=== PATIENT | female | born 1935 | race Caucasian/White ===

== ENCOUNTER 2017-11-13 12:29 | Observation (INO) | payer OTHER ==
--- NOTE | 2017-11-13 13:50 | RAD REPORT ---
EXAM DESCRIPTION: RAD - Chest Single View - 11/13/2017 1:42 pm CLINICAL HISTORY: Chest pain. COMPARISON: None. FINDINGS: Portable technique limits examination quality. The lungs are grossly clear. The heart is normal in size. No displaced fractures. IMPRESSION: No acute intrathoracic process suspected.
[2017-11-13 14:10] LABS: Absolute Lymphocytes (CBC) 2.1 K/uL (0.7-4.9); Absolute Monocytes 0.5 K/uL (0.1-1.3); Absolute Neutrophil 5.1 K/uL (1.8-8.0); Basophils % 0.4 % (0-1.3); Hematocrit 42.1 % (36.0-45.0); MCH 30.6 pg (27.0-35.0); MCV 93.5 fL (80-100); Monocytes % 6.7 % (3.3-12.3)
[2017-11-13 14:19] LABS: Protime INR 0.97
--- NOTE | 2017-11-13 14:20 | RAD REPORT ---
EXAM DESCRIPTION: CT - Head Brain Wo Cont - 11/13/2017 2:12 pm CLINICAL HISTORY: History of Parkinson's disease. Altered consciousness. COMPARISON: CT head 11/13/2017 TECHNIQUE: All CT scans are performed using dose optimization technique as appropriate and may inclu de automated exposure control or mA/KV adjustment according to patient size. FINDINGS: No intracranial hemorrhage, hydrocephalus or extra-axial fluid collection.Mild generalized brain atrophy is present with mild periventricular and deep white matter chronic microvascular ische tabatha changes.No areas of brain edema or evidence of midline shift. The paranasal sinuses and mastoids are clear. The calvarium is intact. IMPRESSION: No acute intracranial abnormality.
[2017-11-13 14:25] LABS: Albumin 3.8 g/dL (3.2-5.5); Bilirubin Direct 0.2 mg/dL (0-0.2); Magnesium 1.9 mg/dL (1.8-2.5); Protein, Total 6.5 g/dL (6.0-8.3)
--- NOTE | 2017-11-13 14:51 | EDPHYS ---
Physician Documentation [facility] Name: Lety Ontiveros Age: 82 yrs Sex: Female : 1935 Arrival Date: 11/13/2017 Time: 12:32 Bed 13 Private MD: ED Physician Cesario Bowling HPI: 11/13 14:40 This 82 yrs old Female presents to ER via Wheelchair with complaints of gs Shaking. 14:40 The patient presents with confusion. Onset: The symptoms/episode began/occurred 2 gs day(s) ago. Possible causes: CVA or TIA, exacerbation parkinsonism. Associated signs and symptoms: Pertinent negatives: abdominal pain, chest pain. Current symptoms: In the emergency department the patient's symptoms are unchanged from the initial presentation. The patient has experienced similar episodes in the past, a few times. The patient has not recently seen a physician. Historical: - Allergies: 12:43 PENICILLINS; lk1 - PMHx: 12:43 Parkinsons; neuropathy; Cancer, Breast; CVA; CHF; bowel obstruction; lk1 - PSHx: 12:43 masectomy right; Cholecystectomy; colon resection; Appendectomy; Hysterectomy; lk1 - Immunization history:: Adult Immunizations up to date. - Social history:: Smoking status: Patient/guardian denies using tobacco. ROS: 14:40 Constitutional: Negative for fever. gs 14:40 All other systems are negative. Exam: 14:40 Head/Face: Normocephalic, atraumatic. Eyes: Pupils equal round and reactive to light, gs extra-ocular motions intact. Lids and lashes normal. Conjunctiva and sclera are non-icteric and not injected. Cornea within normal limits. Periorbital areas with no swelling, redness, or edema. ENT: Nares patent. No nasal discharge, no septal abnormalities noted. Tympanic membranes are normal and external auditory canals are clear. Oropharynx with no redness, swelling, or masses, exudates, or evidence of obstruction, uvula midline. Mucous membranes moist. Neck: Trachea midline, no thyromegaly or masses palpated, and no cervical lymphadenopathy. Supple, full range of motion without nuchal rigidity, or vertebral point tenderness. No Meningismus. Chest/axilla: Normal chest wall appearance and motion. Nontender with no deformity. No lesions are appreciated. Cardiovascular: Regular rate and rhythm with a normal S1 and S2. No gallops, murmurs, or rubs. Normal PMI, no JVD. No pulse deficits. Respiratory: Lungs have equal breath sounds bilaterally, clear to auscultation and percussion. No rales, rhonchi or wheezes noted. No increased work of breathing, no retractions or nasal flaring. Abdomen/GI: Soft, non-tender, with normal bowel sounds. No distension or tympany. No guarding or rebound. No evidence of tenderness throughout. Back: No spinal tenderness. No costovertebral tenderness. Full range of motion. Skin: Warm, dry with normal turgor. Normal color with no rashes, no lesions, and no evidence of cellulitis. MS/ Extremity: Pulses equal, no cyanosis. Neurovascular intact. Full, normal range of motion. 14:40 Constitutional: The patient appears awake, lethargic. 14:40 Neuro: Orientation: Not oriented to place, time, situation, Cranial nerves: CN II- XII are normal as tested, Cerebellar function: no acute changes, Motor: moves all fours, strength is normal, Sensation: no obvious gross deficits, Abnormal movements: resting tremor, is located in the left hand. 14:50 ECG was reviewed by the Attending Physician. Vital Signs: 12:44 BP 131 / 107; Pulse 77; Resp 22; Temp 97.5(TE); Pulse Ox 95% on R/A; Weight 86.18 kg lk1 (R); Height 5 ft. 4 in. (162.56 cm) (R); Pain 9/10; 14:00 BP 163 / 87; Pulse 67; Resp 18 S; Pulse Ox 95% on R/A; jl7 16:29 BP 149 / 91; Pulse 70; Resp 16; Pulse Ox 96% ; jl7 12:44 Body Mass Index 32.61 (86.18 kg, 162.56 cm) lk1 MDM: 13:13 Patient medically screened. 14:40 Differential Diagnosis: CVA, electrolyte abnormality, intracranial bleed, sepsis. Data reviewed: vital signs, nurses notes. Response to treatment: the patient's symptoms have markedly improved after treatment, knows age, place,, name. Physician consultation: Efrain Hoff MD and will see patient in inpatient room, would like admission per Dr. Pauline Palm MD. 11/13 13:14 Order name: Basic Metabolic Panel; Complete Time: 14:29 11/13 13:14 Order name: BNP; Complete Time: 14:29 11/13 13:14 Order name: CBC with Diff; Complete Time: 14:29 11/13 13:14 Order name: CPK; Complete Time: 14:29 11/13 13:14 Order name: LFT's; Complete Time: 14:29 11/13 13:14 Order name: Magnesium; Complete Time: 14:29 11/13 13:14 Order name: PT-INR; Complete Time: 14:29 11/13 13:14 Order name: Troponin (emerg Dept Use Only); Complete Time: 14:29 11/13 13:14 Order name: XRAY Chest (1 view); Complete Time: 14:29 11/13 13:14 Order name: CT Head Brain wo Cont; Complete Time: 14:29 11/13 14:32 Order name: AMMONIA 11/13 14:33 Order name: Ammonia [facility] 11/13 16:14 Order name: Urinalysis [facility] 11/13 16:16 Order name: Stroke Protocol [facility] 11/13 13:14 Order name: EKG; Complete Time: 13:15 11/13 13:14 Order name: Cardiac monitoring; Complete Time: 14:57 11/13 13:14 Order name: EKG - Nurse/Tech; Complete Time: 14:57 11/13 13:14 Order name: IV Saline Lock; Complete Time: 13:52 11/13 13:14 Order name: Labs collected and sent; Complete Time: 13:52 11/13 13:14 Order name: O2 Per Protocol; Complete Time: 14:57 11/13 13:14 Order name: O2 Sat Monitoring; Complete Time: 14:57 11/13 16:14 Order name: CONS Physician Consult [facility] 11/13 16:14 Order name: Heart Healthy [facility] 11/13 16:18 Order name: Echo with Doppler [facility] EC:50 Rate is 72 beats/min. Rhythm is regular. WA interval is normal. QRS interval is normal. gs QT interval is normal. T waves are Normal. No ST changes noted. Clinical impression: Normal ECG. Interpreted by me. Administered Medications: 16:28 Drug: Ibuprofen 600 mg Route: PO; jl7 18:53 Follow up: Response: No adverse reaction jl7 Disposition: 11/13/17 14:50 Hospitalization ordered by Pauline Palm for Observation. Preliminary diagnosis are Altered mental status, unspecified, Parkinson's disease. - Bed requested for Telemetry/MedSurg (observation). - Status is Observation. jl7 - Condition is Stable. - Problem is an acute exacerbation. - Symptoms have improved. UTI on Admission? No Signatures: Dispatcher [employer] EDMS Saskia Phelps, RN RN iw Sheryl King, RN RN lk1 Deedee Vincent, RN RN jl7 Cesario Bowling MD MD gs Corrections: (The following items were deleted from the chart) 18:04 14:50 Hospitalization Ordered by Pauline Palm MD for Observation. Preliminary iw diagnosis is Altered mental status, unspecified; Parkinson's disease. Bed requested for Telemetry/MedSurg (observation). Status is Observation. Condition is Stable. Problem is an acute exacerbation. Symptoms have improved. UTI on Admission? No. gs 18:54 18:04 11/13/2017 14:50 Hospitalization Ordered by Pauline Palm MD for Observation. jl7 Preliminary diagnosis is Altered mental status, unspecified; Parkinson's disease. Bed requested for Telemetry/MedSurg (observation). Status is Observation. Condition is Stable. Problem is an acute exacerbation. Symptoms have improved. UTI on Admission? No. iw
--- NOTE | 2017-11-13 14:51 | ER ---
Nurse's Notes [facility] Name: Lety Ontiveros Age: 82 yrs Sex: Female : 1935 Arrival Date: 11/13/2017 Time: 12:32 Bed 13 Private MD: Diagnosis: Altered mental status, unspecified;Parkinson's disease Presentation: 11/13 12:40 Presenting complaint: Child states: "She can't talk and understand things, she is lk1 confused and shaking more. We called Dr. Hoff and he wants to be notified and he may keep her in the hospital to adjust her Parkisons meds.". Transition of care: patient was not received from another setting of care. Onset of symptoms is unknown. Risk Assessment: Do you want to hurt yourself or someone else? Patient reports no desire to harm self or others. Initial Sepsis Screen: Does the patient meet any 2 criteria? No. Patient's initial sepsis screen is negative. Does the patient have a suspected source of infection? No. Patient's initial sepsis screen is negative. Care prior to arrival: None. 12:40 Method Of Arrival: Wheelchair lk1 12:40 Acuity: FLORES 3 lk1 Triage Assessment: 12:43 General: Appears in no apparent distress. Behavior is calm, cooperative, appropriate lk1 for age. Pain: Complains of pain in "all over my body" Pain currently is 9 out of 10 on a pain scale. Neuro: Level of Consciousness is awake, alert, obeys commands, Oriented to person, place, time, situation. Historical: - Allergies: 12:43 PENICILLINS; lk1 - PMHx: 12:43 Parkinsons; neuropathy; Cancer, Breast; CVA; CHF; bowel obstruction; lk1 - PSHx: 12:43 masectomy right; Cholecystectomy; colon resection; Appendectomy; Hysterectomy; lk1 - Immunization history:: Adult Immunizations up to date. - Social history:: Smoking status: Patient/guardian denies using tobacco. Screenin:50 Abuse screen: Denies threats or abuse. Denies injuries from another. Nutritional jl7 screening: No deficits noted. Tuberculosis screening: No symptoms or risk factors identified. Fall Risk Secondary diagnosis (15 points) impaired mobility, IV access (20 points). Ambulatory Aid- Gait- Weak (10 pts.). Total Epperson Fall Scale indicates High Risk Score (45 or more points). Fall prevention measures have been instituted. Side Rails Up X 2 Placed Close to Nursing Station Frequent Obs/Assessments Occuring Family Present and informed to notify staff if the need to leave the bedside As available patient and family educated on Fall Prevention Program and Strategies. Assessment: 13:50 General: Appears in no apparent distress. uncomfortable, Behavior is calm, cooperative, jl7 appropriate for age. Pain: Complains of pain in "I'm always in pain all over my body.". Neuro: Level of Consciousness is awake, alert, obeys commands, Oriented to person, place, time, situation. Cardiovascular: Patient's skin is warm and dry. Respiratory: Airway is patent Respiratory effort is even, unlabored, Respiratory pattern is regular, symmetrical. GI: No signs and/or symptoms were reported involving the gastrointestinal system. : No signs and/or symptoms were reported regarding the genitourinary system. EENT: No signs and/or symptoms were reported regarding the EENT system. Derm: Skin is pink, warm \\T\\ dry. Musculoskeletal: Reports Increased shaking all over. 14:59 Reassessment: No changes from previously documented assessment. Patient and/or family jl7 updated on plan of care and expected duration. Pain level reassessed. Patient is alert, oriented x 3, equal unlabored respirations, skin warm/dry/pink. 16:20 Reassessment: Pt requesting something for pain, provider notified, see MAR for orders. jl7 18:45 Reassessment: Pt returned from MRI, transported to the floor via Wheelchair. jl7 Vital Signs: 12:44 BP 131 / 107; Pulse 77; Resp 22; Temp 97.5(TE); Pulse Ox 95% on R/A; Weight 86.18 kg lk1 (R); Height 5 ft. 4 in. (162.56 cm) (R); Pain 9/10; 14:00 BP 163 / 87; Pulse 67; Resp 18 S; Pulse Ox 95% on R/A; jl7 16:29 BP 149 / 91; Pulse 70; Resp 16; Pulse Ox 96% ; jl7 12:44 Body Mass Index 32.61 (86.18 kg, 162.56 cm) lk1 ED Course: 12:32 Patient arrived in ED. mr 12:41 Triage completed. lk1 12:47 Arm band placed on right wrist. lk1 12:48 Cesario Bowling MD is Attending Physician. gs 13:[address] via stretcher. kw1 13:42 X-ray completed. Portable x-ray completed in exam room. Patient tolerated procedure jb2 well. 13:42 XRAY Chest (1 view) In Process Unspecified. EDMS 13:43 Radiology exam delayed due to Staff is starting Pt's IV at this time. Will check back kw1 in 10 min. 13:50 Patient has correct armband on for positive identification. Bed in low position. Call jl7 light in reach. Side rails up X2. Pulse ox on. NIBP on. 13:52 Initial lab(s) drawn, by me, sent to lab. Inserted saline lock: 20 gauge in left em1 antecubital area, using aseptic technique. Blood collected. 13:[address] via wheelchair. kw1 14:12 CT Head Brain wo Cont In Process Unspecified. EDMS 14:13 CT completed. Patient tolerated procedure well. Patient moved back from CT. mw3 14:25 Deedee Vincent, RN is Primary Nurse. jl7 14:27 EKG done, by community service technician. reviewed by Cesario Bowling MD. 3 14:50 Pauline Palm MD is Hospitalizing Provider. gs 16:41 Patient moved to MRI via wheelchair. lc 18:00 Inserted saline lock: 22 gauge in left hand, using aseptic technique. ag 18:51 No provider procedures requiring assistance completed. Patient admitted, IV remains in jl7 place. Administered Medications: 16:28 Drug: Ibuprofen 600 mg Route: PO; jl7 18:53 Follow up: Response: No adverse reaction jl7 Outcome: 14:50 Decision to Hospitalize by Provider. gs 18:51 Admitted to Tele accompanied by tech, family with patient, via wheelchair, with chart, jl7 Report called to JAKE Alanis 18:51 Condition: stable 18:51 Discharge instructions given to patient, family, Instructed on the need for admit, Demonstrated understanding of instructions. 18:54 Patient left the ED. jl7 Signatures: Dispatcher [employer] EDCO Minna Banegas mr Bravo Inder jb2 Barbara Bonilla, Jimmy em1 Nataliia Cavazos Leah, RN RN lk1 Deedee Vincent RN RN jl7 Cesario Bowling MD MD Alayna Reynoso1 Maricarmen Perkins 3 Maria Antonia [place] 3
--- NOTE | 2017-11-13 16:03 | EKG ---
Test Date: 2017-11-13 Test Time: 13:27:10 Draw Frame Tender: ARLETTE MEASUREMENT RESULTS: Intervals: Rate: 72 SC: 180 QRSD: 82 QT: 402 QTc: 440 [place]: P: 27 SC: 180 QRS: -8 T: 41 INTERPRETIVE STATEMENTS: Normal sinus rhythm Normal ECG Compared to ECG 01/03/2006 11:19:22 No significant changes Electronically Signed On 11-13-17 16:02:38 CDT by Nishant Hall
[2017-11-13] MEDS ORDERED: ONDANSETRON 4 MG/2 ML VIAL IV PRN (16:12)
[2017-11-13] MEDS ORDERED: ACETAMINOPHEN 500 MG TAB PO PRN (16:12)
[2017-11-13] MEDS ORDERED: ACETAMINOPHEN 325 MG TABLET ONE (16:18)
[2017-11-13] MEDS ORDERED: IBUPROFEN 200 MG TAB PO ONE (16:23)
[2017-11-13] MEDS ORDERED: IBUPROFEN 400 MG TAB ONE (16:23)
--- NOTE | 2017-11-13 16:51 | P.HP ---
Certification for Inpatient Patient admitted to: Observation With expected LOS: <2 Midnights Patient will require the following post-hospital care: None Practitioner: I am a practitioner with admitting privileges, knowledge of patient current condition, hospital course, and medical plan of care. Services: Services provided to patient in accordance with Admission requirements found in Title 42 Section 412.3 of the Code of Federal Regulations Patient History Date of Service: 11/13/17 Primary Care Provider: Dr Hoff - Neurology Reason for admission: Increased Shaking History of Present Illness: 82 y/Old female with significant past medical history of CVA, CHF, Parkinson's disease who presented to the ED with her family. Family at bedside told the ED physician that she has not been able to talk and understand things. Patient has been confused and shaking more than usual at home. Family called Dr Hoff neurologist, at his office and he wanted patient to be taken to the ER for further evaluation and possible admission to adjust her medications. Patient's family stated that her confusion started about 2-3 days ago mostly after Monday where she has been having trouble understanding things. Patient denies having any fever chills nausea vomiting chest pain or shortness of breath at this time. Aside from increasing shaking and intermittent confusion patient does not have any other symptoms at this time for complaints to offer. Allergies Penicillins Allergy (Verified 11/13/17 16:30) UNK - Past Medical/Surgical History -: CVA -: CHF -: Parkinson's Disease -: Dementia Review of Systems General: As per HPI Physical Examination - Physical Exam General: Alert, In no apparent distress, Oriented x3 HEENT: Atraumatic Neck: Supple Respiratory: Clear to auscultation bilaterally, Normal air movement Cardiovascular: Regular rate/rhythm, Normal S1 S2 Gastrointestinal: Normal bowel sounds, Soft and benign, Non-distended, No tenderness Musculoskeletal: Other (Pillrolling tremors upper Extermites) Integumentary: No rashes Neurological: Normal speech, Normal strength at 5/5 x4 extr, Normal tone, Sensation intact, Cranial nerves 3-12 intact, Normal reflexes 2+, Normal affect , Dementia Lymphatics: No axilla or inguinal lymphadenopathy - Studies Laboratory Data (last 24 hrs) 11/13/17 13:45: PT 11.4, INR 0.97 11/13/17 13:45: WBC 7.8, Hgb 13.8, Hct 42.1, Plt Count 347 11/13/17 13:45: B-Natriuretic Peptide 12 11/13/17 13:45: Sodium 140, Potassium 4.0, BUN 19, Creatinine 0.90, Glucose 110 , Magnesium 1.9, Total Bilirubin 1.0, AST 20, ALT 9 L, Alkaline Phosphatase 75 Assessment and Plan - Problems (Diagnosis) (1) Altered mental status Current Visit: Yes Status: Resolved Plan: AMS per family. However Pt AAOx 3 When I assessed her. -Neurology consulted. Awaiting reccs -MRI head pending -Urine negative, Head CT WNL and xray with no signs of acute abnormality. -Will repeat lab in AM Qualifiers: Altered mental status type: unspecified Qualified Code(s): R41.82 - Altered mental status, unspecified (2) Parkinson disease Current Visit: Yes Status: Chronic Plan: Most Likely pt symptoms of Increase shakes and AMS consistent with Progression of PD dementia -Await Neurology consult. (3) CHF (congestive heart failure) Current Visit: Yes Status: Acute Plan: H/O CHF. -ECHO ordered -Restart home medication Qualifiers: Heart failure type: unspecified Heart failure chronicity: unspecified Qualified Code(s): I50.9 - Heart failure, unspecified (4) CVA (cerebral vascular accident) Current Visit: Yes Status: Chronic Plan: H/O CVA with no neurological Deficets now with intermittent Confusion per family -ASA and Lipitor -PT consulted -MRI stroke protocol pending. Qualifiers: CVA mechanism: unspecified Qualified Code(s): I63.9 - Cerebral infarction, unspecified Discharge Plan: Home - Advance Directives Does patient have a Living Will: No Does patient have a Durable POA for Healthcare: No - Code Status/Comfort Care Code Status Assessed: Yes Critical Care: No
--- NOTE | 2017-11-13 18:58 | RAD REPORT ---
EXAM DESCRIPTION: MRI - Stroke Protocol - 11/13/2017 6:43 pm CLINICAL HISTORY: CVA. COMPARISON: 10/11/2017 TECHNIQUE: MRI of brain with diffusion-weighted imaging with contrast 3D [id number] non contrast MR angiography of the agdaagux of [place]. 2D [id number] post contrast MR angiography of the neck vessels. Approximately 20 cc of Magnevist contrast was administered during the study. FINDINGS: No intracranial hemorrhage, hydrocephalus or extra-axial fluid collection is seen. Gliosis is noted in the right frontotemporal region, likely related to previous CVA and unchanged.No areas o f brain edema or midline shift. No intracranial mass lesion. Diffusion-weighted imaging is negative for acute CVA. The midline structures are normally formed. Post-contrast imaging through the brain shows no abnormal enhancement to suggest tumor or infection. Mastoid air cells and paranasal sinuses are clear. MR angiography of the agdaagux of [place] shows no aneurysm, flow-limiting stenosis or vascular malforma tion. MR angiography of the neck vessels shows mild narrowing of both carotid bulbs. Antegrade flow is seen in both vertebral arteries. IMPRESSION: No evidence of acute CVA.
[2017-11-13 20:27] LABS: Urine Appearance CLOUDY; Urine Bilirubin NEGATIVE (NEG); Urine Blood NEGATIVE (NEG); Urine Color YELLOW; Urine Glucose NEGATIVE (NEG); Urine Protein NEGATIVE (NEG); Urine Specific Gravity >=1.030 (1.005-1.030); Urine Urobilinogen 0.2 mg/dL (0.2-1.0); Urine pH 5.5 (5.0-7.0)
[2017-11-13 20:29] LABS: Urine Microscopic Reflex ORDER UMIC
[2017-11-13 21:00] LABS: Urine Bacteria 20-50 /HPF (<20); Urine Culture Reflex Order REFLEXED; Urine Mucus 1+ /HPF (NONE SEEN); Urine RBC <5 /HPF (NONE SEEN)
[2017-11-13] MEDS ORDERED: ATORVASTATIN 80 MG TAB PO SCH (21:00)
[2017-11-13] MEDS: TEMAZEPAM 15 MG CAP PO PRN (23:06)
[2017-11-14] MEDS ORDERED: LINACLOTIDE 72 MCG PO SCH (08:45)
[2017-11-14] MEDS ORDERED: ASPIRIN EC 81 MG TAB PO SCH (09:00)
[2017-11-14] MEDS: DICYCLOMINE HCL 10 MG CAP PO SCH (10:24)
[2017-11-14] MEDS: MULTIVIT W/ MINERAL TAB PO SCH (10:24)
[2017-11-14] MEDS: ASPIRIN EC 81 MG TAB PO SCH (10:24)
[2017-11-14] MEDS: GABAPENTIN 300 MG CAP PO SCH ×3 (10:24→20:18)
[2017-11-14] MEDS: CARBIDOPA/LEVODOPA 25/250 TAB PO SCH ×3 (10:25→20:20)
[2017-11-14] MEDS: ROPINIROLE HCL 0.25 MG TAB PO SCH ×3 (10:25→20:20)
[2017-11-14] MEDS: ATORVASTATIN 40 MG TAB PO SCH ×2 (10:25→20:20)
[2017-11-14] MEDS: PANTOPRAZOLE 40MG TABLET PO SCH (10:25)
[2017-11-14] MEDS: CODEINE 30MG/APAP 300MG TAB PO PRN ×3 (11:48→21:23)
--- NOTE | 2017-11-14 12:16 | ECHO ---
HEIGHT: 5 ft 4 in WEIGHT: 190 lb 0 oz DATE OF STUDY: 11/14/[address]: Pauline Palm MD 2-DIMENSIONAL: YES M.MODE: YES DOPPLER: YES COLOR FLOW: YES TDS: YES PORTABLE: NO DEFINITY: NO BUBBLE STUDY: NO DIAGNOSIS: SHORTNESS OF BREATH CARDIAC HISTORY: CATHERIZATION: NO SURGERY: NO PROSTHETIC VALVE: NO PACEMAKER: NO MEASUREMENTS (cm) DIASTOLIC (NORMALS) SYSTOLIC (NORMALS) IVSd 1.1 (0.6-1.2) LA Diam 3.3 (1.9-4.0) LVEF 75% LVIDd 3.2 (3.5-5.7) LVIDs 1.8 (2.0-3.5) %FS 43% LVPWd 1.1 (0.6-1.2) Ao Diam 3.1 (2.0-3.7) 2 DIMENSIONAL ASSESSMENT: RIGHT ATRIUM: NORMAL LEFT ATRIUM: NORMAL RIGHT VENTRICLE: NORMAL LEFT VENTRICLE: NORMAL TRICUSPID VALVE: NORMAL MITRAL VALVE: NORMAL PULMONIC VALVE: NORMAL AORTIC VALVE: NORMAL PERICARDIAL EFFUSION: NONE AORTIC ROOT: NORMAL LEFT VENTRICULAR WALL MOTION: DOPPLER/COLOR FLOW: PHYSIOLOGIC TRICUSPID REGURGITATION. NORMAL RIGHT VENTRICULAR SYSTOLIC PRESSURE. IMPAIRED LEFT VENTRICULAR RELAXATION. COMMENTS: NORMAL LEFT VENTRICULAR EJECTION FRACTION. NORMAL 2D ECHOCARDIOGRAM. IMPAIRED LEFT VENTRICULAR RELAXATION. TECHNOLOGIST: James GLOVER
--- NOTE | 2017-11-14 13:59 | P.SSS ---
Patient History Date of Service: 11/14/17 Primary Care Provider: Dr Hoff - Neurology Reason for admission: Increased Shaking History of Present Illness: 82 y/Old female with significant past medical history of CVA, CHF, Parkinson's disease who presented to the ED with her family. Family at bedside told the ED physician that she has not been able to talk and understand things. Patient has been confused and shaking more than usual at home. Family called Dr Hoff neurologist, at his office and he wanted patient to be taken to the ER for further evaluation and possible admission to adjust her medications. Patient's family stated that her confusion started about 2-3 days ago mostly after Monday where she has been having trouble understanding things. Patient denies having any fever chills nausea vomiting chest pain or shortness of breath at this time. Aside from increasing shaking and intermittent confusion patient does not have any other symptoms at this time for complaints to offer. Allergies Penicillins Allergy (Verified 11/13/17 19:30) UNK Home Medications: Acetaminophen with Codeine [Acetaminophen-Cod #3 Tablet] 1 each PO PRN PRN 11/13 Aspirin [Aspirin EC 81 MG] 81 mg PO DAILY 11/13/17 Atorvastatin Calcium [Lipitor] 40 mg PO DAILY 11/13/17 Carbidopa/Levodopa [Carbidopa-Levo 25-250 mg Odt] 1 tab PO TID 11/13/17 Dicyclomine HCl 20 mg PO SEECOM 11/13/17 Gabapentin [Neurontin*] 300 mg PO TID 11/13/17 Linaclotide [Linzess] 72 mcg PO SEECOM 11/13/17 Multivitamin [Multivitamins] 1 cap PO DAILY 11/13/17 Pantoprazole [Protonix Tab*] 40 mg PO DAILY 11/13/17 Ropinirole HCl [Requip*] 0.25 mg PO TID 11/13/17 Temazepam [Restoril*] 30 mg PO BEDTIME PRN 11/13/17 - Past Medical/Surgical History Has patient received pneumonia vaccine in the past: Yes Diabetic: No -: CVA -: CHF -: Parkinson's Disease -: Dementia -: right mastectomy -: cholecystectomy -: colon resection -: appendectomy -: hysterectomy - Social History Smoking Status: Never smoker Alcohol use: Yes Place of Residence: Home Review of Systems General: As per HPI Physical Examination - Vital Signs Temperature: 97.0 F Blood Pressure: 150/78 Pulse: 78 Respirations: 18 Pulse Ox (%): 92 - Physical Exam General: Alert, Oriented x3, Other (left arm intentional Shaking noted. ) HEENT: Atraumatic Neck: Supple Respiratory: Clear to auscultation bilaterally, Normal air movement Cardiovascular: Regular rate/rhythm, Normal S1 S2 Gastrointestinal: Normal bowel sounds, Soft and benign, Non-distended, No tenderness Musculoskeletal: No tenderness Integumentary: No rashes Neurological: Normal speech, Normal strength at 5/5 x4 extr, Normal tone, Abnormal gait (Box Gait) Lymphatics: No axilla or inguinal lymphadenopathy - Studies Laboratory Data (last 24 hrs) 11/13/17 13:45: PT 11.4, INR 0.97 11/13/17 13:45: WBC 7.8, Hgb 13.8, Hct 42.1, Plt Count 347 11/13/17 13:45: B-Natriuretic Peptide 12 11/13/17 13:45: Sodium 140, Potassium 4.0, BUN 19, Creatinine 0.90, Glucose 110 , Magnesium 1.9, Total Bilirubin 1.0, AST 20, ALT 9 L, Alkaline Phosphatase 75 - Diagnosis (Problem(s)) (1) Altered mental status Onset Date: 11/14/17 Current Visit: Yes Status: Ruled-out Plan: Resolved now -Neurology consulted. Reccs Appreciated -MRI negative and ECHO WNL -Urine negative, Head CT WNL and xray with no signs of acute abnormality. - Pt symptoms are most likely 2.2 progression of her Parkinson disease. CVA is ruled out at this point. Qualifiers: Altered mental status type: unspecified Qualified Code(s): R41.82 - Altered mental status, unspecified (2) Parkinson disease Onset Date: 11/14/17 Current Visit: Yes Status: Chronic Plan: Most Likely pt symptoms of Increase shakes and AMS consistent with Progression of PD dementia (3) CHF (congestive heart failure) Onset Date: 11/14/17 Current Visit: Yes Status: Acute Plan: H/O CHF. -ECHO WNL -Restart home medication Qualifiers: Heart failure type: unspecified Heart failure chronicity: unspecified Qualified Code(s): I50.9 - Heart failure, unspecified (4) CVA (cerebral vascular accident) Onset Date: 11/14/17 Current Visit: Yes Status: Chronic Plan: H/O CVA with no neurological Deficits now with intermittent Confusion per family -ASA and Lipitor No Acute CVA this time. Qualifiers: CVA mechanism: unspecified Qualified Code(s): I63.9 - Cerebral infarction, unspecified - Disposition Disposition: ROUTINE DISCHARGE Condition: GOOD Patient Discharge Instructions: Please f/u with PCP and Dr Hoff in 1 to 2 weeks post discharge. No new medication Diet: Regular Activity: Ad pilar
[2017-11-14] MEDS: RIVASTIGMINE 4.6 MG/24 HR PATCH TD SCH (20:57)
[2017-11-14] MEDS ORDERED: DICYCLOMINE HCL 10 MG CAP PO SCH (21:00)
[2017-11-14] MEDS: TEMAZEPAM 15 MG CAP PO PRN (22:34)
--- NOTE | 2017-11-15 01:20 | CON ---
Date of Consultation: 11/14/2017 Time: 2029. Reason: Altered mental status, Parkinson's. History: An 82-year-old lady with Parkinson disease and memory difficulties, possible Lewy body dise ase. I was contacted by her family because they said the patient was unresponsive and they were conc erned she might be having a stroke, so she was directed to the emergency department, where evaluation there was largely unrevealing. CT scan of the brain negative for hemorrhage. The patient improved somewhat and was admitted for observation for further evaluation, rule out stroke. Brain MRI subsequ ently demonstrates no evidence for an acute stroke. The patient as noted has advanced Parkinson dise ase with dementia with the unenviable problem of remaining tremor at rest as well as mild dyskinesias and consultation was requested. Past Medical History: Parkinson disease, hyperlipidemia. Medications: Aspirin, atorvastatin, Sinemet, , gabapentin, Zofran, Requip, temazepam. Allergies: PENICILLIN. Social History: Lives with daughter. Requires assistance with most activities of daily living. Bazan s drink. Review of Systems: General: Chronically ill. Eyes: Negative. Ears, Nose, Throat: Negative. Cardiovascular: Negative. Pulmonary: Negative. GI: Negative. : Negative. Musculoskeletal: Arthralgias, Parkinson's. Neurologic: As noted. Psychiatric: Negative. Endocrine: Negative. Hematologic: Negative. Physical Examination: General: On exam, she is awake, alert. Follows command. Not excessively confused. HEENT: Pupils reactive. Ocular motion full. Cook full. Neurologic: Facial strength and sensation normal. Tongue protrudes evenly. Soft palate elevates sy mmetrically bilaterally. Moderate masking. Examination of her extremities reveals resting tremor, l eft greater than right. Cogwheeling, bradykinesia, and rigidity, left greater than right. Strength full. Sensation intact. Reflexes 1/4. Toes are downgoing. Impression: Parkinson disease, dementia, possible Lewy body disease given the prominent fluctuations in her sensorium. No evidence for stroke. Plan: We will add an Exelon patch. We need to get the memory issue under better control and then __ to the parkinsonian movement disorder proper. Amantadine would be the drug of choice to yariel at the dyskinesias as well as the Parkinson's, but the drug is going to have the potential side effec t worsen the memory proper and we may need to further adjust the carbidopa/levodopa to a smaller dose given more frequently but we can address all that in the clinic. I think she is stable to be discha rged to home with outpatient followup. Thank you for the consult. DELLA Voice ID: [id number] Report ID: [id number]
[2017-11-15] MEDS: CARBIDOPA/LEVODOPA 25/250 TAB PO SCH (10:17)
[2017-11-15] MEDS: GABAPENTIN 300 MG CAP PO SCH (10:17)
[2017-11-15] MEDS: DICYCLOMINE HCL 10 MG CAP PO SCH (10:18)
[2017-11-15] MEDS: PANTOPRAZOLE 40MG TABLET PO SCH (10:18)
[2017-11-15] MEDS: MULTIVIT W/ MINERAL TAB PO SCH (10:18)
[2017-11-15] MEDS: RIVASTIGMINE 4.6 MG/24 HR PATCH TD SCH (10:18)
[2017-11-15] MEDS: ROPINIROLE HCL 0.25 MG TAB PO SCH (10:18)
[2017-11-15] MEDS: ASPIRIN EC 81 MG TAB PO SCH (10:18)
[2017-11-15] MEDS: CODEINE 30MG/APAP 300MG TAB PO PRN (10:26)
== END 2017-11-15 10:53 | disposition home or self-care (01) ==
LOC: ER 12:29 → ERHOLD 14:50 → 2ND 18:24
PROVIDERS: ADMIT Family Medicine; ATTEND Family Medicine
DX: R41.82 Altered mental status, unspecified (principal); G20 Parkinson's disease; F02.80 Dementia in other diseases classified elsewhere, unspecified severity, without behavioral disturbance, psychotic disturbance, mood disturbance, and anxiety; E78.5 Hyperlipidemia, unspecified; Z86.73 Personal history of transient ischemic attack (TIA), and cerebral infarction without residual deficits; I50.9 Heart failure, unspecified; Z79.82 Long term (current) use of aspirin; Z88.0 Allergy status to penicillin
CPT/HCPCS: 36415; 70450; 70544; 70549; 70553; 71045; 80048; 80076; 82140; 82550; 83735; 83880; 84484; 85025; 85610; 87086; 87088; 93005; 93306; 97116; 97163; 97530; 99285; A9577; G0378 ×2; 81003; 81015

== ENCOUNTER 2017-12-27 14:16 | Observation (INO) | payer OTHER ==
--- NOTE | 2017-12-27 14:53 | RAD REPORT ---
EXAM DESCRIPTION: Jorge Luis Single View12/27/2017 2:40 pm CLINICAL HISTORY: Chest pain COMPARISON: October 2017 FINDINGS: The lungs appear clear of acute infiltrate. The heart is normal size IMPRESSION: No acute abnormalities displayed
[2017-12-27 15:14] LABS: Absolute Lymphocytes (CBC) 2.2 K/uL (0.7-4.9); Absolute Monocytes 0.5 K/uL (0.1-1.3); Absolute Neutrophil 4.3 K/uL (1.8-8.0); Basophils % 0.4 % (0-1.3); Lymphocytes % 31.1 % (15.3-44.8); MCH 31.2 pg (27.0-35.0); MPV 8.2 fL (7.6-11.3); Monocytes % 7.4 % (3.3-12.3); RBC Red Blood Cell Count 4.19 M/uL (3.86-4.86)
[2017-12-27 15:18] LABS: Protime INR 0.95
[2017-12-27 15:30] LABS: BUN Blood Urea Nitrogen 12 mg/dL (7-18); Bicarbonate 26 mmol/L (21-32); CKMB Creatine Kinase MB < 1.0 ng/mL (0.3-3.6); Creatine Phosphokinase 32 U/L (26-192); Glucose Level 100 mg/dL (74-106); NT PRO-BNP 131 pg/mL (<450); Potassium 3.7 mmol/L (3.5-5.1); Sodium Level 140 mmol/L (136-145)
[2017-12-27] MEDS ORDERED: ONDANSETRON 4 MG/2 ML VIAL IV PRN (16:22)
[2017-12-27] MEDS ORDERED: ACETAMINOPHEN 500 MG TAB PO PRN (16:22)
--- NOTE | 2017-12-27 16:31 | P.HP ---
Certification for Inpatient Patient admitted to: Observation With expected LOS: <2 Midnights Patient will require the following post-hospital care: None Practitioner: I am a practitioner with admitting privileges, knowledge of patient current condition, hospital course, and medical plan of care. Services: Services provided to patient in accordance with Admission requirements found in Title 42 Section 412.3 of the Code of Federal Regulations Patient History Date of Service: 12/28/17 Primary Care Provider: OOT Reason for admission: Chest pain History of Present Illness: This is a 82-year-old female with significant past medical history of Parkinson' s dementia, CVA, presented to the ED complaining of having some left-sided chest pain that was radiating down to her left arm that started this morning while she was laying in bed. Patient states that she does not have any associated shortness of breath nausea vomiting chills fever at this time. The pain is on the left side and is dull in nature. Patient is a 8/10 at its worst. Nitro does help with the pain however she feels as if something is stuck in her throat as well. No other complaints to offer. Allergies Penicillins Allergy (Verified 11/13/17 19:30) UNK Home Medications: Acetaminophen with Codeine [Acetaminophen-Cod #3 Tablet] 1 each PO PRN PRN 11/13 Aspirin [Aspirin EC 81 MG] 81 mg PO DAILY 11/13/17 Atorvastatin Calcium [Lipitor] 40 mg PO BEDTIME 11/13/17 Carbidopa/Levodopa [Carbidopa-Levo 25-250 mg Odt] 250 mg PO TID 11/13/17 Dicyclomine HCl 20 mg PO BID 11/13/17 Gabapentin [Neurontin*] 300 mg PO TID 11/13/17 Linaclotide [Linzess] 72 mcg PO SEECOM 11/13/17 Benzonatate [Tessalon Perle*] 1 cap PO PRN PRN 12/27/17 Hydrocortisone [Cortef*] 10 mg PO DAILY 12/27/17 Meclizine HCl 1 tab PO PRN PRN MDD q4 12/27/17 Rivastigmine Patch [Exelon 4.6 mg Patch*] 1 patch TOP DAILY 12/27/17 Ropinirole HCl 1 tab PO TID 12/27/17 Zolpidem Tartrate [Ambien*] 5 mg PO BEDTIME PRN 12/27/17 - Past Medical/Surgical History Has patient received pneumonia vaccine in the past: No Diabetic: No -: CVA -: HTN -: Parkinson's Disease -: Dementia -: right mastectomy -: cholecystectomy -: colon resection -: appendectomy -: hysterectomy - Family History Family History: Reviewed- Non-Contributory - Family History Father History Unknown: Yes Mother History Unknown: Yes - Social History Smoking Status: Unknown if ever smoked Alcohol use: Yes Review of Systems General: As per HPI Physical Examination - Physical Exam General: Alert, In no apparent distress, Demented HEENT: Atraumatic Neck: Supple Respiratory: Clear to auscultation bilaterally, Normal air movement Cardiovascular: Regular rate/rhythm, Normal S1 S2 Gastrointestinal: Normal bowel sounds, Soft and benign, Non-distended, No tenderness Musculoskeletal: No tenderness Integumentary: No rashes Neurological: Normal speech, Normal tone, Abnormal strength Lymphatics: No axilla or inguinal lymphadenopathy - Studies Laboratory Data (last 24 hrs) 12/27/17 14:48: PT 11.2, INR 0.95, APTT 26.2 12/27/17 14:48: WBC 7.1, Hgb 13.1, Hct 39.0, Plt Count 327 12/27/17 14:48: Sodium 140, Potassium 3.7, BUN 12, Creatinine 0.70, Glucose 100 Assessment and Plan - Problems (Diagnosis) (1) Chest pain Onset Date: 12/28/17 Current Visit: Yes Status: Acute Plan: Atypical Chest Pain x 1 days. Troponinx 1 negative, EKG with No acute changes -Admit to med surg for ACS r/o -ECHO in October 2017 was WNL. -Repeat Troponin x 2 -Cardiology consulted. If needed will repeat ECHO -ASA, BB and Statin Qualifiers: Chest pain type: unspecified Qualified Code(s): R07.9 - Chest pain, unspecified (2) HTN (hypertension) Onset Date: 12/28/17 Current Visit: Yes Status: Chronic Plan: Restart Home medication Qualifiers: Hypertension type: essential hypertension Qualified Code(s): I10 - Essential (primary) hypertension (3) CVA (cerebral vascular accident) Onset Date: 11/14/17 Current Visit: No Status: Chronic Plan: H/o CVA in the past. -Stable for now Qualifiers: CVA mechanism: unspecified Qualified Code(s): I63.9 - Cerebral infarction, unspecified (4) Parkinson disease Onset Date: 11/14/17 Current Visit: No Status: Chronic Plan: PD with Dementia -stable for now -Restart home medication Discharge Plan: Other Plan to discharge in: 24 Hours - Advance Directives Does patient have a Living Will: No Does patient have a Durable POA for Healthcare: No - Code Status/Comfort Care Code Status Assessed: Yes Critical Care: No
--- NOTE | 2017-12-27 16:40 | ER ---
Nurse's Notes [facility] Emergency Department Name: Lety Ontiveros Age: 82 yrs Sex: Female : 1935 Arrival Date: 12/27/2017 Time: 14:24 Bed 15 Private MD: Diagnosis: Chest pain, unspecified Presentation: 12/27 14:27 Presenting complaint: EMS states: Began experiencing chest pain yesterday, worse today, ph describes as pressure also c/o SOB when pain began, nitro spary x1 administered en route, pt reports that pain decreased, 324 aspirin also given, pt hx of CVA. Transition of care: patient was not received from another setting of care. Onset of symptoms was December 27, 2017. Risk Assessment: Do you want to hurt yourself or someone else? Patient reports no desire to harm self or others. Initial Sepsis Screen: Does the patient meet any 2 criteria? No. Patient's initial sepsis screen is negative. Does the patient have a suspected source of infection? No. Patient's initial sepsis screen is negative. Care prior to arrival: Medication(s) given: ASA, 325 mg, Nitroglycerin. 14:27 Method Of Arrival: EMS: [facility] 14:27 Acuity: FLORES 3 ph Historical: - Allergies: 14:31 PENICILLINS; ph - PMHx: 14:31 bowel obstruction; Cancer, Breast; CHF; CVA; neuropathy; Parkinsons; ph - PSHx: 14:31 masectomy right; Cholecystectomy; colon resection; Appendectomy; Hysterectomy; ph - Immunization history:: Adult Immunizations unknown. - Social history:: Smoking status: Patient/guardian denies using tobacco. - Ebola Screening: : No symptoms or risks identified at this time. - Family history:: not pertinent. - Hospitalizations: : No recent hospitalization is reported. Screenin:32 Abuse screen: Denies threats or abuse. Denies injuries from another. Nutritional ph screening: No deficits noted. Tuberculosis screening: No symptoms or risk factors identified. Fall Risk None identified. Assessment: 14:30 General: Appears in no apparent distress. comfortable, well groomed, Behavior is calm, ph cooperative, agitated, Denies fever, fatigue. Pain: Complains of pain in mid-sternal area Pain does not radiate. Neuro: Level of Consciousness is awake, alert, obeys commands, Oriented to person, place, time, situation. Cardiovascular: Reports chest pain, shortness of breath, Denies nausea, vomiting, Capillary refill < 3 seconds Patient's skin is warm and dry. Rhythm is regular. Respiratory: Reports shortness of breath at rest Airway is patent Respiratory effort is even, unlabored, Respiratory pattern is regular, symmetrical. GI: No signs and/or symptoms were reported involving the gastrointestinal system. Derm: Skin is intact, is healthy with good turgor, Skin is pink, warm \T\ dry. Musculoskeletal: Circulation, motion, and sensation intact. Range of motion: intact in all extremities. 15:45 Reassessment: Patient appears in no apparent distress at this time. Patient and/or ph family updated on plan of care and expected duration. Pain level reassessed. Patient is alert, oriented x 3, equal unlabored respirations, skin warm/dry/pink. Pt resting quietly, daughter at bedside, VSS. 16:30 Reassessment: Patient appears in no apparent distress at this time. Patient and/or ph family updated on plan of care and expected duration. Pain level reassessed. Patient is alert, oriented x 3, equal unlabored respirations, skin warm/dry/pink. Pt c/o nausea, see MAR. 17:24 Reassessment: Patient appears in no apparent distress at this time. Patient and/or ph family updated on plan of care and expected duration. Pain level reassessed. Patient is alert, oriented x 3, equal unlabored respirations, skin warm/dry/pink. Pt c/o nausea, ERP notified, nausea medication administered per order, see MAR. Vital Signs: 14:29 BP 143 / 78; Pulse 75; Resp 18; Temp 98.0; Pulse Ox 97% on R/A; Weight 74.84 kg; ph 15:30 BP 137 / 75; Pulse 69; Resp 16; Pulse Ox 95% on R/A; ph 16:30 BP 120 / 78; Pulse 68; Resp 18; Pulse Ox 99% on R/A; ph 17:27 BP 145 / 82; Pulse 71; Resp 18; Pulse Ox 98% on R/A; ph ED Course: 14:24 Patient arrived in ED. rn 14:24 Rogelio Emerson MD is Attending Physician. rn 14:27 Merna Del Castillo RN is Primary Nurse. ph 14:29 Triage completed. ph 14:31 Arm band placed on. ph 14:32 Patient has correct armband on for positive identification. Placed in gown. Bed in low ph position. Call light in reach. Side rails up X2. policy loan calculator on. Pulse ox on. NIBP on. Warm blanket given. 14:39 X-ray completed. Portable x-ray completed in exam room. Patient tolerated procedure jw2 well. 14:41 XRAY Chest (1 view) In Process Unspecified. EDMS 14:52 Inserted saline lock: 22 gauge in left wrist, using aseptic technique. Blood collected. 16:38 Pauline Palm MD is Hospitalizing Provider. rn 18:30 No provider procedures requiring assistance completed. Patient admitted, IV remains in ph place. Administered Medications: 17:24 Drug: Zofran 4 mg Route: IVP; Site: left forearm; ph 18:10 Follow up: Response: No adverse reaction; Nausea is decreased ph Outcome: 16:39 Decision to Hospitalize by Provider. rn 18:33 Patient left the ED. ph 18:33 Admitted to Tele accompanied by tech, family with patient, via stretcher, room 214, ph with chart, Report called to Zeny JOSEPH 18:33 Condition: stable 18:33 Instructed on the need for admit. Signatures: Dispatcher [employer] EDMS Rogelio Emerson MD MD rn Smirch, Shelby, RN RN ss Hall, Patricia, RN RN Mayte Yeh jw2 Corrections: (The following items were deleted from the chart) 18:00 14:29 BP 143 / 78; Pulse 75bpm; Resp 18bpm; Pulse Ox 97% RA; Temp 98.0F; ph ph
--- NOTE | 2017-12-27 16:40 | EDPHYS ---
Physician Documentation [facility] Name: Lety Ontiveros Age: 82 yrs Sex: Female : 1935 Arrival Date: 12/27/2017 Time: 14:24 Bed 15 Private MD: ED Physician Rogelio Emerson HPI: 12/27 16:27 This 82 yrs old Female presents to ER via EMS with complaints of chest pain. rn 16:27 The patient or guardian reports chest pain that is located primarily in the substernal rn area. Onset: this morning. The pain radiates to the left arm. Associated signs and symptoms: The patient has no apparent associated signs or symptoms, Pertinent negatives: abdominal pain, lightheadedness, palpitations, shortness of breath, syncope, vomiting. The chest pain is described as a pressure, squeezing. Duration: The patient or guardian reports a single episode, that is still ongoing. Severity of pain: At its worst the pain was moderate in the emergency department the pain has improved. The patient has not experienced similar symptoms in the past. The patient has not recently seen a physician. Improved/almost resolved with SL nitro. Historical: - Allergies: 14:31 PENICILLINS; ph - PMHx: 14:31 bowel obstruction; Cancer, Breast; CHF; CVA; neuropathy; Parkinsons; ph - PSHx: 14:31 masectomy right; Cholecystectomy; colon resection; Appendectomy; Hysterectomy; ph - Immunization history:: Adult Immunizations unknown. - Social history:: Smoking status: Patient/guardian denies using tobacco. - Ebola Screening: : No symptoms or risks identified at this time. - Family history:: not pertinent. - Hospitalizations: : No recent hospitalization is reported. ROS: 16:35 Constitutional: Negative for fever, chills, and weight loss, Eyes: Negative for injury, rn pain, redness, and discharge, Neck: Negative for injury, pain, and swelling, Cardiovascular: Negative for palpitations, and edema, Respiratory: Negative for shortness of breath, cough, wheezing, and pleuritic chest pain, Abdomen/GI: Negative for abdominal pain, nausea, vomiting, diarrhea, and constipation, MS/Extremity: Negative for injury and deformity, Skin: Negative for injury, rash, and discoloration, Neuro: Negative for headache, weakness, numbness, tingling, and seizure. Exam: 16:35 Constitutional: This is a well developed, well nourished patient who is awake, alert, rn and in no acute distress. Head/Face: Normocephalic, atraumatic. Eyes: Pupils equal round and reactive to light, extra-ocular motions intact. Lids and lashes normal. Conjunctiva and sclera are non-icteric and not injected. Cornea within normal limits. Periorbital areas with no swelling, redness, or edema. Neck: Trachea midline, no thyromegaly or masses palpated, and no cervical lymphadenopathy. Supple, full range of motion without nuchal rigidity, or vertebral point tenderness. No Meningismus. Cardiovascular: Regular rate and rhythm with a normal S1 and S2. No gallops, murmurs, or rubs. Normal PMI, no JVD. No pulse deficits. Respiratory: Lungs have equal breath sounds bilaterally, clear to auscultation and percussion. No rales, rhonchi or wheezes noted. No increased work of breathing, no retractions or nasal flaring. Abdomen/GI: Soft, non-tender, with normal bowel sounds. No distension or tympany. No guarding or rebound. No evidence of tenderness throughout. MS/ Extremity: Pulses equal, no cyanosis. Neurovascular intact. Full, normal range of motion. Equal circumference. Neuro: Awake and alert, GCS 15, oriented to person, place, time, and situation. Cranial nerves II-XII grossly intact. 4/5 strength LUE/LLE, 5/5 RUE/RLE Vital Signs: 14:29 BP 143 / 78; Pulse 75; Resp 18; Temp 98.0; Pulse Ox 97% on R/A; Weight 74.84 kg; ph 15:30 BP 137 / 75; Pulse 69; Resp 16; Pulse Ox 95% on R/A; ph 16:30 BP 120 / 78; Pulse 68; Resp 18; Pulse Ox 99% on R/A; ph 17:27 BP 145 / 82; Pulse 71; Resp 18; Pulse Ox 98% on R/A; ph MDM: 14:24 Patient medically screened. rn 14:25 ED course: EMS administered 1 SL nitro spray and 324mg aspirin, CP improved, almost rn resolved. . 16:35 Differential diagnosis: acute myocardial infarction, acute pericarditis, coronary rn artery disease costochondritis, gastroesophageal reflux disease (GERD), pleurisy, pneumothorax, stable angina, unstable angina. The patient was not given aspirin in the Emergency Department. Administered by EMS. Data reviewed: vital signs, nurses notes, lab test result(s), radiologic studies, plain films, and as a result, I will admit patient. Counseling: I had a detailed discussion with the patient and/or guardian regarding: the historical points, exam findings, and any diagnostic results supporting the discharge/admit diagnosis, lab results, radiology results, the need for further work-up and treatment in the hospital. Response to treatment: the patient's symptoms have markedly improved after treatment. Admission orders: after a detailed discussion of the patient's condition and case, the admit orders are written by me. 12/27 14:25 Order name: Basic Metabolic Panel; Complete Time: 15:52 12/27 14:25 Order name: CBC with Diff; Complete Time: 15:52 12/27 14:25 Order name: Ckmb; Complete Time: 15: 12/27 14:25 Order name: CPK; Complete Time: 15: 12/27 14:25 Order name: NT PRO-BNP; Complete Time: 15:52 12/27 14:25 Order name: PT-INR; Complete Time: 15:52 12/27 14:25 Order name: Ptt, Activated; Complete Time: 15:52 12/27 14:25 Order name: Troponin (emerg Dept Use Only); Complete Time: 15:52 12/27 14:25 Order name: XRAY Chest (1 view); Complete Time: 15:11 12/27 14:25 Order name: EKG; Complete Time: 14:26 12/27 16:25 Order name: CONS Physician Consult [facility] 12/27 16:25 Order name: Heart Healthy [facility] 12/27 16:25 Order name: Urinalysis [facility] 12/27 14:25 Order name: Cardiac monitoring; Complete Time: 14:52 12/27 14:25 Order name: EKG - Nurse/Tech; Complete Time: 14:52 12/27 14:25 Order name: IV Saline Lock; Complete Time: 14: 12/27 14:25 Order name: Labs collected and sent; Complete Time: 14: 12/27 14:25 Order name: O2 Per Protocol; Complete Time: 14:52 rn 12/27 14:25 Order name: O2 Sat Monitoring; Complete Time: 14:52 rn Administered Medications: 17:24 Drug: Zofran 4 mg Route: IVP; Site: left forearm; ph 18:10 Follow up: Response: No adverse reaction; Nausea is decreased ph Disposition: 12/27/17 16:39 Hospitalization ordered by Pauline Palm for Observation. Preliminary diagnosis is Chest pain, unspecified. - Bed requested for Telemetry/MedSurg (observation). - Status is Observation. ph - Condition is Stable. - Problem is new. - Symptoms have improved. UTI on Admission? No Signatures: Dispatcher [employer] EDMS Rogelio Emerson MD MD rn Martinez, Eric em1 Merna Del Castillo RN RN ph Corrections: (The following items were deleted from the chart) 17:31 16:39 Hospitalization Ordered by Pauline Palm MD for Observation. Preliminary em1 diagnosis is Chest pain, unspecified. Bed requested for Telemetry/MedSurg (observation). Status is Observation. Condition is Stable. Problem is new. Symptoms have improved. UTI on Admission? No. rn 18:33 17:31 12/27/2017 16:39 Hospitalization Ordered by Pauline Palm MD for Observation. ph Preliminary diagnosis is Chest pain, unspecified. Bed requested for Telemetry/MedSurg (observation). Status is Observation. Condition is Stable. Problem is new. Symptoms have improved. UTI on Admission? No. em1
[2017-12-28 01:58] LABS: Urine Appearance CLEAR; Urine Bilirubin NEGATIVE (NEG); Urine Blood NEGATIVE (NEG); Urine Color YELLOW; Urine Glucose NEGATIVE (NEG); Urine Microscopic Reflex ORDER UMIC; Urine Protein NEGATIVE (NEG)
[2017-12-28 02:07] LABS: Urine Culture Reflex Order REFLEXED
[2017-12-28 02:09] LABS: Urine Bacteria 20-50 /HPF (<20); Urine Mucus SLIGHT /HPF (NONE SEEN); Urine RBC <5 /HPF (NONE SEEN)
[2017-12-28 06:03] LABS: Absolute Lymphocytes (CBC) 1.9 K/uL (0.7-4.9); Absolute Monocytes 0.4 K/uL (0.1-1.3); Absolute Neutrophil 3.7 K/uL (1.8-8.0); Basophils % 0.4 % (0-1.3); Eosinophils % 1.6 % (0-4.4); Lymphocytes % 31.4 % (15.3-44.8); MCH 31.5 pg (27.0-35.0); MCV 92.8 fL (80-100); MPV 8.1 fL (7.6-11.3); Monocytes % 6.9 % (3.3-12.3)
[2017-12-28 06:23] LABS: Bilirubin Total 0.9 mg/dL (0.2-1.0); Phosphorus 3.8 mg/dL (2.5-4.9); Potassium 3.8 mmol/L (3.5-5.1); Protein, Total 6.2 g/dL (6.4-8.2)
--- NOTE | 2017-12-28 06:31 | EKG ---
Test Date: 2017-12-27 Test Time: 14:34:44 Hand Counter: MARNIE MEASUREMENT RESULTS: Intervals: Rate: 66 GA: 198 QRSD: 78 QT: 400 QTc: 419 [place]: P: 53 GA: 198 QRS: 36 T: 69 INTERPRETIVE STATEMENTS: Normal sinus rhythm Low voltage QRS Borderline ECG Compared to ECG 11/13/2017 13:27:10 Low QRS voltage now present Electronically Signed On 12-28-17 06:30:33 CDT by Nihsant Hall
[2017-12-28] MEDS ORDERED: REGADENOSON 0.4 MG/5 ML SYR IV ONE (07:57)
[2017-12-28] MEDS ORDERED: ENOXAPARIN 40 MG/0.4 ML SQ SCH (09:00)
[2017-12-28] MEDS ORDERED: POTASSIUM 25 MEQ EFFERV TAB PO ONE (09:00)
[2017-12-28] MEDS ORDERED: BENZONATATE 100 MG CAP PO PRN ×2 (09:47→10:12)
[2017-12-28] MEDS ORDERED: CODEINE 30MG/APAP 300MG TAB PO PRN (09:47)
[2017-12-28] MEDS ORDERED: MECLIZINE HCL 12.5 MG TAB PO PRN (09:47)
[2017-12-28] MEDS ORDERED: LINACLOTIDE 72 MCG PO SCH (10:00)
--- NOTE | 2017-12-28 10:27 | TREADPHA ---
DX: CHEST PAIN Date of Study: 12/28/2017 Ht: 5 4 Wt: 176 lb 6 oz Consulting Physician: IVONE MEDICATIONS: TYLENOL, LOVENOX, ZOFRAN, K-LYTE HISTORY: 82 Y/O FEMALE WITH COMPLAINTS OF CHEST PAIN. PHYSICIAL EXAMINATION: RESTING B.P.: 174/99 RESTING H.R.: 74 RESTING EKG: NORMAL PROTOCOL: LEXISCAN EXERCISE TIME: 3:30 B.P. AT PEAK STRESS: 152/97 IMPRESSION: LEXISCAN INJECTED PER PROTOCOL AND CARDIOLITE INJECTED, SEE NUCLEAR MED REPORT. COMPLAINTS OF CHEST PAIN 6 OUT OF 10 ON PAIN SCALE AFTER ADMINSTRATION OF LEXISCAN. NO VENTRICULAR TACHYCARDIA. NO SUPERVENTRICULAR TACHYCARDIA.
--- NOTE | 2017-12-28 10:57 | RAD REPORT ---
EXAM DESCRIPTION: NM - Rest Stress Cardiac Imaging - 12/28/2017 10:39 am CLINICAL HISTORY: Chest pain. COMPARISON: None. TECHNIQUE: The patient was administered approximately 10mCi of Tc 99m Sestamibi prior to resting SPE CT imaging of the heart. The patient was then administered approximately 30 mCi of Tc 99m Sestamibi f ollowing exercise or pharmacologic stress. Multiplanar SPECT images were reviewed. FINDINGS: There is uniformity of radiotracer uptake involving the entire left ventricular myocardiu m on rest and stress images. The left ventricular ejection fraction equals 76% IMPRESSION: Negative for a myocardial perfusion defect
--- NOTE | 2017-12-28 11:06 | CON ---
Date of Consultation: 12/28/2017 Reason For Consultation: Chest pain. History Of Present Illness: Ms. Ontiveros is an 82-year-old woman, with history of dyslipidemia, breast c ancer, status post mastectomy on the right, history of CVA, parkinsonism, neuropathy, and dyslipidemi a. She has recently had a small bowel obstruction. Came in with mid-epigastric sharp, stabbing ches t pain with some nausea. No vomiting, diaphoresis, PND, orthopnea, pedal edema, palpitation or synco pe. Allergies: INCLUDE PENICILLIN. Review of Systems: Negative. Social History: Negative for tobacco, alcohol, or drug use. Family History: Positive for dyslipidemia and hypertension. Medications At Home: Include Symbicort, aspirin, Lipitor, Neurontin, and Requip. Physical Examination: Vital Signs: Stable. Afebrile. Pleasant. HEENT: Negative. Neck: Supple, with no bruit, lymphadenopathy, JVD, or thyromegaly. Chest: Clear to auscultation and percussion. Cardiac: Revealed a regular rhythm and rate without any murmurs, gallops, or rubs. Abdomen: Benign. Extremities: Revealed no clubbing, cyanosis, or edema. Diagnostic Data: All normal. Impression And Plan: 1.Atypical chest pain, more likely gastroesophageal reflux disease in nature. She has dyslipidemia. She has a history of cerebrovascular accident. She is 82 years old, and I think, she has enough ri sk factors that a Lexiscan is indicated. We will see what that shows before making final decisions. She has already had a normal EKG, normal echo, normal chest x-ray and normal labs. 2.History of dyslipidemia. 3.History of stroke. 4.Parkinsonism. 5.History of neuropathy. 6.History of breast cancer, status post mastectomy. WADE/CRYSTAL Voice ID: [id number] Report ID: [id number]
--- NOTE | 2017-12-28 12:21 | P.SSS ---
Patient History Date of Service: 12/28/17 Primary Care Provider: BLANQUITA Reason for admission: Chest pain History of Present Illness: This is a 82-year-old female with significant past medical history of Parkinson' s dementia, CVA, presented to the ED complaining of having some left-sided chest pain that was radiating down to her left arm that started this morning while she was laying in bed. Patient states that she does not have any associated shortness of breath nausea vomiting chills fever at this time. The pain is on the left side and is dull in nature. Patient is a 8/10 at its worst. Nitro does help with the pain however she feels as if something is stuck in her throat as well. No other complaints to offer. Allergies Penicillins Allergy (Verified 11/13/17 19:30) UNK Home Medications: Acetaminophen with Codeine [Acetaminophen-Cod #3 Tablet] 1 each PO PRN PRN 11/13 Aspirin [Aspirin EC 81 MG] 81 mg PO DAILY 11/13/17 Atorvastatin Calcium [Lipitor] 40 mg PO BEDTIME 11/13/17 Carbidopa/Levodopa [Carbidopa-Levo 25-250 mg Odt] 250 mg PO TID 11/13/17 Dicyclomine HCl 20 mg PO BID 11/13/17 Gabapentin [Neurontin*] 300 mg PO TID 11/13/17 Linaclotide [Linzess] 72 mcg PO SEECOM 11/13/17 Benzonatate [Tessalon Perle*] 1 cap PO PRN PRN 12/27/17 Hydrocortisone [Cortef*] 10 mg PO DAILY 12/27/17 Meclizine HCl 1 tab PO PRN PRN MDD q4 12/27/17 Rivastigmine Patch [Exelon 4.6 mg Patch*] 1 patch TOP DAILY 12/27/17 Ropinirole HCl 1 tab PO TID 12/27/17 Zolpidem Tartrate [Ambien*] 5 mg PO BEDTIME PRN 12/27/17 - Past Medical/Surgical History Has patient received pneumonia vaccine in the past: No Diabetic: No -: CVA -: HTN -: Parkinson's Disease -: Dementia -: right mastectomy -: cholecystectomy -: colon resection -: appendectomy -: hysterectomy - Family History Family History: Reviewed- Non-Contributory - Family History Father History Unknown: Yes Mother History Unknown: Yes - Social History Smoking Status: Unknown if ever smoked Alcohol use: Yes CD- Drugs: No Caffeine use: Yes Place of Residence: Home Review of Systems General: As per HPI Physical Examination - Vital Signs Temperature: 96.5 F Blood Pressure: 168/74 Pulse: 77 Respirations: 16 Pulse Ox (%): 94 - Physical Exam General: Alert, In no apparent distress HEENT: Atraumatic, PERRLA, Mucous membr. moist/pink, EOMI, Sclerae nonicteric Neck: Supple, 2+ carotid pulse no bruit, No LAD, Without JVD or thyroid abnormality Respiratory: Clear to auscultation bilaterally, Normal air movement Cardiovascular: Regular rate/rhythm, Normal S1 S2 Gastrointestinal: Normal bowel sounds, No tenderness Musculoskeletal: No tenderness Integumentary: No rashes Neurological: Normal gait, Normal speech, Normal strength at 5/5 x4 extr, Normal tone, Normal affect Lymphatics: No axilla or inguinal lymphadenopathy - Studies Laboratory Data (last 24 hrs) 12/27/17 14:48: PT 11.2, INR 0.95, APTT 26.2 12/27/17 14:48: WBC 7.1, Hgb 13.1, Hct 39.0, Plt Count 327 12/27/17 14:48: Sodium 140, Potassium 3.7, BUN 12, Creatinine 0.70, Glucose 100 - Diagnosis (Problem(s)) (1) Chest pain Onset Date: 12/28/17 Current Visit: Yes Status: Acute Plan: Atypical Chest Pain x 1 days. Troponinx 1 negative, EKG with No acute changes -ECHO in October 2017 was WNL. -Repeat Troponin x 2 negative -Stress test Negative as well DC home Qualifiers: Chest pain type: unspecified Qualified Code(s): R07.9 - Chest pain, unspecified (2) HTN (hypertension) Onset Date: 12/28/17 Current Visit: Yes Status: Chronic Qualifiers: Hypertension type: essential hypertension Qualified Code(s): I10 - Essential (primary) hypertension (3) CVA (cerebral vascular accident) Onset Date: 11/14/17 Current Visit: No Status: Chronic Qualifiers: CVA mechanism: unspecified Qualified Code(s): I63.9 - Cerebral infarction, unspecified (4) Parkinson disease Onset Date: 11/14/17 Current Visit: No Status: Chronic - Disposition Disposition: ROUTINE DISCHARGE Condition: GOOD Patient Discharge Instructions: Please f.u with PCP and Cardiology in 1 to 2 weeks post discharge. No New medication. You stress test was negative and ECHO was negative. You are symptoms are more consistnet with GERD and you can take Protonix for it. Diet: Regular Activity: Ad pilar
[2017-12-28] MEDS ORDERED: ROPINIROLE HCL 0.25 MG TAB PO SCH (14:00)
[2017-12-28] MEDS ORDERED: CARBIDOPA/LEVODOPA 25/250 TAB PO SCH (14:00)
[2017-12-28] MEDS ORDERED: GABAPENTIN 300 MG CAP PO SCH (14:00)
[2017-12-28] MEDS ORDERED: ATORVASTATIN 40 MG TAB PO SCH (21:00)
[2017-12-28] MEDS ORDERED: DICYCLOMINE HCL 10 MG CAP PO SCH (21:00)
[2017-12-29] MEDS ORDERED: HYDROCORTISONE 10 MG TAB PO SCH (09:00)
[2017-12-29] MEDS ORDERED: ASPIRIN EC 81 MG TAB PO SCH (09:00)
== END 2017-12-28 15:02 | disposition home or self-care (01) ==
LOC: ER 14:16 → ERHOLD 16:23 → 2ND 18:07
PROVIDERS: ADMIT Family Medicine; ATTEND Family Medicine
DX: R07.89 Other chest pain (principal); G20 Parkinson's disease; F02.80 Dementia in other diseases classified elsewhere, unspecified severity, without behavioral disturbance, psychotic disturbance, mood disturbance, and anxiety; Z86.73 Personal history of transient ischemic attack (TIA), and cerebral infarction without residual deficits; Z88.0 Allergy status to penicillin; Z79.82 Long term (current) use of aspirin; I10 Essential (primary) hypertension; E78.5 Hyperlipidemia, unspecified; Z85.3 Personal history of malignant neoplasm of breast; G62.9 Polyneuropathy, unspecified
CPT/HCPCS: 36415; 71045; 78452; 80048; 80053; 82550; 82553; 83735; 83880; 84100; 84484 ×3; 85025 ×2; 85610; 85730; 87086; 87088; 93005; 93017; 96374; 99285; A9500; G0378 ×2; J1650; J2405 ×2; J2785; 81003; 81015

== ENCOUNTER 2018-07-07 15:36 | Observation (INO) | payer OTHER ==
--- OUTSIDE RECORDS SUMMARY | 2018-07-07 15:38 | XMS REPORT ---
:1935 [facility] Address [address] [place] [address] [address] [place] [address] Care Team Providers Name Role Phone Unavailable Unavailable Unavailable Problems This patient has no known problems. Allergies, Adverse Reactions, Alerts This patient has no known allergies or adverse reactions. Medications This patient has no known medications.
[2018-07-07 16:28] LABS: Absolute Lymphocytes (CBC) 2.1 K/uL (0.7-4.9); Absolute Monocytes 0.5 K/uL (0.1-1.3); Absolute Neutrophil 4.6 K/uL (1.8-8.0); Basophils % 0.4 % (0-1.3); Eosinophils % 1.2 % (0-4.4); Hematocrit 42.4 % (36.0-45.0); Lymphocytes % 29.2 % (15.3-44.8); MPV 7.6 fL (7.6-11.3); Monocytes % 6.4 % (3.3-12.3); RBC Red Blood Cell Count 4.49 M/uL (3.86-4.86)
[2018-07-07 16:32] LABS: Protime INR 1.03
--- NOTE | 2018-07-07 16:44 | RAD REPORT ---
EXAM DESCRIPTION: CT - Head Brain Wo Cont - 07/07/2018 4:33 pm CLINICAL HISTORY: Headache, history of breast cancer, history of CVA COMPARISON: CT head November 13, 2017 TECHNIQUE: Axial 5 mm thick images of the head were obtained without IV contrast. All CT scans are performed using dose optimization technique as appropriate and may include automated exposure control or mA/KV adjustment according to patient size. FINDINGS: No intracranial hemorrhage, mass, edema or shift of mid-line structures. No acute infarcti on changes seen. Atrophy and chronic ischemic changes are present mild for age. Ventricles are in pro portion. Arterial and physiologic calcifications are present. Mastoid air cells and visualized portions of the paranasal sinuses are clear. No acute bony findings. Patient has normal variant hyperostosis frontalis interna. IMPRESSION: No hemorrhage or acute intracranial finding. Patient has minimal atrophy and chronic ischemic change similar to comparison.
[2018-07-07 16:48] LABS: ALT/SGPT 10 U/L (12-78); AST/SGOT 12 U/L (15-37); Albumin 3.4 g/dL (3.4-5.0); Alkaline Phosphatase 105 U/L (45-117); BUN Blood Urea Nitrogen 20 mg/dL (7-18); Bicarbonate 25 mmol/L (21-32); Bilirubin Direct 0.2 mg/dL (0-0.2); Bilirubin Total 0.9 mg/dL (0.2-1.0); Creatine Phosphokinase 38 U/L (26-192); Glucose Level 100 mg/dL (74-106); Magnesium 2.1 mg/dL (1.8-2.4); NT PRO-BNP 30 pg/mL (<450); Potassium 3.9 mmol/L (3.5-5.1); Protein, Total 6.7 g/dL (6.4-8.2); Sodium Level 140 mmol/L (136-145); Troponin (Emerg Dept Use Only) < 0.02 ng/mL (0.0-0.045)
--- NOTE | 2018-07-07 17:38 | RAD REPORT ---
EXAM DESCRIPTION: RAD - Chest Single View - 07/07/2018 4:44 pm CLINICAL HISTORY: Chest pain COMPARISON: December 2017 TECHNIQUE: AP portable chest image was obtained 1641 hours . FINDINGS: No focal lung parenchymal process. Lung markings are similar to comparison. Heart and vasc ulature are normal. No measurable pleural effusion and no pneumothorax. No acute bony abnormality see n. No acute aortic findings suspected. IMPRESSION: No acute cardiopulmonary process. No significant interval change.
--- NOTE | 2018-07-07 18:17 | ER ---
Nurse's Notes [facility] Name: Lety Ontiveros Age: 83 yrs Sex: Female : 1935 Arrival Date: 07/07/2018 Time: 15:41 Bed 5 Private MD: Diagnosis: Chest pain, unspecified;Weakness;Polyneuropathy, unspecified Presentation: 07/07 15:50 Presenting complaint: Patient states: She has pain all over, states that she has had aj1 this pain for multiple years, but it is worse this morning so she came to the ER for pain relief. Patient states she normally takes hydrocodone for her pain, she took it this morning but she is still hurting. Transition of care: patient was not received from another setting of care. Onset of symptoms was July 07, 2018. Risk Assessment: Do you want to hurt yourself or someone else? Patient reports no desire to harm self or others. Initial Sepsis Screen: Does the patient meet any 2 criteria? No. Patient's initial sepsis screen is negative. Does the patient have a suspected source of infection? No. Patient's initial sepsis screen is negative. Care prior to arrival: None. 15:50 Method Of Arrival: EMS: [facility] aj1 15:50 Acuity: FLORES 3 aj1 Triage Assessment: 15:58 General: Appears in no apparent distress. uncomfortable, Behavior is calm, cooperative, aj1 appropriate for age. Pain: Pain currently is 10 out of 10 on a pain scale. Historical: - Allergies: 15:58 PENICILLINS; aj1 - Home Meds: 15:58 dicyclomine 20 mg Oral tab 1 tab 3 times per day [Active]; ropinirole 0.25 mg oral tab aj1 1 tab 3 times per day [Active]; pantoprazole 40 mg oral TbEC 1 tab once daily [Active]; carbidopa-levodopa 25-250 mg Oral TbDL 1 tab 3 times per day [Active]; hydrocortisone 10 mg Oral tab 1 tab once daily [Active]; gabapentin 300 mg oral cap 1 cap 3 times per day [Active]; aspirin 81 mg Oral TbEC 1 tab once daily [Active]; atorvastatin 40 mg oral tab 1 tab once daily [Active]; Linzess 72 mcg oral once daily [Active]; promethazine 25 mg Oral tab 1 tab once daily [Active]; hydrocodone-acetaminophen 5-325 mg Oral tab 1 tab twice daily [Active]; Centrum oral oral [Active]; - PMHx: 15:58 bowel obstruction; Cancer, Breast; CHF; CVA; neuropathy; Parkinsons; aj1 - PSHx: 15:58 Mastectomy, Right; aj1 - Immunization history:: Flu vaccine is not up to date. - Social history:: Smoking status: Patient/guardian denies using tobacco. - Ebola Screening: : Patient denies travel to an Ebola-affected area in the 21 days before illness onset. Screenin:23 Abuse screen: Denies threats or abuse. Denies injuries from another. Nutritional aj1 screening: No deficits noted. Tuberculosis screening: No symptoms or risk factors identified. Assessment: 16:23 General: Appears in no apparent distress. comfortable, Behavior is drowsy. Pain: ajJai Complains of pain in all over her body Pain currently is 10 out of 10 on a pain scale. Pain began years ago. Neuro: Level of Consciousness is obeys commands, drowsy, awakens easily to verbal stimuli. . Reports headache. Cardiovascular: Patient's skin is warm and dry. Respiratory: Airway is patent Respiratory effort is even, unlabored, Respiratory pattern is regular, symmetrical. Respiratory: Denies cough, shortness of breath. GI: No signs and/or symptoms were reported involving the gastrointestinal system. GI: Abdomen is non-distended, Reports nausea, Patient currently denies diarrhea, vomiting. : No signs and/or symptoms were reported regarding the genitourinary system. : Denies burning with urination. EENT: No signs and/or symptoms were reported regarding the EENT system. EENT: Denies nasal congestion, nasal discharge. Derm: No signs and/or symptoms reported regarding the dermatologic system. Skin is pink, warm \T\ dry. normal. Musculoskeletal: No signs and/or symptoms reported regarding the musculoskeletal system. Circulation, motion, and sensation intact. 17:11 Reassessment: Patient appears in no apparent distress at this time. No changes from aj1 previously documented assessment. Patient and/or family updated on plan of care and expected duration. Pain level reassessed. Patient is alert, oriented x 3, equal unlabored respirations, skin warm/dry/pink. 18:15 Reassessment: Patient appears in no apparent distress at this time. No changes from aj1 previously documented assessment. Patient and/or family updated on plan of care and expected duration. Pain level reassessed. Patient is alert, oriented x 3, equal unlabored respirations, skin warm/dry/pink. Vital Signs: 15:58 BP 147 / 84; Pulse 75; Resp 18; Temp 98.4; Pulse Ox 96% on R/A; Weight 72.57 kg; Height aj1 5 ft. 4 in. (162.56 cm) (R); Pain 10/10; 17:11 BP 135 / 82; Pulse 68; Resp 16; Pulse Ox 95% on R/A; aj1 18:15 BP 119 / 87; Pulse 64; Resp 15; Pulse Ox 94% on R/A; aj1 18:15 Pulse Ox 95% on 2 lpm NC; aj1 15:58 Body Mass Index 27.46 (72.57 kg, 162.56 cm) aj1 Darek Coma Score: 18:05 Eye Response: to voice(3). Verbal Response: oriented(5). Motor Response: obeys gs commands(6). Total: 14. ED Course: 15:41 Patient arrived in ED. ss 15:44 Leidy Marroquin, JAKE is Primary Nurse. aj1 15:49 Cesario Bowling MD is Attending Physician. gs 15:51 Triage completed. aj1 15:58 Arm band placed on Patient placed in an exam room. aj1 16:23 Patient has correct armband on for positive identification. Bed in low position. Call aj1 light in reach. Side rails up X 1. environmental monitoring technician on. Pulse ox on. NIBP on. 16:23 No provider procedures requiring assistance completed. Maintain EMS IV. Dressing aj1 intact. Good blood return noted. Site clean \T\ dry. Gauge \T\ site: 20 g left hand. 16:33 CT completed. Patient tolerated procedure well. Patient moved to radiology Patient kw1 moved back from CT. 16:33 CT Head Brain wo Cont In Process Unspecified. EDMS 16:43 XRAY Chest (1 view) In Process Unspecified. EDMS 18:16 Reg Ceballos MD is Hospitalizing Provider. gs 20:46 Patient admitted, IV remains in place. aj1 Administered Medications: 18:18 Drug: NS 0.9% 1000 ml Route: IV; Rate: 1 bolus; Site: left hand; aj1 Outcome: 18:16 Decision to Hospitalize by Provider. 20:45 Admitted to Tele accompanied by tech, via stretcher, with chart. aj1 20:45 Condition: stable 20:45 Discharge instructions given to patient, family, Instructed on the need for admit, Demonstrated understanding of instructions. 20:46 Patient left the ED. aj1 Signatures: Dispatcher [employer] Leidy Arzola RN RN aj1 Aleida Gold RN RN Cesario Bowling MD MD Alayna Reynoso1
--- NOTE | 2018-07-07 18:17 | EDPHYS ---
Physician Documentation [facility] Name: Lety Ontiveros Age: 83 yrs Sex: Female : 1935 Arrival Date: 07/07/2018 Time: 15:41 Bed 5 Private MD: ED Physician Cesario Bowling HPI: 07/07 18:05 This 83 yrs old Female presents to ER via EMS with complaints of Pain all gs over. 18:05 Onset: 2 day(s) ago. The pain radiates to all over. Associated signs and symptoms: gs Pertinent negatives: abdominal pain. The chest pain is described as dull. Duration: The patient or guardian reports multiple episodes, that wax and wane, with no pattern. Modifying factors: The symptoms are alleviated by nothing. the symptoms are aggravated by nothing. Severity of pain: At its worst the pain was moderate in the emergency department the pain is unchanged. The patient has experienced similar episodes in the past, multiple times. Historical: - Allergies: 15:58 PENICILLINS; aj1 - Home Meds: 15:58 dicyclomine 20 mg Oral tab 1 tab 3 times per day [Active]; ropinirole 0.25 mg oral tab aj1 1 tab 3 times per day [Active]; pantoprazole 40 mg oral TbEC 1 tab once daily [Active]; carbidopa-levodopa 25-250 mg Oral TbDL 1 tab 3 times per day [Active]; hydrocortisone 10 mg Oral tab 1 tab once daily [Active]; gabapentin 300 mg oral cap 1 cap 3 times per day [Active]; aspirin 81 mg Oral TbEC 1 tab once daily [Active]; atorvastatin 40 mg oral tab 1 tab once daily [Active]; Linzess 72 mcg oral once daily [Active]; promethazine 25 mg Oral tab 1 tab once daily [Active]; hydrocodone-acetaminophen 5-325 mg Oral tab 1 tab twice daily [Active]; Centrum oral oral [Active]; - PMHx: 15:58 bowel obstruction; Cancer, Breast; CHF; CVA; neuropathy; Parkinsons; aj1 - PSHx: 15:58 Mastectomy, Right; aj1 - Immunization history:: Flu vaccine is not up to date. - Social history:: Smoking status: Patient/guardian denies using tobacco. - Ebola Screening: : Patient denies travel to an Ebola-affected area in the 21 days before illness onset. ROS: 18:05 All other systems are negative. Exam: 18:05 Head/Face: Normocephalic, atraumatic. Eyes: Pupils equal round and reactive to light, gs extra-ocular motions intact. Lids and lashes normal. Conjunctiva and sclera are non-icteric and not injected. Cornea within normal limits. Periorbital areas with no swelling, redness, or edema. ENT: Nares patent. No nasal discharge, no septal abnormalities noted. Tympanic membranes are normal and external auditory canals are clear. Oropharynx with no redness, swelling, or masses, exudates, or evidence of obstruction, uvula midline. Mucous membranes moist. Neck: Trachea midline, no thyromegaly or masses palpated, and no cervical lymphadenopathy. Supple, full range of motion without nuchal rigidity, or vertebral point tenderness. No Meningismus. Chest/axilla: Normal chest wall appearance and motion. Nontender with no deformity. No lesions are appreciated. Cardiovascular: Regular rate and rhythm with a normal S1 and S2. No gallops, murmurs, or rubs. Normal PMI, no JVD. No pulse deficits. Respiratory: Lungs have equal breath sounds bilaterally, clear to auscultation and percussion. No rales, rhonchi or wheezes noted. No increased work of breathing, no retractions or nasal flaring. Abdomen/GI: Soft, non-tender, with normal bowel sounds. No distension or tympany. No guarding or rebound. No evidence of tenderness throughout. Back: No spinal tenderness. No costovertebral tenderness. Full range of motion. Skin: Warm, dry with normal turgor. Normal color with no rashes, no lesions, and no evidence of cellulitis. MS/ Extremity: Pulses equal, no cyanosis. Neurovascular intact. Full, normal range of motion. 18:05 Constitutional: The patient appears somnolent 18:05 Neuro: Sensation: pin prick testing is normal. 18:05 ECG was reviewed by the Attending Physician. Vital Signs: 15:58 BP 147 / 84; Pulse 75; Resp 18; Temp 98.4; Pulse Ox 96% on R/A; Weight 72.57 kg; Height aj1 5 ft. 4 in. (162.56 cm) (R); Pain 10/10; 17:11 BP 135 / 82; Pulse 68; Resp 16; Pulse Ox 95% on R/A; aj1 18:15 BP 119 / 87; Pulse 64; Resp 15; Pulse Ox 94% on R/A; aj1 18:15 Pulse Ox 95% on 2 lpm NC; aj1 15:58 Body Mass Index 27.46 (72.57 kg, 162.56 cm) aj1 Darek Coma Score: 18:05 Eye Response: to voice(3). Verbal Response: oriented(5). Motor Response: obeys gs commands(6). Total: 14. MDM: 15:55 Patient medically screened. gs 18:05 Differential diagnosis: acute myocardial infarction, anxiety, unstable angina, cva. Data reviewed: vital signs, nurses notes. 07/07 15:56 Order name: Basic Metabolic Panel; Complete Time: 17:56 07/07 15:56 Order name: CBC with Diff; Complete Time: 17:56 07/07 15:56 Order name: LFT's; Complete Time: 17:56 07/07 15:56 Order name: Magnesium; Complete Time: 17:56 07/07 15:56 Order name: NT PRO-BNP; Complete Time: 17:56 07/07 15:56 Order name: PT-INR; Complete Time: 17:56 07/07 15:56 Order name: Troponin (emerg Dept Use Only); Complete Time: 17:56 07/07 15:56 Order name: XRAY Chest (1 view); Complete Time: 17:56 07/07 15:56 Order name: EKG; Complete Time: 15:57 07/07 15:56 Order name: Cardiac monitoring; Complete Time: 16:08 07/07 15:56 Order name: Urine Microscopic Only 07/07 15:56 Order name: CT Head Brain wo Cont; Complete Time: 17:56 07/07 15:56 Order name: CPK; Complete Time: 17:56 07/07 15:56 Order name: EKG - Nurse/Tech; Complete Time: 17:03 07/07 15:56 Order name: IV Saline Lock; Complete Time: 16:22 07/07 15:56 Order name: Labs collected and sent; Complete Time: 16:22 07/07 15:56 Order name: O2 Per Protocol; Complete Time: 16:08 07/07 15:56 Order name: O2 Sat Monitoring; Complete Time: 16:08 EC:05 Rate is 68 beats/min. Rhythm is regular. MI interval is normal. QRS interval is normal. QT interval is normal. Q waves are Old in leads III, aVF. Clinical impression: Abnormal EKG without significant change. Interpreted by me. Administered Medications: 18:18 Drug: NS 0.9% 1000 ml Route: IV; Rate: 1 bolus; Site: left hand; aj1 Disposition: 07/07/18 18:16 Hospitalization ordered by Reg Ceballos for Observation. Preliminary diagnosis are Chest pain, unspecified, Weakness, Polyneuropathy, unspecified. - Bed requested for Telemetry/MedSurg (observation). - Status is Observation. aj - Condition is Stable. - Problem is new. - Symptoms have improved. UTI on Admission? No Signatures: Dispatcher [employer] EDMS Leidy Marroquin RN RN aj Linnette Moran RN RN Cesario Bowling MD MD Corrections: (The following items were deleted from the chart) 18:34 18:16 Hospitalization Ordered by Reg Ceballos MD for Observation. Preliminary diagnosis df is Chest pain, unspecified; Weakness; Polyneuropathy, unspecified. Bed requested for Telemetry/MedSurg (observation). Status is Observation. Condition is Stable. Problem is new. Symptoms have improved. UTI on Admission? No. gs 20:46 18:34 07/07/2018 18:16 Hospitalization Ordered by Reg Ceballos MD for Observation. aj1 Preliminary diagnosis is Chest pain, unspecified; Weakness; Polyneuropathy, unspecified. Bed requested for Telemetry/MedSurg (observation). Status is Observation. Condition is Stable. Problem is new. Symptoms have improved. UTI on Admission? No. df
[2018-07-07] MEDS ORDERED: NA CHLORIDE 0.9% 1,000 ML ONE (18:25)
--- NOTE | 2018-07-07 19:38 | P.HP ---
Certification for Inpatient Patient admitted to: Observation With expected LOS: <2 Midnights Practitioner: I am a practitioner with admitting privileges, knowledge of patient current condition, hospital course, and medical plan of care. Services: Services provided to patient in accordance with Admission requirements found in Title 42 Section 412.3 of the Code of Federal Regulations Patient History Date of Service: 07/07/18 Reason for admission: chest pain History of Present Illness: Ms Ontiveros is an 83 years old woman with history of Parkinson's disease, HTN, CVA, and dementia, who has chronic generalized pain, mostly well controlled with hydrocodone. Today, the patient start complaining of more localized pain in her chest, substernal, 10/10 constant, worse with movement and deep breath. She denied fever, chils, nausea, vomiting, SOB or diaphoresis. Lab work shows normal WBC count, normal trop I, EKG sinus rhythm at 75 bpm, without ST-T abnormalities. CXR no acute infiltrate. Allergies Penicillins Allergy (Verified 11/13/17 19:30) UNK Home medications list reviewed: Yes Home Medications: Acetaminophen with Codeine [Acetaminophen-Cod #3 Tablet] 1 each PO PRN PRN 11/13 Aspirin [Aspirin EC 81 MG] 81 mg PO DAILY 11/13/17 Atorvastatin Calcium [Lipitor] 40 mg PO BEDTIME 11/13/17 Carbidopa/Levodopa [Carbidopa-Levo 25-250 mg Odt] 250 mg PO TID 11/13/17 Dicyclomine HCl 20 mg PO BID 11/13/17 Gabapentin [Neurontin*] 300 mg PO TID 11/13/17 Linaclotide [Linzess] 72 mcg PO SEECOM 11/13/17 Benzonatate [Tessalon Perle*] 1 cap PO PRN PRN 12/27/17 Hydrocortisone [Cortef*] 10 mg PO DAILY 12/27/17 Meclizine HCl 1 tab PO PRN PRN MDD q4 12/27/17 Rivastigmine Patch [Exelon 4.6 mg Patch*] 1 patch TOP DAILY 12/27/17 Ropinirole HCl 1 tab PO TID 12/27/17 Zolpidem Tartrate [Ambien*] 5 mg PO BEDTIME PRN 12/27/17 Pantoprazole Sodium [Protonix] 40 mg PO DAILY #30 tablet. 12/28/17 - Past Medical/Surgical History Diabetic: No -: CVA -: HTN -: Parkinson's Disease -: Dementia -: right mastectomy -: cholecystectomy -: colon resection -: appendectomy -: hysterectomy - Family History Family History: Reviewed- Non-Contributory - Social History Alcohol use: Yes CD- Drugs: No Caffeine use: Yes Review of Systems 10-point ROS is otherwise unremarkable Physical Examination - Physical Exam General: Alert, In no apparent distress HEENT: Atraumatic, PERRLA, Mucous membr. moist/pink, EOMI, Sclerae nonicteric Neck: Supple, 2+ carotid pulse no bruit, No LAD, Without JVD or thyroid abnormality Respiratory: Clear to auscultation bilaterally, Normal air movement Cardiovascular: Regular rate/rhythm, Normal S1 S2 Gastrointestinal: Normal bowel sounds, No tenderness Musculoskeletal: No tenderness Integumentary: No rashes Neurological: Normal strength at 5/5 x4 extr, Sensation intact, Normal affect Lymphatics: No axilla or inguinal lymphadenopathy - Studies Laboratory Data (last 24 hrs) 07/07/18 16:18: PT 12.2, INR 1.03 07/07/18 16:18: WBC 7.3, Hgb 14.2, Hct 42.4, Plt Count 369 07/07/18 16:18: Sodium 140, Potassium 3.9, BUN 20 H, Creatinine 0.76, Glucose 100, Magnesium 2.1, Total Bilirubin 0.9, AST 12 L, ALT 10 L, Alkaline Phosphatase 105 Assessment and Plan - Problems (Diagnosis) (1) Chest pain Onset Date: 12/28/17 Current Visit: No Status: Acute Qualifiers: Chest pain type: unspecified Qualified Code(s): R07.9 - Chest pain, unspecified (2) HTN (hypertension) Onset Date: 12/28/17 Current Visit: No Status: Chronic Qualifiers: Hypertension type: essential hypertension Qualified Code(s): I10 - Essential (primary) hypertension (3) Parkinson disease Onset Date: 11/14/17 Current Visit: No Status: Chronic - Plan The patient was admitted last year for similar symptoms, cardiac work up was negative at that time. Today again, she presented with atypical chest pain, reproducible with chest palpation, however, the pain is severe which needs better pain control than home regimen. Will continue with serial cardiac enzymes and EKG. - Advance Directives Does patient have a Living Will: No Does patient have a Durable POA for Healthcare: No - Code Status/Comfort Care Code Status Assessed: Yes Code Status: Full Code
[2018-07-07] MEDS ORDERED: NITROGLYCERIN 0.4 MG/TAB SL PRN (21:07)
[2018-07-07] MEDS ORDERED: ACETAMINOPHEN 500 MG TAB PO PRN (21:07)
[2018-07-07] MEDS: METOPROLOL TAR 50 MG TAB PO SCH (22:19)
[2018-07-07] MEDS: MORPHINE 4 MG/ML SYR IV PRN (22:20)
[2018-07-07] MEDS: ATORVASTATIN 40 MG TAB PO SCH (22:20)
--- NOTE | 2018-07-07 22:41 | EKG ---
Test Date: 2018-07-07 Test Time: 16:49:13 Die Casting Machine Operator: UVALDO MEASUREMENT RESULTS: Intervals: Rate: 68 DC: 184 QRSD: 80 QT: 404 QTc: 429 [place]: P: 39 DC: 184 QRS: 8 T: 56 INTERPRETIVE STATEMENTS: Normal sinus rhythm Low voltage QRS Borderline ECG Compared to ECG 12/27/2017 14:34:44 No significant changes Electronically Signed On 07-07-18 22:40:16 MACHINE III COREMAKER by Nishant Hall
[2018-07-08] MEDS: MORPHINE 4 MG/ML SYR IV PRN ×2 (04:15→09:08)
[2018-07-08 07:05] LABS: Absolute Lymphocytes (CBC) 2.4 K/uL (0.7-4.9); Absolute Monocytes 0.4 K/uL (0.1-1.3); Absolute Neutrophil 4.1 K/uL (1.8-8.0); Basophils % 0.3 % (0-1.3); Eosinophils % 1.6 % (0-4.4); Hematocrit 40.4 % (36.0-45.0); Lymphocytes % 34.4 % (15.3-44.8); MPV 7.7 fL (7.6-11.3); RBC Red Blood Cell Count 4.27 M/uL (3.86-4.86)
[2018-07-08] MEDS ORDERED: INFLUENZA VACCINE (for 3y+) 0.5 ML DOSE IMVAC ONE (09:00)
[2018-07-08] MEDS ORDERED: PNEUMOCOCCAL VACCINE 0.5 ML IMVAC ONE (09:00)
[2018-07-08] MEDS: ENOXAPARIN 40 MG/0.4 ML SQ SCH (09:11)
[2018-07-08] MEDS: METOPROLOL TAR 50 MG TAB PO SCH ×2 (09:12→21:00)
[2018-07-08] MEDS: LISINOPRIL 10 MG TAB PO SCH (09:13)
[2018-07-08] MEDS: ASPIRIN EC 81 MG TAB PO SCH (09:30)
[2018-07-08] MEDS ORDERED: BACLOFEN 10 MG TAB PO PRN (12:59)
[2018-07-08] MEDS ORDERED: HOME MED 1 EA UNK (Dicyclomine Hcl [Dicyclomine Hcl] 20 MG) PO SCH (14:00)
[2018-07-08] MEDS ORDERED: ROPINIROLE HCL 0.25 MG TAB PO SCH (14:00)
[2018-07-08] MEDS ORDERED: LEVODOPA PO SCH (14:00)
[2018-07-08] MEDS ORDERED: CARBIDOPA PO SCH (14:00)
[2018-07-08] MEDS: GABAPENTIN 300 MG CAP PO SCH ×2 (14:19→21:37)
[2018-07-08] MEDS: DICYCLOMINE HCL 10 MG CAP PO SCH ×2 (14:19→21:36)
[2018-07-08] MEDS: HYDROCODONE/APAP 5/325 MG TAB PO SCH ×2 (14:20→21:37)
[2018-07-08] MEDS: CARBIDOPA/LEVODOPA 25/250 TAB PO SCH ×2 (16:18→21:36)
[2018-07-08] MEDS ORDERED: KETOROLAC 30 MG/ML INJ IV ONE (17:22)
[2018-07-08] MEDS: RIVASTIGMINE 4.6 MG/24 HR PATCH TD SCH (17:31)
--- NOTE | 2018-07-08 18:15 | PN ---
Date of Progress Note: 07/08/2018 Subjective: Patient seen and examined. Chart reviewed and case discussed with RN. Daughter at the bedside. Patient complaining of significant amount of pain all over. Denies any specific pain in the chest. Medications: List reviewed. Code Status: Full. Physical Examination: Vital Signs: Temperature 97.2, heart rate 60, blood pressure 172/81, respirations 16, O2 98% on 2 L via nasal cannula. General: Awake, alert, oriented x3, ill-appearing female, in some mild distress due to pain. CV: S1, S2. Regular rate and rhythm. Peripheral pulses present. Respiratory: Moving air well bilaterally. No wheezing. Gastrointestinal: Abdomen is soft, nontender, nondistended. Positive bowel sounds. Extremities: No clubbing, cyanosis, or edema. Neurologic: Nonfocal. The patient does have some resting tremor. Laboratory Data: Sodium 140, potassium 4, chloride 109, CO2 26, BUN 18, creatinine 0.71, glucose 89, calcium 8.4, troponin less than 0.02 x2. Triglycerides 168, cholesterol 99, LDL 21, HDL 44. WBC 7, H and H 13.7/40.4, platelets 364, neutrophils 57%. CT head is negative. Assessment: An 83-year-old female with: 1. Chest pain, atypical. Acute coronary syndrome ruled out. 2. Essential hypertension, stable. Resume home medications as appropriate. 3. Parkinson disease. The patient follows with Dr. Hoff, Neurology. 4. Chronic pain syndrome. The patient is on narcotics and does not seem to be well controlled. 5. Neuropathy, on gabapentin. 6. GI/DVT prophylaxis addressed with PPI and Lovenox. Plan: We will reach out to the patient's neurologist. Adjust pain medications. The patient has had multiple admissions to the hospital for similar reasons. Has had a cardiac workup recently which was negative. This seems to be stemming from chronic pain, which is not well controlled. The patient does not see a car painter. The patient lives with her daughter. There is clearly some tension there. The patient lives across from her sister as well. Does have home health child day care teacher who comes out 2 hours a day. We will add baclofen as patient's Parkinson's likely causes some stiffness in the muscles; likely discontinue once pain is improved. We will try to prevent readmission and try to address the patient's chronic pain issues at this visit. We will reach out to the patient's primary care physician, Dr. Espinoza. KAREEN Voice ID: [id number] Report ID: [id number] MTDD
[2018-07-08] MEDS ORDERED: [UNRECOGNIZED DRUG - OTHER] PO SCH (21:00)
[2018-07-08] MEDS ORDERED: HYDROCODONE BIT PO SCH (21:00)
[2018-07-08] MEDS ORDERED: ACETAMINOPHEN PO SCH (21:00)
[2018-07-08] MEDS: ATORVASTATIN 40 MG TAB PO SCH (21:37)
[2018-07-08] MEDS: ROPINIROLE HCL 0.25 MG TAB PO SCH (21:37)
--- NOTE | 2018-07-08 22:12 | CON ---
Date of Consultation: 07/08/2018 Time: 1700. Reason: Parkinson's, generalized pain. History: An 83-year-old lady with long-standing Parkinson's disease, comes to the emergency department, complaining of generalized pain with superimposed chest pain and generalized weakness. The patient has longstanding generalized pain complaints, Parkinson's looks not quite as good as it has in the past, presently admitted for observation, chest pain, rule out AR. CBC is normal. Electrolytes are normal. Cardiac enzymes are normal. LDL 21. Chest x-ray clear. EKG normal sinus rhythm with low-voltage QRS. CT scan of the brain showed atrophy and chronic ischemic changes with proportional ventricular enlargements. Consultation was requested. Past Medical History: Parkinson's disease, hypertension, Parkinson's, dementia , neuropathy, history of breast carcinoma. Medications: Tylenol, aspirin, Lipitor 40, baclofen as needed, Sinemet 25/250 t.i.d., Bentyl, Lovenox, gabapentin 300 t.i.d., [place] b.i.d., hydrocortisone, lisinopril, metoprolol, propranolol 0.25 t.i.d. Social History: Drinks normally. Requires assistance with activities of daily living. Allergies: PENICILLIN. Family History: Noncontributory. Review of Systems: General: Chronically ill. Eyes: Negative. Ears, Nose, Throat: Negative. Cardiovascular: Chest pain, hypertension. Pulmonary: Negative. GI: Chronic abdominal pain. : Negative. Musculoskeletal: Arthralgias. Neurologic: As noted. Psychiatric: Memory loss. Endocrine: Negative. Hematologic: Negative. Physical Examination: Vital Signs: 97.2, 60, 16, 172/81. General: She is elderly lady, lying in bed, in no distress. Awake, alert, oriented, pleasant, resting tremor on the left. HEENT: Pupils reactive. Ocular motion full. Visual luna full. Facial strength sensation normal. Tongue protrudes evenly. Soft palate elevates symmetrically bilaterally. Extremities: Strength full. Resting tremor. Cogwheeling, [id number]- right, moderate generalized bradykinesia. Sensation decreased symmetrically distally. Reflexes trace to 1/4. Toes are downgoing. No [id number] ataxia. Pertinent Laboratory Data: As noted in history. Impression: 1. Parkinson's disease with gait dysfunction. 2. Parkinson's dementia. 3. Generalized deconditioning. Plan: We will increase the Requip to 0.5 t.i.d. Continue the Sinemet. Continue Exelon patch as well which is a medicine she should be on, but she is not. I would not escalate her narcotics in a chronic standard dose for her. No evidence for stroke causing above complaints. We will continue to follow with you. DELLA Voice ID: [id number] Report ID: [id number] MTDD
[2018-07-09 00:13] LABS: Urine Appearance CLOUDY; Urine Bilirubin NEGATIVE (NEG); Urine Blood NEGATIVE (NEG); Urine Color YELLOW; Urine Glucose NEGATIVE (NEG); Urine Protein NEGATIVE (NEG); Urine Urobilinogen 0.2 mg/dL (0.2-1.0); Urine pH 5.5 (5.0-7.0)
[2018-07-09 00:26] LABS: Urine Microscopic Reflex ORDER UMIC
[2018-07-09 00:54] LABS: Urine Bacteria 20-50 /HPF (<20); Urine Culture Reflex Order NOT NEEDED; Urine RBC NONE SEEN /HPF (NONE SEEN)
[2018-07-09 07:16] LABS: Potassium 4.1 mmol/L (3.5-5.1)
[2018-07-09] MEDS ORDERED: PANTOPRAZOLE 40MG TABLET PO SCH (07:30)
[2018-07-09 07:56] LABS: Absolute Lymphocytes (CBC) 2.3 K/uL (0.7-4.9); Absolute Monocytes 0.4 K/uL (0.1-1.3); Basophils % 0.4 % (0-1.3); Eosinophils % 1.8 % (0-4.4); Hematocrit 39.9 % (36.0-45.0); Lymphocytes % 33.5 % (15.3-44.8); MPV 8.2 fL (7.6-11.3); Monocytes % 6.4 % (3.3-12.3); RBC Red Blood Cell Count 4.23 M/uL (3.86-4.86)
[2018-07-09] MEDS ORDERED: HYDROCORTISONE 10 MG TAB PO SCH (09:00)
[2018-07-09] MEDS ORDERED: LINACLOTIDE 72 MCG PO SCH (09:00)
[2018-07-09] MEDS: ENOXAPARIN 40 MG/0.4 ML SQ SCH (09:05)
[2018-07-09] MEDS: LISINOPRIL 10 MG TAB PO SCH (09:06)
[2018-07-09] MEDS: ROPINIROLE HCL 0.25 MG TAB PO SCH ×2 (09:06→14:06)
[2018-07-09] MEDS: DICYCLOMINE HCL 10 MG CAP PO SCH ×2 (09:06→14:06)
[2018-07-09] MEDS: RIVASTIGMINE 4.6 MG/24 HR PATCH TD SCH (09:09)
[2018-07-09] MEDS: HYDROCODONE/APAP 5/325 MG TAB PO SCH (09:09)
[2018-07-09] MEDS: ASPIRIN EC 81 MG TAB PO SCH (09:10)
[2018-07-09] MEDS: GABAPENTIN 300 MG CAP PO SCH ×2 (09:10→14:06)
[2018-07-09] MEDS: METOPROLOL TAR 50 MG TAB PO SCH (09:10)
[2018-07-09] MEDS: CARBIDOPA/LEVODOPA 25/250 TAB PO SCH ×2 (09:11→14:05)
[2018-07-09] MEDS ORDERED: INFLUENZA VACCINE (for 3y+) 0.5 ML DOSE IMVAC ONE (16:00)
--- NOTE | 2018-07-09 18:54 | PN ---
Addendum: Physical Examination: As noted. Impression: Parkinson disease with dementia. Plan: Medication changes as alluded to. I think she is stable to be discharged back to home today. Follow up in the office 1-2 weeks. DELLA Voice ID: [id number] Report ID: [id number]
--- NOTE | 2018-07-09 18:54 | PN ---
Date of Progress Note: 07/09/2018 Time: 1250. Reason: Parkinson. Interval History: The patient is stable. Tremor is a little better. She still complains of general ized pain. Labs are normal. I think she could reasonably be safely discharged back to home today. We can see her back in the office in a few weeks. Physical Examination: She is awake, alert, oriented. Slight masking. Occasional resting tremor on the left. No cogwheeli ng on the right, moderate cogwheeling on the left. Moderate generalized bradykinesia. Sensation dec reased distally. Reflexes trace. DICTATION ENDS HERE JULIO/CRYSTAL Voice ID: [id number] Report ID: [id number]
--- NOTE | 2018-07-10 05:38 | DS ---
Date of Discharge: 07/09/2018 Consultants: Dr. Hoff with Neurology. Discharge Diagnoses: 1. Chest pain. Acute coronary syndrome ruled out. 2. Essential hypertension, stable. 3. Parkinson disease. 4. Chronic pain syndrome, now well controlled. 5. Generalized deconditioning, diffuse myopathy. Hospital Course: The patient is an 83-year-old female with past medical history of Parkinson disease and hypertension, lives with her daughter, who has had multiple readmissions to the hospital for regular issue with uncontrolled pain, came in again with chest pain superimposed on chronic pain. Her cardiac enzymes were negative. ACS was ruled out. There were no changes on the EKG. The patient has had a recent cardiac workup with stress test in December, which was negative. The patient's chest pain resolved. However, she continued to complain of pain all over her body. She is on chronic narcotics. Dr. Hoff, her neurologist, was consulted for other options regarding her pain. He recommended increasing Requip to 0.5 t.i.d. and to add Exelon patch. The patient ambulated well with PT. She does have rigidity and cogwheeling. Therefore, would benefit from physical therapy at home. The patient otherwise remained stable throughout the course of the hospital stay. She was then cleared for discharge from lending consultant's standpoint to be discharged home with home health. Medications: As per medication reconciliation list. Followup: Follow up with primary care physician in 2 to 3 days. Follow up with neurologist, Dr. Hoff, in 2 weeks. Return to ER for worsening condition. Diet: Low-sodium, fluid-restricted diet. Activity: Fall precautions. Physical Examination: General: Awake, alert, and oriented. No acute distress. CV: S1, S2. No murmurs. Respiratory: Moving air well bilaterally. No wheezing. Gastrointestinal: Abdomen soft, nontender, and nondistended. Positive bowel sounds. Extremities: No clubbing, cyanosis, or edema. Neurologic: Nonfocal. The patient has resting tremor, cogwheel rigidity, and some stiffness. SA/MODL Voice ID: [id number] Report ID: [id number] [facility] CENTERBlaze
== END 2018-07-09 16:26 | disposition home health service (06) ==
LOC: ER 15:36 → ERHOLD 18:16 → 4TH 20:20
PROVIDERS: ADMIT Family Medicine; ATTEND Internal Medicine
DX: R07.9 Chest pain, unspecified (principal); I10 Essential (primary) hypertension; G89.4 Chronic pain syndrome; G20 Parkinson's disease; F02.80 Dementia in other diseases classified elsewhere, unspecified severity, without behavioral disturbance, psychotic disturbance, mood disturbance, and anxiety; G62.9 Polyneuropathy, unspecified; Z85.3 Personal history of malignant neoplasm of breast
CPT/HCPCS: 36415 ×2; 70450; 71045; 80048 ×3; 80061; 80076; 82550; 83735; 83880; 84484 ×3; 85025 ×3; 85610; 93005; 94760 ×4; 97116; 97162; 97530; 99285; G0378 ×2; J1650 ×2; J7030; Q2035; 81003; 81015

== ENCOUNTER 2018-09-01 13:01 | Emergency (ER) | payer OTHER ==
--- OUTSIDE RECORDS SUMMARY | 2018-09-01 13:02 | XMS REPORT ---
:1935 [facility] Address [address] [place] [address] Dr. Durham [address] [place] [id number] Care Team Providers Name Role Phone Unavailable Unavailable Unavailable Problems This patient has no known problems. Allergies, Adverse Reactions, Alerts This patient has no known allergies or adverse reactions. Medications This patient has no known medications.
[2018-09-01 13:36] LABS: Absolute Lymphocytes (CBC) 2.2 K/uL (0.7-4.9); Absolute Monocytes 0.5 K/uL (0.1-1.3); Absolute Neutrophil 4.5 K/uL (1.8-8.0); Basophils % 0.6 % (0-1.3); Eosinophils % 0.9 % (0-4.4); Hematocrit 40.7 % (36.0-45.0); Lymphocytes % 30.4 % (15.3-44.8); MPV 7.6 fL (7.6-11.3); Monocytes % 6.4 % (3.3-12.3); RBC Red Blood Cell Count 4.37 M/uL (3.86-4.86)
[2018-09-01 13:39] LABS: Protime INR 1.04
[2018-09-01 13:55] LABS: ALT/SGPT 11 U/L (12-78); AST/SGOT 9 U/L (15-37); Albumin 3.4 g/dL (3.4-5.0); Alkaline Phosphatase 104 U/L (45-117); BUN Blood Urea Nitrogen 21 mg/dL (7-18); Bicarbonate 25 mmol/L (21-32); Bilirubin Direct 0.2 mg/dL (0-0.2); Bilirubin Total 0.8 mg/dL (0.2-1.0); Glucose Level 114 mg/dL (74-106); Magnesium 2.2 mg/dL (1.8-2.4); NT PRO-BNP 37 pg/mL (<450); Potassium 4.3 mmol/L (3.5-5.1); Protein, Total 6.7 g/dL (6.4-8.2); Sodium Level 140 mmol/L (136-145); Troponin (Emerg Dept Use Only) < 0.02 ng/mL (0.0-0.045)
--- NOTE | 2018-09-01 14:17 | RAD REPORT ---
EXAM DESCRIPTION: RAD - Chest Single View - 09/01/2018 1:45 pm CLINICAL HISTORY: Left-sided chest pain COMPARISON: July 07 TECHNIQUE: AP portable chest image was obtained 1342 hours . FINDINGS: No focal mass or consolidation. Lung markings are accentuated by a shallow inspiratory eff ort. Significant failure or volume overload are not suspected. Interstitial markings are not substant ially different when adjusting for the more shallow inspiration. Heart and vasculature are normal. No measurable pleural effusion and no pneumothorax. No acute bony abnormality seen. No acute aortic fin dings suspected. IMPRESSION: No acute cardiopulmonary process. Chest is not significantly different from comparison.
--- NOTE | 2018-09-01 14:40 | ER ---
Nurse's Notes [facility] Name: Lety Ontiveros Age: 83 yrs Sex: Female : 1935 Arrival Date: 09/01/2018 Time: 13:07 Bed 2 Private MD: Diagnosis: Chest pain, unspecified Presentation: 09/01 13:08 Presenting complaint: Patient states: Chest pain that started 2 hours ago radiates to aj1 the left side of the chest, the left arm and face. Denies SOB, palpitations, nausea. Patient was given Nitro x1 by EMS en route. Transition of care: patient was not received from another setting of care. Onset of symptoms was September 01, 2018. Risk Assessment: Do you want to hurt yourself or someone else? Patient reports no desire to harm self or others. Initial Sepsis Screen: Does the patient meet any 2 criteria? No. Patient's initial sepsis screen is negative. Does the patient have a suspected source of infection? No. Patient's initial sepsis screen is negative. Care prior to arrival: None. 13:08 Method Of Arrival: EMS: [facility] aj1 13:08 Acuity: FLORES 2 aj1 Triage Assessment: 13:12 General: Appears in no apparent distress. uncomfortable, Behavior is calm, cooperative, aj1 appropriate for age. Pain: Complains of pain in mid-sternal area Pain radiates to face, anterior aspect of left upper chest and left arm Pain currently is 8 out of 10 on a pain scale. Quality of pain is described as patient is unable to describe Pain began 2 hours ago. Is intermittent, Alleviated by nothing. Aggravated by nothing. Neuro: Level of Consciousness is awake, alert, obeys commands. Cardiovascular: Reports chest pain, Patient's skin is warm and dry. Respiratory: Airway is patent Respiratory effort is even, unlabored, Respiratory pattern is regular, symmetrical, Denies shortness of breath. Historical: - Allergies: 13:12 PENICILLINS; aj1 - Home Meds: 13:12 dicyclomine 20 mg Oral tab 1 tab 3 times per day [Active]; ropinirole 0.25 mg Oral tab aj1 1 tab 3 times per day [Active]; pantoprazole 40 mg Oral TbEC 1 tab once daily [Active]; carbidopa-levodopa 25-250 mg Oral TbDL 1 tab 3 times per day [Active]; hydrocortisone 10 mg Oral tab 1 tab once daily [Active]; gabapentin 300 mg Oral cap 1 cap 3 times per day [Active]; aspirin 81 mg Oral TbEC 1 tab once daily [Active]; atorvastatin 40 mg Oral tab 1 tab once daily [Active]; Linzess 72 mcg Oral once daily [Active]; promethazine 25 mg Oral tab 1 tab once daily [Active]; hydrocodone-acetaminophen 5-325 mg Oral tab 1 tab twice daily [Active]; Centrum Oral [Active]; - PMHx: 13:12 bowel obstruction; Cancer, Breast; CHF; CVA; neuropathy; Parkinsons; mastectomy right aj1 side; - Immunization history:: Flu vaccine is up to date. - Social history:: Smoking status: Patient/guardian denies using tobacco. - Ebola Screening: : Patient denies travel to an Ebola-affected area in the 21 days before illness onset. Screenin:20 Abuse screen: Denies threats or abuse. Denies injuries from another. Nutritional sv screening: No deficits noted. Tuberculosis screening: No symptoms or risk factors identified. Fall Risk None identified. Assessment: 14:00 Reassessment: Patient appears in no apparent distress at this time. No changes from sv previously documented assessment. Patient and/or family updated on plan of care and expected duration. Pain level reassessed. Patient is alert, oriented x 3, equal unlabored respirations, skin warm/dry/pink. 15:05 Reassessment: Patient appears in no apparent distress at this time. Patient and/or sv family updated on plan of care and expected duration. Pain level reassessed. Patient is alert, oriented x 3, equal unlabored respirations, skin warm/dry/pink. 15:07 Reassessment: Dr Palm in to see the pt. sv 15:48 Reassessment: Patient appears in no apparent distress at this time. No changes from sv previously documented assessment. Patient and/or family updated on plan of care and expected duration. Pain level reassessed. Patient is alert, oriented x 3, equal unlabored respirations, skin warm/dry/pink. 16:33 Reassessment: Patient appears in no apparent distress at this time. Patient and/or sv family updated on plan of care and expected duration. Pain level reassessed. Patient is alert, oriented x 3, equal unlabored respirations, skin warm/dry/pink. Vital Signs: 13:12 BP 129 / 78; Pulse 71; Resp 24; Temp 97.8; Pulse Ox 95% on R/A; Weight 77.11 kg (R); aj1 Height 5 ft. 4 in. (162.56 cm) (R); Pain 8/10; 14:01 BP 135 / 99; Pulse 64; Resp 13; Pulse Ox 95% on 2 lpm NC; sv 14:36 BP 128 / 92; Pulse 72; Resp 13; Pulse Ox 97% on 2 lpm NC; sv 15:25 BP 120 / 64; Pulse 66; Resp 14; Pulse Ox 98% on 2 lpm NC; sv 15:48 BP 110 / 70; Pulse 65; Resp 14; Pulse Ox 97% on 2 lpm NC; sv 16:32 BP 110 / 74; Pulse 63; Resp 14; Pulse Ox 95% ; sv 13:12 Body Mass Index 29.18 (77.11 kg, 162.56 cm) aj1 ED Course: 13:07 Patient arrived in ED. aj1 13:09 Gaurang Eduardo PA is PHCP. jmm 13:09 Tay Kim MD is Attending Physician. jmm 13:10 Triage completed. aj1 13:10 Shayy Torres, RN is Primary Nurse. sv 13:12 Arm band placed on. aj1 13:20 Patient has correct armband on for positive identification. Placed in gown. Bed in low sv position. Call light in reach. Side rails up X2. him analyst on. Pulse ox on. NIBP on. Door closed. Warm blanket given. Head of bed elevated. 13:20 Initial lab(s) drawn, by wa, sent to lab. Inserted saline lock: 20 gauge in left sv forearm, using aseptic technique. Blood collected. Flushed left forearm with 5 ml normal saline. 13:20 EKG done, by ED staff, reviewed by Gaurang JAQUEZ. sv 13:20 Oxygen administration via nasal cannula \T\ 2L/min. sv 13:33 Basic Metabolic Panel Sent. sv 13:33 CBC with Diff Sent. sv 13:34 X-ray(s) taken. sv 13:45 XRAY Chest (1 view) In Process Unspecified. EDMS 14:38 Pauline Palm MD is Hospitalizing Provider. jmm 15:48 Warm blanket given. sv 16:34 No provider procedures requiring assistance completed. IV discontinued, intact, sv bleeding controlled, No redness/swelling at site. Pressure dressing applied. Administered Medications: 13:05 Drug: Aspirin Chewable Tablet 324 mg Route: PO; sv 15:25 Follow up: Response: No adverse reaction sv Outcome: 14:39 Decision to Hospitalize by Provider. jmm 16:13 Discharge ordered by MD. [facility] 16:34 Discharged to home via wheelchair, with family. sv 16:34 Condition: stable 16:34 Discharge instructions given to patient, Instructed on discharge instructions, follow up and referral plans. Pt stated that she will be going to see Dr Hall first thing on Monday morning. Demonstrated understanding of instructions, follow-up care. 16:35 Patient left the ED. sv Signatures: Dispatcher [employer] EDLeidy Mac RN RN aj1 Shayy Torres RN RN sv Gaurang Eduardo PA PA jmm
--- NOTE | 2018-09-01 14:40 | EDPHYS ---
Physician Documentation [facility] Name: Lety Ontiveros Age: 83 yrs Sex: Female : 1935 Arrival Date: 09/01/2018 Time: 13:07 Bed 2 Private MD: ED Physician Tay Kim HPI: 09/01 13:37 This 83 yrs old Female presents to ER via EMS with complaints of Chest Pain. [facility] 13:37 The patient or guardian reports chest pain that is located primarily in the substernal [facility] area. Onset: gradually, at 05:00. The pain radiates to left jaw, right jaw. The chest pain is described as aching. Duration: The patient or guardian reports multiple episodes, that wax and wane. This is an 83 year old female that presents to the ED with complaints of chest pain which began this morning at 0500. Patient states the pain radiates to both sides of her jaw. Patient denies history of [place]. . Historical: - Allergies: 13:12 PENICILLINS; aj1 - Home Meds: 13:12 dicyclomine 20 mg Oral tab 1 tab 3 times per day [Active]; ropinirole 0.25 mg Oral tab aj1 1 tab 3 times per day [Active]; pantoprazole 40 mg Oral TbEC 1 tab once daily [Active]; carbidopa-levodopa 25-250 mg Oral TbDL 1 tab 3 times per day [Active]; hydrocortisone 10 mg Oral tab 1 tab once daily [Active]; gabapentin 300 mg Oral cap 1 cap 3 times per day [Active]; aspirin 81 mg Oral TbEC 1 tab once daily [Active]; atorvastatin 40 mg Oral tab 1 tab once daily [Active]; Linzess 72 mcg Oral once daily [Active]; promethazine 25 mg Oral tab 1 tab once daily [Active]; hydrocodone-acetaminophen 5-325 mg Oral tab 1 tab twice daily [Active]; Centrum Oral [Active]; - PMHx: 13:12 bowel obstruction; Cancer, Breast; CHF; CVA; neuropathy; Parkinsons; mastectomy right aj1 side; - Immunization history:: Flu vaccine is up to date. - Social history:: Smoking status: Patient/guardian denies using tobacco. - Ebola Screening: : Patient denies travel to an Ebola-affected area in the 21 days before illness onset. ROS: 13:37 Constitutional: Negative for fever, chills, and weight loss. jmm 13:37 Respiratory: Negative for shortness of breath, cough, wheezing, and pleuritic chest pain, Abdomen/GI: Negative for abdominal pain, nausea, vomiting, diarrhea, and constipation, Neuro: Negative for headache, weakness, numbness, tingling, and seizure. 13:37 Cardiovascular: Positive for chest pain. 13:37 All other systems are negative. Exam: 13:37 Head/Face: atraumatic. Eyes: EOMI, no conjunctival erythema appreciated ENT: Moist jmm Mucus Membranes Neck: Trachea midline, Supple Chest/axilla: Normal chest wall appearance and motion. Cardiovascular: Regular rate and rhythm. No edema appreciated 13:37 Abdomen/GI: Non distended, soft Back: Normal ROM Skin: General appearance color normal MS/ Extremity: Moves all extremities, no obvious deformities appreciated, no edema noted to the lower extremities Neuro: Awake and alert, normal gait Psych: Behavior is normal, Mood is normal, Patient is cooperative and pleasant 13:37 Constitutional: The patient appears in no acute distress, alert, awake. 13:37 Cardiovascular: Rate: normal, Rhythm: regular, Pulses: no pulse deficits are appreciated. Vital Signs: 13:12 BP 129 / 78; Pulse 71; Resp 24; Temp 97.8; Pulse Ox 95% on R/A; Weight 77.11 kg (R); aj1 Height 5 ft. 4 in. (162.56 cm) (R); Pain 8/10; 14:01 BP 135 / 99; Pulse 64; Resp 13; Pulse Ox 95% on 2 lpm NC; sv 14:36 BP 128 / 92; Pulse 72; Resp 13; Pulse Ox 97% on 2 lpm NC; sv 15:25 BP 120 / 64; Pulse 66; Resp 14; Pulse Ox 98% on 2 lpm NC; sv 15:48 BP 110 / 70; Pulse 65; Resp 14; Pulse Ox 97% on 2 lpm NC; sv 16:32 BP 110 / 74; Pulse 63; Resp 14; Pulse Ox 95% ; sv 13:12 Body Mass Index 29.18 (77.11 kg, 162.56 cm) aj1 MDM: 13:19 Patient medically screened. rachel 14:37 The patient was given aspirin in the Emergency Department. Data reviewed: vital signs, [facility] lab test result(s), radiologic studies, plain films. Test interpretation: by ED physician or midlevel provider: ECG. Counseling: I had a detailed discussion with the patient and/or guardian regarding: the historical points, exam findings, and any diagnostic results supporting the discharge/admit diagnosis, lab results, radiology results, the need for further work-up and treatment in the hospital. ED course: I discussed the patient with Dr. Palm whom accepted admission. . 16:11 ED course: Dr. Palm evaluated the patient and consulted with Dr. Kc whom will jmm evaluate the patient outpatient. Patient and family agree with the plan of care. . 09/01 13:10 Order name: Basic Metabolic Panel sv 09/01 13:10 Order name: CBC with Diff sv 09/01 13:10 Order name: LFT's; Complete Time: 14:09 sv 09/01 13:10 Order name: Magnesium; Complete Time: 14:09 sv 09/01 13:10 Order name: NT PRO-BNP; Complete Time: 14: sv 09/01 13:10 Order name: PT-INR; Complete Time: 14:28 sv 09/01 13:10 Order name: Troponin (emerg Dept Use Only); Complete Time: 14: sv 09/01 13:10 Order name: XRAY Chest (1 view); Complete Time: 14:28 sv 09/01 13:10 Order name: EKG; Complete Time: 13:11 sv 09/01 13:10 Order name: Cardiac monitoring; Complete Time: 13:16 sv 09/01 13:10 Order name: EKG - Nurse/Tech; Complete Time: 13:33 sv 09/01 13:11 Order name: Basic Metabolic Panel; Complete Time: 14:09 EDMS 09/01 13:11 Order name: CBC with Automated Diff; Complete Time: 14:28 EDMS 09/01 13:10 Order name: IV Saline Lock; Complete Time: 13:33 sv 09/01 13:10 Order name: Labs collected and sent; Complete Time: 13:33 sv 09/01 13:10 Order name: O2 Per Protocol; Complete Time: 13:16 sv 09/01 13:10 Order name: O2 Sat Monitoring; Complete Time: 13:16 sv Administered Medications: 13:05 Drug: Aspirin Chewable Tablet 324 mg Route: PO; sv 15:25 Follow up: Response: No adverse reaction sv Disposition: 09/01/18 16:13 Discharged to Home. Impression: Chest pain, unspecified. - Condition is Stable. - Discharge Instructions: Nonspecific Chest Pain. - Medication Reconciliation Form, Thank You Letter, Antibiotic Education, Prescription Opioid Use form. - Follow up: Private Physician; When: 2 - 3 days; Reason: Recheck today's complaints, Continuance of care, Re-evaluation by your physician. - Notes: Please follow up with your water pollution control inspector on monday. Please return to the ED if you develop worsening pain, shortness of breath, or any other concerning symptoms. Addendum: 09/03/2018 09:24 Co-signature as Attending Physician, Tay Kim MD I agree with the assessment and c hogan plan of care. Signatures: Dispatcher [employer] EDMS Leidy Marroquin RN RN aj1 Shayy Torres RN RN sv Anderson, Corey, MD MD cha Mickail, Joel, PA PA [facility] Corrections: (The following items were deleted from the chart) 09/01 16:12 14:39 Hospitalization Ordered by Pauline Palm MD for Observation. Preliminary [facility] diagnosis is Chest pain, unspecified. Bed requested for Telemetry/MedSurg (observation). Status is Observation. Condition is Stable. Problem is new. Symptoms have improved. UTI on Admission? No. crissy 16:35 16:13 09/01/2018 16:13 Discharged to Home. Impression: Chest pain, unspecified. sv Condition is Stable. Forms are Medication Reconciliation Form, Thank You Letter, Antibiotic Education, Prescription Opioid Use. Follow up: Private Physician; When: 2 - 3 days; Reason: Recheck today's complaints, Continuance of care, Re-evaluation by your physician. [facility]
[2018-09-01] MEDS ORDERED: ASPIRIN 81 MG CHEWABLE TABLET ONE (15:21)
--- NOTE | 2018-09-01 15:47 | P.CNS ---
Date of Consult: 09/01/18 Reason for Consult: Admission Requesting Physician: Tay Kim Chief Complaint: Chest pain History of Present Illness: 83 y/o F with Pmhx of HTN, Parkinson Disease, and HLP who presented to the ED with Chest Pain that started 2 hr before presentation to the ER. Was radiating to the right and left arm and up to the jaw area. Pain was sharp in nature and was intermittent. At its worst pain was 7/10. Nitroglycerin helped with the pain. Patient sees Dr Galindo um rn outpatient. No other complaints to offer at this time. Medicine team was consulted to admit the patient for ACS rule out. Allergies Penicillins Allergy (Verified 11/13/17 19:30) UNK Home Medications: Aspirin [Aspirin EC 81 MG] 81 mg PO DAILY 11/13/17 Atorvastatin Calcium [Lipitor] 40 mg PO BEDTIME 11/13/17 Carbidopa/Levodopa [Carbidopa-Levo 25-250 mg Odt] 250 mg PO TID 11/13/17 Dicyclomine HCl 20 mg PO TID 11/13/17 Gabapentin [Neurontin*] 300 mg PO TID 11/13/17 Linaclotide [Linzess] 72 mcg PO DAILY 11/13/17 Hydrocortisone [Cortef*] 10 mg PO DAILY 12/27/17 Pantoprazole Sodium [Protonix] 40 mg PO DAILY #30 tablet. 12/28/17 Hydrocodone Bit/Acetaminophen [Hydrocodon-Acetaminoph 2.5-325] 1 tab PO BID Multivitamin/Iron/Folic Acid [Centrum Adults Tablet] 1 tab PO DAILY 07/08/18 Promethazine HCl 25 mg PO DAILY 07/08/18 Rivastigmine Patch [Exelon 4.6 mg Patch*] 4.6 mg TD DAILY #30 patch 07/09/18 Ropinirole HCl [Requip] 0.5 mg PO TID #90 tablet 07/09/18 - Past Medical/Surgical History Diabetic: No -: CVA -: HTN -: Parkinson's Disease -: Dementia -: right mastectomy -: cholecystectomy -: colon resection -: appendectomy -: hysterectomy - Family History Father Medical History: Heart disease - Social History Alcohol use: Yes CD- Drugs: No Caffeine use: Yes Review of Systems 10-point ROS is otherwise unremarkable Physical Examination General: Alert, In no apparent distress HEENT: Atraumatic, PERRLA, Mucous membr. moist/pink, EOMI, Sclerae nonicteric Neck: Supple, 2+ carotid pulse no bruit, No LAD, Without JVD or thyroid abnormality Respiratory: Clear to auscultation bilaterally, Normal air movement Cardiovascular: Regular rate/rhythm, Normal S1 S2 Gastrointestinal: Normal bowel sounds, No tenderness Musculoskeletal: No tenderness Integumentary: No rashes Neurological: Normal gait, Normal speech, Normal tone, Normal affect Lymphatics: No axilla or inguinal lymphadenopathy Laboratory Data (last 24 hrs) 09/01/18 13:20: PT 12.2, INR 1.04 09/01/18 13:20: WBC 7.3, Hgb 13.8, Hct 40.7, Plt Count 343 09/01/18 13:20: Sodium 140, Potassium 4.3, BUN 21 H, Creatinine 0.85, Glucose 114 H, Magnesium 2.2, Total Bilirubin 0.8, AST 9 L, ALT 11 L, Alkaline Phosphatase 104 - Problems (1) Chest pain Onset Date: 12/28/17 Current Visit: No Status: Acute Qualifiers: Chest pain type: other chest pain Qualified Code(s): R07.89 - Other chest pain; R07.8 - Other chest pain (2) CVA (cerebral vascular accident) Onset Date: 11/14/17 Current Visit: No Status: Chronic Qualifiers: CVA mechanism: unspecified (3) HTN (hypertension) Onset Date: 12/28/17 Current Visit: No Status: Chronic Qualifiers: Hypertension type: essential hypertension (4) Parkinson disease Onset Date: 11/14/17 Current Visit: No Status: Chronic Conclusions/Impression: The patient was seen and evaluated by me in the ER. Upon examination patient and within normal limits of physical exam. Chest pain had resolved. Vitals were stable. Lab work was consistent with troponin x1 which was negative and EKG which was consistent with normal sinus rhythm. Patient's cardiology was contacted from the ER who notified the patient had recent cardiac workup and no further workup is required at this time. Patient can be safely discharged home from the ER and have followup with him on Monday. Patient is to continue taking the medication as prescribed by him. Patient was notified regarding the plan of care and agreed with the plan and thus was discharged home under stable condition. Patient was educated on medication compliance diet compliance along with if there is any worsening of symptoms to come back to the ER. Patient and brother at bedside both demonstrated understanding.
--- NOTE | 2018-09-02 05:56 | EKG ---
Test Date: 2018-09-01 Test Time: 13:14:57 [employer] Feeder: TIFFANY MEASUREMENT RESULTS: Intervals: Rate: 70 WA: 188 QRSD: 78 QT: 394 QTc: 425 [place]: P: 29 WA: 188 QRS: -3 T: 45 INTERPRETIVE STATEMENTS: Normal sinus rhythm Normal ECG Compared to ECG 07/07/2018 16:49:13 No significant changes Electronically Signed On 09-02-18 05:54:45 CDT by Nishant Hall
== END 2018-09-01 16:35 | disposition home or self-care (01) ==
LOC: ER 13:01
DX: R07.9 Chest pain, unspecified (principal); I50.9 Heart failure, unspecified; G20 Parkinson's disease; Z88.0 Allergy status to penicillin; Z86.73 Personal history of transient ischemic attack (TIA), and cerebral infarction without residual deficits; Z85.3 Personal history of malignant neoplasm of breast; Z90.11 Acquired absence of right breast and nipple
CPT/HCPCS: 36415; 71045; 80048; 80076; 83735; 83880; 84484; 85025; 85610; 93005; 99285

== ENCOUNTER 2019-03-21 09:34 | Emergency (ER) | payer OTHER ==
[2019-03-21] MEDS ORDERED: MORPHINE 4 MG/ML SYR ONE (10:47)
[2019-03-21] MEDS ORDERED: ONDANSETRON 4 MG (ODT) TAB ONE (10:50)
[2019-03-21 12:47] LABS: Urine Bacteria <20 /HPF (<20); Urine Culture Reflex Order NOT NEEDED; Urine RBC NONE SEEN /HPF (NONE SEEN)
--- NOTE | 2019-03-21 12:53 | EDPHYS ---
Physician Documentation [facility] Name: Lety Ontiveros Age: 83 yrs Sex: Female : 1935 Arrival Date: 03/21/2019 Time: 09:39 Bed 17 Private MD: ED Physician Cesario Bowling HPI: 03/21 10:40 This 83 yrs old Female presents to ER via EMS with complaints of Leg Pain. jr8 10:40 Onset: The symptoms/episode began/occurred acutely, today. Modifying factors: The jr8 symptoms are alleviated by nothing. the symptoms are aggravated by movement. Associated signs and symptoms: The patient has no apparent associated signs or symptoms. Severity of symptoms: At their worst the symptoms were moderate, in the emergency department the symptoms are unchanged. It is unknown whether or not the patient has had similar symptoms in the past. The patient has not recently seen a physician. Patient stated that she has a history of Parkinson's and arthritis. Normally has daily pain that is controlled with prescriptive medication. Today medicine is not helping . Historical: - Allergies: 10:00 PENICILLINS; ph - Home Meds: 10:00 aspirin 81 mg Oral TbEC 1 tab once daily [Active]; atorvastatin 40 mg Oral tab 1 tab ph once daily [Active]; carbidopa-levodopa 25-250 mg Oral TbDL 1 tab 3 times per day [Active]; Centrum Oral [Active]; cyclobenzaprine 5 mg Oral tab 1 tab twice a day [Active]; dicyclomine 20 mg Oral tab 1 tab 3 times per day [Active]; escitalopram oxalate 20 mg oral tab 1 tab once daily [Active]; Exelon 4.6 mg/24 hr transdermal pt24 1 patch once daily [Active]; gabapentin 300 mg Oral cap 1 cap 3 times per day [Active]; hydrocortisone 10 mg Oral tab 1 tab once daily [Active]; Linzess 72 mcg Oral once daily [Active]; hydrocodone-acetaminophen 5-325 mg Oral tab 1 tab twice daily [Active]; pantoprazole 40 mg Oral TbEC 1 tab once daily [Active]; promethazine 25 mg Oral tab 1 tab once daily [Active]; ropinirole 0.25 mg Oral tab 1 tab 3 times per day [Active]; telmisartan 40 mg oral tab 1 tab once daily [Active]; tizanidine 2 mg oral tab 1 tabs twice a day [Active]; - PMHx: 10:00 bowel obstruction; Cancer, Breast; CHF; CVA; mastectomy right side; neuropathy; ph Parkinsons; - Immunization history:: Adult Immunizations up to date. - Social history:: Smoking status: Patient/guardian denies using tobacco. - Ebola Screening: : No symptoms or risks identified at this time. ROS: 10:44 Eyes: Negative for injury, pain, redness, and discharge, ENT: Negative for injury, jr8 pain, and discharge, Neck: Negative for injury, pain, and swelling, Cardiovascular: Negative for chest pain, palpitations, and edema, Respiratory: Negative for shortness of breath, cough, wheezing, and pleuritic chest pain, Abdomen/GI: Negative for abdominal pain, nausea, vomiting, diarrhea, and constipation, Back: Negative for injury and pain, Skin: Negative for injury, rash, and discoloration, Neuro: Negative for headache, weakness, numbness, tingling, and seizure. 10:44 MS/extremity: Positive for pain, of the right leg and left leg. Exam: 10:44 Eyes: Pupils equal round and reactive to light, extra-ocular motions intact. Lids and jr8 lashes normal. Conjunctiva and sclera are non-icteric and not injected. Cornea within normal limits. Periorbital areas with no swelling, redness, or edema. ENT: Nares patent. No nasal discharge, no septal abnormalities noted. Tympanic membranes are normal and external auditory canals are clear. Oropharynx with no redness, swelling, or masses, exudates, or evidence of obstruction, uvula midline. Mucous membranes moist. Neck: Trachea midline, no thyromegaly or masses palpated, and no cervical lymphadenopathy. Supple, full range of motion without nuchal rigidity, or vertebral point tenderness. No Meningismus. Cardiovascular: Regular rate and rhythm with a normal S1 and S2. No gallops, murmurs, or rubs. Normal PMI, no JVD. No pulse deficits. Respiratory: Lungs have equal breath sounds bilaterally, clear to auscultation and percussion. No rales, rhonchi or wheezes noted. No increased work of breathing, no retractions or nasal flaring. Abdomen/GI: Soft, non-tender, with normal bowel sounds. No distension or tympany. No guarding or rebound. No evidence of tenderness throughout. Back: No spinal tenderness. No costovertebral tenderness. Full range of motion. Skin: Warm, dry with normal turgor. Normal color with no rashes, no lesions, and no evidence of cellulitis. Neuro: Awake and alert, GCS 15, oriented to person, place, time, and situation. Cranial nerves II-XII grossly intact. Motor strength 5/5 in all extremities. Sensory grossly intact. Cerebellar exam normal. Normal gait. 10:44 Musculoskeletal/extremity: Extremities: mild pain with ROM and to palpation near hips bilaterally. No signs of trauma noted, ROM: intact in all extremities, Circulation is intact in all extremities. Sensation intact. Vital Signs: 09:45 BP 119 / 81; Pulse 71; Resp 18; Pulse Ox 98% on R/A; Weight 81.65 kg; Height 5 ft. 4 ph in. (162.56 cm); Pain 8/10; 11:41 BP 106 / 75; Pulse 74; Resp 18; Pulse Ox 99% on R/A; ph 13:18 BP 113 / 83; Pulse 76; Resp 18; Temp 97.8; Pulse Ox 99% on R/A; ph 09:45 Body Mass Index 30.90 (81.65 kg, 162.56 cm) ph MDM: 09:51 Patient medically screened. [facility] 12:50 Data reviewed: vital signs, nurses notes, lab test result(s), and as a result, I will jr8 discharge patient. Data interpreted: Pulse oximetry: on room air is 99 %. Interpretation: normal. Counseling: I had a detailed discussion with the patient and/or guardian regarding: the historical points, exam findings, and any diagnostic results supporting the discharge/admit diagnosis, lab results, the need for outpatient follow up, a family practitioner, a painter and decorator apprentice, to return to the emergency department if symptoms worsen or persist or if there are any questions or concerns that arise at home. Response to treatment: the patient's symptoms have markedly improved after treatment. 03/21 11:49 Order name: Urine Microscopic Only; Complete Time: 12:50 ph 03/21 11:49 Order name: Urine Culture ph 03/21 12:00 Order name: Urine Dipstick--Ancillary (enter results) dh3 03/21 12:12 Order name: Diet Regular; Complete Time: 12:13 ph 03/21 09:51 Order name: Urine Dipstick-Ancillary (obtain specimen); Complete Time: 11:40 jr8 Administered Medications: 10:50 Drug: morphine 4 mg Route: IM; Site: left deltoid; ph 11:40 Follow up: Response: No adverse reaction; Pain is decreased; RASS: Alert and Calm (0) ph 10:50 Drug: Zofran 4 mg Route: PO; ph 11:41 Follow up: Response: No adverse reaction ph Disposition: 03/21/19 12:51 Discharged to Home. Impression: Other chronic pain. - Condition is Stable. - Discharge Instructions: Chronic Pain. - Medication Reconciliation Form, Thank You Letter, Antibiotic Education, Prescription Opioid Use form. - Follow up: Private Physician; When: 2 - 3 days; Reason: Recheck today's complaints, Continuance of care, Re-evaluation by your physician. - Problem is new. - Symptoms have improved. Signatures: Dispatcher [employer] EDMS Nnamdi Muller PA PA jr8 Merna Del Castillo RN RN ph Corrections: (The following items were deleted from the chart) 13:20 12:51 03/21/2019 12:51 Discharged to Home. Impression: Other chronic pain. Condition is ph Stable. Forms are Medication Reconciliation Form, Thank You Letter, Antibiotic Education, Prescription Opioid Use. Follow up: Private Physician; When: 2 - 3 days; Reason: Recheck today's complaints, Continuance of care, Re-evaluation by your physician. Problem is new. Symptoms have improved. jr8
--- NOTE | 2019-03-21 12:53 | ER ---
Nurse's Notes [facility] Name: Lety Ontiveros Age: 83 yrs Sex: Female : 1935 Arrival Date: 03/21/2019 Time: 09:39 Bed 17 Private MD: Diagnosis: Other chronic pain Presentation: 03/21 09:40 Presenting complaint: EMS states: C/O kanu leg pain, hx of neuropathy, arthritis and ph Parkinson's, states that she usually has leg pain but it is worse today, no swelling noted. Transition of care: patient was not received from another setting of care. Onset of symptoms was March 21, 2019. Risk Assessment: Do you want to hurt yourself or someone else? Patient reports no desire to harm self or others. Initial Sepsis Screen: Does the patient meet any 2 criteria? No. Patient's initial sepsis screen is negative. Does the patient have a suspected source of infection? No. Patient's initial sepsis screen is negative. Care prior to arrival: None. 09:40 Method Of Arrival: EMS: [facility] ph 09:40 Acuity: FLORES 3 ph Historical: - Allergies: 10:00 PENICILLINS; ph - Home Meds: 10:00 aspirin 81 mg Oral TbEC 1 tab once daily [Active]; atorvastatin 40 mg Oral tab 1 tab ph once daily [Active]; carbidopa-levodopa 25-250 mg Oral TbDL 1 tab 3 times per day [Active]; Centrum Oral [Active]; cyclobenzaprine 5 mg Oral tab 1 tab twice a day [Active]; dicyclomine 20 mg Oral tab 1 tab 3 times per day [Active]; escitalopram oxalate 20 mg oral tab 1 tab once daily [Active]; Exelon 4.6 mg/24 hr transdermal pt24 1 patch once daily [Active]; gabapentin 300 mg Oral cap 1 cap 3 times per day [Active]; hydrocortisone 10 mg Oral tab 1 tab once daily [Active]; Linzess 72 mcg Oral once daily [Active]; hydrocodone-acetaminophen 5-325 mg Oral tab 1 tab twice daily [Active]; pantoprazole 40 mg Oral TbEC 1 tab once daily [Active]; promethazine 25 mg Oral tab 1 tab once daily [Active]; ropinirole 0.25 mg Oral tab 1 tab 3 times per day [Active]; telmisartan 40 mg oral tab 1 tab once daily [Active]; tizanidine 2 mg oral tab 1 tabs twice a day [Active]; - PMHx: 10:00 bowel obstruction; Cancer, Breast; CHF; CVA; mastectomy right side; neuropathy; ph Parkinsons; - Immunization history:: Adult Immunizations up to date. - Social history:: Smoking status: Patient/guardian denies using tobacco. - Ebola Screening: : No symptoms or risks identified at this time. Screenin:02 Abuse screen: Denies threats or abuse. Denies injuries from another. Nutritional ph screening: No deficits noted. Tuberculosis screening: No symptoms or risk factors identified. Fall Risk No fall in past 12 months (0 pts). Secondary diagnosis (15 points) impaired mobility, No IV (0 pts). Ambulatory Aid- Crutches/Cane/Walker (15 pts). Gait- Impaired (20 pts.). Mental Status- Oriented to own ability (0 pts). Total Epperson Fall Scale indicates High Risk Score (45 or more points). Fall prevention measures have been instituted. Side Rails Up X 2 Placed Close to Nursing Station Frequent Obs/Assessments Occuring Family Present and informed to notify staff if the need to leave the bedside As available patient and family educated on Fall Prevention Program and Strategies. Assessment: 10:30 General: Appears in no apparent distress. comfortable, Behavior is calm, cooperative, ph appropriate for age, Denies fever, feeling ill. Pain: Complains of pain in right leg and left leg. Neuro: Level of Consciousness is awake, alert, obeys commands, Oriented to person, place, time, situation. Cardiovascular: Capillary refill < 3 seconds in bilateral fingers toes Patient's skin is warm and dry. Respiratory: Airway is patent Respiratory effort is even, unlabored, Respiratory pattern is regular, symmetrical. GI: No signs and/or symptoms were reported involving the gastrointestinal system. Derm: Skin is intact, Skin is pink, warm \T\ dry. Musculoskeletal: Circulation, motion, and sensation intact. Range of motion: intact in all extremities, Swelling absent. 12:00 Reassessment: Patient appears in no apparent distress at this time. Patient and/or ph family updated on plan of care and expected duration. Pain level reassessed. Patient is alert, oriented x 3, equal unlabored respirations, skin warm/dry/pink. Patient states symptoms have improved. 13:18 Reassessment: Patient appears in no apparent distress at this time. Patient and/or ph family updated on plan of care and expected duration. Pain level reassessed. Patient is alert, oriented x 3, equal unlabored respirations, skin warm/dry/pink. Vital Signs: 09:45 BP 119 / 81; Pulse 71; Resp 18; Pulse Ox 98% on R/A; Weight 81.65 kg; Height 5 ft. 4 ph in. (162.56 cm); Pain 8/10; 11:41 BP 106 / 75; Pulse 74; Resp 18; Pulse Ox 99% on R/A; ph 13:18 BP 113 / 83; Pulse 76; Resp 18; Temp 97.8; Pulse Ox 99% on R/A; ph 09:45 Body Mass Index 30.90 (81.65 kg, 162.56 cm) ph ED Course: 09:39 Patient arrived in ED. ph 09:45 Triage completed. ph 09:51 Nnamdi Muller PA is PHCP. jr8 09:51 Cesario Bowling MD is Attending Physician. jr8 10:02 Arm band placed on Patient placed in an exam room, on a stretcher. ph 10:02 Patient has correct armband on for positive identification. Placed in gown. Bed in low ph position. Call light in reach. Side rails up X2. case monitor on. Pulse ox on. NIBP on. Door closed. Noise minimized. Warm blanket given. Pillow given. Head of bed elevated. 10:06 Merna Del Castillo, RN is Primary Nurse. ph 11:37 No provider procedures requiring assistance completed. Patient did not have IV access ph during this emergency room visit. Administered Medications: 10:50 Drug: morphine 4 mg Route: IM; Site: left deltoid; ph 11:40 Follow up: Response: No adverse reaction; Pain is decreased; RASS: Alert and Calm (0) ph 10:50 Drug: Zofran 4 mg Route: PO; ph 11:41 Follow up: Response: No adverse reaction ph Outcome: 12:51 Discharge ordered by . jr8 13:19 Discharged to home via wheelchair, with family. ph 13:19 Condition: good 13:19 Discharge instructions given to patient, family, Instructed on discharge instructions, follow up and referral plans. Demonstrated understanding of instructions, follow-up care. 13:20 Patient left the ED. ph Addendum: 03/24/2019 17:45 Addendum: Culture Results: Positive urine culture. Patient was not prescribed s s antibiotics at discharge. Report given to VERONIQUE for further evaluation and then to rn case manager hospice for follow up with patient. Phone call Attempt #1 Spoke with patient who states she has no urinary symptoms at this time and plans to follow up with PCP this week for reevaluation. Signatures: Aleida Gold, RN RN Nnamdi Muller PA PA 8 Merna Del Castillo RN RN
[2019-03-21 13:27] VITALS: O2SAT 99
[2019-03-21 13:27] LABS: Urine Blood NEGATIVE (NEG); Urine Glucose NEGATIVE (NEG); Urine Protein NEGATIVE (NEG)
[2019-03-21 13:29] VITALS: BP 113/83; TEMP 97.8
== END 2019-03-21 13:20 | disposition home or self-care (01) ==
LOC: ER 09:34
DX: G89.29 Other chronic pain (principal); G20 Parkinson's disease; G62.9 Polyneuropathy, unspecified; I50.9 Heart failure, unspecified; Z86.73 Personal history of transient ischemic attack (TIA), and cerebral infarction without residual deficits; Z85.3 Personal history of malignant neoplasm of breast
CPT/HCPCS: 81003; 81015; 87077; 87086; 87088; 87186; 96372; 99284

== ENCOUNTER 2020-03-27 15:51 | Emergency (ER) | payer OTHER ==
--- NOTE | 2020-03-27 18:18 | RAD REPORT ---
EXAM DESCRIPTION: RAD - Hip Right 2 View - 03/27/2020 5:31 pm CLINICAL HISTORY: Right hip pain FINDINGS: No fracture or dislocation is seen. The bones are osteoporotic. If patient continues to have symptoms to suggest an occult fracture MRI would be recommended
--- NOTE | 2020-03-27 18:27 | ER ---
Nurse's Notes [facility] Name: Lety Ontiveros Age: 84 yrs Sex: Female : 1935 Arrival Date: 03/27/2020 Time: 16:06 Bed 14 Private MD: Diagnosis: Contusion of right hip Presentation: 03/27 16:24 Chief complaint: Patient states: "I have Parkinson's and is getting really weak her jd3 recently. I fell at about 1100 onto my right hip.". Coronavirus screen: At this time, the client does not indicate any symptoms associated with coronavirus-19. Ebola Screen: Patient negative for fever greater than or equal to 101.5 degrees Fahrenheit, and additional compatible Ebola Virus Disease symptoms. Initial Sepsis Screen: Does the patient meet any 2 criteria? No. Patient's initial sepsis screen is negative. Does the patient have a suspected source of infection? No. Patient's initial sepsis screen is negative. Risk Assessment: Do you want to hurt yourself or someone else? Patient reports no desire to harm self or others. Onset of symptoms was March 27, 2020. 16:24 Method Of Arrival: Wheelchair jd3 16:24 Acuity: FLORES 3 jd3 Historical: - Allergies: 16:26 PENICILLINS; jd3 - PMHx: 16:26 CVA; neuropathy; Parkinsons; CHF; Cancer, Breast; mastectomy right side; bowel jd3 obstruction; - PSHx: 16:26 Cholecystectomy; Hysterectomy; jd3 - Immunization history:: Adult Immunizations up to date. - Social history:: Smoking status: Patient denies any tobacco usage or history of. Screenin:00 Abuse screen: Denies threats or abuse. Denies injuries from another. Nutritional ca1 screening: No deficits noted. Tuberculosis screening: No symptoms or risk factors identified. Fall Risk Fall in past 12 months (25 points). Ambulatory Aid- Crutches/Cane/Walker (15 pts). Gait- Weak (10 pts.). Total Epperson Fall Scale indicates High Risk Score (45 or more points). Fall prevention measures have been instituted. Side Rails Up X 2 Family Present and informed to notify staff if the need to leave the bedside As available patient and family educated on Fall Prevention Program and Strategies. Assessment: 17:00 General: Appears in no apparent distress. comfortable, Behavior is calm, cooperative, ca1 appropriate for age. Pain: Complains of pain in right leg. Neuro: Level of Consciousness is awake, alert, obeys commands, Oriented to person, place, time, situation. Derm: Skin is intact, is healthy with good turgor, Skin is pink, warm \\T\\ dry. Musculoskeletal: Circulation, motion, and sensation intact. Capillary refill < 3 seconds. 18:00 Reassessment: Patient appears in no apparent distress at this time. Patient and/or ca1 family updated on plan of care and expected duration. Pain level reassessed. Patient is alert, oriented x 3, equal unlabored respirations, skin warm/dry/pink. 19:00 Reassessment: Patient appears in no apparent distress at this time. Patient is alert, ca1 oriented x 3, equal unlabored respirations, skin warm/dry/pink. Vital Signs: 16:26 BP 114 / 62; Pulse 73; Resp 17 S; Temp 98.3(O); Pulse Ox 98% on R/A; Weight 72.57 kg jd3 (R); Height 5 ft. 4 in. (162.56 cm) (R); Pain 8/10; 18:36 BP 111 / 83; Pulse 81; Resp 15 S; Pulse Ox 98% on R/A; ca1 16:26 Body Mass Index 27.46 (72.57 kg, 162.56 cm) jd3 ED Course: 16:06 Patient arrived in ED. as 16:25 Triage completed. jd3 16:29 Arm band placed on. jd3 16:54 [facility]. jr8 16:54 Rogelio Emerson MD is Attending Physician. jr8 17:00 Patient has correct armband on for positive identification. Bed in low position. Call ca1 light in reach. Side rails up X2. Pulse ox on. NIBP on. Warm blanket given. 17:01 Mayda Nichols, JAKE is Primary Nurse. ca1 17:31 Hip Right 2 View XRAY In Process Unspecified. EDMS 19:13 No provider procedures requiring assistance completed. Patient did not have IV access ca1 during this emergency room visit. Administered Medications: No medications were administered Outcome: 18:27 Discharge ordered by . jr8 19:13 Discharged to home via wheelchair, with family. ca1 19:13 Condition: stable 19:13 Discharge instructions given to patient, Instructed on discharge instructions, follow up and referral plans. Demonstrated understanding of instructions, follow-up care. 19:13 Patient left the ED. ca1 Signatures: Dispatcher [employer] Jeanie Lyles Josh, PA PA jr8 Rodger So RN RN jd3 Mayda Nichols RN RN ca1 Corrections: (The following items were deleted from the chart) 16:29 16:26 BP 114 / 62; Pulse 73bpm; Resp 17bpm; Spontaneous; Pulse Ox 98% RA; Temp 98.3F jd3 Oral; 72.57 kg Reported; Height 5 ft. 4 in. Reported; BMI: 27.4; Pain 7/10; jd3
--- NOTE | 2020-03-27 18:28 | EDPHYS ---
Physician Documentation [facility] Name: Lety Ontiveros Age: 84 yrs Sex: Female : 1935 Arrival Date: 03/27/2020 Time: 16:06 Bed 14 Private MD: ED Physician Rogelio Emerson HPI: 03/27 17:13 This 84 yrs old Female presents to ER via Wheelchair with complaints of Fall jr8 Injury, Hip Pain, Weakness. 17:13 Details of fall: The patient fell from an upright position, while standing. Onset: The jr8 symptoms/episode began/occurred acutely, today. Associated injuries: The patient sustained right leg. Severity of symptoms: At their worst the symptoms were mild, in the emergency department the symptoms are unchanged. The patient has not experienced similar symptoms in the past. The patient has not recently seen a physician. Patient stated that she slipped in bathroom landing on right hip. Denies hitting head or neck. No LOC. Recalls incident. Mild pain to right hip at this time. Denies any other trauma or pain . Historical: - Allergies: 16:26 PENICILLINS; jd3 - PMHx: 16:26 CVA; neuropathy; Parkinsons; CHF; Cancer, Breast; mastectomy right side; bowel jd3 obstruction; - PSHx: 16:26 Cholecystectomy; Hysterectomy; jd3 - Immunization history:: Adult Immunizations up to date. - Social history:: Smoking status: Patient denies any tobacco usage or history of. ROS: 17:13 Eyes: Negative for injury, pain, redness, and discharge, ENT: Negative for injury, jr8 pain, and discharge, Neck: Negative for injury, pain, and swelling, Cardiovascular: Negative for chest pain, palpitations, and edema, Respiratory: Negative for shortness of breath, cough, wheezing, and pleuritic chest pain, Abdomen/GI: Negative for abdominal pain, nausea, vomiting, diarrhea, and constipation, Back: Negative for injury and pain, Skin: Negative for injury, rash, and discoloration, Neuro: Negative for headache, weakness, numbness, tingling, and seizure. 17:13 MS/extremity: Positive for pain, tenderness, of the right leg. Exam: 17:13 Eyes: Pupils equal round and reactive to light, extra-ocular motions intact. Lids and jr8 lashes normal. Conjunctiva and sclera are non-icteric and not injected. Cornea within normal limits. Periorbital areas with no swelling, redness, or edema. ENT: Nares patent. No nasal discharge, no septal abnormalities noted. Tympanic membranes are normal and external auditory canals are clear. Oropharynx with no redness, swelling, or masses, exudates, or evidence of obstruction, uvula midline. Mucous membranes moist. Neck: Trachea midline, no thyromegaly or masses palpated, and no cervical lymphadenopathy. Supple, full range of motion without nuchal rigidity, or vertebral point tenderness. No Meningismus. Cardiovascular: Regular rate and rhythm with a normal S1 and S2. No gallops, murmurs, or rubs. Normal PMI, no JVD. No pulse deficits. Respiratory: Lungs have equal breath sounds bilaterally, clear to auscultation and percussion. No rales, rhonchi or wheezes noted. No increased work of breathing, no retractions or nasal flaring. Abdomen/GI: Soft, non-tender, with normal bowel sounds. No distension or tympany. No guarding or rebound. No evidence of tenderness throughout. Back: No spinal tenderness. No costovertebral tenderness. Full range of motion. Skin: Warm, dry with normal turgor. Normal color with no rashes, no lesions, and no evidence of cellulitis. Neuro: Awake and alert, GCS 15, oriented to person, place, time, and situation. Cranial nerves II-XII grossly intact. Motor strength 5/5 in all extremities. Sensory grossly intact. Cerebellar exam normal. Normal gait. 17:13 Musculoskeletal/extremity: Extremities: grossly normal except: noted in the right leg: Mild pain and tenderness to right lateral hip at the trochanter region. Full ROM noted with minimal pain. Normal sensation present. 2+ pulses PT and DP to affected extremity. Rest of extremities unremarkable . Vital Signs: 16:26 BP 114 / 62; Pulse 73; Resp 17 S; Temp 98.3(O); Pulse Ox 98% on R/A; Weight 72.57 kg jd3 (R); Height 5 ft. 4 in. (162.56 cm) (R); Pain 8/10; 18:36 BP 111 / 83; Pulse 81; Resp 15 S; Pulse Ox 98% on R/A; ca1 16:26 Body Mass Index 27.46 (72.57 kg, 162.56 cm) jd3 MDM: 16:56 Patient medically screened. jr8 18:26 Data reviewed: vital signs, nurses notes, radiologic studies, plain films, and as a jr8 result, I will discharge patient. Data interpreted: Pulse oximetry: on room air is 98 %. Interpretation: normal. Counseling: I had a detailed discussion with the patient and/or guardian regarding: the historical points, exam findings, and any diagnostic results supporting the discharge/admit diagnosis, radiology results, the need for outpatient follow up, a family practitioner, to return to the emergency department if symptoms worsen or persist or if there are any questions or concerns that arise at home. 03/27 16:53 Order name: Hip Right 2 View XRAY; Complete Time: 18:26 snw Administered Medications: No medications were administered Disposition: 03/27/20 18:27 Discharged to Home. Impression: Contusion of right hip. - Condition is Stable. - Discharge Instructions: Hip Pain. - Medication Reconciliation Form, Thank You Letter, Antibiotic Education, Prescription Opioid Use form. - Follow up: Private Physician; When: As needed; Reason: Recheck today's complaints, Continuance of care, Re-evaluation by your physician. - Problem is new. - Symptoms have improved. Addendum: 03/30/2020 17:54 Co-signature as Attending Physician, Rogelio Emerson MD. r n Signatures: Dispatcher [employer] EDRogelio Blake MD MD rn Roszak, Josh, PA PA jr8 Rodger So RN RN jd3 Mayda Nichols RN RN ca1 Corrections: (The following items were deleted from the chart) 03/27 19:13 18:27 03/27/2020 18:27 Discharged to Home. Impression: Contusion of right hip. ca1 Condition is Stable. Forms are Medication Reconciliation Form, Thank You Letter, Antibiotic Education, Prescription Opioid Use. Follow up: Private Physician; When: As needed; Reason: Recheck today's complaints, Continuance of care, Re-evaluation by your physician. Problem is new. Symptoms have improved. jr8
[2020-03-27 19:31] VITALS: TEMP 98.3; O2SAT 98
[2020-03-27 19:32] VITALS: BP 111/83
--- OUTSIDE RECORDS SUMMARY | 2020-04-01 21:02 | XMS REPORT | Continuity of Care Document ---
:1935 Author Organization [facility] Address [address] [place] [address] Dr. Durham [address] [place] [id number] Care Team Providers Name Role Phone Unavailable Unavailable Unavailable Problems This patient has no known problems. Allergies, Adverse Reactions, Alerts This patient has no known allergies or adverse reactions. Medications This patient has no known medications. Procedures This patient has no known procedures. Results This patient has no known results.
== END 2020-03-27 19:13 | disposition home or self-care (01) ==
LOC: ER 15:51
DX: S70.01XA Contusion of right hip, initial encounter (principal); G20 Parkinson's disease; W01.0XXA Fall on same level from slipping, tripping and stumbling without subsequent striking against object, initial encounter; Y93.9 Activity, unspecified; Y92.89 Other specified places as the place of occurrence of the external cause; Z88.0 Allergy status to penicillin; Z85.3 Personal history of malignant neoplasm of breast; Z90.11 Acquired absence of right breast and nipple
CPT/HCPCS: 99283

== ENCOUNTER 2021-03-12 15:08 | Emergency (ER) | payer OTHER ==
--- NOTE | 2021-03-12 16:24 | RAD REPORT ---
EXAM DESCRIPTION: RAD - Forearm Right - 03/12/2021 4:08 pm CLINICAL HISTORY: Right arm pain status post fall FINDINGS: No fracture is seen.
--- NOTE | 2021-03-12 16:26 | RAD REPORT ---
EXAM DESCRIPTION: RAD - Hand Right 3 View - 03/12/2021 4:08 pm CLINICAL HISTORY: Right hand pain status post injury FINDINGS: No fracture or dislocation is seen.
--- NOTE | 2021-03-12 16:33 | RAD REPORT ---
EXAM DESCRIPTION: CT - Head C Spine Mpr Wo Con - 03/12/2021 4:17 pm CLINICAL HISTORY: Head and neck injury status post fall. Head and neck pain COMPARISON: None. TECHNIQUE: Computed axial tomography of the head and cervical spine was obtained. Sagittal and coronal reconstruction was performed. All CT scans are performed using dose optimization technique as appropriate and may include automated exposure control or mA/KV adjustment according to patient size. FINDINGS: An intracranial bleed is not seen. The ventricles are normal in caliber. An extra-axial fl uid collection is not noted.Fluid within the visualized sinuses and mastoids is not seen Images are degraded by patient motion artifact. A cervical fracture is not visualized. No dislocation is noted. Spondylosis involves the cervical spine IMPRESSION: No acute intracranial abnormality is seen. Images are degraded by patient motion artifact. No gross cervical fracture seen. If the patient continues to have symptoms to suggest intracranial /s yossi cord pathology then MRI would be recommended
--- NOTE | 2021-03-12 16:42 | RAD REPORT ---
EXAM DESCRIPTION: CT - Pelvis Wo Cont - 03/12/2021 4:18 pm CLINICAL HISTORY: Pelvic pain status post fall COMPARISON: None. TECHNIQUE: Computed axial tomography of the pelvis was obtained. Coronal and sagittal reconstruction performed All CT scans are performed using dose optimization technique as appropriate and may include automated exposure control or mA/KV adjustment according to patient size. FINDINGS: No fracture or dislocation seen. A significant hip joint effusion is not noted. Subcutaneous hematoma not seen Osteoporosis IMPRESSION: No fracture seen. If patient continues to have symptoms to suggest an occult fracture MRI would recommended
--- NOTE | 2021-03-12 16:46 | ER ---
Nurse's Notes [facility] Name: Lety Ontiveros Age: 85 yrs Sex: Female : 1935 Arrival Date: 03/12/2021 Time: 15:11 Bed 12 Private MD: Diagnosis: Pain in right wrist;Other sprain of right thumb;Pain in left hip;Unspecified injury of head, initial encounter;Fall (on) (from) other stairs and steps Presentation: 03/12 15:23 Chief complaint: Patient states: fell from step ladder 2 days ago. Pt c/o pain to right aa5 thumb and right wrist. Pt reports hit back of head, denies LOC. Coronavirus screen: At this time, the client does not indicate any symptoms associated with coronavirus-19. Ebola Screen: Patient negative for fever greater than or equal to 101.5 degrees Fahrenheit, and additional compatible Ebola Virus Disease symptoms. Initial Sepsis Screen: Does the patient meet any 2 criteria? No. Patient's initial sepsis screen is negative. Does the patient have a suspected source of infection? No. Patient's initial sepsis screen is negative. Risk Assessment: Do you want to hurt yourself or someone else? Patient reports no desire to harm self or others. Onset of symptoms was February 2021. 15:23 Acuity: FLORES 4 aa5 15:23 Method Of Arrival: Ambulatory aa5 Historical: - Allergies: 15:24 PENICILLINS; aa5 - PMHx: 15:24 bowel obstruction; Cancer, Breast; CHF; CVA; mastectomy right side; neuropathy; aa5 Parkinsons; Screenin:42 Abuse screen: Denies threats or abuse. Nutritional screening: No deficits noted. vg1 Tuberculosis screening: No symptoms or risk factors identified. Fall Risk Fall in past 12 months (25 points). No secondary diagnosis (0 pts). No IV (0 pts). Ambulatory Aid- None/Bed Rest/Nurse Assist (0 pts). Gait- Normal/Bed Rest/Wheelchair (0 pts) Mental Status- Oriented to own ability (0 pts). Total Epperson Fall Scale indicates Low Risk Score (25-44 pts). Fall prevention measures have been instituted. Side Rails Up X 2 Placed close to Nursing Station Family Present and informed to notify staff if they need to leave bedside. Assessment: 15:40 General: Appears in no apparent distress. comfortable, Behavior is calm, cooperative. vg1 Pain: Complains of pain in right thumb, right wrist, right forearm, right shoulder Pain currently is 10 out of 10 on a pain scale. Pain began 2-3 days ago. Neuro: Level of Consciousness is awake, alert, obeys commands, Oriented to person, place, time, situation. Cardiovascular: Patient's skin is warm and dry. Pulses are palpable in right radial artery and left radial artery. Respiratory: Airway is patent Respiratory effort is even, unlabored. GI: No signs and/or symptoms were reported involving the gastrointestinal system. : No signs and/or symptoms were reported regarding the genitourinary system. EENT: No signs and/or symptoms were reported regarding the EENT system. Derm: Skin is intact, Bruising that is dark purple, on Right thumb. Musculoskeletal: Circulation, motion, and sensation intact. 17:06 Reassessment: Patient appears in no apparent distress at this time. No changes from vg1 previously documented assessment. Patient and/or family updated on plan of care and expected duration. Pain level reassessed. Patient is alert, oriented x 3, equal unlabored respirations, skin warm/dry/pink. Vital Signs: 15:23 BP 125 / 89; Pulse 70; Resp 16 S; Temp 97.4(TE); Pulse Ox 97% on R/A; Weight 74.39 kg aa5 (R); 15:42 BP 136 / 85; Pulse 66; Resp 16; Pulse Ox 100% ; vg1 16:45 BP 132 / 91; Pulse 75; Resp 16; Pulse Ox 98% on R/A; vg1 ED Course: 15:11 Patient arrived in ED. as 15:23 Arm band placed on. aa5 15:24 Triage completed. aa5 15:26 Hattie Vallejo F[facility]-C is [facility]. kb 15:26 Eliezer Longoria MD is Attending Physician. kb 15:27 Yue Gutierrez, JAKE is Primary Nurse. vg1 15:42 Patient has correct armband on for positive identification. Call light in reach. Adult vg1 w/ patient. 15:42 No provider procedures requiring assistance completed. Patient did not have IV access vg1 during this emergency room visit. 16:08 Forearm Right XRAY In Process Unspecified. EDMS 16:08 Hand Right 3 View XRAY In Process Unspecified. EDMS 16:17 CT Head C Spine In Process Unspecified. EDMS 16:18 CT Pelvis wo Cont In Process Unspecified. EDMS Administered Medications: 17:05 Drug: [place] (HYDROcodone-acetaminophen) 10 mg-325 mg 1 tabs Route: PO; vg1 17:05 Follow up: Response: Medication administered at discharge. vg1 Outcome: 16:46 Discharge ordered by . prateek 17:07 Discharged to home ambulatory, with family. vg1 17:07 Condition: stable 17:07 Discharge instructions given to patient, family, Instructed on discharge instructions, follow up and referral plans. Demonstrated understanding of instructions, follow-up care. 17:07 Patient left the ED. vg1 Signatures: Dispatcher [employer] Hattie Crowell, COMPUTER NUMERIC CONTROL SETTER-C COMPUTER NUMERIC CONTROL SETTER-Jeanie Limon Audri, RN RN aa5 Yue Gutierrez, RN RN vg1 Corrections: (The following items were deleted from the chart) 15:26 15:23 Temp 97.4F Temporal; tobi aa5
--- NOTE | 2021-03-12 16:46 | EDPHYS ---
Physician Documentation [facility] Name: Lety Ontiveros Age: 85 yrs Sex: Female : 1935 Arrival Date: 03/12/2021 Time: 15:11 Bed 12 Private MD: ED Physician Eliezer Longoria HPI: 03/12 23:52 This 85 yrs old Female presents to ER via Ambulatory with complaints of Thumb kb Injury. 23:52 Details of fall: The patient fell from a height, down approximately 1 stairs. Onset: kb The symptoms/episode began/occurred 2 day(s) ago. Associated injuries: The patient sustained injury to the head, pain, left hip, painful injury, right thumb and right wrist, ecchymosis, painful injury. Severity of symptoms: At their worst the symptoms were moderate, in the emergency department the symptoms have improved. The patient has not experienced similar symptoms in the past. The patient has not recently seen a physician. Pt reports she fell backwards off of a stepstool 2 days ago. Denies loc. Reports she did hit her head and had a headache at first that has subsided. Reports pain to right thumb, right wrist and left hip.. Historical: - Allergies: 15:24 PENICILLINS; aa5 - PMHx: 15:24 bowel obstruction; Cancer, Breast; CHF; CVA; mastectomy right side; neuropathy; aa5 Parkinsons; ROS: 23:50 Constitutional: Negative for fever, chills, and weight loss. kb 23:50 MS/extremity: Positive for pain, of the scalp, left hip, right thumb and right wrist. 23:50 All other systems are negative. kb Exam: 23:51 Constitutional: This is a well developed, well nourished patient who is awake, alert, kb and in no acute distress. Head/Face: Normocephalic, atraumatic. ENT: Moist Mucous membranes Respiratory: Respirations even and unlabored. No increased work of breathing, no retractions or nasal flaring. Abdomen/GI: Soft, non-tender. No distention Back: No spinal tenderness. No costovertebral tenderness. Full range of motion. Skin: Warm, dry with normal turgor. Normal color. Neuro: Awake and alert, GCS 15, oriented to person, place, time, and situation. Moves all extremities. Normal gait. Psych: Awake, alert, with orientation to person, place and time. Behavior, mood, and affect are within normal limits. 23:51 Musculoskeletal/extremity: Extremities: grossly normal except: noted in the right thumb: ecchymosis, pain, swelling, ROM: intact in all extremities, Circulation is intact in all extremities. Sensation intact. Weight bearing: able to fully bear weight. Vital Signs: 15:23 BP 125 / 89; Pulse 70; Resp 16 S; Temp 97.4(TE); Pulse Ox 97% on R/A; Weight 74.39 kg aa5 (R); 15:42 BP 136 / 85; Pulse 66; Resp 16; Pulse Ox 100% ; vg1 16:45 BP 132 / 91; Pulse 75; Resp 16; Pulse Ox 98% on R/A; vg1 MDM: 15:27 Patient medically screened. kb 22:46 Data reviewed: vital signs, nurses notes. Data interpreted: Pulse oximetry: on room air kb is 98 %. Interpretation: normal. 23:49 Counseling: I had a detailed discussion with the patient and/or guardian regarding: the kb historical points, exam findings, and any diagnostic results supporting the discharge/admit diagnosis, radiology results, the need for outpatient follow up, a family practitioner, to return to the emergency department if symptoms worsen or persist or if there are any questions or concerns that arise at home. 03/12 15:28 Order name: CT Head C Spine; Complete Time: 16:39 kb 03/12 15:28 Order name: CT Pelvis wo Cont; Complete Time: 16:43 kb 03/12 15:28 Order name: Forearm Right XRAY; Complete Time: 16:29 kb 03/12 15:28 Order name: Hand Right 3 View XRAY; Complete Time: 16:29 kb Administered Medications: 17:05 Drug: [place] (HYDROcodone-acetaminophen) 10 mg-325 mg 1 tabs Route: PO; vg1 17:05 Follow up: Response: Medication administered at discharge. vg1 Disposition: 03/13 08:06 Co-signature as Attending Physician, Eliezer Longoria MD I agree with the assessment and kdr plan of care. Disposition Summary: 03/12/21 16:46 Discharge Ordered Location: Home kb Condition: Stable kb Diagnosis - Pain in right wrist kb - Other sprain of right thumb kb - Pain in left hip kb - Unspecified injury of head, initial encounter kb - Fall (on) (from) other stairs and steps kb Followup: kb - With: Emergency Department - When: As needed - Reason: Worsening of condition Followup: kb - With: Private Physician - When: 2 - 3 days - Reason: Recheck today's complaints, Continuance of care, Re-evaluation by your physician Discharge Instructions: - Discharge Summary Sheet kb - Musculoskeletal Pain kb - Fall Prevention in the Home, Adult, [id number] kb Forms: - Medication Reconciliation Form kb - Thank You Letter kb - Antibiotic Education kb - Prescription Opioid Use kb Signatures: Dispatcher [employer] EDMS Hattie Vallejo, REMOTE OPERATIONS PRODUCER-C REMOTE OPERATIONS PRODUCER-Ckb Eliezer Longoria MD MD [facility] Sheba Cueva, RN RN aa5 Yue Gutierrez RN RN vg1 Corrections: (The following items were deleted from the chart) 03/12 23:51 23:50 MS/extremity: Positive for pain, kb kb
[2021-03-12] MEDS ORDERED: HYDROCODONE/APAP 10/325 TAB ONE (17:23)
[2021-03-12 17:35] VITALS: TEMP 97.4
[2021-03-12 17:38] VITALS: BP 132/91; O2SAT 98
== END 2021-03-12 17:07 | disposition home or self-care (01) ==
LOC: ER 15:08
DX: S63.681A Other sprain of right thumb, initial encounter (principal); S09.90XA Unspecified injury of head, initial encounter; M25.552 Pain in left hip; W10.8XXA Fall (on) (from) other stairs and steps, initial encounter; G20 Parkinson's disease; Z85.3 Personal history of malignant neoplasm of breast
CPT/HCPCS: 70450; 72125; 72192; 99283

== ENCOUNTER 2021-04-02 11:46 | Emergency (ER) | payer OTHER ==
--- NOTE | 2021-04-02 12:39 | RAD REPORT ---
EXAM DESCRIPTION: CT - Head C Spine Mpr Wo Con - 04/02/2021 12:19 pm CLINICAL HISTORY: Head and neck injury status post fall. Head and neck pain COMPARISON: February 2021 TECHNIQUE: Computed axial tomography of the head and cervical spine was obtained. Sagittal and coronal reconstruction was performed. All CT scans are performed using dose optimization technique as appropriate and may include automated exposure control or mA/KV adjustment according to patient size. FINDINGS: An intracranial bleed is not seen. The ventricles are normal in caliber. An extra-axial fl uid collection is not noted. Hyperostosis frontalis interna is present Fluid within the visualized sinuses and mastoids is not see n A cervical fracture is not visualized. No dislocation is noted. IMPRESSION: No acute intracranial abnormality is seen. A cervical fracture is not visualized. If the patient continues to have symptoms to suggest intracra nial /spinal cord pathology then MRI would be recommended
--- NOTE | 2021-04-02 14:00 | EDPHYS ---
Physician Documentation [facility] Name: Lety Ontiveros Age: 85 yrs Sex: Female : 1935 Arrival Date: 04/02/2021 Time: 11:57 Bed 11 Private MD: ED Physician Rogelio Emerson HPI: 04/02 12:10 This 85 yrs old Female presents to ER via EMS with complaints of feeling pm1 abandoned at home by family. 12:10 Feeling abandoned by her family at home. Onset: The symptoms/episode began/occurred pm1 just prior to arrival. The patient has not recently seen a physician. Patient arrives by EMS without any complaints. Informed by the EMS that brought her in she had no complaints on their arrival but she insisted to be transferred to the hospital due to feelings of being abandoned home by her family. Patient without any medical complaints. Patient reports chronic pain and goes to chronic pain management for hydrocodone. No acute pain. Historical: - Allergies: 12:28 PENICILLINS; vg1 - Home Meds: 12:28 aspirin 81 mg Oral TbEC 1 tab once daily [Active]; atorvastatin 40 mg Oral tab 1 tab vg1 once daily [Active]; carbidopa-levodopa 25-250 mg Oral TbDL 1 tab 3 times per day [Active]; Centrum Oral [Active]; cyclobenzaprine 5 mg Oral tab 1 tab twice a day [Active]; dicyclomine 20 mg Oral tab 1 tab 3 times per day [Active]; escitalopram oxalate 20 mg Oral tab 1 tab once daily [Active]; Exelon 4.6 mg/24 hr transdermal pt24 1 patch once daily [Active]; gabapentin 300 mg Oral cap 1 cap 3 times per day [Active]; hydrocodone-acetaminophen 5-325 mg Oral tab 1 tab twice daily [Active]; hydrocortisone 10 mg Oral tab 1 tab once daily [Active]; Linzess 72 mcg Oral once daily [Active]; pantoprazole 40 mg Oral TbEC 1 tab once daily [Active]; promethazine 25 mg Oral tab 1 tab once daily [Active]; ropinirole 0.25 mg Oral tab 1 tab 3 times per day [Active]; telmisartan 40 mg Oral tab 1 tab once daily [Active]; tizanidine 2 mg Oral tab 1 tabs twice a day [Active]; - PMHx: 12:28 bowel obstruction; Cancer, Breast; CHF; CVA; mastectomy right side; neuropathy; vg1 Parkinsons; - Immunization history:: Adult Immunizations up to date, Client reports receiving the Lopez \T\ Lopez single-dose vaccine. - Social history:: Smoking status: Patient denies any tobacco usage or history of. ROS: 12:10 Constitutional: Negative for fever, chills, and weight loss, Neck: Negative for injury, pm1 pain, and swelling, Cardiovascular: Negative for chest pain, palpitations, and edema, Respiratory: Negative for shortness of breath, cough, wheezing, and pleuritic chest pain, Abdomen/GI: Negative for abdominal pain, nausea, vomiting, diarrhea, and constipation, Back: Negative for injury and pain, Skin: Negative for injury, rash, and discoloration, Neuro: Negative for headache, weakness, numbness, tingling, and seizure. 12:10 MS/extremity: Positive for Chronic joint pain. 12:10 Psych: Negative for homicidal ideation, insomnia, suicidal ideation. 12:10 All other systems are negative. Exam: 12:10 Constitutional: This is a well developed, well nourished patient who is awake, alert, pm1 and in no acute distress. Head/Face: Normocephalic, atraumatic. 12:10 Back: No spinal tenderness. No costovertebral tenderness. Full range of motion. Skin: Warm, dry with normal turgor. Normal color with no rashes, no lesions, and no evidence of cellulitis. MS/ Extremity: Pulses equal, no cyanosis. Neurovascular intact. Full, normal range of motion. 12:10 Eyes: Exam is negative for acute changes, Extraocular movements: no acute changes, Conjunctiva: no acute changes, no injection, Sclera: no acute changes, icterus, is not appreciated. 12:10 Cardiovascular: Exam negative for acute changes, Rate: normal, Rhythm: regular, Pulses: no pulse deficits are appreciated, Edema: is not appreciated. 12:10 Respiratory: Exam negative for acute changes, respiratory distress, shortness of breath, Breath sounds: are clear throughout. 12:10 Abdomen/GI: Exam negative for acute changes, Inspection: abdomen appears normal, Palpation: abdomen is soft and non-tender. 12:10 Neuro: Exam negative for acute changes, Orientation: is normal, Mentation: is normal, Motor: is normal, moves all fours. Vital Signs: 11:50 BP 129 / 81; Pulse 67; Resp 18; Temp 97.8; Pulse Ox 100% ; Weight 74.84 kg; Height 5 vg1 ft. 4 in. (162.56 cm); Pain 0/10; 13:38 BP 107 / 93; Pulse 67; Resp 16; Pulse Ox 98% ; vg1 11:50 Body Mass Index 28.32 (74.84 kg, 162.56 cm) vg1 MDM: 12:10 Patient medically screened. pm1 13:43 ED course: Patient and Son requesting pain medication in the ER for her chronic pm1 arthritis pain. Patient takes [place] 7.5 BID from pain management for her pain but the Son feels that she needs TID and would like her to have one. He intends to follow up with pain management to get her dosing increased. Patient came to the ER because she felt that nobody was paying attention to her. No medical complaints. No signs of elderly abuse or neglect present. Son supports her story and they do not want any other further tests or studies done in the ER. 13:58 Data reviewed: vital signs. Data interpreted: Pulse oximetry: on room air is 98 %. pm1 Interpretation: normal. Counseling: I had a detailed discussion with the patient and/or guardian regarding: the historical points, exam findings, and any diagnostic results supporting the discharge/admit diagnosis, radiology results, the need for outpatient follow up, to return to the emergency department if symptoms worsen or persist or if there are any questions or concerns that arise at home. 04/02 12:11 Order name: CT Head C Spine; Complete Time: 12:44 pm1 Administered Medications: 13:45 Drug: [place] (HYDROcodone-acetaminophen) (7.5 mg-325 mg) 1 tabs Route: PO; vg1 14:09 Follow up: Response: No adverse reaction vg1 Disposition: 17:33 Co-signature as Attending Physician, Rogelio Emerson MD I agree with the assessment and rn plan of care. Attestation: The patient's history, exam findings, diagnostics, and a summary of any interventions or procedures was reviewed in detail with López Owens NP. Disposition Summary: 04/02/21 13:59 Discharge Ordered Location: Home pm1 Problem: new pm1 Symptoms: have improved pm1 Condition: Stable pm1 Diagnosis - Person with feared health complaint in whom no diagnosis is made pm1 Followup: pm1 - With: Emergency Department - When: As needed - Reason: Worsening of condition Followup: pm1 - With: Private Physician - When: 2 - 3 days - Reason: Recheck today's complaints, Continuance of care, Re-evaluation by your physician Forms: - Medication Reconciliation Form pm1 - Thank You Letter pm1 - Antibiotic Education pm1 - Prescription Opioid Use pm1 Signatures: Dispatcher [employer] EDMS Rogelio Eemrson MD MD rn Marinas, Patrick, NP KEY ATTENDANT pm1 Yue Gutierrez RN RN vg1
--- NOTE | 2021-04-02 14:00 | ER ---
Nurse's Notes [facility] Name: Lety Ontiveros Age: 85 yrs Sex: Female : 1935 Arrival Date: 04/02/2021 Time: 11:57 Bed 11 Private MD: Diagnosis: Person with feared health complaint in whom no diagnosis is made Presentation: 04/02 11:50 Chief complaint: EMS states: Pt pressed medical alert band; when EMS arrived pt stated vg1 was not too sure why she pressed the medical alert band. EMS stated once pt was placed in EMS vehicle pt stated pressed band bc 'felt abandoned by family' and 'no one visits me at home and no one helps me'. Pt has no medical complaint at this time. 11:50 Method Of Arrival: EMS: [facility] vg1 11:50 Coronavirus screen: Vaccine status: Patient reports receiving the 1st dose of the Covid vg1 vaccine. J and J At this time, the client does not indicate any symptoms associated with coronavirus-19. Ebola Screen: Patient negative for fever greater than or equal to 101.5 degrees Fahrenheit, and additional compatible Ebola Virus Disease symptoms. 11:50 Initial Sepsis Screen: Does the patient meet any 2 criteria? No. Patient's initial vg1 sepsis screen is negative. Does the patient have a suspected source of infection? No. Patient's initial sepsis screen is negative. Risk Assessment: Do you want to hurt yourself or someone else? Patient reports no desire to harm self or others. Onset of symptoms was April 02, 2021. 11:50 Acuity: FLORES 4 vg1 Triage Assessment: 11:50 General: Appears in no apparent distress. comfortable, Behavior is calm, cooperative. vg1 Pain: Denies pain. EENT: No signs and/or symptoms were reported regarding the EENT system. Neuro: Level of Consciousness is awake, alert, obeys commands, Oriented to person, place, time, situation. Cardiovascular: Patient's skin is warm and dry. Respiratory: Airway is patent Respiratory effort is even, unlabored. GI: No signs and/or symptoms were reported involving the gastrointestinal system. : No signs and/or symptoms were reported regarding the genitourinary system. Derm: Skin is intact, Skin is pink, warm \T\ dry. Musculoskeletal: Circulation, motion, and sensation intact. Reports fell yesterday, was told by son that fell twice, but states doesn't remember the second fall. Denies hitting head. Historical: - Allergies: 12:28 PENICILLINS; vg1 - Home Meds: 12:28 aspirin 81 mg Oral TbEC 1 tab once daily [Active]; atorvastatin 40 mg Oral tab 1 tab vg1 once daily [Active]; carbidopa-levodopa 25-250 mg Oral TbDL 1 tab 3 times per day [Active]; Centrum Oral [Active]; cyclobenzaprine 5 mg Oral tab 1 tab twice a day [Active]; dicyclomine 20 mg Oral tab 1 tab 3 times per day [Active]; escitalopram oxalate 20 mg Oral tab 1 tab once daily [Active]; Exelon 4.6 mg/24 hr transdermal pt24 1 patch once daily [Active]; gabapentin 300 mg Oral cap 1 cap 3 times per day [Active]; hydrocodone-acetaminophen 5-325 mg Oral tab 1 tab twice daily [Active]; hydrocortisone 10 mg Oral tab 1 tab once daily [Active]; Linzess 72 mcg Oral once daily [Active]; pantoprazole 40 mg Oral TbEC 1 tab once daily [Active]; promethazine 25 mg Oral tab 1 tab once daily [Active]; ropinirole 0.25 mg Oral tab 1 tab 3 times per day [Active]; telmisartan 40 mg Oral tab 1 tab once daily [Active]; tizanidine 2 mg Oral tab 1 tabs twice a day [Active]; - PMHx: 12:28 bowel obstruction; Cancer, Breast; CHF; CVA; mastectomy right side; neuropathy; vg1 Parkinsons; - Immunization history:: Adult Immunizations up to date, Client reports receiving the Lopez \T\ Lopez single-dose vaccine. - Social history:: Smoking status: Patient denies any tobacco usage or history of. Screenin:32 Abuse screen: Denies threats or abuse. Nutritional screening: No deficits noted. vg1 Tuberculosis screening: No symptoms or risk factors identified. Fall Risk Fall in past 12 months (25 points). No secondary diagnosis (0 pts). IV access (20 points). Ambulatory Aid- None/Bed Rest/Nurse Assist (0 pts). Gait- Normal/Bed Rest/Wheelchair (0 pts) Mental Status- Oriented to own ability (0 pts). Total Epperson Fall Scale indicates High Risk Score (45 or more points). Fall prevention measures have been instituted. Side Rails Up X 2 Placed Close to Nursing Station. Assessment: 12:32 Reassessment: SEE TRIAGE. vg1 13:38 Reassessment: Patient appears in no apparent distress at this time. No changes from vg1 previously documented assessment. Patient and/or family updated on plan of care and expected duration. Pain level reassessed. Patient is alert, oriented x 3, equal unlabored respirations, skin warm/dry/pink. son at bedside. Vital Signs: 11:50 BP 129 / 81; Pulse 67; Resp 18; Temp 97.8; Pulse Ox 100% ; Weight 74.84 kg; Height 5 vg1 ft. 4 in. (162.56 cm); Pain 0/10; 13:38 BP 107 / 93; Pulse 67; Resp 16; Pulse Ox 98% ; vg1 11:50 Body Mass Index 28.32 (74.84 kg, 162.56 cm) vg1 ED Course: 11:57 Patient arrived in ED. ja2 12:09 Yue Gutierrez, RN is Primary Nurse. vg1 12:10 López Owesn NP is PHCP. pm1 12:10 Rogelio Emerson MD is Attending Physician. pm1 12:19 CT Head C Spine In Process Unspecified. EDMS 12:28 Triage completed. vg1 12:32 Patient has correct armband on for positive identification. Bed in low position. Call vg1 light in reach. 12:32 No provider procedures requiring assistance completed. Maintain EMS IV. Dressing vg1 intact. Good blood return noted. Site clean \T\ dry. Gauge \T\ site: 20 G Left upper arm. 12:33 Arm band placed on. vg1 14:09 IV discontinued, intact, bleeding controlled, No redness/swelling at site. Pressure vg1 dressing applied. Administered Medications: 13:45 Drug: [place] (HYDROcodone-acetaminophen) (7.5 mg-325 mg) 1 tabs Route: PO; vg1 14:09 Follow up: Response: No adverse reaction vg1 Outcome: 13:59 Discharge ordered by . pm1 14:09 Discharged to home via wheelchair, with family. vg1 14:09 Condition: stable 14:09 Discharge instructions given to patient, family, Instructed on discharge instructions, follow up and referral plans. Demonstrated understanding of instructions, follow-up care. 14:10 Patient left the ED. vg1 Signatures: Dispatcher [employer] EDLópez Rodrigues NP INSECTICIDE SUPERVISOR pm1 Yue Gutierrez RN RN vg1 Arely Dolan
[2021-04-02] MEDS ORDERED: HYDROCODONE/APAP 7.5/325 MG TAB ONE (14:09)
[2021-04-02 14:14] VITALS: TEMP 97.8
[2021-04-02 14:16] VITALS: BP 107/93; O2SAT 98
== END 2021-04-02 14:10 | disposition home or self-care (01) ==
LOC: ER 11:46
DX: Z71.1 Person with feared health complaint in whom no diagnosis is made (principal); Z88.0 Allergy status to penicillin; G20 Parkinson's disease; I50.9 Heart failure, unspecified; Z86.73 Personal history of transient ischemic attack (TIA), and cerebral infarction without residual deficits
CPT/HCPCS: 70450; 72125; 99283

== ENCOUNTER 2021-06-28 18:17 | Inpatient (IN) | payer OTHER ==
--- OUTSIDE RECORDS SUMMARY | 2021-06-28 18:19 | XMS REPORT | Continuity of Care Document ---
:1935 Author Organization [facility] Address [address] [place] [address] Dr. [place] [address] [place] [id number] Care Team Providers Name Role Phone Unavailable Unavailable Unavailable Problems This patient has no known problems. Allergies, Adverse Reactions, Alerts This patient has no known allergies or adverse reactions. Medications This patient has no known medications. Procedures This patient has no known procedures. Results This patient has no known results.
--- NOTE | 2021-06-28 22:07 | RAD REPORT ---
EXAM DESCRIPTION: RAD - Chest Single View - 06/28/2021 9:57 pm CLINICAL HISTORY: CHEST PAIN Chest pain. COMPARISON: Chest Single View dated 09/01/2018; Chest Single View dated 07/07/2018; Chest Single View d ated 12/27/2017; Chest Single View dated 11/13/2017 FINDINGS: Portable technique limits examination quality. The lungs are grossly clear. The heart is normal in size. No displaced fractures. IMPRESSION: No acute intrathoracic process suspected.
[2021-06-28 22:55] LABS: Urine Blood Trace-lysed (Negative); Urine Glucose Negative (Negative); Urine Protein Negative (Negative); Urine Specific Gravity 1.015 (1.005-1.030); Urine pH 5.5 (5.0-7.0)
[2021-06-28] MEDS ORDERED: NA CHLORIDE 0.9% 1,000 ML ONE (23:27)
[2021-06-28 23:30] LABS: Absolute Lymphocytes (CBC) 1.6 K/uL (0.7-4.9); Hematocrit 40.2 % (36.0-45.0); MPV 7.7 fL (7.6-11.3); RBC Red Blood Cell Count 4.34 M/uL (3.86-4.86)
[2021-06-28 23:44] LABS: Protime INR 1.07
[2021-06-28 23:50] LABS: ALT/SGPT 11 U/L (12-78); AST/SGOT 16 U/L (15-37); Albumin 3.5 g/dL (3.4-5.0); Alkaline Phosphatase 86 U/L (45-117); BUN Blood Urea Nitrogen 47 mg/dL (7-18); Bilirubin Direct 0.6 mg/dL (0-0.2); Bilirubin Total 1.9 mg/dL (0.2-1.0); Glucose Level 109 mg/dL (74-106); Magnesium 2.2 mg/dL (1.8-2.4); NT PRO-BNP 153 pg/mL (<450); Protein, Total 6.9 g/dL (6.4-8.2); Sodium Level 127 mmol/L (136-145); Troponin (Emerg Dept Use Only) < 0.02 ng/mL (0.0-0.045)
[2021-06-28 23:53] LABS: Potassium 1.6 mmol/L (3.5-5.1)
[2021-06-28 23:54] LABS: Bicarbonate > 45 mmol/L (21-32)
[2021-06-29 00:22] LABS: Urine Bacteria >50 /HPF (<20)
[2021-06-29 00:22] LABS: SARS-COV-2 RT PCR NEGATIVE (NEGATIVE)
[2021-06-29 00:23] LABS: Urine RBC <5 /HPF (NONE SEEN)
--- NOTE | 2021-06-29 03:25 | EDPHYS ---
Physician Documentation [facility] Name: Lety Ontiveros Age: 86 yrs Sex: Female : 1935 Arrival Date: 06/28/2021 Time: 18:22 Bed 24 Private MD: Charanjit Espinoza ED Physician Rio Kim HPI: 06/28 21:41 This 86 yrs old Female presents to ER via Wheelchair with complaints of Decreased pkl Appetite, Urinary Incontinence, repeated falls. 21:41 Patient complained of generalized weakness, decreased appetite, recurrent falls.. pkl Onset: The symptoms/episode began/occurred 1 month(s) ago, and became worse 1 week(s) ago. Historical: - Allergies: 20:15 PENICILLINS; iw - PMHx: 20:15 bowel obstruction; CVA; neuropathy; Cancer, Breast; CHF; Parkinsons; mastectomy right iw side; ROS: 21:41 Eyes: Negative for injury, pain, redness, and discharge, ENT: Negative for injury, pkl pain, and discharge, Neck: Negative for injury, pain, and swelling. 21:41 Cardiovascular: Positive for chest pain. 21:41 Respiratory: Negative for cough, shortness of breath. 21:41 Abdomen/GI: Positive for vomiting, diarrhea. 21:41 Back: Negative for acute changes. 21:41 : Positive for dark foul smelling urine. 21:41 MS/extremity: Negative for acute changes. 21:41 Skin: Negative for rash. 21:41 Neuro: Positive for weakness, of the generalized. Exam: 21:41 Head/Face: Normocephalic, atraumatic. Eyes: Pupils equal round and reactive to light, pkl extra-ocular motions intact. Lids and lashes normal. Conjunctiva and sclera are non-icteric and not injected. Cornea within normal limits. Periorbital areas with no swelling, redness, or edema. ENT: Nares patent. No nasal discharge, no septal abnormalities noted. Tympanic membranes are normal and external auditory canals are clear. Oropharynx with no redness, swelling, or masses, exudates, or evidence of obstruction, uvula midline. Mucous membranes moist. Neck: Trachea midline, no thyromegaly or masses palpated, and no cervical lymphadenopathy. Supple, full range of motion without nuchal rigidity, or vertebral point tenderness. No Meningismus. Chest/axilla: Normal chest wall appearance and motion. Nontender with no deformity. No lesions are appreciated. Cardiovascular: Regular rate and rhythm with a normal S1 and S2. No gallops, murmurs, or rubs. Normal PMI, no JVD. No pulse deficits. Respiratory: Lungs have equal breath sounds bilaterally, clear to auscultation and percussion. No rales, rhonchi or wheezes noted. No increased work of breathing, no retractions or nasal flaring. Abdomen/GI: Soft, non-tender, with normal bowel sounds. No distension or tympany. No guarding or rebound. No evidence of tenderness throughout. Back: No spinal tenderness. No costovertebral tenderness. Full range of motion. Skin: Warm, dry with normal turgor. Normal color with no rashes, no lesions, and no evidence of cellulitis. MS/ Extremity: Pulses equal, no cyanosis. Neurovascular intact. Full, normal range of motion. Neuro: Awake and alert, GCS 15, oriented to person, place, time, and situation. Cranial nerves II-XII grossly intact. Motor strength 5/5 in all extremities. Sensory grossly intact. Cerebellar exam normal. Normal gait. Vital Signs: 00:00 BP 103 / 92; Pulse 63; Resp 14; Pulse Ox 94% on R/A; rainer 20:14 BP 116 / 67; Pulse 66; Resp 16; Temp 97.1; Pulse Ox 97% on R/A; Weight 69.85 kg; Height iw 5 ft. 11 in. (180.34 cm); 21:30 BP 116 / 68; Pulse 66; Resp 12; Temp 98.6; Pulse Ox 95% ; Pain 0/10; rainer 23:00 BP 108 / 71; Pulse 65; Resp 12; Pulse Ox 96% ; rainer 06/29 04:00 BP 119 / 67; Pulse 69; Resp 18; Pulse Ox 94% ; rainer 05:00 BP 123 / 76; Pulse 68; Resp 14; Pulse Ox 94% ; rainer 06:00 BP 111 / 71; Pulse 71; Resp 14; ranier 06/28 20:14 Body Mass Index 21.48 (69.85 kg, 180.34 cm) iw MDM: 06/28 21:19 Patient medically screened. pkl 23:58 Data reviewed: vital signs, nurses notes, lab test result(s), EKG, radiologic studies, pkl plain films. 06/29 03:20 ED course: Talked to Dr. Castellanos for observation. pkl 06/28 21:37 Order name: Basic Metabolic Panel; Complete Time: 23:57 pkl 06/28 21:37 Order name: CBC with Diff; Complete Time: 23:48 pkl 06/28 21:37 Order name: LFT's; Complete Time: 23:57 pkl 06/28 21:37 Order name: Magnesium; Complete Time: 23:57 pkl 06/28 21:37 Order name: NT PRO-BNP; Complete Time: 23:57 pkl 06/28 21:37 Order name: PT-INR; Complete Time: 23:48 pkl 06/28 21:37 Order name: Troponin (emerg Dept Use Only); Complete Time: 23:57 pkl 06/28 21:40 Order name: COVID-19/FLU A+B (Document "Date of Onset" if Symptomatic) pkl 06/28 21:40 Order name: Lactate pkl 06/28 21:41 Order name: COVID-19/FLU A+B; Complete Time: 01:37 EDMS 06/28 21:41 Order name: Lactate; Complete Time: 23:48 EDMS 06/28 22:54 Order name: Urine Culture jr8 06/28 22:54 Order name: Urine Microscopic Only jr8 06/28 22:55 Order name: Urine Culture; Complete Time: 22:00 EDMS 06/28 22:55 Order name: Urine Microscopic Only; Complete Time: 01:37 EDMS 06/28 22:55 Order name: Urine Dipstick-Ancillary; Complete Time: 23:17 EDMS 06/29 04:38 Order name: Basic Metabolic Panel; Complete Time: 22:00 EDMS 06/29 04:38 Order name: CBC with Automated Diff EDMS 06/29 04:38 Order name: CBC with Automated Diff; Complete Time: 22:00 EDMS 06/29 04:38 Order name: Comprehensive Metabolic Panel EDMS 06/29 04:38 Order name: Comprehensive Metabolic Panel; Complete Time: 22:00 EDMS 06/29 04:38 Order name: Potassium; Complete Time: 22:00 EDMS 06/29 21:35 Order name: Glucose, Ancillary Testing; Complete Time: 22:00 EDMS 06/30 06:38 Order name: Blood Culture; Complete Time: 22:00 EDMS 06/30 20:12 Order name: Basic Metabolic Panel; Complete Time: 22:00 EDMS 07/01 04:24 Order name: Comprehensive Metabolic Panel; Complete Time: 22:00 EDMS 07/01 04:24 Order name: Uric Acid; Complete Time: 22:00 EDMS 07/01 04:24 Order name: Phosphorus; Complete Time: 22:00 EDMS 07/01 04:24 Order name: Creatine Phosphokinase; Complete Time: 22:00 EDMS 07/01 04:24 Order name: Magnesium; Complete Time: 22:00 EDMS 06/28 21:37 Order name: XRAY Chest (1 view); Complete Time: 22:14 pkl 06/28 21:37 Order name: EKG; Complete Time: 21:37 pkl 06/28 21:37 Order name: Cardiac monitoring; Complete Time: 23:21 pkl 06/28 21:37 Order name: EKG - Nurse/Tech; Complete Time: 23:21 pkl 06/28 21:37 Order name: IV Saline Lock; Complete Time: 23:22 pkl 06/28 21:37 Order name: Labs collected and sent; Complete Time: 23:22 pkl 06/28 21:37 Order name: O2 Per Protocol; Complete Time: 23:22 pkl 06/28 21:37 Order name: O2 Sat Monitoring; Complete Time: 23:22 pkl 06/28 21:38 Order name: Urine Dipstick-Ancillary (obtain specimen); Complete Time: 23:22 pkl 06/28 22:54 Order name: Urine Dipstick-Ancillary (obtain specimen); Complete Time: 23:21 jr8 06/28 23:58 Order name: CT Head Brain wo Cont; Complete Time: 22:00 pkl 06/29 04:38 Order name: CONS Physician Consult EDMS 06/29 04:38 Order name: Regular; Complete Time: 19:44 EDMS 07/01 08:30 Order name: Glucose, Ancillary Testing; Complete Time: 22:00 EDMS 07/01 10:31 Order name: Hemoglobin A1c; Complete Time: 22:00 EDMS 07/01 11:40 Order name: Glucose, Ancillary Testing; Complete Time: 22:00 EDMS 07/01 17:22 Order name: Glucose, Ancillary Testing; Complete Time: 22:00 EDMS Administered Medications: 06/28 23:32 Drug: NS 0.9% 1000 ml Route: IV; Rate: 125 ml/hr; Site: left upper arm; rainer 06/29 03:58 Drug: K-Lyte (potassium) Effervescent Tablet 50 mEq Route: PO; rainer 20:11 Follow up: Response: No adverse reaction sv1 03:59 Drug: NS 0.9% 1000 ml {Note: IVF NS with 20 mEq of KCL.} Route: IV; Rate: 1000 ml; rainer Site: left antecubital; 03:59 Drug: Potassium Chloride 20 mEq Route: IV; Rate: per protocol; Site: left antecubital; rainer 20:11 Follow up: Response: No adverse reaction sv1 Disposition Summary: 06/29/21 03:24 Hospitalization Ordered Hospitalization Status: Observation pkl Provider: Sienna Castellanos pkl Condition: Stable pkl Problem: new pkl Symptoms: are unchanged pkl Bed/Room Type: Standard pkl Location: Telemetry/MedSurg (observation)(07/01/21 22:54) cg Room Assignment: 214(07/01/21 22:54) cg Diagnosis - Generalized weakness. Hypokalemia. Electrolytes imbalance. Urinary tract pkl infection Forms: - Medication Reconciliation Form pkl - SBAR form pkl Signatures: Dispatcher [employer] EDMS Gracia Martinez RN RN mw Lam, Pin, MD MD pkl Saskia Phelps RN RN iw Pena, Laura, RN RN lp1 Nnamdi Muller PA PA [id number] Cinda Gutierrez RN RN cg O'Farrell, Brenda, RN RN bo Villicano, Steven RN sv1 Corrections: (The following items were deleted from the chart) 03: 03:24 Telemetry/MedSurg (observation) pkl 03:29 03:24 pkl 07/01 22:54 06/29 03:29 [facility] ER HOLD cg 07/01 22:54 06/29 03:29 ERHOLD- cg
--- NOTE | 2021-06-29 03:25 | ER ---
Nurse's Notes [facility] Name: Lety Ontiveros Age: 86 yrs Sex: Female : 1935 Arrival Date: 06/28/2021 Time: 18:22 Bed 24 Private MD: Charanjit Espinoza Diagnosis: Generalized weakness. Hypokalemia. Electrolytes imbalance. Urinary tract infection Presentation: 06/28 20:14 Chief complaint: Patient's son or daughter states: has been falling, vomiting, seems iw weak , incoherent at times , dark colored urine started a couple weeks ago. Coronavirus screen: Client presents with at least one sign or symptom that may indicate coronavirus-19. Ebola Screen: Patient negative for fever greater than or equal to 101.5 degrees Fahrenheit, and additional compatible Ebola Virus Disease symptoms Patient denies exposure to infectious person. Patient denies travel to an Ebola-affected area in the 21 days before illness onset. No symptoms or risks identified at this time. Initial Sepsis Screen: Does the patient meet any 2 criteria? No. Patient's initial sepsis screen is negative. Does the patient have a suspected source of infection? No. Patient's initial sepsis screen is negative. Risk Assessment: Do you want to hurt yourself or someone else? Patient reports no desire to harm self or others. Onset of symptoms was June 14, 2021. 20:14 Method Of Arrival: Wheelchair iw 20:14 Acuity: FLORES 3 iw Historical: - Allergies: 20:15 PENICILLINS; iw - PMHx: 20:15 bowel obstruction; CVA; neuropathy; Cancer, Breast; CHF; Parkinsons; mastectomy right iw side; Assessment: 21:30 Reassessment: Patient denies pain at this time. General: Appears comfortable, Behavior rainer is calm, cooperative, Confused at times. . Pain: Denies pain. 21:30 Cardiovascular: No deficits noted. Respiratory: No deficits noted. GI: Abdomen is round.rainer 06/29 06:25 General: I recv'd the pt \\T\\ 2129. Initially, she was cooperative and calm. Her son, rainer Jenkins, was at bedside. The pt was able to use the bedpan and her IV was started. The pt began pulling her lines, with her son at bedside, and managed to pull her IV as well. An order for restraints was obtained from Dr. Kim. The pt remains confused, pulling lines and all the monitoring equipment off, calling out, removing her diaper, etc. I was able to restart her IV to her left upper arm. She has a hx of a right mastectomy. The initial IVF was started \\T\\ 2325, but she was quick to remove it. This is the site I was able to restart. The pt's son's phone number is [phone]. The admitting MD was at bedside \\T\\ 0325, when I was able to restart the IV. Restrains were applied at that time and the pt's IVF was changed to include K. The pt's status remains unchanged. . Vital Signs: 06/28 00:00 BP 103 / 92; Pulse 63; Resp 14; Pulse Ox 94% on R/A; rainer 20:14 BP 116 / 67; Pulse 66; Resp 16; Temp 97.1; Pulse Ox 97% on R/A; Weight 69.85 kg; Height iw 5 ft. 11 in. (180.34 cm); 21:30 BP 116 / 68; Pulse 66; Resp 12; Temp 98.6; Pulse Ox 95% ; Pain 0/10; rainer 23:00 BP 108 / 71; Pulse 65; Resp 12; Pulse Ox 96% ; rainer 06/29 04:00 BP 119 / 67; Pulse 69; Resp 18; Pulse Ox 94% ; rainer 05:00 BP 123 / 76; Pulse 68; Resp 14; Pulse Ox 94% ; rainer 06:00 BP 111 / 71; Pulse 71; Resp 14; rainer 06/28 20:14 Body Mass Index 21.48 (69.85 kg, 180.34 cm) iw ED Course: 06/28 18:22 Patient arrived in ED. as 18:22 Charanjit Espinoza DO is Private Physician. as 20:15 Triage completed. iw 20:16 Arm band placed on. iw 21:19 Rio Kim MD is Attending Physician. pkl 21:57 XRAY Chest (1 view) In Process Unspecified. EDMS 22:06 Elaine Balbuena, RN is Primary Nurse. rainer 23:21 Urine Microscopic Only Sent. rainer 23:21 Urine Culture Sent. rainer 23:21 Urine Culture Sent. rainer 23:21 Urine Microscopic Only Sent. rainer 23:21 Lactate Sent. rainer 23:21 COVID-19/FLU A+B Sent. rainer 23:21 Lactate Sent. rainer 23:21 COVID-19/FLU A+B (Document "Date of Onset" if Symptomatic) Sent. rainer 23:22 Basic Metabolic Panel Sent. rainer 23:22 CBC with Diff Sent. rainer 23:22 LFT's Sent. rainer 23:22 PT-INR Sent. rainer 23:22 Magnesium Sent. rainer 23:22 NT PRO-BNP Sent. rainer 23:22 Troponin (emerg Dept Use Only) Sent. rainer 0104 00:45 CT Head Brain wo Cont In Process Unspecified. EDMS 03:21 Sienna Castellanos MD is Hospitalizing Provider. pkl 19:43 Comprehensive Metabolic Panel Sent. sv1 19:43 CBC with Automated Diff Sent. sv1 19:43 CBC with Automated Diff Sent. sv1 19:43 Comprehensive Metabolic Panel Sent. sv1 Administered Medications: 06/28 23:32 Drug: NS 0.9% 1000 ml Route: IV; Rate: 125 ml/hr; Site: left upper arm; rainer 04 03:58 Drug: K-Lyte (potassium) Effervescent Tablet 50 mEq Route: PO; rainer 20:11 Follow up: Response: No adverse reaction sv1 03:59 Drug: NS 0.9% 1000 ml {Note: IVF NS with 20 mEq of KCL.} Route: IV; Rate: 1000 ml; rainer Site: left antecubital; 03:59 Drug: Potassium Chloride 20 mEq Route: IV; Rate: per protocol; Site: left antecubital; rainer 20:11 Follow up: Response: No adverse reaction sv1 Outcome: 03:24 Decision to Hospitalize by Provider. pkl 07/02 01:32 Patient left the ED. bb Signatures: Dispatcher [employer] EDRio Cruz MD MD pkl Martinez, Amelia as Ballard, Brenda, RN RN bb Williams, Irene, RN RN iw O'Farrell, Brenda, RN RN bo Villicano, Steven, RN RN sv1
[2021-06-29] MEDS ORDERED: NS KCL 20MEQ 1,000 ML IV ONE ×2 (03:46→18:55)
[2021-06-29] MEDS ORDERED: POTASSIUM 25 MEQ EFFERV TAB ONE (03:48)
[2021-06-29] MEDS ORDERED: ALBUTEROL 2.5 MG/3 ML NEB SOL NEB PRN (04:33)
[2021-06-29] MEDS ORDERED: MORPHINE 2 MG/ML SYR IV PRN (04:33)
[2021-06-29] MEDS ORDERED: ACETAMINOPHEN 500 MG TAB PO PRN (04:33)
[2021-06-29] MEDS ORDERED: LORAZEPAM 0.5 MG TABLET PO PRN (04:36)
[2021-06-29] MEDS ORDERED: HYDRALAZINE HCL 20 MG/ML VIAL IV PRN (04:36)
--- NOTE | 2021-06-29 04:44 | P.HP ---
Certification for Inpatient Patient admitted to: Observation With expected LOS: <2 Midnights Patient will require the following post-hospital care: None Practitioner: I am a practitioner with admitting privileges, knowledge of patient current condition, hospital course, and medical plan of care. Services: Services provided to patient in accordance with Admission requirements found in Title 42 Section 412.3 of the Code of Federal Regulations Patient History Date of Service: 06/29/21 Reason for admission: Weakness History of Present Illness: 86-year-old female with past medical history of hypertension on chronic diuretic with HCTZ, Parkinson's disease, breast cancer in the past, CVA with neuropathy admitted because of increasing weakness on lethargy as possible. Symptoms has been ongoing since the last 3 weeks. Patient has also been complaining of flank pain. On presentation today patient was noted to be initially agitated and was placed of restraint. Work-up shows serum sodium of 127, potassium 1.6, elevated serum bicarbonate greater than 45 and creatinine of 1.4.. Her urinalysis is positive for UTI. She is being admitted for severe electrolyte imbalance. Patient is awake and conversant at the time of interview. She denies any pain symptoms. She states she has been having diarrhea as well as nausea and one episode of vomiting since the last 1 week. Allergies Penicillins Allergy (Verified 11/13/17 19:30) UNK Home Medications: Aspirin [Aspirin EC 81 MG] 81 mg PO DAILY 11/13/17 Atorvastatin Calcium [Lipitor] 40 mg PO BEDTIME 11/13/17 Carbidopa/Levodopa [Carbidopa-Levo 25-250 mg Odt] 250 mg PO TID 11/13/17 Dicyclomine HCl 20 mg PO TID 11/13/17 Gabapentin [Neurontin*] 300 mg PO TID 11/13/17 Linaclotide [Linzess] 72 mcg PO DAILY 11/13/17 Hydrocortisone [Cortef*] 10 mg PO DAILY 12/27/17 Pantoprazole Sodium [Protonix] 40 mg PO DAILY #30 tablet. 12/28/17 Hydrocodone Bit/Acetaminophen [Hydrocodon-Acetaminoph 2.5-325] 1 tab PO BID 07/08/18 Multivitamin/Iron/Folic Acid [Centrum Adults Tablet] 1 tab PO DAILY 07/08/18 Promethazine HCl 25 mg PO DAILY 07/08/18 Rivastigmine Patch [Exelon 4.6 mg Patch*] 4.6 mg TD DAILY #30 patch 07/09/18 Ropinirole HCl [Requip] 0.5 mg PO TID #90 tablet 07/09/18 - Past Medical/Surgical History Diabetic: No -: CVA -: HTN -: Parkinson's Disease -: Dementia -: right mastectomy -: cholecystectomy -: colon resection -: appendectomy -: hysterectomy - Family History Father -: Heart disease - Social History Smoking Status: Never smoker Alcohol use: Yes CD- Drugs: No Caffeine use: Yes Review of Systems 10-point ROS is otherwise unremarkable Physical Examination - Physical Exam General: Alert, Oriented x3 HEENT: Atraumatic, Normocephalic, PERRLA Neck: Supple, 2+ carotid pulse no bruit, JVD not distended Respiratory: Clear to auscultation bilaterally, Normal air movement Cardiovascular: No edema, Normal pulses, Regular rate/rhythm, Normal S1 S2 Gastrointestinal: Normal bowel sounds, Soft and benign, Non-distended Musculoskeletal: No clubbing, No swelling Neurological: Normal speech, Normal strength at 5/5 x4 extr - Studies Laboratory Data (last 24 hrs) 06/28/21 23:10: PT 12.3, INR 1.07 06/28/21 23:10: WBC 9.80, Hgb 14.0, Hct 40.2, Plt Count 322 06/28/21 23:10: Sodium 127 L, Potassium 1.6 L*, BUN 47 H, Creatinine 1.41 H, Glucose 109 H, Magnesium 2.2, Total Bilirubin 1.9 H, AST 16, ALT 11 L, Alkaline Phosphatase 86 Assessment and Plan - Problems (Diagnosis) (1) Hypokalemia Current Visit: Yes Status: Acute (2) CHF (congestive heart failure) Onset Date: 11/14/17 Current Visit: No Status: Acute Qualifiers: (3) HTN (hypertension) Onset Date: 12/28/17 Current Visit: No Status: Chronic (4) Parkinson disease Onset Date: 11/14/17 Current Visit: No Status: Chronic - Plan Acute hypokalemiadue to GI loss and HCTZ use Hyponatremia Metabolic alkalosislikely due to vomiting UTI History of hypertension Acute kidney injurylikely prerenal History of Parkinson's disease History of CHF History of dementiaas reported by son Plan We will admit patient to observation We will start gentle IV fluid with NS with KCl We will replete KCl to 12 100 mEq now p.o. and 40 IV Follow repeat potassium in the next 2 hours Serum magnesium controlled Estimated serum sodium to improve with saline loading Expected improvement in serum creatinine with gentle hydration Monitor for recurrence of diarrhea if recurrent we do obtain stool for C. difficile Hold for further hydrochlorothiazide use DVT prophylaxis with subcutaneous Lovenox Start regular p.o. diet and follow Disposition possible hospital stay for less than 48 hours [Antibiotics with Levaquin for UTI, follow urine culture Patient is alert and oriented and conversant now, if recurrent agitation, add Geodon as needed - Advance Directives Does patient have a Living Will: No Does patient have a Durable POA for Healthcare: No - Code Status/Comfort Care Code Status: Full Code Physician Review: Patient Assessed, Agree with Above Assessment and Plan Time Spent Managing Pts Care (In Minutes): 60
[2021-06-29] MEDS: POTASSIUM CL SA 10 MEQ TAB PO SCH ×2 (05:00→08:55)
[2021-06-29] MEDS ORDERED: POTASSIUM CL 40 MEQ in NA CHLORIDE 0.9% 500 ML IV SCH (05:00)
[2021-06-29] MEDS ORDERED: levoFLOXacin 500 MG TAB PO ONE (06:00)
--- NOTE | 2021-06-29 06:17 | P.PN ---
Subjective Date of Service: 06/29/21 Chief Complaint: Weakness Subjective: Other (Patient alert.) Physical Examination - Studies Laboratory Data (last 24 hrs) 06/28/21 23:10: PT 12.3, INR 1.07 06/28/21 23:10: WBC 9.80, Hgb 14.0, Hct 40.2, Plt Count 322 06/28/21 23:10: Sodium 127 L, Potassium 1.6 L*, BUN 47 H, Creatinine 1.41 H, Glucose 109 H, Magnesium 2.2, Total Bilirubin 1.9 H, AST 16, ALT 11 L, Alkaline Phosphatase 86 Assessment & Plan Discharge Plan: Other (Consider SNF) Plan to discharge in: 72 Hours Physician Review Additional Text: COVID: Negative CXR: COMPARISON: Chest Single View dated 09/01/2018; Chest Single View dated 07/07/2018; Chest Single View dated 12/27/2017; FINDINGS: Portable technique limits examination quality. The lungs are grossly clear. The heart is normal in size. No displaced fractures. IMPRESSION: No acute intrathoracic process suspected. CT head: COMPARISON: 04/02/2021. FINDINGS: Brain: Parenchymal volume loss. Chronic small vessel disease. No obvious large acute territorial infarction. No intracranial hemorrhage, midline shift, mass or mass effect. Ventricles: No hydrocephalus. Orbits: Unremarkable. Sinuses: Visualized portions are clear. Mastoid: Clear. Osseous: Unremarkable. Soft tissues: Unremarkable. IMPRESSION: No acute findings. Physical exam: General: Alert, patient cooperative. Patient with underlying dementia HEENT: Atraumatic, Normocephalic, PERRLA Neck: Supple, 2+ carotid pulse no bruit, JVD not distended Respiratory: Clear to auscultation bilaterally, Normal air movement Cardiovascular: No edema, Normal pulses, Regular rate/rhythm, Normal S1 S2 Gastrointestinal: Normal bowel sounds, Soft and benign, Non-distended Musculoskeletal: No clubbing, No swelling Neurological: Normal speech, Normal strength at 5/5 x4 extr Impression: Weakness secondary to acute on chronic renal failure stage III with hyperkalemia, hyponatremia, metabolic alkalosis UTI Chronic diastolic CHF Parkinson's Dementia Hyperlipidemia Plan: Weakness secondary to acute on chronic renal failure stage III with hyperkalemia, hyponatremia, metabolic alkalosis: Continue IV fluids. Continue to hold hydrochlorothiazide. Patient on Levaquin for UTI. Nephrology consulted to further evaluate. Recheck BMP today to further evaluate and address. UTI: We will obtain urine and blood cultures. Continue Levaquin. Chronic diastolic CHF: Hold diuretic therapyhydrochlorothiazide Parkinson's: Restart carbidopa levodopa but verify home medication. Dementia: Restart Namenda and Exelon but verify home medication. Hypertension: We will provide IV medication. Obtain and verify home medication. Hold hydrochlorothiazide. Hyperlipidemia: Restart home medicationLipitor CODE STATUS: Full code DVT prophylaxis: Heparin Advance care [id number] minutes: Consider skilled placement for the patient. Will need to discuss further with family and patient. Time Spent Managing Pts Care (In Minutes): 55
[2021-06-29] MEDS: KCL 20 MEQ/100 mL IVPB 100 ML IV SCH ×2 (07:30→09:30)
[2021-06-29] MEDS: levoFLOXacin 500 MG TAB PO SCH (08:00)
[2021-06-29] MEDS ORDERED: POTASSIUM CL SA 10 MEQ TAB PO ONE (08:51)
[2021-06-29] MEDS ORDERED: levoFLOXacin 500 MG TAB ONE (08:51)
[2021-06-29] MEDS ORDERED: MORPHINE 2 MG/ML SYR ONE ×2 (10:28→22:47)
--- NOTE | 2021-06-29 11:08 | RAD REPORT ---
EXAM DESCRIPTION: CT - Head Brain Wo Cont - 06/29/2021 12:45 am CLINICAL HISTORY: 86 years Female recurring falls TECHNIQUE: Axial noncontrast CT head with coronal and sagittal reformats. All CT scans at this [facility] use dose modulation, iterative reconstruction, and/or weight based dosing when appropriate to red uce radiation dose to as low as reasonably achievable. COMPARISON: 04/02/2021. FINDINGS: Brain: Parenchymal volume loss. Chronic small vessel disease. No obvious large acute madgalene torial infarction. No intracranial hemorrhage, midline shift, mass or mass effect. Ventricles: No hydrocephalus. Orbits: Unremarkable. Sinuses: Visualized portions are clear. Mastoid: Clear. Osseous: Unremarkable. Soft tissues: Unremarkable. IMPRESSION: No acute findings. Electronically signed by: Vitaly Piña MD 06/29/2021 1:47 AM STOCK FEEDER Due to temporary technical issues with the PACS/Fluency reporting system, reports are being signed by the in house radiologist without review as a courtesy to ensure prompt reporting. The interpreting r adiologist is fully responsible for the content of the report.
[2021-06-29] MEDS ORDERED: LEVODOPA PO SCH (13:00)
[2021-06-29] MEDS ORDERED: CARBIDOPA PO SCH (13:00)
[2021-06-29 13:10] LABS: BUN Blood Urea Nitrogen 32 mg/dL (7-18); Glucose Level 101 mg/dL (74-106); Sodium Level 132 mmol/L (136-145)
[2021-06-29 13:13] LABS: Bicarbonate > 45 mmol/L (21-32); Potassium 2.2 mmol/L (3.5-5.1)
--- NOTE | 2021-06-29 16:17 | P.CNS ---
Date of Consult: 06/29/21 Reason for Consult: Hyokalemia Requesting Physician: Paddy Archuleta Chief Complaint: Weakness History of Present Illness: 86-year-old female with past medical history of hypertension on chronic diuretic with HCTZ, Parkinson's disease, breast cancer in the past, CVA with neuropathy admitted because of increasing weakness on lethargy as possible. Symptoms has been ongoing since the last 3 weeks. Patient has also been complaining of flank pain. On presentation today patient was noted to be initially agitated and was placed of restraint. Work-up shows serum sodium of 127, potassium 1.6, elevated serum bicarbonate greater than 45 and creatinine of 1.4.. Her urinalysis is positive for UTI. She is being admitted for severe electrolyte imbalance. Patient is awake and conversant at the time of interview. She denies any pain symptoms. She states she has been having diarrhea as well as nausea and one episode of vomiting since the last 1 week. 21:41 This 86 yrs old Female presents to ER via Wheelchair with complaints of Decreased pkl Appetite, Urinary Incontinence, repeated falls. 21:41 Patient complained of generalized weakness, decreased appetite, recurrent falls.. pkl Onset: The symptoms/episode began/occurred 1 month(s) ago, and became worse 1 week(s) ago. Allergies Penicillins Allergy (Verified 11/13/17 19:30) K Home medications list reviewed: Yes Home Medications: Aspirin [Aspirin EC 81 MG] 81 mg PO DAILY 11/13/17 Atorvastatin Calcium [Lipitor] 40 mg PO BEDTIME 11/13/17 Gabapentin [Neurontin*] 300 mg PO TID 11/13/17 Linaclotide [Linzess] 72 mcg PO DAILY 11/13/17 Hydrocodone Bit/Acetaminophen [Hydrocodon-Acetaminoph 2.5-325] 1 tab PO BID 07/08/18 Rivastigmine Patch [Exelon 4.6 mg Patch*] 4.6 mg TD DAILY #30 patch 07/09/18 Ropinirole HCl [Requip] 0.5 mg PO TID #90 tablet 07/09/18 Carbidopa/Levodopa [Carbidopa-Levo 25-250 mg Odt] 1 each PO QID 06/29/21 Memantine HCl 5 mg PO 06/29/21 Metformin HCl [Metformin HCl ER] 750 mg PO BEDTIME 06/29/21 Mirtazapine 30 mg PO BEDTIME 06/29/21 hydroCHLOROthiazide [Hydrochlorothiazide] 12.5 mg PO DAILY 06/29/21 - Past Medical/Surgical History Diabetic: No -: CVA -: HTN -: Parkinson's Disease -: Dementia -: right mastectomy -: cholecystectomy -: colon resection -: appendectomy -: hysterectomy - Family History Father Medical History: Heart disease - Social History Alcohol use: Yes CD- Drugs: No Caffeine use: Yes Review of Systems 10-point ROS is otherwise unremarkable General: Weakness, Malaise Gastrointestinal: Nausea Neurological: Weakness Physical Examination Temp Pulse Resp BP Pulse Ox 16 06/29/21 10:30 General: In no apparent distress, Confused HEENT: Atraumatic Neck: Supple Respiratory: Clear to auscultation bilaterally Cardiovascular: No edema, Regular rate/rhythm Gastrointestinal: Non-distended Musculoskeletal: No clubbing, No contractures Integumentary: No rashes, No cyanosis Neurological: Normal speech Laboratory Data (last 24 hrs) 06/29/21 07:07: Potassium 2.0 L* 06/28/21 23:10: PT 12.3, INR 1.07 06/28/21 23:10: WBC 9.80, Hgb 14.0, Hct 40.2, Plt Count 322 06/28/21 23:10: Sodium 127 L, Potassium 1.6 L*, BUN 47 H, Creatinine 1.41 H, Glucose 109 H, Magnesium 2.2, Total Bilirubin 1.9 H, AST 16, ALT 11 L, Alkaline Phosphatase 86 Imagings Data: EXAM DESCRIPTION: RAD - Chest Single View - 06/28/2021 9:57 pm CLINICAL HISTORY: CHEST PAIN Chest pain. COMPARISON: Chest Single View dated 09/01/2018; Chest Single View dated 07/07/2018; Chest Single View dated 12/27/2017; Chest Single View dated 11/13/2017 FINDINGS: Portable technique limits examination quality. The lungs are grossly clear. The heart is normal in size. No displaced fractu res. IMPRESSION: No acute intrathoracic process suspected. EXAM DESCRIPTION: CT - Head Brain Wo Cont - 06/29/2021 12:45 am CLINICAL HISTORY: 86 years Female recurring falls TECHNIQUE: Axial noncontrast CT head with coronal and sagittal reformats. All CT scans at this facility use dose modulation, iterative reconstruction, and/or weight based dosing when appropriate to reduce radiation dose to as low as reasonably achievable. COMPARISON: 04/02/2021. FINDINGS: Brain: Parenchymal volume loss. Chronic small vessel disease. No obvious large acute territorial infarction. No intracranial hemorrhage, midline shift, mass or mass effect. Ventricles: No hydrocephalus. Orbits: Unremarkable. Sinuses: Visualized portions are clear. Mastoid: Clear. Osseous: Unremarkable. Soft tissues: Unremarkable. IMPRESSION: No acute findings. Conclusions/Impression: KEVIN likely due to hypovolemia -No NSAIDs -Continue IVF Hyponatremia -Start IVF with NS Hypokalemia in the setting of N/V and anorexia -Replete potassium Alkalosis likely due to hypokalemia -Replete potassium HTN -Monitor BP Thank you kindly for the consultation. Critical Care: Yes (>30min)
[2021-06-29] MEDS: CARBIDOPA/LEVODOPA 25/250 TAB PO SCH ×2 (17:00→21:00)
[2021-06-29] MEDS ORDERED: LORAZEPAM 0.5 MG TABLET ONE (18:54)
[2021-06-29] MEDS ORDERED: ONDANSETRON 4 MG/2 ML VIAL ONE (18:55)
[2021-06-29] MEDS: ONDANSETRON 4 MG/2 ML VIAL IV PRN (18:56)
[2021-06-29] MEDS: ATORVASTATIN 40 MG TAB PO SCH (21:00)
[2021-06-29] MEDS: HEPARIN 5000 UNIT/ML 1 ML VIAL SQ SCH (21:00)
[2021-06-29] MEDS ORDERED: HEPARIN 5000 UNIT/ML 1 ML VIAL ONE (21:07)
[2021-06-29] MEDS ORDERED: ATORVASTATIN 20 MG TAB ONE (21:08)
[2021-06-29] MEDS: NS KCL 20MEQ 20 MEQ/1,000 ML BAG IV SCH (22:00)
[2021-06-29] MEDS ORDERED: CARBIDOPA/LEVODOPA 25/250 TAB ONE (23:25)
[2021-06-30] MEDS ORDERED: ZIPRASIDONE MESYLA 20 MG/VIAL IM ONE ×2 (01:40→16:18)
[2021-06-30 02:54] LABS: Absolute Lymphocytes (CBC) 1.1 K/uL (0.7-4.9); Hematocrit 37.1 % (36.0-45.0); Lymphocytes % 20.9 % (15.3-44.8); MPV 7.5 fL (7.6-11.3); RBC Red Blood Cell Count 3.98 M/uL (3.86-4.86)
[2021-06-30 03:15] LABS: Albumin 2.8 g/dL (3.4-5.0); Bilirubin Total 1.4 mg/dL (0.2-1.0)
[2021-06-30 03:24] LABS: Potassium 2.1 mmol/L (3.5-5.1)
[2021-06-30] MEDS ORDERED: HYDROCODONE/APAP 5/325 MG TAB ONE (04:57)
[2021-06-30] MEDS ORDERED: levoFLOXacin 500 MG TAB ONE ×2 (05:02→09:40)
[2021-06-30] MEDS ORDERED: HYDROCODONE/APAP 5/325 MG TAB PO ONE (05:03)
[2021-06-30] MEDS ORDERED: POTASSIUM CL SA 10 MEQ TAB PO ONE ×3 (05:03→15:51)
[2021-06-30] MEDS: POTASSIUM CL SA 10 MEQ TAB PO SCH ×3 (05:30→13:30)
--- NOTE | 2021-06-30 06:18 | P.PN ---
Subjective Date of Service: 06/30/21 Primary Care Provider: Unknown Chief Complaint: Weakness Subjective: Demented, Other (Patient with dementia. Some agitation noted. Patient was given Geodon last night. Patient in restraints to keep from pulling on IV and protection. Son at bedside.) Physical Examination - Vital Signs Temperature: 98.4 F Blood Pressure: 98/81 Pulse: 71 Respirations: 20 Pulse Ox (%): 94 - Studies Laboratory Data (last 24 hrs) 06/29/21 07:07: Potassium 2.0 L* Assessment & Plan Discharge Plan: Other (alf facility with possible long-term care) Plan to discharge in: 72 Hours - Code Status/Comfort Care Code Status Assessed: Yes (This was readdressed with son. Patient DNR.) Physician Review Additional Text: COVID: Negative CXR: COMPARISON: Chest Single View dated 09/01/2018; Chest Single View dated 07/07/2018; Chest Single View dated 12/27/2017; FINDINGS: Portable technique limits examination quality. The lungs are grossly clear. The heart is normal in size. No displaced fractures. IMPRESSION: No acute intrathoracic process suspected. CT head: COMPARISON: 04/02/2021. FINDINGS: Brain: Parenchymal volume loss. Chronic small vessel disease. No obvious large acute territorial infarction. No intracranial hemorrhage, midline shift, mass or mass effect. Ventricles: No hydrocephalus. Orbits: Unremarkable. Sinuses: Visualized portions are clear. Mastoid: Clear. Osseous: Unremarkable. Soft tissues: Unremarkable. IMPRESSION: No acute findings. Physical exam: General: Alert, patient cooperative. Patient with underlying dementia HEENT: Atraumatic, Normocephalic, PERRLA Neck: Supple, 2+ carotid pulse no bruit, JVD not distended Respiratory: Clear to auscultation bilaterally, Normal air movement Cardiovascular: No edema, Normal pulses, Regular rate/rhythm, Normal S1 S2 Gastrointestinal: Normal bowel sounds, Soft and benign, Non-distended Musculoskeletal: No clubbing, No swelling Neurological: Normal speech, Normal strength at 5/5 x4 extr Impression: Weakness secondary to acute on chronic renal failure stage III with hypokalemia, hyponatremia, metabolic alkalosis UTI Chronic diastolic CHF Parkinson's Advanced dementia Hyperlipidemia Plan: Weakness secondary to acute on chronic renal failure stage III with hypokalemia, hyponatremia, metabolic alkalosis: Renal function improved. Slow improvement with hypokalemia. Continue IV fluids. Continue with potassium supplementation. Patient also on IV Levaquin to cover for UTI. Blood culture negative. Urine culture shows gram-negative rods. Continue with nephrology recommendations. Spoke with son at length. We discussed advanced directives. Patient now DNR. Son recommends skilled placement. Patient may require long-term care in the future due to her dementia. Need to obtain and restart home medications. Patient still with agitation and requiring restraints to protect her. We will see how she does with this today. Hopefully restraints can be removed. Physical therapy to evaluate patient. Encourage oral intake. Patient may require supplementation. Will discuss with foster care social worker as well. UTI: Blood cultures negative. Urine culture shows gram-negative rods. Continue IV Levaquin. Chronic diastolic CHF: Continue to hold diuretic therapy. Continue IV fluids. Parkinson's: Restart carbidopa levodopa but need to verify home medication. Advanced dementia: Patient still with agitation. Will discontinue Ativan. Continue to provide Geodon as needed. Still requires restraints due to agitation. We will try to wean this off. Continue Namenda and Exelon but need to verify home medication. Hypertension: We will monitor blood pressure. Continue with IV medication as needed. Need to obtain and verify home medication. Hyperlipidemia: Restart home medicationLipitor CODE STATUS: Readdressed code status. Son reports that she is DNR DVT prophylaxis: Heparin Advance care [id number] minutes: Spoke to son at length. He desires patient to go to a skilled facility. Also discussed the possibility of long-term care due to her worsening advanced dementia. Time Spent Managing Pts Care (In Minutes): 55
[2021-06-30] MEDS: NS KCL 20MEQ 20 MEQ/1,000 ML BAG IV SCH ×2 (08:00→18:00)
[2021-06-30] MEDS: MEMANTINE HCL 10 MG TABLET PO SCH (09:00)
[2021-06-30] MEDS: HEPARIN 5000 UNIT/ML 1 ML VIAL SQ SCH ×2 (09:00→21:00)
[2021-06-30] MEDS ORDERED: HOME MED 1 EA UNK (Memantine Hcl [Memantine Hcl] 5 MG Tablet) PO SCH (09:00)
[2021-06-30] MEDS: RIVASTIGMINE 4.6 MG/24 HR PATCH TD SCH (09:00)
[2021-06-30] MEDS: CARBIDOPA/LEVODOPA 25/250 TAB PO SCH ×4 (09:00→21:00)
[2021-06-30] MEDS: THIAMINE HCL 100 MG TABLET PO SCH (09:00)
[2021-06-30] MEDS: FOLIC ACID 1 MG TABLET PO SCH (09:00)
[2021-06-30] MEDS: levoFLOXacin 500 MG TAB PO SCH (09:00)
[2021-06-30] MEDS: ASPIRIN EC 81 MG TAB PO SCH (09:00)
[2021-06-30] MEDS ORDERED: HEPARIN 5000 UNIT/ML 1 ML VIAL ONE ×2 (09:39→20:46)
[2021-06-30] MEDS ORDERED: FOLIC ACID 1 MG TABLET ONE (09:39)
[2021-06-30] MEDS ORDERED: THIAMINE HCL 100 MG TABLET ONE (09:39)
[2021-06-30] MEDS ORDERED: ASPIRIN EC 81 MG TAB PO ONE (09:40)
[2021-06-30] MEDS ORDERED: TRAMADOL HCL 50 MG TAB ONE (09:40)
[2021-06-30] MEDS: TRAMADOL HCL 50 MG TAB PO PRN (09:50)
[2021-06-30] MEDS ORDERED: ONDANSETRON 4 MG/2 ML VIAL ONE (11:04)
[2021-06-30] MEDS: ONDANSETRON 4 MG/2 ML VIAL IV PRN (11:14)
[2021-06-30] MEDS ORDERED: NS KCL 20MEQ 1,000 ML IV ONE ×2 (12:16→23:14)
[2021-06-30] MEDS: ZIPRASIDONE MESYLA 20 MG/VIAL IM PRN (16:17)
[2021-06-30] MEDS ORDERED: HYDROCODONE/APAP 7.5/325 MG TAB ONE (17:31)
[2021-06-30] MEDS: HYDROCODONE/APAP 7.5/325 MG TAB PO PRN (17:32)
[2021-06-30 20:12] LABS: Potassium 3.2 mmol/L (3.5-5.1)
[2021-06-30] MEDS: ATORVASTATIN 40 MG TAB PO SCH (21:00)
--- NOTE | 2021-06-30 21:10 | P.PN ---
Date of Service: 06/30/21 Vital Signs Temp Pulse Resp BP Pulse Ox 976 F H 80 18 135/93 H 98 06/30/21 16:40 06/30/21 19:48 06/30/21 19:48 06/30/21 19:48 06/30/21 19:48 Medications Acetaminophen (Acetaminophen 500 Mg Tab) 500 mg PO Q6H PRN PRN Reason: ABDOMINAL PAIN Hydrocodone Bitart/Acetaminophen (Hydrocodone/Apap 7.5/325 Mg Tab) 1 tab PO Q6H PRN PRN Reason: Pain scale 8-10 (Severe) Last Admin: 06/30/21 17:32 Dose: 1 tab Documented by: Aspirin (Aspirin Ec 81 Mg Tab) 81 mg PO DAILY [facility] Last Admin: 06/30/21 09:00 Dose: 81 mg Documented by: Atorvastatin Calcium (Atorvastatin 40 Mg Tab) 40 mg PO BEDTIME [facility] Last Admin: 06/29/21 21:00 Dose: 40 mg Documented by: Carbidopa/Levodopa (Carbidopa/Levodopa 25/250 Tab) 1 tab PO QID [facility] Last Admin: 06/30/21 17:00 Dose: 1 tab Documented by: Folic Acid (Folic Acid 1 Mg Tablet) 1 mg PO DAILY [facility] Last Admin: 06/30/21 09:00 Dose: 1 mg Documented by: Heparin Sodium (Porcine) (Heparin 5000 Unit/Ml 1 Ml Vial) 5,000 unit SQ Q12HR [facility] Last Admin: 06/30/21 09:00 Dose: 5,000 unit Documented by: Hydralazine HCl (Hydralazine Hcl 20 Mg/Ml Vial) 10 mg IV Q6HP PRN PRN Reason: Titrate to SBP (MUST DEFINE) Potassium Chloride/Sodium Chloride (Kcl 20meq/Ns 1000 Ml Iv) 20 meq in 1,000 mls @ 100 mls/hr IV .Q10H ABILIO Potassium Chloride (Kcl 20 Meq/100 Ml Ivpb (Premix)) 20 meq in 100 mls @ 50 mls/hr IV Q2H [facility]; Protocol Stop: 07/01/21 01:59 Levofloxacin (Levofloxacin 750 Mg Tab) 750 mg PO DAILY [facility]; Protocol Memantine (Memantine Hcl 10 Mg Tablet) 5 mg PO DAILY [facility] Last Admin: 06/30/21 09:00 Dose: 5 mg Documented by: Ondansetron HCl (Ondansetron 4 Mg/2 Ml Vial) 4 mg IV Q8H PRN PRN Reason: NAUSEA / VOMITING Last Admin: 06/30/21 11:14 Dose: 4 mg Documented by: Rivastigmine (Rivastigmine 4.6 Mg/24 Hr Patch) 4.6 mg TD DAILY [facility] Last Admin: 06/30/21 09:00 Dose: 4.6 mg Documented by: Sodium Chloride (Flush Normal Saline 10 Ml) 10 ml IV BID [facility] Last Admin: 06/30/21 09:00 Dose: 10 ml Documented by: Sterile Water (Water For Inj,Sterile 10 Ml) 1.2 ml IM UD PRN PRN Reason: DILUTION OF MED Thiamine HCl (Thiamine Hcl 100 Mg Tablet) 100 mg PO DAILY [facility] Last Admin: 06/30/21 09:00 Dose: 100 mg Documented by: Tramadol HCl (Tramadol Hcl 50 Mg Tab) 50 mg PO TID PRN PRN Reason: Pain scale 5-7 (Moderate) Last Admin: 06/30/21 09:50 Dose: 50 mg Documented by: Ziprasidone (Ziprasidone Mesyla 20 Mg/Vial) 10 mg IM Q12H PRN PRN Reason: AGITATION Last Admin: 06/30/21 16:17 Dose: 10 mg Documented by: Microbiology Results 06/28/21 22:54 Clean Catch Urine [place] Count - Preliminary >100,000 CFU/ML. 06/28/21 22:54 Clean Catch Urine - Preliminary Assessment/ Plan: Nephrology No dyspnea No chest pain AMS. Anorexia. No acute events overnight Vitals, medications, blood work and imaging reviewed in the chart General: In no apparent distress, Confused HEENT: Atraumatic Neck: Supple Respiratory: Clear to auscultation bilaterally Cardiovascular: No edema, Regular rate/rhythm Gastrointestinal: Non-distended Musculoskeletal: No clubbing, No contractures Integumentary: No rashes, No cyanosis Neurological: Normal speech Laboratory Data (last 24 hrs) 06/29/21 07:07: Potassium 2.0 L* 06/28/21 23:10: PT 12.3, INR 1.07 06/28/21 23:10: WBC 9.80, Hgb 14.0, Hct 40.2, Plt Count 322 06/28/21 23:10: Sodium 127 L, Potassium 1.6 L*, BUN 47 H, Creatinine 1.41 H, Glucose 109 H, Magnesium 2.2, Total Bilirubin 1.9 H, AST 16, ALT 11 L, Alkaline Phosphatase 86 Imagings Data: EXAM DESCRIPTION: RAD - Chest Single View - 06/28/2021 9:57 pm CLINICAL HISTORY: CHEST PAIN Chest pain. COMPARISON: Chest Single View dated 09/01/2018; Chest Single View dated 019; Chest Single View dated 12/27/2017; Chest Single View dated 11/13/2017 FINDINGS: Portable technique limits examination quality. The lungs are grossly clear. The heart is normal in size. No displaced fractures. IMPRESSION: No acute intrathoracic process suspected. EXAM DESCRIPTION: CT - Head Brain Wo Cont - 06/29/2021 12:45 am CLINICAL HISTORY: 86 years Female recurring falls TECHNIQUE: Axial noncontrast CT head with coronal and sagittal reformats. All CT scans at this facility use dose modulation, iterative reconstruction, and/or weight based dosing when appropriate to reduce radiation dose to as low as reasonably achievable. COMPARISON: 04/02/2021. FINDINGS: Brain: Parenchymal volume loss. Chronic small vessel disease. No obvious large acute territorial infarction. No intracranial hemorrhage, midline shift, mass or mass effect. Ventricles: No hydrocephalus. Orbits: Unremarkable. Sinuses: Visualized portions are clear. Mastoid: Clear. Osseous: Unremarkable. Soft tissues: Unremarkable. IMPRESSION: No acute findings. Conclusions/Impression: KEVIN likely due to hypovolemia -No NSAIDs -Continue IVF Hyponatremia -Continue IVF with NS Hypokalemia in the setting of N/V and anorexia -Replete potassium Alkalosis likely due to hypokalemia -Replete potassium HTN -Monitor BP Diastolic CHF, chronic -Daily weight Case reviewed with Dr. Archuleta
[2021-06-30] MEDS: KCL 20 MEQ/100 mL IVPB 20 MEQ/100 ML BAG IV SCH (22:00)
[2021-07-01] MEDS: KCL 20 MEQ/100 mL IVPB 20 MEQ/100 ML BAG IV SCH
[2021-07-01] MEDS: NS KCL 20MEQ 20 MEQ/1,000 ML BAG IV SCH ×2 (04:00→14:10)
[2021-07-01 04:24] LABS: Albumin 2.7 g/dL (3.4-5.0); Magnesium 1.9 mg/dL (1.8-2.4); Phosphorus 1.2 mg/dL (2.5-4.9); Potassium 3.1 mmol/L (3.5-5.1); Protein, Total 5.9 g/dL (6.4-8.2); Uric Acid 7.7 mg/dL (2.6-6.0)
--- NOTE | 2021-07-01 06:11 | P.PN ---
Subjective Date of Service: 07/01/21 Primary Care Provider: Unknown Chief Complaint: Weakness Subjective: Demented, Other (Patient appears less agitated. Patient still in restraints.) Physical Examination - Vital Signs Temperature: 976 F Blood Pressure: 137/65 Pulse: 81 Respirations: 17 Pulse Ox (%): 98 Assessment & Plan Discharge Plan: Other (longterm facility) Plan to discharge in: 24 Hours Physician Review Additional Text: COVID: Negative CXR: COMPARISON: Chest Single View dated 09/01/2018; Chest Single View dated 07/07/2018; Chest Single View dated 12/27/2017; FINDINGS: Portable technique limits examination quality. The lungs are grossly clear. The heart is normal in size. No displaced fractures. IMPRESSION: No acute intrathoracic process suspected. CT head: COMPARISON: 04/02/2021. FINDINGS: Brain: Parenchymal volume loss. Chronic small vessel disease. No obvious large acute territorial infarction. No intracranial hemorrhage, midline shift, mass or mass effect. Ventricles: No hydrocephalus. Orbits: Unremarkable. Sinuses: Visualized portions are clear. Mastoid: Clear. Osseous: Unremarkable. Soft tissues: Unremarkable. IMPRESSION: No acute findings. Physical exam: General: Alert, patient cooperative. Patient with underlying dementia HEENT: Atraumatic, Normocephalic, PERRLA Neck: Supple, 2+ carotid pulse no bruit, JVD not distended Respiratory: Clear to auscultation bilaterally, Normal air movement Cardiovascular: No edema, Normal pulses, Regular rate/rhythm, Normal S1 S2 Gastrointestinal: Normal bowel sounds, Soft and benign, Non-distended Musculoskeletal: No clubbing, No swelling Neurological: Normal speech, Normal strength at 5/5 x4 extr Impression: Weakness secondary to acute on chronic renal failure stage III with hypokalemia, hyponatremia, metabolic alkalosis UTI, urine culture positive for E. coli Chronic diastolic CHF Parkinson's Advanced dementia Hyperlipidemia Diabetes mellitus type 2 Plan: Weakness secondary to acute on chronic renal failure stage III with hypokalemia, hyponatremia, metabolic alkalosis: Renal function and potassium improved. Continue IV fluids and potassium supplementation. E. coli identified in urine culture. Continue Levaquin for 7 days. Patient with less agitation today. Physical therapy to assess ambulation. Encourage nutrition. Continue to pursue skilled placement. Await approval. Wean off restraints. Anticipate skilled placement in the next 1 to 2 days. UTI, urine culture positive for E. coli: Blood cultures negative. Urine culture shows gram-negative rods. Continue IV Levaquin. Chronic diastolic CHF: Continue to hold diuretic therapy. Continue IV fluids. Parkinson's: Obtain and verify home medication. Restart carbidopa levodopa but need to verify home medication. Advanced dementia: Less agitation noted. Ativan discontinued. Continue Geodon as needed. Wean off restraints. Physical therapy to assess ambulation. Need to obtain and restart home medication. Continue Namenda and Exelon but need to verify home medication. Hypertension: Continue to monitor blood pressure. Continue with IV medication as needed. Need to obtain and verify home medication. Hyperlipidemia: Continue home medicationLipitor Diabetes mellitus type 2: Will obtain hemoglobin A1c. Will check Accu-Cheks and provide sliding scale CODE STATUS: Readdressed code status. Son reports that she is DNR DVT prophylaxis: Heparin Advance care minutes: Spoke with son at length yesterday. Continue to pursue skilled placement. Patient will likely require long-term care in the future.. Time Spent Managing Pts Care (In Minutes): 55
[2021-07-01] MEDS ORDERED: GLUCAGON 1 MG/VIAL IM PRN (08:54)
[2021-07-01] MEDS ORDERED: D50W 25 GM/50 ML SYRINGE IV PRN (08:54)
[2021-07-01] MEDS: LACTOSE-REDUCED FOOD 330 ML LIQUID PO SCH ×3 (09:00→21:00)
[2021-07-01] MEDS: THIAMINE HCL 100 MG TABLET PO SCH (09:00)
[2021-07-01] MEDS ORDERED: HEPARIN 5000 UNIT/ML 1 ML VIAL ONE (11:02)
[2021-07-01] MEDS ORDERED: ASPIRIN EC 81 MG TAB PO ONE (11:02)
[2021-07-01] MEDS ORDERED: FOLIC ACID 1 MG TABLET ONE (11:02)
[2021-07-01] MEDS ORDERED: levoFLOXacin 750 MG TAB ONE (11:07)
[2021-07-01] MEDS: ASPIRIN EC 81 MG TAB PO SCH (11:12)
[2021-07-01] MEDS: RIVASTIGMINE 4.6 MG/24 HR PATCH TD SCH (11:12)
[2021-07-01] MEDS: levoFLOXacin 750 MG TAB PO SCH (11:13)
[2021-07-01] MEDS: HEPARIN 5000 UNIT/ML 1 ML VIAL SQ SCH ×2 (11:13→21:00)
[2021-07-01] MEDS: FOLIC ACID 1 MG TABLET PO SCH (11:13)
[2021-07-01] MEDS: CARBIDOPA/LEVODOPA 25/250 TAB PO SCH ×4 (11:14→21:00)
[2021-07-01] MEDS: MEMANTINE HCL 10 MG TABLET PO SCH (11:14)
[2021-07-01] MEDS: INSULIN -REGULAR HUMAN 50 UNIT/0.5 ML ML SQ SCH ×3 (11:30→21:00)
[2021-07-01] MEDS ORDERED: KCL 20 MEQ/100 mL IVPB 20 MEQ/100 ML BAG IV SCH (12:00)
[2021-07-01] MEDS ORDERED: POTASSIUM PHOS 40 MEQ in NA CHLORIDE 0.9% 500 ML IV ONE (13:00)
[2021-07-01] MEDS ORDERED: ONDANSETRON 4 MG/2 ML VIAL ONE (13:55)
[2021-07-01] MEDS ORDERED: GABAPENTIN 300 MG CAP ONE ×2 (13:55→23:18)
[2021-07-01] MEDS: ONDANSETRON 4 MG/2 ML VIAL IV PRN (14:10)
[2021-07-01] MEDS ORDERED: NS KCL 20MEQ 1,000 ML IV ONE (14:10)
[2021-07-01] MEDS: ROPINIROLE HCL 0.25 MG TAB PO SCH ×2 (14:10→21:00)
[2021-07-01] MEDS: GABAPENTIN 300 MG CAP PO SCH ×2 (14:10→21:00)
[2021-07-01] MEDS ORDERED: HYDROCODONE/APAP 7.5/325 MG TAB ONE (18:29)
[2021-07-01] MEDS: HYDROCODONE/APAP 7.5/325 MG TAB PO PRN (18:30)
--- NOTE | 2021-07-01 20:04 | P.PN ---
Date of Service: 07/01/21 Vital Signs Temp Pulse Resp BP Pulse Ox 98.2 F 80 17 133/82 98 07/01/21 16:00 07/01/21 16:00 07/01/21 18:30 07/01/21 16:00 07/01/21 18:30 Medications Acetaminophen (Acetaminophen 500 Mg Tab) 500 mg PO Q6H PRN PRN Reason: ABDOMINAL PAIN Hydrocodone Bitart/Acetaminophen (Hydrocodone/Apap 7.5/325 Mg Tab) 1 tab PO Q6H PRN PRN Reason: Pain scale 8-10 (Severe) Last Admin: 07/01/21 18:30 Dose: 1 tab Documented by: Aspirin (Aspirin Ec 81 Mg Tab) 81 mg PO DAILY [facility] Last Admin: 07/01/21 11:12 Dose: 81 mg Documented by: Atorvastatin Calcium (Atorvastatin 40 Mg Tab) 40 mg PO BEDTIME [facility] Last Admin: 06/30/21 21:00 Dose: Not Given Documented by: Carbidopa/Levodopa (Carbidopa/Levodopa 25/250 Tab) 1 tab PO QID [facility] Last Admin: 07/01/21 18:31 Dose: 1 tab Documented by: Dextrose (D50w 25 Gm/50 Ml Syringe) 12.5 gm IV PRN PRN; Protocol PRN Reason: HYPOGLYCEMIA Folic Acid (Folic Acid 1 Mg Tablet) 1 mg PO DAILY [facility] Last Admin: 07/01/21 11:13 Dose: 1 mg Documented by: Gabapentin (Gabapentin 300 Mg Cap) 300 mg PO TID [facility] Last Admin: 07/01/21 14:10 Dose: 300 mg Documented by: Glucagon (Glucagon 1 Mg/Vial) 1 mg IM 1X PRN; Protocol PRN Reason: HYPOGLYCEMIA Heparin Sodium (Porcine) (Heparin 5000 Unit/Ml 1 Ml Vial) 5,000 unit SQ Q12HR [facility] Last Admin: 07/01/21 11:13 Dose: 5,000 unit Documented by: Hydralazine HCl (Hydralazine Hcl 20 Mg/Ml Vial) 10 mg IV Q6HP PRN PRN Reason: Titrate to SBP (MUST DEFINE) Potassium Chloride/Sodium Chloride (Kcl 20meq/Ns 1000 Ml Iv) 20 meq in 1,000 mls @ 100 mls/hr IV .Q10H [facility] Last Admin: 07/01/21 14:10 Dose: 1,000 mls Documented by: Insulin Human Regular (Insulin -Regular Human 50 Unit/0.5 Ml Ml) 0 unit SQ ACHS [facility]; Protocol Last Admin: 07/01/21 16:30 Dose: Not Given Documented by: Levofloxacin (Levofloxacin 750 Mg Tab) 750 mg PO DAILY [facility]; Protocol Last Admin: 07/01/21 11:13 Dose: 750 mg Documented by: Memantine (Memantine Hcl 10 Mg Tablet) 5 mg PO DAILY [facility] Last Admin: 07/01/21 11:14 Dose: 5 mg Documented by: Mirtazapine (Mirtazapine 15 Mg Tab) 30 mg PO BEDTIME [facility] Ondansetron HCl (Ondansetron 4 Mg/2 Ml Vial) 4 mg IV Q8H PRN PRN Reason: NAUSEA / VOMITING Last Admin: 07/01/21 14:10 Dose: 4 mg Documented by: Rivastigmine (Rivastigmine 4.6 Mg/24 Hr Patch) 4.6 mg TD DAILY [facility] Last Admin: 07/01/21 11:12 Dose: 4.6 mg Documented by: Ropinirole HCl (Ropinirole Hcl 0.25 Mg Tab) 0.5 mg PO TID [facility] Last Admin: 07/01/21 14:10 Dose: 0.5 mg Documented by: Sodium Chloride (Flush Normal Saline 10 Ml) 10 ml IV BID [facility] Last Admin: 07/01/21 09:00 Dose: 10 ml Documented by: Sterile Water (Water For Inj,Sterile 10 Ml) 1.2 ml IM UD PRN PRN Reason: DILUTION OF MED Thiamine HCl (Thiamine Hcl 100 Mg Tablet) 100 mg PO DAILY [facility] Last Admin: 07/01/21 09:00 Dose: 100 mg Documented by: Tramadol HCl (Tramadol Hcl 50 Mg Tab) 50 mg PO TID PRN PRN Reason: Pain scale 5-7 (Moderate) Last Admin: 06/30/21 09:50 Dose: 50 mg Documented by: Ziprasidone (Ziprasidone Mesyla 20 Mg/Vial) 10 mg IM Q12H PRN PRN Reason: AGITATION Last Admin: 06/30/21 16:17 Dose: 10 mg Documented by: Microbiology Results 06/28/21 22:54 Clean Catch Urine [place] Count - Final >100,000 CFU/ML. 06/28/21 22:54 Clean Catch Urine - Final Escherichia Coli Assessment/ Plan: Nephrology No dyspnea No chest pain AMS. Anorexia. No acute events overnight Vitals, medications, blood work and imaging reviewed in the chart General: In no apparent distress, Confused HEENT: Atraumatic Neck: Supple Respiratory: Clear to auscultation bilaterally Cardiovascular: No edema, Regular rate/rhythm Gastrointestinal: Non-distended Musculoskeletal: No clubbing, No contractures Integumentary: No rashes, No cyanosis Neurological: Normal speech Laboratory Data (last 24 hrs) 06/29/21 07:07: Potassium 2.0 L* 06/28/21 23:10: PT 12.3, INR 1.07 06/28/21 23:10: WBC 9.80, Hgb 14.0, Hct 40.2, Plt Count 322 06/28/21 23:10: Sodium 127 L, Potassium 1.6 L*, BUN 47 H, Creatinine 1.41 H, Glucose 109 H, Magnesium 2.2, Total Bilirubin 1.9 H, AST 16, ALT 11 L, Alkaline Phosphatase 86 Imagings Data: EXAM DESCRIPTION: RAD - Chest Single View - 06/28/2021 9:57 pm CLINICAL HISTORY: CHEST PAIN Chest pain. COMPARISON: Chest Single View dated 09/01/2018; Chest Single View dated 07/07/2018; Chest Single View dated 12/27/2017; Chest Single View dated 11/13/2017 FINDINGS: Portable technique limits examination quality. The lungs are grossly clear. The heart is normal in size. No displaced fractures. IMPRESSION: No acute intrathoracic process suspected. EXAM DESCRIPTION: CT - Head Brain Wo Cont - 06/29/2021 12:45 am CLINICAL HISTORY: 86 years Female recurring falls TECHNIQUE: Axial noncontrast CT head with coronal and sagittal reformats. All CT scans at this facility use dose modulation, iterative reconstruction, and/or weight based dosing when appropriate to reduce radiation dose to as low as reasonably achievable. COMPARISON: 04/02/2021. FINDINGS: Brain: Parenchymal volume loss. Chronic small vessel disease. No obvious large acute territorial infarction. No intracranial hemorrhage, midline shift, mass or mass effect. Ventricles: No hydrocephalus. Orbits: Unremarkable. Sinuses: Visualized portions are clear. Mastoid: Clear. Osseous: Unremarkable. Soft tissues: Unremarkable. IMPRESSION: No acute findings. Conclusions/Impression: KEVIN likely due to hypovolemia -No NSAIDs -Continue IVF Hyponatremia -Continue IVF with NS Hypokalemia in the setting of N/V and anorexia -Replete potassium Alkalosis likely due to hypokalemia -Replete potassium HypoPO4 -Replete with IV PO4 HTN -Monitor BP Diastolic CHF, chronic -Daily weight Case reviewed with Dr. Archuleta
[2021-07-01] MEDS: MIRTAZAPINE 15 MG TAB PO SCH (21:00)
[2021-07-01] MEDS: ATORVASTATIN 40 MG TAB PO SCH (21:00)
[2021-07-02] MEDS ORDERED: HEPARIN 5000 UNIT/ML 1 ML VIAL ONE (00:35)
[2021-07-02 02:44] LABS: Blood O2 Saturation 97.9 % (92-98.5)
[2021-07-02 02:45] LABS: Arterial Blood Carboxyhemoglob 1.1 % (0-1.5); Blood Gas Oxyhemoglobin 95.7 % (94-97)
[2021-07-02] MEDS: NS KCL 20MEQ 20 MEQ/1,000 ML BAG IV SCH ×4 (02:47→20:00)
[2021-07-02 05:41] LABS: Absolute Lymphocytes (CBC) 1.3 K/uL (0.7-4.9); Hematocrit 35.8 % (36.0-45.0); MPV 7.5 fL (7.6-11.3); RBC Red Blood Cell Count 3.75 M/uL (3.86-4.86)
[2021-07-02 05:51] VITALS: BMI 21.4
[2021-07-02 05:56] LABS: BUN Blood Urea Nitrogen 10 mg/dL (7-18); Bicarbonate 29 mmol/L (21-32); Glucose Level 105 mg/dL (74-106); Magnesium 1.8 mg/dL (1.8-2.4); Potassium 3.2 mmol/L (3.5-5.1); Sodium Level 141 mmol/L (136-145)
--- NOTE | 2021-07-02 06:01 | P.PN ---
Subjective Date of Service: 07/02/21 Primary Care Provider: Unknown Chief Complaint: Weakness Subjective: Improving, Demented Physical Examination - Vital Signs Temperature: 97.6 F Blood Pressure: 148/71 Pulse: 51 Respirations: 19 Pulse Ox (%): 97 - Studies Microbiology Data (last 24 hrs): 06/28/21 22:54 Clean Catch Urine [place] Count - Final >100,000 CFU/ML. 06/28/21 22:54 Clean Catch Urine - Final Escherichia Coli Assessment & Plan Discharge Plan: Other (long-term facility) Plan to discharge in: Greater than 2 days Physician Review Additional Text: COVID: Negative CXR: COMPARISON: Chest Single View dated 09/01/2018; Chest Single View dated 07/07/2018; Chest Single View dated 12/27/2017; FINDINGS: Portable technique limits examination quality. The lungs are grossly clear. The heart is normal in size. No displaced fractures. IMPRESSION: No acute intrathoracic process suspected. CT head: COMPARISON: 04/02/2021. FINDINGS: Brain: Parenchymal volume loss. Chronic small vessel disease. No obvious large acute territorial infarction. No intracranial hemorrhage, midline shift, mass or mass effect. Ventricles: No hydrocephalus. Orbits: Unremarkable. Sinuses: Visualized portions are clear. Mastoid: Clear. Osseous: Unremarkable. Soft tissues: Unremarkable. IMPRESSION: No acute findings. Physical exam: General: Alert, patient cooperative. Patient with underlying dementia HEENT: Atraumatic, Normocephalic, PERRLA Neck: Supple, 2+ carotid pulse no bruit, JVD not distended Respiratory: Clear to auscultation bilaterally, Normal air movement Cardiovascular: No edema, Normal pulses, Regular rate/rhythm, Normal S1 S2 Gastrointestinal: Normal bowel sounds, Soft and benign, Non-distended Musculoskeletal: No clubbing, No swelling Neurological: Normal speech, Normal strength at 5/5 x4 extr Impression: Weakness secondary to acute on chronic renal failure stage III with hypokalemia, hyponatremia, metabolic alkalosis UTI, urine culture positive for E. coli Chronic diastolic CHF Parkinson's Advanced dementia Hyperlipidemia Diabetes mellitus type 2 Restless leg syndrome Diabetic neuropathy Plan: Weakness secondary to acute on chronic renal failure stage III with hypokalemia, hyponatremia, metabolic alkalosis: Renal function continues to improve fluids. If taking good oral intake will wean off. Patient not requiring restraints. We will get physical therapy to assess ambulation. E. coli identified in urine culture. Continue Levaquin for 7 days. Physical therapy to assess ambulation. Encourage nutrition. Continue to pursue skilled placement. Await approval. Wean off restraints. Continue to pursue skilled placement. UTI, urine culture positive for E. coli: Blood cultures negative. Urine culture shows gram-negative rods. Continue oral Levaquin for 7 days total. Recheck urine culture to monitor resolution. Chronic diastolic CHF: Continue to hold diuretic therapy. Continue IV fluids. Wean off IV fluids. Parkinson's: Continue carbidopa levodopa 25/250 mg 4 times a day. Advanced dementia: Less agitation noted. Ativan discontinued. Wean off restraints. Physical therapy to assess ambulation. Continue with home medication Exelon patch 4.6 mg daily, Namenda 5 mg daily. Patient continues with Remeron 30 mg at bedtime. Geodon as needed. Hypertension: Continue off hydrochlorothiazide. Will provide IV medication as needed. Hyperlipidemia: Continue home medicationLipitor 40 mg daily Diabetes mellitus type 2: A1c 5.8. Will check Accu-Cheks and provide sliding scale Restless leg syndrome: Continue Requip 0.5 mg 3 times a day Diabetic neuropathy: Continue with gabapentin. Hold with increase sedation. CODE STATUS: Readdressed code status. Son reports that she is DNR DVT prophylaxis: Heparin Advance care [id number] minutes: Spoke with son at length yesterday. Continue to pursue skilled placement. Patient will likely require long-term care in the future.. Time Spent Managing Pts Care (In Minutes): 55
[2021-07-02] MEDS ORDERED: MAGNESIUM SULFATE 1 gm IVPB 1 GM/100 ML BAG IV ONE (06:32)
[2021-07-02] MEDS: INSULIN -REGULAR HUMAN 50 UNIT/0.5 ML ML SQ SCH ×4 (07:30→20:33)
[2021-07-02] MEDS: KCL 20 MEQ/100 mL IVPB 20 MEQ/100 ML BAG IV SCH ×4 (08:00→16:30)
[2021-07-02] MEDS: ROPINIROLE HCL 0.25 MG TAB PO SCH ×3 (09:00→20:07)
[2021-07-02] MEDS: MEMANTINE HCL 10 MG TABLET PO SCH (09:00)
[2021-07-02] MEDS: LACTOSE-REDUCED FOOD 330 ML LIQUID PO SCH ×3 (09:00→19:57)
[2021-07-02] MEDS: ASPIRIN EC 81 MG TAB PO SCH (10:19)
[2021-07-02] MEDS: levoFLOXacin 750 MG TAB PO SCH (10:19)
[2021-07-02] MEDS: FOLIC ACID 1 MG TABLET PO SCH (10:20)
[2021-07-02] MEDS: GABAPENTIN 300 MG CAP PO SCH ×3 (10:20→20:01)
[2021-07-02] MEDS: CARBIDOPA/LEVODOPA 25/250 TAB PO SCH ×4 (10:20→20:01)
[2021-07-02] MEDS: THIAMINE HCL 100 MG TABLET PO SCH (10:20)
[2021-07-02] MEDS: RIVASTIGMINE 4.6 MG/24 HR PATCH TD SCH (10:20)
[2021-07-02] MEDS: HEPARIN 5000 UNIT/ML 1 ML VIAL SQ SCH ×2 (10:20→20:02)
[2021-07-02] MEDS: HYDROCODONE/APAP 7.5/325 MG TAB PO PRN ×2 (14:34→20:07)
[2021-07-02] MEDS: MIRTAZAPINE 15 MG TAB PO SCH (20:00)
[2021-07-02] MEDS: ATORVASTATIN 40 MG TAB PO SCH (20:01)
--- NOTE | 2021-07-02 21:32 | P.PN ---
Date of Service: 07/02/21 Vital Signs Temp Pulse Resp BP Pulse Ox 98.3 F 72 20 112/61 98 07/02/21 20:00 07/02/21 20:00 07/02/21 20:07 07/02/21 20:00 07/02/21 20:07 Medications Acetaminophen (Acetaminophen 500 Mg Tab) 500 mg PO Q6H PRN PRN Reason: ABDOMINAL PAIN Hydrocodone Bitart/Acetaminophen (Hydrocodone/Apap 7.5/325 Mg Tab) 1 tab PO Q6H PRN PRN Reason: Pain scale 8-10 (Severe) Last Admin: 07/02/21 20:07 Dose: 1 tab Documented by: Aspirin (Aspirin Ec 81 Mg Tab) 81 mg PO DAILY [facility] Last Admin: 07/02/21 10:19 Dose: 81 mg Documented by: Atorvastatin Calcium (Atorvastatin 40 Mg Tab) 40 mg PO BEDTIME [facility] Last Admin: 07/02/21 20:01 Dose: 40 mg Documented by: Carbidopa/Levodopa (Carbidopa/Levodopa 25/250 Tab) 1 tab PO QID [facility] Last Admin: 07/02/21 20:01 Dose: 1 tab Documented by: Dextrose (D50w 25 Gm/50 Ml Syringe) 12.5 gm IV PRN PRN; Protocol PRN Reason: HYPOGLYCEMIA Folic Acid (Folic Acid 1 Mg Tablet) 1 mg PO DAILY [facility] Last Admin: 07/02/21 10:20 Dose: 1 mg Documented by: Gabapentin (Gabapentin 300 Mg Cap) 300 mg PO TID [facility] Last Admin: 07/02/21 20:01 Dose: 300 mg Documented by: Glucagon (Glucagon 1 Mg/Vial) 1 mg IM 1X PRN; Protocol PRN Reason: HYPOGLYCEMIA Heparin Sodium (Porcine) (Heparin 5000 Unit/Ml 1 Ml Vial) 5,000 unit SQ Q12HR [facility] Last Admin: 07/02/21 20:02 Dose: 5,000 unit Documented by: Hydralazine HCl (Hydralazine Hcl 20 Mg/Ml Vial) 10 mg IV Q6HP PRN PRN Reason: Titrate to SBP (MUST DEFINE) Potassium Chloride/Sodium Chloride (Kcl 20meq/Ns 1000 Ml Iv) 20 meq in 1,000 mls @ 100 mls/hr IV .Q10H [facility] Last Admin: 07/02/21 10:00 Dose: Not Given Documented by: Insulin Human Regular (Insulin -Regular Human 50 Unit/0.5 Ml Ml) 0 unit SQ ACHS [facility]; Protocol Last Admin: 07/02/21 20:33 Dose: Not Given Documented by: Levofloxacin (Levofloxacin 750 Mg Tab) 750 mg PO DAILY [facility]; Protocol Last Admin: 07/02/21 10:19 Dose: 750 mg Documented by: Memantine (Memantine Hcl 10 Mg Tablet) 5 mg PO DAILY [facility] Last Admin: 07/02/21 09:00 Dose: Not Given Documented by: Mirtazapine (Mirtazapine 15 Mg Tab) 30 mg PO BEDTIME [facility] Last Admin: 07/02/21 20:00 Dose: 30 mg Documented by: Ondansetron HCl (Ondansetron 4 Mg/2 Ml Vial) 4 mg IV Q8H PRN PRN Reason: NAUSEA / VOMITING Last Admin: 07/01/21 14:10 Dose: 4 mg Documented by: Rivastigmine (Rivastigmine 4.6 Mg/24 Hr Patch) 4.6 mg TD DAILY [facility] Last Admin: 07/02/21 10:20 Dose: 4.6 mg Documented by: Ropinirole HCl (Ropinirole Hcl 0.25 Mg Tab) 0.5 mg PO TID [facility] Last Admin: 07/02/21 20:07 Dose: 0.5 mg Documented by: Sodium Chloride (Flush Normal Saline 10 Ml) 10 ml IV BID [facility] Last Admin: 07/02/21 20:02 Dose: 10 ml Documented by: Sterile Water (Water For Inj,Sterile 10 Ml) 1.2 ml IM UD PRN PRN Reason: DILUTION OF MED Thiamine HCl (Thiamine Hcl 100 Mg Tablet) 100 mg PO DAILY [facility] Last Admin: 07/02/21 10:20 Dose: 100 mg Documented by: Tramadol HCl (Tramadol Hcl 50 Mg Tab) 50 mg PO TID PRN PRN Reason: Pain scale 5-7 (Moderate) Last Admin: 06/30/21 09:50 Dose: 50 mg Documented by: Ziprasidone (Ziprasidone Mesyla 20 Mg/Vial) 10 mg IM Q12H PRN PRN Reason: AGITATION Last Admin: 06/30/21 16:17 Dose: 10 mg Documented by: Microbiology Results 06/28/21 22:54 Clean Catch Urine [place] Count - Final >100,000 CFU/ML. 06/28/21 22:54 Clean Catch Urine - Final Escherichia Coli Assessment/ Plan: Nephrology No dyspnea No chest pain AMS. Anorexia. No acute events overnight Vitals, medications, blood work and imaging reviewed in the chart General: In no apparent distress, Confused HEENT: Atraumatic Neck: Supple Respiratory: Clear to auscultation bilaterally Cardiovascular: No edema, Regular rate/rhythm Gastrointestinal: Non-distended Musculoskeletal: No clubbing, No contractures Integumentary: No rashes, No cyanosis Neurological: Normal speech Laboratory Data (last 24 hrs) 06/29/21 07:07: Potassium 2.0 L* 06/28/21 23:10: PT 12.3, INR 1.07 06/28/21 23:10: WBC 9.80, Hgb 14.0, Hct 40.2, Plt Count 322 06/28/21 23:10: Sodium 127 L, Potassium 1.6 L*, BUN 47 H, Creatinine 1.41 H, Glu cose 109 H, Magnesium 2.2, Total Bilirubin 1.9 H, AST 16, ALT 11 L, Alkaline Phosphatase 86 Imagings Data: EXAM DESCRIPTION: RAD - Chest Single View - 06/28/2021 9:57 pm CLINICAL HISTORY: CHEST PAIN Chest pain. COMPARISON: Chest Single View dated 09/01/2018; Chest Single View dated 07/07/2018; Chest Single View dated 12/27/2017; Chest Single View dated 11/13/2017 FINDINGS: Portable technique limits examination quality. The lungs are grossly clear. The heart is normal in size. No displaced fractures. IMPRESSION: No acute intrathoracic process suspected. EXAM DESCRIPTION: CT - Head Brain Wo Cont - 06/29/2021 12:45 am CLINICAL HISTORY: 86 years Female recurring falls TECHNIQUE: Axial noncontrast CT head with coronal and sagittal reformats. All CT scans at this facility use dose modulation, iterative reconstruction, and/or weight based dosing when appropriate to reduce radiation dose to as low as reasonably achievable. COMPARISON: 04/02/2021. FINDINGS: Brain: Parenchymal volume loss. Chronic small vessel disease. No obvious large acute territorial infarction. No intracranial hemorrhage, midline shift, mass or mass effect. Ventricles: No hydrocephalus. Orbits: Unremarkable. Sinuses: Visualized portions are clear. Mastoid: Clear. Osseous: Unremarkable. Soft tissues: Unremarkable. IMPRESSION: No acute findings. Conclusions/Impression: KEVIN likely due to hypovolemia -No NSAIDs Hyponatremia -Encourage nutrition Hypokalemia in the setting of N/V and anorexia -Replete potassium Alkalosis likely due to hypokalemia -Replete potassium HypoPO4 -Replete prn HTN -Monitor BP Diastolic CHF, chronic -Daily weight Moderate malnutrition -Advance nutrition as tolerated Case reviewed with Dr. Archuleta
[2021-07-03] MEDS: HYDROCODONE/APAP 7.5/325 MG TAB PO PRN ×3 (01:47→21:13)
[2021-07-03] MEDS: ONDANSETRON 4 MG/2 ML VIAL IV PRN (03:40)
[2021-07-03] MEDS ORDERED: NA CHLORIDE 0.9% 500 ML IV ONE (03:41)
[2021-07-03] MEDS ORDERED: SODIUM CHLORIDE 0.9% 10ML INJ IV PRN (04:16)
[2021-07-03] MEDS ORDERED: PANTOPRAZOLE 40 MG INJ IVP ONE (04:16)
--- NOTE | 2021-07-03 05:45 | P.PN ---
Subjective Date of Service: 07/03/21 Primary Care Provider: Unknown Chief Complaint: Weakness Subjective: Improving, Demented (Son at bedside) Physical Examination - Vital Signs Temperature: 98.4 F Blood Pressure: 106/63 Pulse: 58 Respirations: 15 Pulse Ox (%): 97 Assessment & Plan Discharge Plan: Other (custodial facility) Plan to discharge in: 24 Hours Physician Review Additional Text: COVID: Negative CXR: COMPARISON: Chest Single View dated 09/01/2018; Chest Single View dated 07/07/2018; Chest Single View dated 12/27/2017; FINDINGS: Portable technique limits examination quality. The lungs are grossly clear. The heart is normal in size. No displaced fractures. IMPRESSION: No acute intrathoracic process suspected. CT head: COMPARISON: 04/02/2021. FINDINGS: Brain: Parenchymal volume loss. Chronic small vessel disease. No obvious large acute territorial infarction. No intracranial hemorrhage, midline shift, mass or mass effect. Ventricles: No hydrocephalus. Orbits: Unremarkable. Sinuses: Visualized portions are clear. Mastoid: Clear. Osseous: Unremarkable. Soft tissues: Unremarkable. IMPRESSION: No acute findings. Physical exam: General: Alert, patient cooperative. Patient with underlying dementia. Patient resting in bed. Son at bedside. Son reports patient doing better this morning. HEENT: Atraumatic, Normocephalic, PERRLA Neck: Supple, 2+ carotid pulse no bruit, JVD not distended Respiratory: Clear to auscultation bilaterally, Normal air movement Cardiovascular: No edema, Normal pulses, Regular rate/rhythm, Normal S1 S2 Gastrointestinal: Normal bowel sounds, Soft and benign, Non-distended Musculoskeletal: No clubbing, No swelling Neurological: Normal speech, Normal strength at 5/5 x4 extr Impression: Weakness secondary to acute on chronic renal failure stage III with hypokalemia, hyponatremia, metabolic alkalosis UTI, urine culture positive for E. coli Chronic diastolic CHF Parkinson's Advanced dementia Hyperlipidemia Diabetes mellitus type 2 Restless leg syndrome Diabetic neuropathy Plan: Weakness secondary to acute on chronic renal failure stage III with hypokalemia, hyponatremia, metabolic alkalosis: Renal function back to baseline. Potassium now normal. Hyponatremia resolved. Will discontinue IV fluids. Patient off restraints. Continue with her dementia medications. Son reports patient improved. Awaiting approval for skilled placement. UTI, urine culture positive for E. coli: Blood cultures negative. Urine culture shows gram-negative rods. Continue oral Levaquin for 7 days total. Recheck urine culture to monitor resolution. Currently on day 5 of treatment. Chronic diastolic CHF: Wean off oxygen. Discontinue IV fluids. Parkinson's: Continue carbidopa levodopa 25/250 mg 4 times a day. Advanced dementia: Less agitation noted. Patient remains off Ativan. Off restraints. Son at bedside. Patient doing well with son at bedside. Consider s itter if son is not available. Continue to pursue skilled placement. Physical therapy to assess ambulation. Continue with home medication Exelon patch 4.6 mg daily, Namenda 5 mg daily. Patient continues with Remeron 30 mg at bedtime. Geodon as needed. Hypertension: Continue off hydrochlorothiazide. Blood pressure stable off medication. Will provide IV medication as needed. Hyperlipidemia: Continue home medicationLipitor 40 mg daily Diabetes mellitus type 2: A1c 5.8. Will check Accu-Cheks and provide sliding scale. No need for medication at this time. Suspect underlying prediabetes. Restless leg syndrome: Continue Requip 0.5 mg 3 times a day Diabetic neuropathy: Continue with gabapentin. Hold with increase sedation. CODE STATUS: Readdressed code status. Son reports that she is DNR DVT prophylaxis: Heparin Advance care [id number] minutes: Spoke with son at length today. Continue to pursue skilled placement. Patient may require long-term care in the future. Son understands this. Time Spent Managing Pts Care (In Minutes): 55
[2021-07-03] MEDS: NS KCL 20MEQ 20 MEQ/1,000 ML BAG IV SCH (06:01)
[2021-07-03 06:15] LABS: Absolute Lymphocytes (CBC) 1.6 K/uL (0.7-4.9); Hematocrit 34.3 % (36.0-45.0); Lymphocytes % 28.6 % (15.3-44.8); MPV 7.7 fL (7.6-11.3); RBC Red Blood Cell Count 3.64 M/uL (3.86-4.86)
[2021-07-03 06:34] LABS: BUN Blood Urea Nitrogen 13 mg/dL (7-18); Bicarbonate 27 mmol/L (21-32); Glucose Level 103 mg/dL (74-106); Magnesium 1.8 mg/dL (1.8-2.4); Potassium 3.5 mmol/L (3.5-5.1); Sodium Level 141 mmol/L (136-145)
[2021-07-03] MEDS ORDERED: POTASSIUM PHOS 40 MEQ in NA CHLORIDE 0.9% 500 ML IV ONE (06:56)
[2021-07-03] MEDS: INSULIN -REGULAR HUMAN 50 UNIT/0.5 ML ML SQ SCH ×4 (07:30→20:15)
[2021-07-03] MEDS: LACTOSE-REDUCED FOOD 330 ML LIQUID PO SCH ×3 (09:00→20:16)
[2021-07-03] MEDS ORDERED: POTASSIUM PHOS 40 MEQ in NA CHLORIDE 0.9% 500 ML IV SCH (09:00)
[2021-07-03] MEDS: ROPINIROLE HCL 0.25 MG TAB PO SCH ×3 (09:00→20:15)
[2021-07-03] MEDS: LACTOBACILLUS/ACIDOPHILUS TAB PO SCH ×3 (09:12→20:14)
[2021-07-03] MEDS: ASPIRIN EC 81 MG TAB PO SCH (09:13)
[2021-07-03] MEDS: levoFLOXacin 750 MG TAB PO SCH (09:13)
[2021-07-03] MEDS: GABAPENTIN 300 MG CAP PO SCH ×3 (09:13→20:14)
[2021-07-03] MEDS: FOLIC ACID 1 MG TABLET PO SCH (09:13)
[2021-07-03] MEDS: THIAMINE HCL 100 MG TABLET PO SCH (09:14)
[2021-07-03] MEDS: CARBIDOPA/LEVODOPA 25/250 TAB PO SCH ×4 (09:14→20:15)
[2021-07-03] MEDS: HEPARIN 5000 UNIT/ML 1 ML VIAL SQ SCH ×2 (09:14→20:15)
[2021-07-03] MEDS: MEMANTINE HCL 10 MG TABLET PO SCH (09:14)
[2021-07-03] MEDS: RIVASTIGMINE 4.6 MG/24 HR PATCH TD SCH (09:15)
[2021-07-03] MEDS: ZIPRASIDONE MESYLA 20 MG/VIAL IM PRN ×2 (10:13→22:42)
--- NOTE | 2021-07-03 14:14 | P.PN ---
Date of Service: 07/03/21 Pt seen and examined Vitals, medications, blood work and imaging reviewed in the chart General: In no apparent distress, Confused HEENT: Atraumatic Neck: Supple Respiratory: Clear to auscultation bilaterally Cardiovascular: No edema, Regular rate/rhythm Gastrointestinal: Non-distended Musculoskeletal: No clubbing, No contractures Integumentary: No rashes, No cyanosis Neurological: Normal speech Acetaminophen (Acetaminophen 500 Mg Tab) 500 mg PO Q6H PRN PRN Reason: ABDOMINAL PAIN Hydrocodone Bitart/Acetaminophen (Hydrocodone/Apap 7.5/325 Mg Tab) 1 tab PO Q6H PRN PRN Reason: Pain scale 8-10 (Severe) Last Admin: 07/03/21 09:12 Dose: 1 tab Documented by: Aspirin (Aspirin Ec 81 Mg Tab) 81 mg PO DAILY [facility] Last Admin: 07/03/21 09:13 Dose: 81 mg Documented by: Atorvastatin Calcium (Atorvastatin 40 Mg Tab) 40 mg PO BEDTIME [facility] Last Admin: 07/02/21 20:01 Dose: 40 mg Documented by: Carbidopa/Levodopa (Carbidopa/Levodopa 25/250 Tab) 1 tab PO QID [facility] Last Admin: 07/03/21 12:43 Dose: 1 tab Documented by: Dextrose (D50w 25 Gm/50 Ml Syringe) 12.5 gm IV PRN PRN; Protocol PRN Reason: HYPOGLYCEMIA Folic Acid (Folic Acid 1 Mg Tablet) 1 mg PO DAILY [facility] Last Admin: 07/03/21 09:13 Dose: 1 mg Documented by: Gabapentin (Gabapentin 300 Mg Cap) 300 mg PO TID [facility] Last Admin: 07/03/21 09:13 Dose: 300 mg Documented by: Glucagon (Glucagon 1 Mg/Vial) 1 mg IM 1X PRN; Protocol PRN Reason: HYPOGLYCEMIA Heparin Sodium (Porcine) (Heparin 5000 Unit/Ml 1 Ml Vial) 5,000 unit SQ Q12HR [facility] Last Admin: 07/03/21 09:14 Dose: 5,000 unit Documented by: Hydralazine HCl (Hydralazine Hcl 20 Mg/Ml Vial) 10 mg IV Q6HP PRN PRN Reason: Titrate to SBP (MUST DEFINE) Insulin Human Regular (Insulin -Regular Human 50 Unit/0.5 Ml Ml) 0 unit SQ ACHS [facility]; Protocol Last Admin: 07/03/21 11:30 Dose: Not Given Documented by: Lactobacillus Acidoph/Bulgaricus (Lactobacillus/Acidophilus Tab) 1 tab PO TID [facility] Last Admin: 07/03/21 09:12 Dose: 1 tab Documented by: Levofloxacin (Levofloxacin 750 Mg Tab) 750 mg PO DAILY [facility]; Protocol Stop: 07/07/21 09:01 Last Admin: 07/03/21 09:13 Dose: 750 mg Documented by: Memantine (Memantine Hcl 10 Mg Tablet) 5 mg PO DAILY [facility] Last Admin: 07/03/21 09:14 Dose: 5 mg Documented by: Mirtazapine (Mirtazapine 15 Mg Tab) 30 mg PO BEDTIME [facility] Last Admin: 07/02/21 20:00 Dose: 30 mg Documented by: Ondansetron HCl (Ondansetron 4 Mg/2 Ml Vial) 4 mg IV Q8H PRN PRN Reason: NAUSEA / VOMITING Last Admin: 07/03/21 03:40 Dose: 4 mg Documented by: Rivastigmine (Rivastigmine 4.6 Mg/24 Hr Patch) 4.6 mg TD DAILY [facility] Last Admin: 07/03/21 09:15 Dose: 4.6 mg Documented by: Ropinirole HCl (Ropinirole Hcl 0.25 Mg Tab) 0.5 mg PO TID [facility] Last Admin: 07/03/21 09:00 Dose: 0.5 mg Documented by: Sodium Chloride (Flush Normal Saline 10 Ml) 10 ml IV BID [facility] Last Admin: 07/03/21 09:00 Dose: 10 ml Documented by: Sodium Chloride (Sodium Chloride 0.9% 10ml Inj) 10 ml IV UD PRN PRN Reason: Diluant Last Admin: 07/03/21 04:26 Dose: 10 ml Documented by: Sterile Water (Water For Inj,Sterile 10 Ml) 1.2 ml IM UD PRN PRN Reason: DILUTION OF MED Thiamine HCl (Thiamine Hcl 100 Mg Tablet) 100 mg PO DAILY [facility] Last Admin: 07/03/21 09:14 Dose: 100 mg Documented by: Tramadol HCl (Tramadol Hcl 50 Mg Tab) 50 mg PO TID PRN PRN Reason: Pain scale 5-7 (Moderate) Last Admin: 06/30/21 09:50 Dose: 50 mg Documented by: Ziprasidone (Ziprasidone Mesyla 20 Mg/Vial) 10 mg IM Q12H PRN PRN Reason: AGITATION Last Admin: 07/03/21 10:13 Dose: 10 mg Documented by: Conclusions/Impression: KEVIN likely due to hypovolemia -No NSAIDs Hyponatremia -Encourage nutrition Hypokalemia in the setting of N/V and anorexia -Replete potassium Alkalosis likely due to hypokalemia -Replete potassium HypoPO4 -Replete prn HTN -Monitor BP Diastolic CHF, chronic -Daily weight Moderate malnutrition -Advance nutrition as tolerated UTI : continue antibiotics Case reviewed with Dr. Archuleta
[2021-07-03] MEDS: MIRTAZAPINE 15 MG TAB PO SCH (20:14)
[2021-07-03] MEDS: ATORVASTATIN 40 MG TAB PO SCH (20:15)
[2021-07-03] MEDS: WATER FOR INJ,STERILE 10 ML IM PRN (22:42)
[2021-07-04] MEDS: TRAMADOL HCL 50 MG TAB PO PRN (05:44)
--- NOTE | 2021-07-04 05:54 | P.PN ---
Subjective Date of Service: 07/04/21 Primary Care Provider: Unknown Chief Complaint: Weakness Subjective: Doing well, Demented Physical Examination - Vital Signs Temperature: 97.8 F Blood Pressure: 116/56 Pulse: 66 Respirations: 18 Pulse Ox (%): 95 Assessment & Plan Discharge Plan: Other (long-term facility) Plan to discharge in: 24 Hours Physician Review Additional Text: COVID: Negative CXR: COMPARISON: Chest Single View dated 09/01/2018; Chest Single View dated 07/07/2018; Chest Single View dated 12/27/2017; FINDINGS: Portable technique limits examination quality. The lungs are grossly clear. The heart is normal in size. No displaced fractures. IMPRESSION: No acute intrathoracic process suspected. CT head: COMPARISON: 04/02/2021. FINDINGS: Brain: Parenchymal volume loss. Chronic small vessel disease. No obvious large acute territorial infarction. No intracranial hemorrhage, midline shift, mass or mass effect. Ventricles: No hydrocephalus. Orbits: Unremarkable. Sinuses: Visualized portions are clear. Mastoid: Clear. Osseous: Unremarkable. Soft tissues: Unremarkable. IMPRESSION: No acute findings. Physical exam: General: Patient with underlying dementia. Patient resting in bed. Son at bedside. Son reports patient doing better this morning. HEENT: Atraumatic, Normocephalic, PERRLA Neck: Supple, 2+ carotid pulse no bruit, JVD not distended Respiratory: Clear to auscultation bilaterally, Normal air movement Cardiovascular: No edema, Normal pulses, Regular rate/rhythm, Normal S1 S2 Gastrointestinal: Normal bowel sounds, Soft and benign, Non-distended Musculoskeletal: No clubbing, No swelling Neurological: Normal speech, Normal strength at 5/5 x4 extr Impression: Weakness secondary to acute on chronic renal failure stage III with hypokalemia, hyponatremia, metabolic alkalosis UTI, urine culture positive for E. coli Chronic diastolic CHF Parkinson's Advanced dementia Hyperlipidemia Diabetes mellitus type 2 Restless leg syndrome Diabetic neuropathy Plan: Weakness secondary to acute on chronic renal failure stage III with hypokalemia, hyponatremia, metabolic alkalosis: Renal function back to baseline. IV fluids discontinued. Patient remains off restraints. Patient with underlying dementia. Continue treatment for UTI. Patient off hydrochlorothiazide. Continue her other medications. Spoke with son at length. Son agrees with skilled placement. Patient may require long-term care in the future due to her dementia. Anticipate approval by a skilled facility tomorrow. I will turn to service over to the hospitalist team tomorrow. I will go over plan of care with him. UTI, urine culture positive for E. coli: Blood cultures negative. Urine culture shows gram-negative rods. Continue oral Levaquin for 7 days total. Recheck urine culture to monitor resolution. Currently on day 6 of treatment. Chronic diastolic CHF: Patient on room air. Overall stable. Parkinson's: Continue carbidopa levodopa 25/250 mg 4 times a day. Advanced dementia: Overall stable. Patient appears to be at her baseline. Less agitation noted. Patient remains off Ativan. Off restraints. Son at bedside. Patient doing well with son at bedside. Consider sitter if son is not available. Continue to pursue skilled placement. Physical therapy to assess ambulation. Continue with home medication Exelon patch 4.6 mg daily, Namenda 5 mg daily. Patient continues with Remeron 30 mg at bedtime. Geodon as needed. Hypertension: Continue off hydrochlorothiazide. Blood pressure stable off medication. Will provide IV medication as needed. Hyperlipidemia: Continue home medicationLipitor 40 mg daily Diabetes mellitus type 2: A1c 5.8. Will check Accu-Cheks and provide sliding scale. No need for medication at this time. Suspect underlying prediabetes. Restless leg syndrome: Continue Requip 0.5 mg 3 times a day Diabetic neuropathy: Continue with gabapentin. Hold with increase sedation. CODE STATUS: Readdressed code status. Son reports that she is DNR DVT prophylaxis: Heparin Advance care [id number] minutes: Spoke with son at length today. Continue to pursue skilled placement. Patient may require long-term care in the future. Son understands this. Time Spent Managing Pts Care (In Minutes): 55
[2021-07-04 06:26] LABS: Absolute Lymphocytes (CBC) 1.4 K/uL (0.7-4.9); Hematocrit 37.8 % (36.0-45.0); Lymphocytes % 25.6 % (15.3-44.8); MPV 7.7 fL (7.6-11.3); RBC Red Blood Cell Count 3.98 M/uL (3.86-4.86)
[2021-07-04 06:37] LABS: Magnesium 1.8 mg/dL (1.8-2.4); Potassium 3.6 mmol/L (3.5-5.1)
[2021-07-04] MEDS: INSULIN -REGULAR HUMAN 50 UNIT/0.5 ML ML SQ SCH ×4 (07:30→20:35)
[2021-07-04] MEDS: RIVASTIGMINE 4.6 MG/24 HR PATCH TD SCH (08:21)
[2021-07-04] MEDS: MEMANTINE HCL 10 MG TABLET PO SCH (08:22)
[2021-07-04] MEDS: ROPINIROLE HCL 0.25 MG TAB PO SCH ×3 (08:22→20:36)
[2021-07-04] MEDS: GABAPENTIN 300 MG CAP PO SCH ×3 (08:22→20:17)
[2021-07-04] MEDS: CARBIDOPA/LEVODOPA 25/250 TAB PO SCH ×4 (08:22→20:17)
[2021-07-04] MEDS: THIAMINE HCL 100 MG TABLET PO SCH (08:23)
[2021-07-04] MEDS: FOLIC ACID 1 MG TABLET PO SCH (08:23)
[2021-07-04] MEDS: levoFLOXacin 750 MG TAB PO SCH (08:23)
[2021-07-04] MEDS: LACTOBACILLUS/ACIDOPHILUS TAB PO SCH ×3 (08:23→20:17)
[2021-07-04] MEDS: ASPIRIN EC 81 MG TAB PO SCH (08:23)
[2021-07-04] MEDS: HEPARIN 5000 UNIT/ML 1 ML VIAL SQ SCH ×2 (08:24→20:18)
[2021-07-04] MEDS: LACTOSE-REDUCED FOOD 330 ML LIQUID PO SCH ×3 (08:24→20:18)
[2021-07-04] MEDS: HYDROCODONE/APAP 7.5/325 MG TAB PO PRN ×2 (09:50→22:30)
[2021-07-04] MEDS: ZIPRASIDONE MESYLA 20 MG/VIAL IM PRN (14:53)
[2021-07-04] MEDS: WATER FOR INJ,STERILE 10 ML IM PRN (14:55)
[2021-07-04] MEDS: MIRTAZAPINE 15 MG TAB PO SCH ×2 (20:17→22:30)
[2021-07-04] MEDS: ATORVASTATIN 40 MG TAB PO SCH (20:17)
[2021-07-05] MEDS ORDERED: WATER FOR INJ,STERILE 10 ML ONE (01:29)
[2021-07-05] MEDS: ZIPRASIDONE MESYLA 20 MG/VIAL IM PRN ×2 (01:35→13:24)
[2021-07-05] MEDS: INSULIN -REGULAR HUMAN 50 UNIT/0.5 ML ML SQ SCH ×4 (07:30→21:00)
[2021-07-05] MEDS: ROPINIROLE HCL 0.25 MG TAB PO SCH ×3 (09:00→21:00)
[2021-07-05] MEDS: LACTOSE-REDUCED FOOD 330 ML LIQUID PO SCH ×3 (09:00→21:00)
[2021-07-05] MEDS: RIVASTIGMINE 4.6 MG/24 HR PATCH TD SCH (09:49)
[2021-07-05] MEDS: HYDROCODONE/APAP 7.5/325 MG TAB PO PRN ×2 (09:50→20:22)
[2021-07-05] MEDS: GABAPENTIN 300 MG CAP PO SCH ×3 (09:51→21:40)
[2021-07-05] MEDS: MEMANTINE HCL 10 MG TABLET PO SCH (09:51)
[2021-07-05] MEDS: LACTOBACILLUS/ACIDOPHILUS TAB PO SCH ×3 (09:51→21:40)
[2021-07-05] MEDS: levoFLOXacin 750 MG TAB PO SCH (09:51)
[2021-07-05] MEDS: HEPARIN 5000 UNIT/ML 1 ML VIAL SQ SCH ×2 (09:51→21:41)
[2021-07-05] MEDS: THIAMINE HCL 100 MG TABLET PO SCH (09:51)
[2021-07-05] MEDS: ASPIRIN EC 81 MG TAB PO SCH (09:51)
[2021-07-05] MEDS: CARBIDOPA/LEVODOPA 25/250 TAB PO SCH ×4 (09:51→21:40)
[2021-07-05] MEDS: FOLIC ACID 1 MG TABLET PO SCH (09:51)
[2021-07-05] MEDS ORDERED: KCL 20 MEQ/100 mL IVPB 20 MEQ/100 ML BAG IV SCH (12:00)
[2021-07-05] MEDS ORDERED: NA CHLORIDE 0.9% 250 ML ONE (13:18)
[2021-07-05] MEDS ORDERED: HYDROMORPHONE HCL 0.5 MG/0.5 ML INJ IV ONE (15:03)
[2021-07-05] MEDS ORDERED: ZIPRASIDONE MESYLA 20 MG/VIAL IM PRN (15:04)
[2021-07-05] MEDS ORDERED: HYDROMORPHONE HCL 0.5 MG/0.5 ML INJ IV PRN (17:44)
--- NOTE | 2021-07-05 18:56 | P.PN ---
Subjective Date of Service: 07/05/21 Subjective: No new changes, No C/O voiced, Improving Review of Systems 10-point ROS is otherwise unremarkable Physical Examination - Vital Signs Temperature: 97.6 F Blood Pressure: 118/54 Pulse: 86 Respirations: 16 Pulse Ox (%): 93 - Physical Exam General: Alert, In no apparent distress, Oriented x3 Respiratory: Clear to auscultation bilaterally, Normal air movement Cardiovascular: Regular rate/rhythm, Normal S1 S2 Gastrointestinal: Normal bowel sounds, No tenderness Musculoskeletal: No tenderness Integumentary: No rashes Neurological: Normal speech, Normal tone, Normal affect Lymphatics: No axilla or inguinal lymphadenopathy - Studies Medications List Reviewed: Yes Assessment & Plan - Problems (Diagnosis) (1) Hypotension Current Visit: Yes Status: Acute (2) Diarrhea Current Visit: Yes Status: Acute (3) CHF (congestive heart failure) Onset Date: 11/14/17 Current Visit: No Status: Acute Qualifiers: (4) HTN (hypertension) Onset Date: 12/28/17 Current Visit: No Status: Chronic (5) Parkinson disease Onset Date: 11/14/17 Current Visit: No Status: Chronic (6) Altered mental status Onset Date: 11/14/17 Current Visit: No Status: Ruled-out Qualifiers: Altered mental status type: unspecified Qualified Code(s): R41.82 - Altered mental status, unspecified - Advance Directives Does patient have a Living Will: No Does patient have a Durable POA for Healthcare: No - Code Status/Comfort Care Code Status: Full Code Physician Review: Patient Assessed, Agree with Above Assessment and Plan
--- NOTE | 2021-07-05 21:17 | P.PN ---
Date of Service: 07/05/21 Vital Signs Temp Pulse Resp BP Pulse Ox 98.4 F 69 16 129/68 96 07/05/21 20:00 07/05/21 20:00 07/05/21 20:00 07/05/21 20:00 07/05/21 20:00 Medications Acetaminophen (Acetaminophen 500 Mg Tab) 500 mg PO Q6H PRN PRN Reason: ABDOMINAL PAIN Hydrocodone Bitart/Acetaminophen (Hydrocodone/Apap 7.5/325 Mg Tab) 1 tab PO Q6H PRN PRN Reason: Pain scale 8-10 (Severe) Last Admin: 07/05/21 20:22 Dose: 1 tab Documented by: Aspirin (Aspirin Ec 81 Mg Tab) 81 mg PO DAILY [facility] Last Admin: 07/05/21 09:51 Dose: 81 mg Documented by: Atorvastatin Calcium (Atorvastatin 40 Mg Tab) 40 mg PO BEDTIME [facility] Last Admin: 07/04/21 20:17 Dose: 40 mg Documented by: Carbidopa/Levodopa (Carbidopa/Levodopa 25/250 Tab) 1 tab PO QID [facility] Last Admin: 07/05/21 17:47 Dose: 1 tab Documented by: Dextrose (D50w 25 Gm/50 Ml Syringe) 12.5 gm IV PRN PRN; Protocol PRN Reason: HYPOGLYCEMIA Docusate Sodium (Docusate Na 100 Mg Cap) 100 mg PO BID [facility] Folic Acid (Folic Acid 1 Mg Tablet) 1 mg PO DAILY [facility] Last Admin: 07/05/21 09:51 Dose: 1 mg Documented by: Gabapentin (Gabapentin 300 Mg Cap) 300 mg PO TID [facility] Last Admin: 07/05/21 13:25 Dose: 300 mg Documented by: Glucagon (Glucagon 1 Mg/Vial) 1 mg IM 1X PRN; Protocol PRN Reason: HYPOGLYCEMIA Heparin Sodium (Porcine) (Heparin 5000 Unit/Ml 1 Ml Vial) 5,000 unit SQ Q12HR [facility] Last Admin: 07/05/21 09:51 Dose: 5,000 unit Documented by: Hydralazine HCl (Hydralazine Hcl 20 Mg/Ml Vial) 10 mg IV Q6HP PRN PRN Reason: Titrate to SBP (MUST DEFINE) Hydromorphone HCl (Hydromorphone Hcl 0.5 Mg/0.5 Ml Inj) 0.5 mg IV 1X PRN PRN Reason: PATIENT RIPPING OUT IV Stop: 07/06/21 17:45 Insulin Human Regular (Insulin -Regular Human 50 Unit/0.5 Ml Ml) 0 unit SQ ACHS [facility]; Protocol Last Admin: 07/05/21 16:30 Dose: Not Given Documented by: Lactobacillus Acidoph/Bulgaricus (Lactobacillus/Acidophilus Tab) 1 tab PO TID [facility] Last Admin: 07/05/21 13:25 Dose: 1 tab Documented by: Levofloxacin (Levofloxacin 750 Mg Tab) 750 mg PO DAILY [facility]; Protocol Stop: 07/07/21 09:01 Last Admin: 07/05/21 09:51 Dose: 750 mg Documented by: Memantine (Memantine Hcl 10 Mg Tablet) 5 mg PO DAILY [facility] Last Admin: 07/05/21 09:51 Dose: 5 mg Documented by: Mirtazapine (Mirtazapine 15 Mg Tab) 30 mg PO BEDTIME [facility] Last Admin: 07/04/21 22:30 Dose: 30 mg Documented by: Ondansetron HCl (Ondansetron 4 Mg/2 Ml Vial) 4 mg IV Q8H PRN PRN Reason: NAUSEA / VOMITING Last Admin: 07/03/21 03:40 Dose: 4 mg Documented by: Rivastigmine (Rivastigmine 4.6 Mg/24 Hr Patch) 4.6 mg TD DAILY [facility] Last Admin: 07/05/21 09:49 Dose: 4.6 mg Documented by: Ropinirole HCl (Ropinirole Hcl 0.25 Mg Tab) 0.5 mg PO TID [facility] Last Admin: 07/05/21 13:25 Dose: 0.5 mg Documented by: Sodium Chloride (Flush Normal Saline 10 Ml) 10 ml IV BID [facility] Last Admin: 07/05/21 09:00 Dose: 10 ml Documented by: Sodium Chloride (Sodium Chloride 0.9% 10ml Inj) 10 ml IV UD PRN PRN Reason: Diluant Last Admin: 07/03/21 04:26 Dose: 10 ml Documented by: Sterile Water (Water For Inj,Sterile 10 Ml) 1.2 ml IM UD PRN PRN Reason: DILUTION OF MED Last Admin: 07/04/21 14:55 Dose: 1.2 ml Documented by: Thiamine HCl (Thiamine Hcl 100 Mg Tablet) 100 mg PO DAILY [facility] Last Admin: 07/05/21 09:51 Dose: 100 mg Documented by: Tramadol HCl (Tramadol Hcl 50 Mg Tab) 50 mg PO TID PRN PRN Reason: Pain scale 5-7 (Moderate) Last Admin: 07/04/21 05:44 Dose: 50 mg Documented by: Ziprasidone (Ziprasidone Mesyla 20 Mg/Vial) 10 mg IM Q6H PRN PRN Reason: AGITATION Microbiology Results 06/28/21 22:54 Clean Catch Urine [place] Count - Final >100,000 CFU/ML. 06/28/21 22:54 Clean Catch Urine - Final Escherichia Coli Assessment/ Plan: Nephrology No dyspnea No chest pain AMS complicated by agitation. Anorexia. No acute events overnight Vitals, medications, blood work and imaging reviewed in the chart General: In no apparent distress, Confused HEENT: Atraumatic Neck: Supple Respiratory: Clear to auscultation bilaterally Cardiovascular: No edema, Regular rate/rhythm Gastrointestinal: Non-distended Musculoskeletal: No clubbing, No contractures Integumentary: No rashes, No cyanosis Neurological: Normal speech Laboratory Data (last 24 hrs) 06/29/21 07:07: Potassium 2.0 L* 06/28/21 23:10: PT 12.3, INR 1.07 06/28/21 23:10: WBC 9.80, Hgb 14.0, Hct 40.2, Plt Count 322 06/28/21 23:10: Sodium 127 L, Potassium 1.6 L*, BUN 47 H, Creatinine 1.41 H, Glucose 109 H, Magnesium 2.2, Total Bilirubin 1.9 H, AST 16, ALT 11 L, Alkaline Phosphatase 86 Imagings Data: EXAM DESCRIPTION: RAD - Chest Single View - 06/28/2021 9:57 pm CLINICAL HISTORY: CHEST PAIN Chest pain. COMPARISON: Chest Single View dated 09/01/2018; Chest Single View dated 07/07/2018; Chest Single View dated 12/27/2017; Chest Single View dated 11/13/2017 FINDINGS: Portable technique limits examination quality. The lungs are grossly clear. The heart is normal in size. No displaced fractures. IMPRESSION: No acute intrathoracic process suspected. EXAM DESCRIPTION: CT - Head Brain Wo Cont - 06/29/2021 12:45 am CLINICAL HISTORY: 86 years Female recurring falls TECHNIQUE: Axial noncontrast CT head with coronal and sagittal reformats. All CT scans at this facility use dose modulation, iterative reconstruction, and/or weight based dosing when appropriate to reduce radiation dose to as low as reasonably achievable. COMPARISON: 04/02/2021. FINDINGS: Brain: Parenchymal volume loss. Chronic small vessel disease. No obvious large acute territorial infarction. No intracranial hemorrhage, midline shift, mass or mass effect. Ventricles: No hydrocephalus. Orbits: Unremarkable. Sinuses: Visualized portions are clear. Mastoid: Clear. Osseous: Unremarkable. Soft tissues: Unremarkable. IMPRESSION: No acute findings. Conclusions/Impression: KEVIN likely due to hypovolemia -No NSAIDs Hyponatremia -Encourage nutrition Hypokalemia in the setting of N/V and anorexia -Replete potassium Alkalosis likely due to hypokalemia -Replete potassium HypoPO4 -Replete prn HTN -Monitor BP Diastolic CHF, chronic -Daily weight Moderate malnutrition -Advance nutrition as tolerated Case reviewed with Dr. Weaver
[2021-07-05] MEDS: DOCUSATE NA 100 MG CAP PO SCH (21:40)
[2021-07-05] MEDS: ATORVASTATIN 40 MG TAB PO SCH (21:40)
[2021-07-05] MEDS: MIRTAZAPINE 15 MG TAB PO SCH (21:40)
[2021-07-06 03:57] LABS: BUN Blood Urea Nitrogen 15 mg/dL (7-18); Bicarbonate 25 mmol/L (21-32); Glucose Level 115 mg/dL (74-106); Magnesium 1.6 mg/dL (1.8-2.4); Potassium 3.9 mmol/L (3.5-5.1); Sodium Level 137 mmol/L (136-145)
[2021-07-06 04:05] LABS: Absolute Lymphocytes (CBC) 1.3 K/uL (0.7-4.9); Hematocrit 35.8 % (36.0-45.0); Lymphocytes % 16.8 % (15.3-44.8); MPV 7.8 fL (7.6-11.3); RBC Red Blood Cell Count 3.82 M/uL (3.86-4.86)
[2021-07-06] MEDS: INSULIN -REGULAR HUMAN 50 UNIT/0.5 ML ML SQ SCH ×4 (07:30→21:00)
[2021-07-06] MEDS: HEPARIN 5000 UNIT/ML 1 ML VIAL SQ SCH ×2 (09:00→20:23)
[2021-07-06] MEDS: THIAMINE HCL 100 MG TABLET PO SCH (09:37)
[2021-07-06] MEDS: GABAPENTIN 300 MG CAP PO SCH ×3 (09:37→20:18)
[2021-07-06] MEDS: MEMANTINE HCL 10 MG TABLET PO SCH (09:37)
[2021-07-06] MEDS: LACTOBACILLUS/ACIDOPHILUS TAB PO SCH ×3 (09:37→20:18)
[2021-07-06] MEDS: ROPINIROLE HCL 0.25 MG TAB PO SCH ×3 (09:37→20:19)
[2021-07-06] MEDS: CARBIDOPA/LEVODOPA 25/250 TAB PO SCH ×4 (09:37→20:18)
[2021-07-06] MEDS: ASPIRIN EC 81 MG TAB PO SCH (09:38)
[2021-07-06] MEDS: levoFLOXacin 750 MG TAB PO SCH (09:38)
[2021-07-06] MEDS: DOCUSATE NA 100 MG CAP PO SCH ×2 (09:38→20:18)
[2021-07-06] MEDS: FOLIC ACID 1 MG TABLET PO SCH (09:38)
[2021-07-06] MEDS: RIVASTIGMINE 4.6 MG/24 HR PATCH TD SCH (09:38)
[2021-07-06] MEDS: LACTOSE-REDUCED FOOD 330 ML LIQUID PO SCH ×2 (09:44→14:02)
[2021-07-06] MEDS: HYDROCODONE/APAP 7.5/325 MG TAB PO PRN ×2 (14:08→22:24)
[2021-07-06] MEDS: ATORVASTATIN 40 MG TAB PO SCH (20:18)
[2021-07-06] MEDS: MIRTAZAPINE 15 MG TAB PO SCH (20:18)
[2021-07-06] MEDS: ENSURE ENLIVE 237 ML CAN PO SCH (20:19)
--- NOTE | 2021-07-06 20:41 | P.PN ---
Date of Service: 07/06/21 Vital Signs Temp Pulse Resp BP Pulse Ox 97.9 F 78 20 112/55 L 96 07/06/21 16:00 07/06/21 16:00 07/06/21 16:00 07/06/21 16:00 07/06/21 16:00 Medications Acetaminophen (Acetaminophen 500 Mg Tab) 500 mg PO Q6H PRN PRN Reason: ABDOMINAL PAIN Hydrocodone Bitart/Acetaminophen (Hydrocodone/Apap 7.5/325 Mg Tab) 1 tab PO Q6H PRN PRN Reason: Pain scale 8-10 (Severe) Last Admin: 07/06/21 14:08 Dose: 1 tab Documented by: Aspirin (Aspirin Ec 81 Mg Tab) 81 mg PO DAILY [facility] Last Admin: 07/06/21 09:38 Dose: 81 mg Documented by: Atorvastatin Calcium (Atorvastatin 40 Mg Tab) 40 mg PO BEDTIME [facility] Last Admin: 07/06/21 20:18 Dose: 40 mg Documented by: Carbidopa/Levodopa (Carbidopa/Levodopa 25/250 Tab) 1 tab PO QID [facility] Last Admin: 07/06/21 20:18 Dose: 1 tab Documented by: Dextrose (D50w 25 Gm/50 Ml Syringe) 12.5 gm IV PRN PRN; Protocol PRN Reason: HYPOGLYCEMIA Docusate Sodium (Docusate Na 100 Mg Cap) 100 mg PO BID [facility] Last Admin: 07/06/21 20:18 Dose: 100 mg Documented by: Folic Acid (Folic Acid 1 Mg Tablet) 1 mg PO DAILY [facility] Last Admin: 07/06/21 09:38 Dose: 1 mg Documented by: Gabapentin (Gabapentin 300 Mg Cap) 300 mg PO TID [facility] Last Admin: 07/06/21 20:18 Dose: 300 mg Documented by: Glucagon (Glucagon 1 Mg/Vial) 1 mg IM 1X PRN; Protocol PRN Reason: HYPOGLYCEMIA Heparin Sodium (Porcine) (Heparin 5000 Unit/Ml 1 Ml Vial) 5,000 unit SQ Q12HR [facility] Last Admin: 07/06/21 20:23 Dose: 5,000 unit Documented by: Hydralazine HCl (Hydralazine Hcl 20 Mg/Ml Vial) 10 mg IV Q6HP PRN PRN Reason: Titrate to SBP (MUST DEFINE) Insulin Human Regular (Insulin -Regular Human 50 Unit/0.5 Ml Ml) 0 unit SQ ACHS [facility]; Protocol Last Admin: 07/06/21 15:43 Dose: Not Given Documented by: Lactobacillus Acidoph/Bulgaricus (Lactobacillus/Acidophilus Tab) 1 tab PO TID [facility] Last Admin: 07/06/21 20:18 Dose: 1 tab Documented by: Levofloxacin (Levofloxacin 750 Mg Tab) 750 mg PO DAILY [facility]; Protocol Stop: 07/07/21 09:01 Last Admin: 07/06/21 09:38 Dose: 750 mg Documented by: Memantine (Memantine Hcl 10 Mg Tablet) 5 mg PO DAILY [facility] Last Admin: 07/06/21 09:37 Dose: 5 mg Documented by: Mirtazapine (Mirtazapine 15 Mg Tab) 30 mg PO BEDTIME [facility] Last Admin: 07/06/21 20:18 Dose: 30 mg Documented by: Nutritional Formula (Ensure Enlive 237 Ml Can) 237 ml PO BID [facility] Last Admin: 07/06/21 20:19 Dose: 237 ml Documented by: Ondansetron HCl (Ondansetron 4 Mg/2 Ml Vial) 4 mg IV Q8H PRN PRN Reason: NAUSEA / VOMITING Last Admin: 07/03/21 03:40 Dose: 4 mg Documented by: Rivastigmine (Rivastigmine 4.6 Mg/24 Hr Patch) 4.6 mg TD DAILY [facility] Last Admin: 07/06/21 09:38 Dose: 4.6 mg Documented by: Ropinirole HCl (Ropinirole Hcl 0.25 Mg Tab) 0.5 mg PO TID [facility] Last Admin: 07/06/21 20:19 Dose: 0.5 mg Documented by: Sodium Chloride (Flush Normal Saline 10 Ml) 10 ml IV BID [facility] Last Admin: 07/06/21 20:19 Dose: Not Given Documented by: Sodium Chloride (Sodium Chloride 0.9% 10ml Inj) 10 ml IV UD PRN PRN Reason: Diluant Last Admin: 07/03/21 04:26 Dose: 10 ml Documented by: Sterile Water (Water For Inj,Sterile 10 Ml) 1.2 ml IM UD PRN PRN Reason: DILUTION OF MED Last Admin: 07/04/21 14:55 Dose: 1.2 ml Documented by: Thiamine HCl (Thiamine Hcl 100 Mg Tablet) 100 mg PO DAILY [facility] Last Admin: 07/06/21 09:37 Dose: 100 mg Documented by: Tramadol HCl (Tramadol Hcl 50 Mg Tab) 50 mg PO TID PRN PRN Reason: Pain scale 5-7 (Moderate) Last Admin: 07/04/21 05:44 Dose: 50 mg Documented by: Ziprasidone (Ziprasidone Mesyla 20 Mg/Vial) 10 mg IM Q6H PRN PRN Reason: AGITATION Microbiology Results 06/28/21 22:54 Clean Catch Urine [place] Count - Final >100,000 CFU/ML. 06/28/21 22:54 Clean Catch Urine - Final Escherichia Coli Assessment/ Plan: Nephrology No dyspnea No chest pain Feeling better today with a better appetite. No acute events overnight. Case reviewed with her son. Vitals, medications, blood work and imaging reviewed in the chart General: In no apparent distress, Confused HEENT: Atraumatic Neck: Supple Respiratory: Clear to auscultation bilaterally Cardiovascular: No edema, Regular rate/rhythm Gastrointestinal: Non-distended Musculoskeletal: No clubbing, No contractures Integumentary: No rashes, No cyanosis Neurological: Normal speech Laboratory Data (last 24 hrs) 06/29/21 07:07: Potassium 2.0 L* 06/28/21 23:10: PT 12.3, INR 1.07 06/28/21 23:10: WBC 9.80, Hgb 14.0, Hct 40.2, Plt Count 322 06/28/21 23:10: Sodium 127 L, Potassium 1.6 L*, BUN 47 H, Creatinine 1.41 H, Glucose 109 H, Magnesium 2.2, Total Bilirubin 1.9 H, AST 16, ALT 11 L, Alkaline Phosphatase 86 Imagings Data: EXAM DESCRIPTION: RAD - Chest Single View - 06/28/2021 9:57 pm CLINICAL HISTORY: CHEST PAIN Chest pain. COMPARISON: Chest Single View dated 09/01/2018; Chest Single View dated 07/07/2018; Chest Single View dated 12/27/2017; Chest Single View dated 11/13/2017 FINDINGS: Portable technique limits examination quality. The lungs are grossly clear. The heart is normal in size. No displaced fractures. IMPRESSION: No acute intrathoracic process suspected. EXAM DESCRIPTION: CT - Head Brain Wo Cont - 06/29/2021 12:45 am CLINICAL HISTORY: 86 years Female recurring falls TECHNIQUE: Axial noncontrast CT head with coronal and sagittal reformats. All CT scans at this facility use dose modulation, iterative reconstruction, and/or weight based dosing when appropriate to reduce radiation dose to as low as r easonably achievable. COMPARISON: 04/02/2021. FINDINGS: Brain: Parenchymal volume loss. Chronic small vessel disease. No obvious large acute territorial infarction. No intracranial hemorrhage, midline shift, mass or mass effect. Ventricles: No hydrocephalus. Orbits: Unremarkable. Sinuses: Visualized portions are clear. Mastoid: Clear. Osseous: Unremarkable. Soft tissues: Unremarkable. IMPRESSION: No acute findings. Conclusions/Impression: KEVIN likely due to hypovolemia -No NSAIDs Hyponatremia -Encourage nutrition Hypokalemia in the setting of N/V and anorexia -Replete potassium prn Alkalosis likely due to hypokalemia -Replete potassium prn HypoPO4 -Replete prn HTN -Monitor BP Diastolic CHF, chronic -Daily weight Moderate malnutrition -Advance nutrition as tolerated
[2021-07-07] MEDS ORDERED: LORazepam 2 MG/ML VIAL IM ONE (00:23)
[2021-07-07 04:56] VITALS: BP 134/74; TEMP 97.2
[2021-07-07] MEDS: INSULIN -REGULAR HUMAN 50 UNIT/0.5 ML ML SQ SCH ×2 (07:30→11:30)
[2021-07-07] MEDS: HEPARIN 5000 UNIT/ML 1 ML VIAL SQ SCH (08:15)
[2021-07-07] MEDS: GABAPENTIN 300 MG CAP PO SCH ×2 (08:15→13:36)
[2021-07-07] MEDS: levoFLOXacin 750 MG TAB PO SCH (08:15)
[2021-07-07] MEDS: MEMANTINE HCL 10 MG TABLET PO SCH (08:15)
[2021-07-07] MEDS: ROPINIROLE HCL 0.25 MG TAB PO SCH ×2 (08:16→13:36)
[2021-07-07] MEDS: ASPIRIN EC 81 MG TAB PO SCH (08:16)
[2021-07-07] MEDS: THIAMINE HCL 100 MG TABLET PO SCH (08:16)
[2021-07-07] MEDS: RIVASTIGMINE 4.6 MG/24 HR PATCH TD SCH (08:16)
[2021-07-07] MEDS: CARBIDOPA/LEVODOPA 25/250 TAB PO SCH ×2 (08:16→13:36)
[2021-07-07] MEDS: LACTOBACILLUS/ACIDOPHILUS TAB PO SCH ×2 (08:16→13:36)
[2021-07-07] MEDS: FOLIC ACID 1 MG TABLET PO SCH (08:16)
[2021-07-07] MEDS: DOCUSATE NA 100 MG CAP PO SCH (08:16)
[2021-07-07] MEDS: ENSURE ENLIVE 237 ML CAN PO SCH (08:17)
[2021-07-07 09:04] VITALS: O2SAT 98
--- NOTE | 2021-07-07 20:19 | P.PN ---
Date of Service: 07/07/21 Vital Signs Temp Pulse Resp BP Pulse Ox 97.2 F 82 17 134/74 96 07/07/21 08:30 07/07/21 08:30 07/07/21 08:30 07/07/21 08:30 07/07/21 08:30 Microbiology Results 06/28/21 22:54 Clean Catch Urine [place] Count - Final >100,000 CFU/ML. 06/28/21 22:54 Clean Catch Urine - Final Escherichia Coli Assessment/ Plan: Nephrology No dyspnea No chest pain No acute events overnight. Vitals, medications, blood work and imaging reviewed in the chart General: In no apparent distress, Confused HEENT: Atraumatic Neck: Supple Respiratory: Clear to auscultation bilaterally Cardiovascular: No edema, Regular rate/rhythm Gastrointestinal: Non-distended Musculoskeletal: No clubbing, No contractures Integumentary: No rashes, No cyanosis Neurological: Normal speech Laboratory Data (last 24 hrs) 06/29/21 07:07: Potassium 2.0 L* 06/28/21 23:10: PT 12.3, INR 1.07 06/28/21 23:10: WBC 9.80, Hgb 14.0, Hct 40.2, Plt Count 322 06/28/21 23:10: Sodium 127 L, Potassium 1.6 L*, BUN 47 H, Creatinine 1.41 H, Glucose 109 H, Magnesium 2.2, Total Bilirubin 1.9 H, AST 16, ALT 11 L, Alkaline Phosphatase 86 Imagings Data: EXAM DESCRIPTION: RAD - Chest Single View - 06/28/2021 9:57 pm CLINICAL HISTORY: CHEST PAIN Chest pain. COMPARISON: Chest Single View dated 09/01/2018; Chest Single View dated 07/07/2018; Chest Single View dated 12/27/2017; Chest Single View dated 11/13/2017 FINDINGS: Portable technique limits examination quality. The lungs are grossly clear. The heart is normal in size. No displaced fractures. IMPRESSION: No acute intrathoracic process suspected. EXAM DESCRIPTION: CT - Head Brain Wo Cont - 06/29/2021 12:45 am CLINICAL HISTORY: 86 years Female recurring falls TECHNIQUE: Axial noncontrast CT head with coronal and sagittal reformats. All CT scans at this facility use dose modulation, iterative reconstruction, and/or weight based dosing when appropriate to reduce radiation dose to as low as reasonably achievable. COMPARISON: 04/02/2021. FINDINGS: Brain: Parenchymal volume loss. Chronic small vessel disease. No obvious large acute territorial infarction. No intracranial hemorrhage, midline shift, mass or mass effect. Ventricles: No hydrocephalus. Orbits: Unremarkable. Sinuses: Visualized portions are clear. Mastoid: Clear. Osseous: Unremarkable. Soft tissues: Unremarkable. IMPRESSION: No acute findings. Conclusions/Impression: KEVIN likely due to hypovolemia -No NSAIDs Hyponatremia -Encourage nutrition Hypokalemia in the setting of N/V and anorexia -Replete potassium prn Alkalosis likely due to hypokalemia -Replete potassium prn HypoPO4 -Replete prn HTN -Monitor BP Diastolic CHF, chronic -Daily weight Moderate malnutrition -Advance nutrition as tolerated
== END 2021-07-07 15:48 | disposition home health service (06) | DRG 682 ==
LOC: ER 18:17 → ERHOLD 06-29 05:45 → OBSVTOIN 06-29 09:14 → 2ND 07-02 00:32
PROVIDERS: ADMIT Internal Medicine; ATTEND Hospitalist
DX: N17.9 Acute kidney failure, unspecified (principal); G92.9 Unspecified toxic encephalopathy; E87.1 Hypo-osmolality and hyponatremia; N39.0 Urinary tract infection, site not specified; I13.0 Hypertensive heart and chronic kidney disease with heart failure and stage 1 through stage 4 chronic kidney disease, or unspecified chronic kidney disease; I50.32 Chronic diastolic (congestive) heart failure; E87.3 Alkalosis; E44.0 Moderate protein-calorie malnutrition; N18.30 Chronic kidney disease, stage 3 unspecified; E11.22 Type 2 diabetes mellitus with diabetic chronic kidney disease; E11.40 Type 2 diabetes mellitus with diabetic neuropathy, unspecified; E87.5 Hyperkalemia; E87.6 Hypokalemia; E78.5 Hyperlipidemia, unspecified; F03.90 Unspecified dementia, unspecified severity, without behavioral disturbance, psychotic disturbance, mood disturbance, and anxiety; E83.39 Other disorders of phosphorus metabolism; G47.00 Insomnia, unspecified; G25.81 Restless legs syndrome; I95.9 Hypotension, unspecified; G20 Parkinson's disease; R19.7 Diarrhea, unspecified; B96.20 Unspecified Escherichia coli [E. coli] as the cause of diseases classified elsewhere; Z66 Do not resuscitate; Z68.21 Body mass index [BMI] 21.0-21.9, adult; Z88.0 Allergy status to penicillin; Z86.73 Personal history of transient ischemic attack (TIA), and cerebral infarction without residual deficits; Z85.3 Personal history of malignant neoplasm of breast; Z90.11 Acquired absence of right breast and nipple; Z78.1 Physical restraint status; Z79.82 Long term (current) use of aspirin; Z79.899 Other long term (current) drug therapy; Z90.49 Acquired absence of other specified parts of digestive tract; Z90.710 Acquired absence of both cervix and uterus; Z20.822 Contact with and (suspected) exposure to COVID-19
CPT/HCPCS: 0240U; 36415; 70450; 71045; 80048; 80053; 80076; 81003; 81015; 82550; 82805; 82947; 83036; 83605; 83735; 83880; 84100; 84132; 84484; 84550; 85025; 85610; 87040; 87077; 87086; 87088; 87186; 96374; 97110; 97161; 97530; 99284; C9113; G0378; J1644; J2270; J2405; J3475; J3480; J3486; J7030; J7040; J7050

== ENCOUNTER 2021-11-13 02:20 | Emergency (ER) | payer OTHER ==
--- OUTSIDE RECORDS SUMMARY | 2021-11-13 02:23 | XMS REPORT | Continuity of Care Document ---
:1935 Author Organization [facility] t Address [address] [place] [address] Dr. Durham [address] [place] [id number] Care Team Providers Name Role Phone Unavailable Unavailable Unavailable Problems This patient has no known problems. Allergies, Adverse Reactions, Alerts This patient has no known allergies or adverse reactions. Medications This patient has no known medications. Procedures This patient has no known procedures. Results This patient has no known results.
[2021-11-13 03:28] LABS: Absolute Lymphocytes (CBC) 1.1 K/uL (0.7-4.9); Hematocrit 36.1 % (36.0-45.0); Lymphocytes % 15.3 % (15.3-44.8); MPV 8.3 fL (7.6-11.3); RBC Red Blood Cell Count 3.84 M/uL (3.86-4.86)
[2021-11-13 03:33] LABS: Protime INR 1.07
[2021-11-13 03:45] LABS: AST/SGOT 7 U/L (15-37); Albumin 3.2 g/dL (3.4-5.0); Alkaline Phosphatase 81 U/L (45-117); BUN Blood Urea Nitrogen 31 mg/dL (7-18); Bicarbonate 23 mmol/L (21-32); Bilirubin Total 0.5 mg/dL (0.2-1.0); Glomerular Filtration Rate 45 ml/min (=/>90); Glucose Level 123 mg/dL (74-106); Lipase 48 U/L (73-393); Potassium 4.2 mmol/L (3.5-5.1); Protein, Total 6.1 g/dL (6.4-8.2); Sodium Level 140 mmol/L (136-145)
[2021-11-13 03:50] LABS: ALT/SGPT < 10 U/L (12-78)
--- NOTE | 2021-11-13 04:04 | EDPHYS ---
Physician Documentation [facility] Name: Lety Ontiveros Age: 86 yrs Sex: Female : 1935 Arrival Date: 11/13/2021 Time: 02:24 Bed 4 Private MD: ADAMS Physician Tay Kim HPI: 11/13 03:57 This 86 yrs old Female presents to ER via Wheelchair with complaints of rachel Rectal Bleeding. 03:57 The patient presents to the emergency department with bleeding from the rectum/anus, rachel that is moderate. Onset: The symptoms/episode began/occurred just prior to arrival. Context: the patient has no known special context relating to the rectal area complaint(s). Modifying factors: The symptoms are alleviated by nothing, The symptoms are aggravated by nothing. Associate signs and symptoms: The patient has no apparent associated signs or symptoms. The patient has not experienced similar symptoms in the past. Historical: - Allergies: 02:34 PENICILLINS; tw5 - PMHx: 02:34 bowel obstruction; Cancer, Breast; CHF; neuropathy; Parkinsons; mastectomy right side; tw5 CVA; - Immunization history:: Flu vaccine is not up to date. - Social history:: Smoking status: Patient denies any tobacco usage or history of. - Family history:: not pertinent. ROS: 03:57 Constitutional: Negative for fever, chills, and weight loss, Eyes: Negative for injury, rachel pain, redness, and discharge, ENT: Negative for injury, pain, and discharge, Neck: Negative for injury, pain, and swelling, Cardiovascular: Negative for chest pain, palpitations, and edema, Respiratory: Negative for shortness of breath, cough, wheezing, and pleuritic chest pain, Back: Negative for injury and pain, : Negative for injury, bleeding, discharge, and swelling, MS/Extremity: Negative for injury and deformity, Skin: Negative for injury, rash, and discoloration, Neuro: Negative for headache, weakness, numbness, tingling, and seizure, Psych: Negative for depression, anxiety, suicide ideation, homicidal ideation, and hallucinations, Allergy/Immunology: Negative for hives, rash, and allergies, Endocrine: Negative for neck swelling, polydipsia, polyuria, polyphagia, and marked weight changes. 03:57 Abdomen/GI: Positive for rectal bleeding. Exam: 03:57 Constitutional: This is a well developed, well nourished patient who is awake, alert, rachel and in no acute distress. Head/Face: Normocephalic, atraumatic. Eyes: Pupils equal round and reactive to light, extra-ocular motions intact. Lids and lashes normal. Conjunctiva and sclera are non-icteric and not injected. Cornea within normal limits. Periorbital areas with no swelling, redness, or edema. ENT: Nares patent. No nasal discharge, no septal abnormalities noted. Tympanic membranes are normal and external auditory canals are clear. Oropharynx with no redness, swelling, or masses, exudates, or evidence of obstruction, uvula midline. Mucous membranes moist. Neck: Trachea midline, no thyromegaly or masses palpated, and no cervical lymphadenopathy. Supple, full range of motion without nuchal rigidity, or vertebral point tenderness. No Meningismus. Chest/axilla: Normal chest wall appearance and motion. Nontender with no deformity. No lesions are appreciated. Cardiovascular: Regular rate and rhythm with a normal S1 and S2. No gallops, murmurs, or rubs. Normal PMI, no JVD. No pulse deficits. Respiratory: Lungs have equal breath sounds bilaterally, clear to auscultation and percussion. No rales, rhonchi or wheezes noted. No increased work of breathing, no retractions or nasal flaring. Back: No spinal tenderness. No costovertebral tenderness. Full range of motion. Female : Normal external genitalia. MS/ Extremity: Pulses equal, no cyanosis. Neurovascular intact. Full, normal range of motion. Neuro: Awake and alert, GCS 15, oriented to person, place, time, and situation. Cranial nerves II-XII grossly intact. Motor strength 5/5 in all extremities. Sensory grossly intact. Cerebellar exam normal. Normal gait. Psych: Awake, alert, with orientation to person, place and time. Behavior, mood, and affect are within normal limits. 03:57 Abdomen/GI: Inspection: abdomen appears normal, Bowel sounds: normal, Palpation: nontender, Rectal exam: rectal tone normal, Stool: grossly bloody, guaiac positive, loose, maroon, hemorrhoid(s), are not appreciated, mass, is not appreciated, swelling, is not appreciated, tenderness, is not appreciated, Liver: no appreciated palpable abnormalities, Hernia: not appreciated. 06:25 ECG was reviewed by the Attending Physician. [facility] Vital Signs: 02:32 BP 91 / 77; Pulse 70; Resp 18; Temp 98.8(O); Pulse Ox 97% on R/A; Weight 69.85 kg; tw5 Height 5 ft. 4 in. (162.56 cm); Pain 9/10; 05:37 BP 126 / 85; Pulse 65; Resp 19; Pulse Ox 99% on R/A; sm5 02:32 Body Mass Index 26.43 (69.85 kg, 162.56 cm) tw5 Procedures: 05:42 Peripheral line: by aseptic technique a peripheral line was placed in the right [facility] external jugular vein. MDM: 02:57 Patient medically screened. [facility] 04:01 Differential diagnosis: hemorrhoids. Data reviewed: vital signs, nurses notes, lab test [facility] result(s), EKG, radiologic studies, CT scan, plain films. Data interpreted: pocket closer: rate is 70 beats/min, rhythm is regular. Test interpretation: by ED physician or midlevel provider: ECG, plain radiologic studies. Counseling: I had a detailed discussion with the patient and/or guardian regarding: the historical points, exam findings, and any diagnostic results supporting the discharge/admit diagnosis, lab results, radiology results, the need to transfer to another facility, for higher level of care, [facility] does not immediately have the required specialist. 11/13 02:46 Order name: CBC with Diff; Complete Time: 03:54 11/13 02:46 Order name: CMP; Complete Time: 03:54 tw11/13 02:46 Order name: Lipase; Complete Time: 03:54 tw11/13 02:48 Order name: PT-INR; Complete Time: 03:54 sb3 11/13 02:48 Order name: Ptt, Activated; Complete Time: 03:54 sb3 11/13 03:54 Order name: Magnesium; Complete Time: 06:25 [facility] 11/13 03:54 Order name: NT PRO-BNP; Complete Time: 06:25 [facility] 11/13 03:54 Order name: Troponin HS; Complete Time: 06:25 [facility] 11/13 03:54 Order name: XRAY Chest (1 view) [facility] 11/13 03:57 Order name: SARS-COV-2 RT PCR (Document "Date of Onset" if Symptomatic); Complete Time: rachel 06:11/13 05:48 Order name: Hemoglobin; Complete Time: 06:25 vc1 11/13 05:48 Order name: Hematocrit; Complete Time: 06:25 vc1 11/13 06:41 Order name: CT Abd/Pelvis - Without Contrast [facility] 11/13 02:46 Order name: IV Saline Lock; Complete Time: 03:25 tw5 11/13 02:46 Order name: Labs collected and sent; Complete Time: 03:25 tw5 11/13 02:49 Order name: EKG; Complete Time: 02:50 sb3 11/13 03:54 Order name: Cardiac monitoring; Complete Time: 06:22 rachel 11/13 03:54 Order name: EKG - Nurse/Tech; Complete Time: 06:22 rachel 11/13 03:54 Order name: O2 Per Protocol; Complete Time: 05:17 rachel 11/13 03:54 Order name: O2 Sat Monitoring; Complete Time: 05:17 rachel 11/13 03:56 Order name: IV Saline Lock - Large Bore; Complete Time: 05:40 rachel EC:25 Rate is 62 beats/min. Rhythm is regular. QRS [place] is Normal. MI interval is normal. QRS rachel interval is normal. QT interval is normal. No Q waves. T waves are Normal. No ST changes noted. Clinical impression: NSR w/ Non-specific ST/T Changes and No evidence of ischemia. Interpreted by me. Reviewed by me. Administered Medications: 05:16 Drug: NS 0.9% 1000 ml Route: IV; Rate: 1 bolus; Site: left upper arm; 5 05:16 Drug: Flagyl (metroNIDAZOLE) 500 mg Volume: 100 ml; Route: IVPB; Rate: 200 ml/hr; sm5 Infused Over: 30 mins; Site: left upper arm; 06:22 Follow up: IV Status: Completed infusion; IV Intake: 100ml 5 05:40 Drug: ProTONIX (pantoprazole) 80 mg Route: IVP; Site: left jugular; 5 06:25 Follow up: Response: No adverse reaction 5 05:40 Drug: ProTONIX (pantoprazole) 8 mg/hr Route: IV; Rate: 25 ml/hr; Site: left jugular; 5 06:21 Drug: Cipro (ciprofloxacin) 400 mg Volume: 200 ml; Route: IVPB; Infused Over: 60 mins; sm5 Site: left upper arm; 07:31 Drug: NS 0.9% 500 ml Route: IV; Rate: bolus; Site: left antecubital; hogan Disposition Summary: 11/13/21 04:03 Transfer Ordered Transfer Location: [facility] rachel Reason: Higher level of care rachel Condition: Fair rachel Problem: new rachel Symptoms: are unchanged rachel Accepting Physician: TO [facility](11/13/21 11:01) hogan Diagnosis - GI Bleed/ Gastrointestinal hemorrhage, unspecified - LOWER rachel - Weakness rachel - Parkinson's disease rachel - Constipation rachel Forms: - Medication Reconciliation Form rachel - SBAR form rachel Signatures: Dispatcher [employer] EDMS Tay Kim MD MD cha Wood, Tiffany tw5 Chey Salcido RN RN sm5 Ines Clark RN RN ha Calcote, Vanessa, RN RN vc1 Pastora Richard PA PA sb3 Corrections: (The following items were deleted from the chart) 04:52 03:55 BASIC METABOLIC PANEL+C.LAB.BRZ ordered. EDMS EDMS 08:27 04:03 TO [facility] rachel 11:01 08:27 TO [facility] hogan
--- NOTE | 2021-11-13 04:04 | ER ---
Nurse's Notes [facility] Name: Lety Ontiveros Age: 86 yrs Sex: Female : 1935 Arrival Date: 11/13/2021 Time: 02:24 Bed 4 Private MD: Diagnosis: GI Bleed/ Gastrointestinal hemorrhage, unspecified-LOWER;Weakness;Parkinson's disease;Constipation Presentation: 11/13 02:32 Chief complaint: Patient's son or daughter states: "I saw a lot of blood in the toilet. tw5 It was a mixture of dark and bright red, but it was a whole lot.". Coronavirus screen: Vaccine status: Patient reports receiving the 2nd dose of the covid vaccine. J and J. Ebola Screen: Patient negative for fever greater than or equal to 101.5 degrees Fahrenheit, and additional compatible Ebola Virus Disease symptoms Patient denies exposure to infectious person. Patient denies travel to an Ebola-affected area in the 21 days before illness onset. Initial Sepsis Screen: Does the patient meet any 2 criteria? No. Patient's initial sepsis screen is negative. Does the patient have a suspected source of infection? No. Patient's initial sepsis screen is negative. Risk Assessment: Do you want to hurt yourself or someone else? Patient reports no desire to harm self or others. Onset of symptoms was November 13, 2021 at 01:34. 02:32 Method Of Arrival: Wheelchair tw5 02:32 Acuity: FLORES 3 tw5 Triage Assessment: 02:34 General: Appears in no apparent distress. Behavior is calm, cooperative, appropriate tw5 for age. Pain: Complains of pain in low back area, right leg and left leg Pain currently is 9 out of 10 on a pain scale. Derm: Skin is pale. Historical: - Allergies: 02:34 PENICILLINS; tw5 - PMHx: 02:34 bowel obstruction; Cancer, Breast; CHF; neuropathy; Parkinsons; mastectomy right side; tw5 CVA; - Immunization history:: Flu vaccine is not up to date. - Social history:: Smoking status: Patient denies any tobacco usage or history of. - Family history:: not pertinent. Screenin:25 Abuse screen: Denies threats or abuse. Denies injuries from another. Nutritional sm5 screening: No deficits noted. Tuberculosis screening: No symptoms or risk factors identified. Fall Risk None identified. Assessment: 03:00 General: Appears in no apparent distress. Behavior is cooperative. Neuro: No deficits sm5 noted. Level of Consciousness is awake, alert, obeys commands, Oriented to person, place, time, situation. Cardiovascular: No deficits noted. Capillary refill < 3 seconds Patient's skin is warm and dry. Respiratory: No deficits noted. Airway is patent Trachea midline Respiratory effort is even, unlabored. GI: Abdomen is flat, Reports rectal bleeding. 04:00 Reassessment: No changes from previously documented assessment. Patient and/or family sm5 updated on plan of care and expected duration. Pain level reassessed. 05:00 Reassessment: No changes from previously documented assessment. Patient and/or family sm5 updated on plan of care and expected duration. Pain level reassessed. Patient is alert, oriented x 3, equal unlabored respirations, skin warm/dry/pink. 06:00 Reassessment: No changes from previously documented assessment. sm5 Vital Signs: 02:32 BP 91 / 77; Pulse 70; Resp 18; Temp 98.8(O); Pulse Ox 97% on R/A; Weight 69.85 kg; tw5 Height 5 ft. 4 in. (162.56 cm); Pain 9/10; 05:37 BP 126 / 85; Pulse 65; Resp 19; Pulse Ox 99% on R/A; sm5 02:32 Body Mass Index 26.43 (69.85 kg, 162.56 cm) tw5 ED Course: 02:24 Patient arrived in ED. kz 02:34 Triage completed. tw5 02:34 Arm band placed on right wrist. tw5 02:57 Tay Kim MD is Attending Physician. [facility] 03:00 Inserted saline lock: 20 gauge in left upper arm, using aseptic technique. Blood sm5 collected. 03:25 CBC with Diff Sent. sm5 03:25 CMP Sent. sm5 03:25 Lipase Sent. sm5 03:25 PT-INR Sent. sm5 03:25 Ptt, Activated Sent. sm5 03:26 Patient has correct armband on for positive identification. Bed in low position. Call sm5 light in reach. Side rails up X2. 04:02 Chey Salcido RN is Primary Nurse. sm5 04:35 XRAY Chest (1 view) In Process Unspecified. EDMS 04:40 Initiated call for transfer and spoke to "Oksana." She advised me that it would be wm awhile and that she also had 3 people ahead of me. 04:41 Inserted saline lock: 22 gauge in left forearm, using aseptic technique. sm5 04:46 SARS-COV-2 RT PCR (Document "Date of Onset" if Symptomatic) Sent. sm5 05:40 IV discontinued, bleeding controlled, No redness/swelling at site. Pressure dressing sm5 applied, 22G infiltrated. 05:41 Inserted saline lock: in right EJ, using aseptic technique. sm5 05:57 Oksana from transfer dept called back to let me know that there weren't any beds wm available at the [facility] but she did have one in [facility]. Will be calling back to give acceptance info. 06:24 No provider procedures requiring assistance completed. sm5 07:10 CT Abd/Pelvis - Without Contrast In Process Unspecified. EDMS Administered Medications: 05:16 Drug: NS 0.9% 1000 ml Route: IV; Rate: 1 bolus; Site: left upper arm; sm5 05:16 Drug: Flagyl (metroNIDAZOLE) 500 mg Volume: 100 ml; Route: IVPB; Rate: 200 ml/hr; sm5 Infused Over: 30 mins; Site: left upper arm; 06:22 Follow up: IV Status: Completed infusion; IV Intake: 100ml sm5 05:40 Drug: ProTONIX (pantoprazole) 80 mg Route: IVP; Site: left jugular; sm5 06:25 Follow up: Response: No adverse reaction sm5 05:40 Drug: ProTONIX (pantoprazole) 8 mg/hr Route: IV; Rate: 25 ml/hr; Site: left jugular; sm5 06:21 Drug: Cipro (ciprofloxacin) 400 mg Volume: 200 ml; Route: IVPB; Infused Over: 60 mins; sm5 Site: left upper arm; 07:31 Drug: NS 0.9% 500 ml Route: IV; Rate: bolus; Site: left antecubital; Medication: 03:26 VIS not applicable for this client. sm5 Intake: 06:22 IV: 100ml; Total: 100ml. sm5 Outcome: 04:03 ER care complete, transfer ordered by MD. ramos 11:00 Transferred by ground EMS Note: [facility] [place]ogan 11:00 Condition: good 11:00 Instructed on the need for transfer. 11:01 Patient left the ED. hogan Signatures: Dispatcher [employer] EDMS Tay Kim MD MD cha Marsh, Wendy wm Wood, Tiffany 5 Chey Salcido RN RN 5 Au-StagerInes RN RN ha Calcote, Vanessa, RN RN vc1 Annabelle Rhoades Corrections: (The following items were deleted from the chart) 05:42 03:00 Inserted saline lock: 20 gauge in right upper arm, using aseptic technique. Blood sm5 collected. sm5 05:42 04:41 Inserted saline lock: 22 gauge in right forearm, using aseptic technique. vc1 sm5 05:48 05:48 NS 0.9% 500 ml IV at bolus in right antecubital vc1 vc1 05:49 05:48 NS 0.9% 1000 ml IV at 125 ml/hr in right antecubital vc1 vc1
[2021-11-13] MEDS ORDERED: PANTOPRAZOLE 40 MG INJ ONE (04:55)
[2021-11-13] MEDS ORDERED: NA CHLORIDE 0.9% 1,000 ML ONE (04:56)
[2021-11-13] MEDS ORDERED: METRONIDAZOLE 500mg IVPB 500 MG/100 ML BAG IV ONE (04:56)
[2021-11-13] MEDS ORDERED: NA CHLORIDE 0.9% 250 ML ONE (04:56)
[2021-11-13] MEDS ORDERED: NA CHLORIDE 0.9% 0 ML IV ONE (04:56)
[2021-11-13 05:07] LABS: Troponin High Sensitivity 4.7 pg/mL (<58.9)
[2021-11-13 06:01] LABS: Hematocrit 31.5 % (36.0-45.0)
[2021-11-13] MEDS ORDERED: NA CHLORIDE 0.9% 500 ML ONE (06:11)
[2021-11-13] MEDS ORDERED: CIPROFLOXACIN 400mg IV 400 MG/200 ML BAG IV ONE (06:12)
--- NOTE | 2021-11-13 08:24 | RAD REPORT ---
EXAM DESCRIPTION: CT - Abdomen Pelvis Wo Contrast - 11/13/2021 7:08 am CLINICAL HISTORY: Abdominal pain. Abdominal pain, acute, nonlocalized COMPARISON: No comparisons TECHNIQUE: CT imaging of the abdomen and pelvis was performed without contrast. Solid organ, bowel a nd vascular assessment is limited due to lack of IV and oral contrast. All CT scans are performed using dose optimization technique as appropriate and may include automated exposure control or mA/KV adjustment according to patient size. FINDINGS: The lower lung luna are clear.Cholecystectomy clips. Small hiatal hernia. The liver, spleen, pancreas, adrenal glands and kidneys are within normal limits for a limited non-co ntrast examination. No bowel obstruction, free air, free fluid or abscess. There is large amount of stool retained throug hout the colon. Appendectomy. Mild sigmoid diverticulosis coli without diverticulitis. The osseous structures are within normal limits. IMPRESSION: Significant fecal retention throughout the colon is present. A limited non-contrast examination was performed as detailed.
[2021-11-13] MEDS ORDERED: HYDROCODONE/APAP 5/325 MG TAB ONE (09:20)
[2021-11-13 11:11] VITALS: TEMP 98.8
[2021-11-13 11:13] VITALS: BP 126/85; O2SAT 99
--- NOTE | 2021-11-14 22:12 | RAD REPORT ---
EXAM DESCRIPTION: Chest Single View CLINICAL HISTORY: ABDOMINAL DISTENTION COMPARISON: None. FINDINGS: Single frontal radiograph view of the chest. Cardiomediastinal silhouette: Prostatic calcification and tortuosity of thoracic aorta. Heart is not enlarged. Postoperative change in the right chest. Lungs: No consolidation, pneumothorax, or pleural effusion. Bones: Endplate spondylosis. Osteoarthritic change of the shoulders. Upper abdomen: No abnormality identified. IMPRESSION: 1. No acute pulmonary process identified. Electronically signed by: George Harding 11/13/2021 5:07 AM CDT Due to temporary technical issues with the PACS/Fluency reporting system, reports are being signed by the in house radiologists without review as a courtesy to insure prompt reporting. The interpreting radiologist is fully responsible for the content of the report.
--- NOTE | 2021-11-15 11:30 | EKG ---
Test Date: 2021-11-13 Test Time: 06:14:25 Phlebotomy Tech: DORENE MEASUREMENT RESULTS: Intervals: Rate: 62 VT: 206 QRSD: 76 QT: 414 QTc: 420 [place]: P: 56 VT: 206 QRS: 40 T: 87 INTERPRETIVE STATEMENTS: Normal sinus rhythm Low voltage QRS Borderline ECG Compared to ECG 09/01/2018 13:14:57 Low QRS voltage now present Electronically Signed On 11-15-21 11:23:58 CDT by Dieter Serrano
== END 2021-11-13 11:01 | disposition short-term general hospital (02) ==
LOC: ER 02:20
PROC: 05HY33Z Insertion of Infusion Device into Upper Vein, Percutaneous Approach (ICD-10-PCS; principal; 2021-11-13)
DX: K92.2 Gastrointestinal hemorrhage, unspecified (principal); R53.1 Weakness; K59.00 Constipation, unspecified; G20 Parkinson's disease; I50.9 Heart failure, unspecified; Z85.3 Personal history of malignant neoplasm of breast; Z88.0 Allergy status to penicillin; Z20.822 Contact with and (suspected) exposure to COVID-19
CPT/HCPCS: 93005; 85025; 36415; 83735; 85610; 85730; 85018; 85014; 84484; 83690; 80053; 83880; 74176; 71045; 99285; 36569; U0003; C9113; J7050; J7040; J7030; J3490; J0744

== ENCOUNTER 2022-02-02 13:40 | Emergency (ER) | payer OTHER ==
--- OUTSIDE RECORDS SUMMARY | 2022-02-02 13:44 | XMS REPORT | Continuity of Care Document ---
:1935 Author Organization [facility] t Address [address] [place] [address] [address] [place] [address] Care Team Providers Name Role Phone Rena COATES, Olimpia Sanders Attending Clinician LAKHWINDER LIZ Attending Clinician Unavailable Eliezer Duran MD Attending Clinician Mariela Mckenna MD Attending Clinician [phone] OLIMPIA CROFT Attending Clinician Unavailable OLIMPIA CROFT Admitting Clinician Unavailable BLACK SILVA Admitting Clinician Unavailable Payers Payer Name Policy Type Policy Number Effective Date Expiration Date S ource Problems Condition Condition Condition Status Onset Resolution Last Treating Co mments Source Name Details Category Date Date Treatment Clinician Date Lower GI Lower GI Disease Active [facility] Allergies, Adverse Reactions, Alerts Allergy Allergy Status Severity Reaction(s) Onset Inactive Treating Comm ents Source Name Type Date Date Clinician PENICILL Allergy Active High Hives [facility] INS 11-13 00:00: 00 [place] Propensi Active Hives [facility] adverse 00:00: Medical reaction 00 Center s Social History Social Habit Start Date Stop Date Quantity Comments Source History SDOH [facility] Alcohol intake 2021-11-16 2021-11-16 Ex-drinker [facility] 00:[facility] 00:00:00 (finding) Medical Center Exposure to 2021-11-03 2021-11-[address] [facility] SARS-CoV-2 (event) 00:00:00 12:38:00 Medica Center Tobacco use and 2021-11-13 2021-11-[address] [facility] exposure 00:00:00 00:00:00 Medical Center History [facility] 2021-11-13 2021-11-[address] [facility] Transport Med 00:00:00 00:00:[address] History [facility] 2021-11-13 2021-11-[address] [facility] Housing Unable to 00:00:00 00:00:00 Medical Center Pay History [facility] 2021-11-13 2021-11-[address] [facility] Housing Places 00:00:00 00:00:00 Medical Ce nter Lived History [facility] 2021-11-13 2021-11-[address] [facility] Housing Homeless 00:00:00 00:00:00 Medical Center Last Year Sex Assigned At [address] 00:[facility] 00[facility]:00 Medical Center Smoking Status Start Date Stop Date Source Never smoker [facility] Center Medications Ordered Filled Start Stop Current Ordering Indication Dosage Frequency Signature Comments Components Source Medication Medication Date Date Medication? Clinician (SIG) Name Name pantoprazol Yes 40mg QD Take [address] [facility] 5-22 by mouth [facility] (PROTONIX) 17:59: daily. Medic al 40 MG 40 Center tablet rivastigmin Yes 1{patch QD Place [address] [facility] (EXELON) - } patch onto [facility] 9.5 mg/24 17:59: the skin Medi pebbles hour patch 40 daily. [place] rOPINIRole Yes 1mg Q.[id number] Take [address] (REQUIP) 1 5- [id number] by mouth 3 [facility] MG tablet 17:59: 3D (three) Medic al 40 times Center daily. telmisartan Yes 80mg QD Take [address] (MICARDIS) 5-22 by mouth [facility] 80 MG 17:59: daily. Medical tablet 40 Center amLODIPine Yes 10mg QD Take [address] (NORVASC) 5-22 by mouth [facility] 10 MG 17:59: daily. Medical tablet 40 Center aspirin 81 2022-0 Yes 81mg QD Take [address] MG chewable 5-22 by mouth [facility] tablet 17:59: daily. Medical 40 Center atorvastati Yes 40mg QD Take [address] n (LIPITOR) 5-22 by mouth Luke s 40 MG 17:59: daily. Medical tablet 40 Center carbidopa-l Yes 1{tbl} Q.[id number] Take [address] evodopa 5-22 [id number] tablet by Raulito luevano (SINEMET) 17:59: 3D mouth 3 Medic al 25-250 mg 40 (three) Center per tablet times daily. dicyclomine Yes 20mg Q.5D Take [address] (BENTYL) 20 5-22 by mouth 2 [facility]es mg tablet 17:59: (two) Medical 40 times Center daily. furosemide Yes 20mg QD Take [address] (LASIX) 20 5-22 by mouth [facility] MG tablet 17:59: daily. Medica l 40 Center gabapentin Yes 300mg Q.[id number] Take [address] (NEURONTIN) 5-22 [id number] mg by Raulito luevano 300 MG 17:59: 3D mouth 3 Medical capsule 40 (three) Center times daily. HYDROcodone Yes pain 1{tbl} Take [address] -acetaminop 5-22 tablet by Brielle morrow (NORCO 17:59: mouth 2 Medi pebbles 7.5-325) 40 (two) Center 7.5-325 mg times per tablet daily as needed for Pain. mirtazapine Yes 15mg QD Take [address] (REMERON) 5-22 by mouth [facility] 15 MG 17:59: nightly. Medical tablet 40 Center pantoprazol Yes 40mg QD Take [address] e 5-22 by mouth [facility] (PROTONIX) 17:59: daily. Medic al 40 MG 40 Center tablet rivastigmin Yes 1{patch QD Place [address] [facility] (EXELON) 5-22 } patch onto [place] [facility] 9.5 mg/24 17:59: the skin Medi pebbles hour patch 40 daily. Center rOPINIRole Yes 1mg Q.[id number] Take [address] (REQUIP) 1 5-22 [id number] by mouth 3 [facility] MG tablet 17:59: 3D (three) Medic al 40 times Center daily. telmisartan 0 Yes 80mg QD Take [address] (MICARDIS) 5-22 by mouth [facility] 80 MG 17:59: daily. Medical tablet 40 Center amLODIPine Yes 10mg QD Take [address] (NORVASC) 5-22 by mouth [facility] 10 MG 17:59: daily. Medical tablet 40 Center aspirin 81 0 Yes 81mg QD Take [address] MG chewable 5-22 by mouth [facility] s tablet 17:59: daily. Medical 40 Center atorvastati Yes 40mg QD Take [address] n (LIPITOR) 5-22 by mouth Luke s 40 MG 17:59: daily. Medical tablet 40 Center carbidopa-l Yes 1{tbl} Q.[id number] Take [address] evodopa 5-22 [id number] tablet by Raulito luevano (SINEMET) 17:59: 3D mouth 3 Medic al 25-250 mg 40 (three) Center per tablet times daily. dicyclomine Yes 20mg Q.5D Take [address] (BENTYL) 20 5-22 by mouth 2 kes mg tablet 17:59: (two) Medical 40 times Center daily. furosemide Yes 20mg QD Take [address] (LASIX) 20 5-22 by mouth [facility] MG tablet 17:59: daily. Medica l 40 Center gabapentin Yes 300mg Q.[id number] Take [address] (NEURONTIN) 5-22 [id number] mg by L [facility]kes 300 MG 17:59: 3D mouth 3 Medical capsule 40 (three) Center times daily. HYDROcodone Yes pain 1{tbl} Take [address] -acetaminop 5-22 tablet by [facility] (NORCO 17:59: mouth 2 Medi pebbles 7.5-325) 40 (two) Center 7.5-325 mg times per tablet daily as needed for Pain. mirtazapine Yes 15mg QD Take [address] (REMERON) 5-22 by mouth [facility] 15 MG 17:59: nightly. Medical tablet 40 Center Vital Signs Vital Name Observation Time Observation Value Comments Source WEIGHT 2021-11-13 12:24:00 69.854 kg HEIGHT 2021-11-13 12:24:00 162.6 cm WEIGHT 2021-11-13 12:24:00 69.854 kg HEIGHT 2021-11-13 12:24:00 162.6 cm Systolic blood 2021-11-16 08:00:00 158 mm[Hg] [facility] Diastolic blood 2021-11-16 08:00:00 69 mm[Hg] [facility] Heart rate 2021-11-16 08:00:00 72 /min [facility] Body temperature 2021-11-16 08:00:00 36.11 Ade [facility] Respiratory rate 2021-11-16 08:00:00 20 /min [facility] Oxygen saturation in 2021-11-16 08:00:00 96 /min [facility] Arterial blood by Medical Ce nter Pulse oximetry Systolic blood 2021-11-15 12:10:00 129 mm[Hg] [facility] Diastolic blood 2021-11-15 12:10:00 61 mm[Hg] [facility] Heart rate 2021-11-15 12:10:00 66 /min [facility] Body temperature 2021-11-15 12:10:00 36.17 Ade [facility] Respiratory rate 2021-11-15 12:10:00 18 /min [facility] Oxygen saturation in 2021-11-15 12:10:00 96 /min [facility] Arterial blood by Medical Ce nter Pulse oximetry Body height 2021-11-13 12:24:00 162.6 cm [facility] Body weight 2021-11-13 12:24:00 69.854 kg [facility] BMI 2021-11-13 12:24:00 26.43 kg/m2 [facility] Procedures Procedure Date / Time Performed Performing Clinician [facility] REPORT OF PROCEDURE - 2021-11-16 12:30:18 Clarias, [facility] ENDOSCOPY [facility] COLONOSCOPY 2021-11-16 12:01:00 Clarisa [facility] POCT-GLUCOSE METER 2021-11-16 11:52:00 [facility] PO[facility]SE METER 2021-11-16 05:47:00 [facility] CBC (HEMOGRAM ONLY) 2021-11-16 05:44:00 [facility] BASIC METABOLIC PANEL 2021-11-16 05:44:00 [place] [id number]) [facility] HEMOGLOBIN AND 2021-11-16 00:22:00 [facility] POCT-GLUCOSE METER 2021-11-16 00:04:00 [facility] PREPARE LEUKO-REDUCED 2021-11-15 23:54:00 [facility] RBC [facility] POCT-GLUCOSE METER 2021-11-15 18:51:00 [facility] CTA ABDOMEN & PELVIS 2021-11-15 16:00:00 [facility] POCT-GLUCOSE METER 2021-11-15 12:28:00 [facility] HEMOGLOBIN AND 2021-11-15 12:16:00 [facility] POCT-GLUCOSE METER 2021-11-15 07:40:00 [facility] HEMOGLOBIN AND 2021-11-15 05:21:00 [facility] BASIC METABOLIC PANEL 2021-11-15 05:21:00 [facility] () [facility] CBC W/PLT COUNT & AUTO 2021-11-15 05:21:00 [facility] CBC W/PLT COUNT & AUTO 2021-11-15 05:21:00 [facility] TRANSFUSE LEUKO-REDUCED 2021-11-14 22:54:00 Ricardo, [facility] RED BLOOD CELLS [facility] PREPARE LEUKO-REDUCED 2021-11-14 22:30:00 Ricardo, [facility] RBC [facility] HEMOGLOBIN AND 2021-11-14 20:20:00 [facility], [facility] TRANSFUSE LEUKO-REDUCED 2021-11-14 14:08:00 [facility], [facility] RED BLOOD CELLS [facility] HEMOGLOBIN AND 2021-11-14 13:16:00 Ricardo, [facility] LACTIC ACID, VENOUS 2021-11-14 10:38:00 [facility], [facility] BLOOD GAS, VENOUS 2021-11-14 10:38:00 [facility], [facility] CBC W/PLT COUNT & AUTO 2021-11-14 07:45:00 [facility] CBC W/PLT COUNT & AUTO 2021-11-14 07:45:00 [facility] BASIC METABOLIC PANEL 2021-11-14 05:48:00 Ricardo, [facility] () [facility] HEMOGLOBIN A1C 2021-11-14 05:48:00 [facility], [facility] TROPONIN I 2021-11-13 23:57:00 Ricardo, [facility] HEMOGLOBIN AND 2021-11-13 23:57:00 [facility], [facility] ABORH, MANUAL 2021-11-13 23:57:00 [facility] TROPONIN I 2021-11-13 18:44:00 Ricardo, [facility] HEMOGLOBIN AND 2021-11-13 18:43:00 [facility], [facility] TYPE AND SCREEN, 2021-11-13 18:43:00 [facility] AUTOMATED [facility] BASIC METABOLIC PANEL 2021-11-13 15:50:00 Ricardo, [facility] () [facility] HEPATIC FUNCTION PANEL 2021-11-13 15:50:00 Ricardo, [facility] CBC W/PLT COUNT & AUTO 2021-11-13 15:50:00 [facility] CBC W/PLT COUNT & AUTO 2021-11-13 15:50:00 Black [facility] Plan of Care Planned Activity Planned Date Details Comments Source Future Scheduled 2022-02-[address] [facility] 00:00:00 (Season Ended) [code Medical Center = INFLUENZA VACCINE (Season Ended)] Future Scheduled 2022-02-[address] [facility] 00:00:00 (Season Ended) [code Medical Center = INFLUENZA VACCINE (Season Ended)] Future Scheduled 2021-06-[address] [facility] Test 00:00:00 (12+) [code = Medical Center DEPRESSION SCREENING (12+)] Future Scheduled 2021-06-26 FALLS RISK SCREENING [facility] Test 00:00:00 [code = FALLS RISK Medical C enter SCREENING] Future Scheduled 2021-06-[address] [facility] Test 00:00:00 (WELCOME TO MEDICARE) Medica l Center [code = Medicare IPPE (WELCOME TO MEDICARE)] Future Scheduled 2021-06-[address] [facility] Test 00:00:00 (12+) [code = Medical Center DEPRESSION SCREENING (12+)] Future Scheduled 2021-06-26 FALLS RISK SCREENING [facility] Test 00:00:00 [code = FALLS RISK Medical C enter SCREENING] Future Scheduled 2021-06-[address] [facility] Test 00:00:00 (WELCOME TO MEDICARE) Medica l Center [code = Medicare IPPE (WELCOME TO MEDICARE)] Future Scheduled 1987 SHINGLES VACCINES ([address] [facility] Test 00:00:00 of 2) [code = Medical Center SHINGLES VACCINES (1 of 2)] Future Scheduled 1987 SHINGLES VACCINES ([address] [facility] Test 00:00:00 of 2) [code = Medical Center SHINGLES VACCINES (1 of 2)] Future Scheduled 1956 DTAP/TDAP/TD VACCINES [facility] 00:00:00 (1 - Tdap) [code = Medical C enter DTAP/TDAP/TD VACCINES (1 - Tdap)] Future Scheduled 1956 DTAP/TDAP/TD VACCINES [facility] 00:00:00 (1 - Tdap) [code = Medical C enter DTAP/TDAP/TD VACCINES (1 - Tdap)] Future Scheduled 1942 COVID-19 VACCINE (1) [facility] Test 00:00:00 [code = COVID-[address] VACCINE (1)] Future Scheduled 1942 COVID-19 VACCINE (1) [facility] Test 00:00:00 [code = COVID-[address] VACCINE (1)] Future Scheduled 1935 DXA SCAN [code = DXA [facility] Test 00:00:00 SCAN] Medical Center Future Scheduled 1937 DXA SCAN [code = DXA [facility] Test 00:00:00 SCAN] Medical Center Encounters Start End Encounter Admission Attending Care Care Encounter Source Date/Time Date/Time Type Type Clinicians Facility Department ID 2021-11-13 Hospital ER Rosalesashoctaviano, [facility] [id number] [facility] En[facility] 2021-11-13 2021-11-17 Inpatient ER LIZ, [facility] [id number] [facility] 12:11:00 11:26:00 LAKHWINDER 2021-11-16 2021-11-16 Anesthesia Eliezer Duran [facility] [id number] [facility] 12:01:00 12:31:00 Event [facility] 2021-11-16 2021-11-16 Surgery Clarisa [facility] [id number] 11:00:00 11:30:00 [facility] 2021-11-13 2021-11-13 Outpatient [facility] [id number] [facility] 12:11:00 23:59:00 [facility] 2021-11-13 2021-11-13 Travel [facility] [id number] [facility] 00:[facility] 00:00:00 [facility] Results Test Description Test Time Test Comments Results Result Comments Source CBC (HEMOGRAM ONLY) 2021-11-17 07:05:09 Test Item Value Reference Range Interpretation Comme nts WHITE BLOOD CELL COUNT (BEAKER) (test code = 775) 6.0 K/ L 4.0- 10.0 RED BLOOD CELL COUNT (BEAKER) (test code = 761) 2.59 M/ L 4.00-5 .00 L HEMOGLOBIN (BEAKER) (test code = 410) 7.9 GM/DL 12.0-15.5 L HEMATOCRIT (BEAKER) (test code = 411) 23.5 % 36.0-46.0 L MEAN CORPUSCULAR VOLUME (BEAKER) (test code = 753) 90.7 fL 82. 0-99.0 MEAN CORPUSCULAR HEMOGLOBIN (BEAKER) (test code = 751) 30.5 pg 27.0-33.0 MEAN CORPUSCULAR HEMOGLOBIN CONC (BEAKER) (test code = 752) 33.6 GM/DL 32.0-36.0 RED CELL DISTRIBUTION WIDTH (BEAKER) (test code = 412) 14.7 % 12.0-15.0 PLATELET COUNT (BEAKER) (test code = 756) 226 K/CU MM 150-430 MEAN PLATELET VOLUME (BEAKER) (test code = 754) 9.7 fL 6.0-11 .5 NUCLEATED RED BLOOD CELLS (BEAKER) (test code = 413) 0 /100 WBC 0 -0 BASIC METABOLIC [id number] 06:05:36 Test Item Value Reference Range Interpretation Comments SODIUM (BEAKER) 137 meq/L 135-148 (test code = 381) POTASSIUM (BEAKER) 3.5 meq/L 3.6-5.5 L (test code = 379) CHLORIDE (BEAKER) 106 meq/L 98-106 (test code = 382) CO2 (BEAKER) (test 23 meq/L 20-29 code = 355) BLOOD UREA NITROGEN 10 mg/dL 10-26 (BEAKER) (test code = 354) CREATININE (BEAKER) 0.70 mg/dL 0.50-1.20 (test code = 358) GLUCOSE RANDOM 104 mg/dL 70-110 (BEAKER) (test code = 652) CALCIUM (BEAKER) 7.6 mg/dL 8.5-10.5 L (test code = 697) EGFR (BEAKER) (test 80 mL/min/1.73 ESTIMA NAVYA GFR IS code = 1092) sq m NOT ACCURATE CREATININE CLEARANCE IN PREDICTING GLOMERULAR FILTRATION RATE . ESTIMATED GFR I S NOT APPLICABLE FOR DIALYSIS PATIEN TS. Civil Design Specialist ID - [id number] ID - [id number] ID - [id number] ID - [id number] ID - [id number] ID - [id number] ID - [id number] ID - [id number] ID - [id number] ID - [id number] ID - [id number] ID - [id number] ID - [id number] AND [id number] 01:34:03 Test Item Value Reference Range Interpretation Comments HEMOGLOBIN (BEAKER) (test code = 7.7 GM/DL 12.0-15.5 L 410) HEMATOCRIT (BEAKER) (test code = 22.6 % 36.0-46.0 L 411) HEMOGLOBIN AND [id number] 19:16:06 Test Item Value Reference Range Interpretation Comments HEMOGLOBIN (BEAKER) (test code = 7.6 GM/DL 12.0-15.5 L 410) HEMATOCRIT (BEAKER) (test code = 22.6 % 36.0-46.0 L 411) POCT-GLUCOSE [id number] 18:22:49 Test Item Value Reference Range Interpretation Comments POC-GLUCOSE METER 92 mg/dL 70-110 : TESTED A T [facility] 1317 (BEAKER) (test code = [address]) [facility] 77 [id number]: Civil Design Specialist/Techni raffaele ID = [id number] for Yvonne Anthony POC-Glucose [id number] 12:06:03 Test Item Value Reference Range Interpretation Comments POC-Glucose Meter (test 95 mg/dL 70-110 : TE STED AT [facility] code = 1538) [address] [facility], [facility] [id number]: Civil Design Specialist/Techni raffaele ID = [id number] for Nicole Baeza Lab Interpretation (test Normal code = 71863-2) [facility] [id number] 12:06:03 Test Item Value Reference Range Interpretation Comments POC-GLUCOSE METER 95 mg/dL 70-110 : TESTED A T [facility] 1317 (BEAKER) (test code = [address], [address]) [facility] 77 [address]: Civil Design Specialist/Techni raffaele ID = [id number] for Nicole Schwartz BASIC METABOLIC [id number] 06:37:22 Test Item Value Reference Range Interpretation Comments SODIUM (BEAKER) 138 meq/L 135-148 (test code = 381) POTASSIUM (BEAKER) 3.7 meq/L 3.6-5.5 (test code = 379) CHLORIDE (BEAKER) 108 meq/L 98-106 H (test code = 382) CO2 (BEAKER) (test 25 meq/L 20-29 code = 355) BLOOD UREA NITROGEN 17 mg/dL 10-26 (BEAKER) (test code = 354) CREATININE (BEAKER) 0.62 mg/dL 0.50-1.20 (test code = 358) GLUCOSE RANDOM 97 mg/dL 70-110 (BEAKER) (test code = 652) CALCIUM (BEAKER) 7.6 mg/dL 8.5-10.5 L (test code = 697) EGFR (BEAKER) (test 92 mL/min/1.73 ESTIMA NAVYA GFR IS code = 1092) sq m NOT ACCURATE CREATININE CLEARANCE IN PREDICTING GLOMERULAR FILTRATION RATE . ESTIMATED GFR I S NOT APPLICABLE FOR DIALYSIS PATIEN TS. Civil Design Specialist ID - LITOOperator ID - LITOOperator ID - LITOOperator ID - LITOOperator ID - LITOOperator ID - LITOOperator ID - LITOOperator ID - LITOOperator ID - LITOOperator ID - LITOOperator ID - LITOOperator ID - LITOOperator ID - LITOCBC (HEMOGRAM ONLY)2021-11-16 06:20:27 Test Item Value Reference Range Interpretation Comments WHITE BLOOD CELL COUNT (BEAKER) 6.7 K/ L 4.0-10.0 (test code = 775) RED BLOOD CELL COUNT (BEAKER) 2.66 M/ L 4.00-5.00 L (test code = 761) HEMOGLOBIN (BEAKER) (test code = 8.1 GM/DL 12.0-15.5 L 410) HEMATOCRIT (BEAKER) (test code = 24.1 % 36.0-46.0 L 411) MEAN CORPUSCULAR VOLUME (BEAKER) 90.6 fL 82.0-99.0 (test code = 753) MEAN CORPUSCULAR HEMOGLOBIN 30.5 pg 27.0-33.0 (BEAKER) (test code = 751) MEAN CORPUSCULAR HEMOGLOBIN CONC 33.6 GM/DL 32.0-36.0 (BEAKER) (test code = 752) RED CELL DISTRIBUTION WIDTH 15.1 % 12.0-15.0 H (BEAKER) (test code = 412) PLATELET COUNT (BEAKER) (test 214 K/CU MM 150-430 code = 756) MEAN PLATELET VOLUME (BEAKER) 9.9 fL 6.0-11.5 (test code = 754) NUCLEATED RED BLOOD CELLS 0 /100 WBC 0-0 (BEAKER) (test code = 413) POCT-GLUCOSE [id number] 05:59:33 Test Item Value Reference Range Interpretation Comments POC-GLUCOSE METER 101 mg/dL 70-110 : TESTED A T [facility] 1317 (BEAKER) (test code [facility] [address], = 1538) [place] [id number]: Civil Design Specialist/Techni raffaele ID = [id number] for Will iams, Anay HEMOGLOBIN AND [id number] 00:46:03 Test Item Value Reference Range Interpretation Comments HEMOGLOBIN (BEAKER) (test code = 7.7 GM/DL 12.0-15.5 L 410) HEMATOCRIT (BEAKER) (test code = 22.6 % 36.0-46.0 L 411) POCT-GLUCOSE [id number] 00:15:43 Test Item Value Reference Range Interpretation Comments POC-GLUCOSE METER 100 mg/dL 70-110 : TESTED A T [facility] 1317 (BEAKER) (test code [address], = 1538) [place] [id number]: Civil Design Specialist/Techni raffaele ID = [id number] for Will iams, Anay Prepare Leuko-Red [id number] 23:54:00 Test Item Value Reference Range Interpretation Comments CROSSMATCH (test code = 2264) COMPATIBLE Unit ABO (test code = O Pos 9951711) UNIT NUMBER (test code = [id number] 934-0) Status (test code = 7035490) TX_TIMEINCBANNERT Blood Bank Product (test code RED BLOOD CELLS = 2263) PRODUCT CODE (test code = H1524L02 933-2) [facility] [id number] 19:02:26 Test Item Value Reference Range Interpretation Comments POC-GLUCOSE METER 110 mg/dL 70-110 : TESTED A T [facility] 1317 (BEAKER) (test code [address], = 1538) [facility] 77 478: Civil Design Specialist/Techni raffaele ID = [id number] for Sawy er, Molly CT, CTA [id number] 17:34:00Unlisted Reason for Exam - Click Yes and Enter Reason Below->No [facility] : 1935 Sex: FFINAL REPORT History: Gastrointestinal hemorrhage. TECHNIQUE: Helical CTA of the abdomen and pelvis were performed prior to and following the uneventful administration of intravenous contrast utilizing a GI bleeding protocol, multiple windows, sagittal and coronal reformations. Multiplanar 2-D and 3-D reformations of the abdominal aorta and its major branches were also performed on independent workstation and archived on PACS. This exam was performed according to our departmental dose optimization program which includes automated exposure control, adjustment of the mA and/or KV according to the patient's size and/or use of iterative reconstruction technique. FINDINGS: Abdominal and pelvic CT: Precontrast images show multiple punctate calcifications in the spleen consistent with splenic granulomata. Following the uneventful administration of intravenous contrast, the solid abdominal organs including the spleen, liver, kidneys, pancreas and adrenal glands are unremarkable. The gallbladder is absent and there are surgical clips in the gallbladder fossa consistent with prior cholecystectomy. Mild intrahepatic biliary ductal dilatation is present, likely related to the surgical history. Stomach, visible portions of the small bowel and colon are unremarkable. There is no evidence for obstruction or free air to suggest perforation. No extravasation of contrast is seen within the bowel lumen to suggest active hemorrhage. Scattered colonic diverticula are present without evidence for acute diverticulitis or other acute inflammatory processes of the abdomen or pelvis. Pelvic organsincluding the rectum and urinary bladder are unremarkable. Uterus is absent consistent with hysterectomy. Moderate diffuse atherosclerotic calcification of the aorta and iliac vessels is seen. The celiac axis, superior mesenteric and inferior mesenteric arteries are patent with mild to moderate atherosclerotic calcification near their origins. Single patent renal arteries are present bilaterally. Vessels and bones are otherwise unremarkable. Small pelvic phleboliths are noted. Images obtained through the lower chest and lung bases are clear. IMPRESSION: 1. No active contrast extravasation or evidence for active gastric chest wall hemorrhage. 2.Diverticulosis without evidence for acute diverticulitis. 3. Mild intrahepatic ductal dilatation, likely related to patient's history of cholecystectomy. 4. Splenic granulomata. 5. Moderate atherosclerosis. Signed: Darrion Lr Verified Date/Time: 11/15/2021 17:34:36 Reading Location: [facility] Radiology Reading Room POC-Glucose [id number] 12:40:03 Test Item Value Reference Range Interpretation Comments POC-Glucose Meter (test 102 mg/dL 70-110 : TE STED AT [facility] code = 1538) [address] [facility], [facility] [address]: Civil Design Specialist/Techni raffaele ID = [id number] for Molly Short Lab Interpretation (test Normal code = 60408-9) [facility] [id number] 12:40:03 Test Item Value Reference Range Interpretation Comments POC-GLUCOSE METER 102 mg/dL 70-110 : TESTED A T [facility] 1317 (BEAKER) (test code [facility], = 1538) [facility] [address]: Civil Design Specialist/Techni raffaele ID = [id number] for Molly Lassiter HEMOGLOBIN AND [id number] 12:30:34 Test Item Value Reference Range Interpretation Comments HEMOGLOBIN (BEAKER) (test code = 8.2 GM/DL 12.0-15.5 L 410) HEMATOCRIT (BEAKER) (test code = 24.0 % 36.0-46.0 L 411) POCT-GLUCOSE [id number] 07:51:38 Test Item Value Reference Range Interpretation Comments POC-GLUCOSE METER 119 mg/dL 70-110 H : TESTED A T [facility] 1317 (BEAKER) (test code [address], = 1538) [facility] [address]: Civil Design Specialist/Techni raffaele ID = [id number] for Molly Lassiter BASIC METABOLIC [id number] 06:15:30 Test Item Value Reference Range Interpretation Comments SODIUM (BEAKER) 138 meq/L 135-148 (test code = 381) POTASSIUM (BEAKER) 3.6 meq/L 3.6-5.5 (test code = 379) CHLORIDE (BEAKER) 110 meq/L 98-106 H (test code = 382) CO2 (BEAKER) (test 23 meq/L 20-29 code = 355) BLOOD UREA NITROGEN 24 mg/dL 10-26 (BEAKER) (test code = 354) CREATININE (BEAKER) 0.71 mg/dL 0.50-1.20 (test code = 358) GLUCOSE RANDOM 107 mg/dL 70-110 (BEAKER) (test code = 652) CALCIUM (BEAKER) 7.6 mg/dL 8.5-10.5 L (test code = 697) EGFR (BEAKER) (test 78 mL/min/1.73 ESTIMA NAVYA GFR IS code = 1092) sq m NOT ACCURATE CREATININE CLEARANCE IN PREDICTING GLOMERULAR FILTRATION RATE . ESTIMATED GFR I S NOT APPLICABLE FOR DIALYSIS PATIEN TS. Civil Design Specialist ID - [id number] ID - [id number] ID - [id number] ID - [id number] ID - [id number] ID - [id number] ID - [id number] ID - [id number] ID - [id number] ID - [id number] ID - [id number] ID - [id number] ID - [id number] W/PLT COUNT & AUTO [id number] 06:05:10 Test Item Value Reference Range Interpretation Comments WHITE BLOOD CELL COUNT (BEAKER) 6.4 K/ L 4.0-10.0 (test code = 775) RED BLOOD CELL COUNT (BEAKER) 2.67 M/ L 4.00-5.00 L (test code = 761) HEMOGLOBIN (BEAKER) (test code = 8.1 GM/DL 12.0-15.5 L 410) HEMATOCRIT (BEAKER) (test code = 24.2 % 36.0-46.0 L 411) MEAN CORPUSCULAR VOLUME (BEAKER) 90.6 fL 82.0-99.0 (test code = 753) MEAN CORPUSCULAR HEMOGLOBIN 30.3 pg 27.0-33.0 (BEAKER) (test code = 751) MEAN CORPUSCULAR HEMOGLOBIN CONC 33.5 GM/DL 32.0-36.0 (BEAKER) (test code = 752) RED CELL DISTRIBUTION WIDTH 14.9 % 12.0-15.0 (BEAKER) (test code = 412) PLATELET COUNT (BEAKER) (test 201 K/CU MM 150-430 code = 756) MEAN PLATELET VOLUME (BEAKER) 10.3 fL 6.0-11.5 (test code = 754) NUCLEATED RED BLOOD CELLS 0 /100 WBC 0-0 (BEAKER) (test code = 413) NEUTROPHILS RELATIVE PERCENT 60 % (BEAKER) (test code = 429) LYMPHOCYTES RELATIVE PERCENT 29 % (BEAKER) (test code = 430) MONOCYTES RELATIVE PERCENT 8 % (BEAKER) (test code = 431) EOSINOPHILS RELATIVE PERCENT 2 % (BEAKER) (test code = 432) BASOPHILS RELATIVE PERCENT 1 % (BEAKER) (test code = 437) NEUTROPHILS ABSOLUTE COUNT 3.83 K/ L 1.80-8.00 (BEAKER) (test code = 670) LYMPHOCYTES ABSOLUTE COUNT 1.85 K/ L 1.48-4.50 (BEAKER) (test code = 414) MONOCYTES ABSOLUTE COUNT (BEAKER) 0.52 K/ L 0.00-1.30 (test code = 415) EOSINOPHILS ABSOLUTE COUNT 0.11 K/ L 0.00-0.50 (BEAKER) (test code = 416) BASOPHILS ABSOLUTE COUNT (BEAKER) 0.03 K/ L 0.00-0.20 (test code = 417) IMMATURE GRANULOCYTES-RELATIVE 1 % 0-0 H PERCENT (BEAKER) (test code = 2801) HEMOGLOBIN AND [id number] 05:52:06 Test Item Value Reference Range Interpretation Comments HEMOGLOBIN (BEAKER) (test code = 8.1 GM/DL 12.0-15.5 L 410) HEMATOCRIT (BEAKER) (test code = 24.2 % 36.0-46.0 L 411) Prepare Leuko-Red [id number] 22:30:00 Test Item Value Reference Range Interpretation Comments CROSSMATCH (test code = 2264) COMPATIBLE Unit ABO (test code = O Pos [id number]) UNIT NUMBER (test code = [id number] 934-0) Status (test code = 9514569) ISSUED Blood Bank Product (test code RED BLOOD CELLS = 2263) PRODUCT CODE (test code = Z0918W36 933-2) [facility] [id number] 21:10:13 Test Item Value Reference Range Interpretation Comments HEMOGLOBIN (BEAKER) (test code = 7.0 GM/DL 12.0-15.5 L 410) HEMATOCRIT (BEAKER) (test code = 20.6 % 36.0-46.0 LL 411) HEMOGLOBIN AND [id number] 13:25:53 Test Item Value Reference Range Interpretation Comments HEMOGLOBIN (BEAKER) (test code = 5.1 GM/DL 12.0-15.5 LL 410) HEMATOCRIT (BEAKER) (test code = 15.4 % 36.0-46.0 LL 411) LACTIC ACID, [id number] 11:00:03 Test Item Value Reference Range Interpretation Comments LACTATE BLOOD 1.94 mmol/L See_Comment [Automated me ssage] VENOUS (2) (BEAKER) The syst em which (test code = 2872) generated this result transmitted ref erence range: 0.50-<2. 00. The reference range was not used to interpr et this result as normal/abnormal . Civil Design Specialist ID - [id number] ID - [id number] ID - [id number] ID - [id number] GAS, [id number] 10:50:32 Test Item Value Reference Range Interpretation Comments PH VENOUS (BEAKER) (test code = 7.43 7.32-7.42 H 701) PCO2 VENOUS (BEAKER) (test code = 31 mm Hg 41-51 L 755) PO2 VENOUS (BEAKER) (test code = 47 mm Hg 25-40 H 702) O2 SATURATION VENOUS (BEAKER) 85.2 % 40.0-70.0 H (test code = 703) HCO3 VENOUS (BEAKER) (test code = 20 mmol/L 21-29 L 705) BASE EXCESS VENOUS (BEAKER) (test -3.6 mmol/L -2.0-3.0 L code = 704) BASIC METABOLIC [id number] 08:07:05 Test Item Value Reference Range Interpretation Comments SODIUM (BEAKER) 138 meq/L 135-148 (test code = 381) POTASSIUM (BEAKER) 4.6 meq/L 3.6-5.5 Specimen slightly (test code = 379) hemolyzed CHLORIDE (BEAKER) 111 meq/L 98-106 H (test code = 382) CO2 (BEAKER) (test 15 meq/L 20-29 L code = 355) BLOOD UREA NITROGEN 35 mg/dL 10-26 H (BEAKER) (test code = 354) CREATININE (BEAKER) 0.87 mg/dL 0.50-1.20 Specimen slightly (test code = 358) hemolyzed GLUCOSE RANDOM 133 mg/dL 70-110 H (BEAKER) (test code = 652) CALCIUM (BEAKER) 8.0 mg/dL 8.5-10.5 L (test code = 697) EGFR (BEAKER) (test 62 mL/min/1.73 ESTIMA NAVYA GFR IS code = 1092) sq m NOT ACCURATE CREATININE CLEARANCE IN PREDICTING GLOMERULAR FILTRATION RATE . ESTIMATED GFR I S NOT APPLICABLE FOR DIALYSIS PATIEN TS. Civil Design Specialist ID - [id number] ID - [id number] ID - [id number] ID - [id number] ID - [id number] ID - [id number] ID - [id number] ID - [id number] ID - [id number] ID - [id number] ID - [id number] ID - [id number] ID - [id number] [id number] 08:06:21 Test Item Value Reference Range Interpretation Comments HEMOGLOBIN A1C (BEAKER) (test code = 5.0 % 4.3-6.1 368) Civil Design Specialist ID - [id number] W/PLT COUNT & AUTO [id number] 07:56:14 Test Item Value Reference Range Interpretation Comments WHITE BLOOD CELL COUNT (BEAKER) 10.6 K/ L 4.0-10.0 H (test code = 775) RED BLOOD CELL COUNT (BEAKER) 1.96 M/ L 4.00-5.00 L (test code = 761) HEMOGLOBIN (BEAKER) (test code = 6.2 GM/DL 12.0-15.5 L 410) HEMATOCRIT (BEAKER) (test code = 18.7 % 36.0-46.0 LL 411) MEAN CORPUSCULAR VOLUME (BEAKER) 95.4 fL 82.0-99.0 (test code = 753) MEAN CORPUSCULAR HEMOGLOBIN 31.6 pg 27.0-33.0 (BEAKER) (test code = 751) MEAN CORPUSCULAR HEMOGLOBIN CONC 33.2 GM/DL 32.0-36.0 (BEAKER) (test code = 752) RED CELL DISTRIBUTION WIDTH 13.5 % 12.0-15.0 (BEAKER) (test code = 412) PLATELET COUNT (BEAKER) (test 225 K/CU MM 150-430 code = 756) MEAN PLATELET VOLUME (BEAKER) 10.6 fL 6.0-11.5 (test code = 754) NUCLEATED RED BLOOD CELLS 0 /100 WBC 0-0 (BEAKER) (test code = 413) NEUTROPHILS RELATIVE PERCENT 81 % (BEAKER) (test code = 429) LYMPHOCYTES RELATIVE PERCENT 13 % (BEAKER) (test code = 430) MONOCYTES RELATIVE PERCENT 5 % (BEAKER) (test code = 431) EOSINOPHILS RELATIVE PERCENT 0 % (BEAKER) (test code = 432) BASOPHILS RELATIVE PERCENT 0 % (BEAKER) (test code = 437) NEUTROPHILS ABSOLUTE COUNT 8.61 K/ L 1.80-8.00 H (BEAKER) (test code = 670) LYMPHOCYTES ABSOLUTE COUNT 1.33 K/ L 1.48-4.50 L (BEAKER) (test code = 414) MONOCYTES ABSOLUTE COUNT (BEAKER) 0.57 K/ L 0.00-1.30 (test code = 415) EOSINOPHILS ABSOLUTE COUNT 0.00 K/ L 0.00-0.50 (BEAKER) (test code = 416) BASOPHILS ABSOLUTE COUNT (BEAKER) 0.02 K/ L 0.00-0.20 (test code = 417) IMMATURE GRANULOCYTES-RELATIVE 1 % 0-0 H PERCENT (BEAKER) (test code = 2801) HEMOGLOBIN AND [id number] 00:48:50 Test Item Value Reference Range Interpretation Comments HEMOGLOBIN (BEAKER) (test code = 7.3 GM/DL 12.0-15.5 L 410) HEMATOCRIT (BEAKER) (test code = 21.9 % 36.0-46.0 L 411) TROPONIN [id number] 00:30:34 Test Item Value Reference Range Interpretation Comments TROPONIN I (BEAKER) (test code = 397) < ng/mL 0.00-0.15 Troponin I (TnI) levels must be interpreted in the context of the presenting symptoms and the clinical findings. Elevated TnI levels indicate myocardial damage, but are not specific for ischemic heart disease. Elevated TnI levels are seen in patients with other cardiac conditions (including myocarditis and congestive heart failure), and slight TnI elevations occur in patients with other conditions, including sepsis, renal failure, acidosis, acute neurological disease, and persistent tachyarrhythmia.Civil Design Specialist ID - [id number] 2021-11-13 19:12:11 Test Item Value Reference Range Interpretation Comments TROPONIN I (BEAKER) (test code = 397) < ng/mL 0.00-0.15 Troponin I (TnI) levels must be interpreted in the context of the presenting symptoms and the clinical findings. Elevated TnI levels indicate myocardial damage, but are not specific for ischemic heart disease. Elevated TnI levels are seen in patients with other cardiac conditions (including myocarditis and congestive heart failure), and slight TnI elevations occur in patients with other conditions, including sepsis, renal failure, acidosis, acute neurological disease, and persistent tachyarrhythmia.Civil Design Specialist ID - JUSTINHEMOGLOBIN AND [id number] 18:55:24 Test Item Value Reference Range Interpretation Comments HEMOGLOBIN (BEAKER) (test code = 7.7 GM/DL 12.0-15.5 L 410) HEMATOCRIT (BEAKER) (test code = 23.2 % 36.0-46.0 L 411) HEPATIC FUNCTION [id number] 16:24:56 Test Item Value Reference Range Interpretation Comments TOTAL PROTEIN (BEAKER) (test code = 4.6 gm/dL 6.0-8.5 L 770) ALBUMIN (BEAKER) (test code = 1145) 2.7 g/dL 3.5-5.0 L BILIRUBIN TOTAL (BEAKER) (test code 0.6 mg/dL 0.1-1.2 = 377) BILIRUBIN DIRECT (BEAKER) (test 0.3 mg/dL 0.0-0.4 code = 706) ALKALINE PHOSPHATASE (BEAKER) (test 57 U/L 30-115 code = 346) AST (SGOT) (BEAKER) (test code = 11 U/L 5-40 353) ALT (SGPT) (BEAKER) (test code = 9 U/L 5-50 347) Civil Design Specialist ID - JUSTINOperator ID - JUSTINOperator ID - JUSTINOperator ID - JUSTINOperator ID - JUSTINOperator ID - JUSTINOperator ID - JUSTINOperator ID - JUSTINOperator ID - JUSTINOperator ID - JUSTINBASIC METABOLIC [id number] 16:24:45 Test Item Value Reference Range Interpretation Comments SODIUM (BEAKER) 138 meq/L 135-148 (test code = 381) POTASSIUM (BEAKER) 4.9 meq/L 3.6-5.5 (test code = 379) CHLORIDE (BEAKER) 113 meq/L 98-106 H (test code = 382) CO2 (BEAKER) (test 18 meq/L 20-29 L code = 355) BLOOD UREA NITROGEN 29 mg/dL 10-26 H (BEAKER) (test code = 354) CREATININE (BEAKER) 0.92 mg/dL 0.50-1.20 (test code = 358) GLUCOSE RANDOM 168 mg/dL 70-110 H (BEAKER) (test code = 652) CALCIUM (BEAKER) 7.7 mg/dL 8.5-10.5 L (test code = 697) EGFR (BEAKER) (test 58 mL/min/1.73 ESTIMA NAVYA GFR IS code = 1092) sq m NOT ACCURATE CREATININE CLEARANCE IN PREDICTING GLOMERULAR FILTRATION RATE . ESTIMATED GFR I S NOT APPLICABLE FOR DIALYSIS PATIEN TS. Civil Design Specialist ID - JUSTINOperator ID - JUSTINOperator ID - JUSTINOperator ID - JUSTINOperator ID - JUSTINOperator ID - JUSTINOperator ID - JUSTINOperator ID - JUSTINOperator ID - JUSTINOperator ID - JUSTINCBC W/PLT COUNT & AUTO [id number] 16:00:26 Test Item Value Reference Range Interpretation Comments WHITE BLOOD CELL COUNT (BEAKER) 18.1 K/ L 4.0-10.0 H (test code = 775) RED BLOOD CELL COUNT (BEAKER) 2.51 M/ L 4.00-5.00 L (test code = 761) HEMOGLOBIN (BEAKER) (test code = 8.1 GM/DL 12.0-15.5 L 410) HEMATOCRIT (BEAKER) (test code = 24.4 % 36.0-46.0 L 411) MEAN CORPUSCULAR VOLUME (BEAKER) 97.2 fL 82.0-99.0 (test code = 753) MEAN CORPUSCULAR HEMOGLOBIN 32.3 pg 27.0-33.0 (BEAKER) (test code = 751) MEAN CORPUSCULAR HEMOGLOBIN CONC 33.2 GM/DL 32.0-36.0 (BEAKER) (test code = 752) RED CELL DISTRIBUTION WIDTH 13.1 % 12.0-15.0 (BEAKER) (test code = 412) PLATELET COUNT (BEAKER) (test 348 K/CU MM 150-430 code = 756) MEAN PLATELET VOLUME (BEAKER) 10.2 fL 6.0-11.5 (test code = 754) NUCLEATED RED BLOOD CELLS 0 /100 WBC 0-0 (BEAKER) (test code = 413) NEUTROPHILS RELATIVE PERCENT 91 % (BEAKER) (test code = 429) LYMPHOCYTES RELATIVE PERCENT 6 % (BEAKER) (test code = 430) MONOCYTES RELATIVE PERCENT 2 % (BEAKER) (test code = 431) EOSINOPHILS RELATIVE PERCENT 0 % (BEAKER) (test code = 432) BASOPHILS RELATIVE PERCENT 0 % (BEAKER) (test code = 437) NEUTROPHILS ABSOLUTE COUNT 16.39 K/ L 1.80-8.00 H (BEAKER) (test code = 670) LYMPHOCYTES ABSOLUTE COUNT 1.14 K/ L 1.48-4.50 L (BEAKER) (test code = 414) MONOCYTES ABSOLUTE COUNT (BEAKER) 0.44 K/ L 0.00-1.30 (test code = 415) EOSINOPHILS ABSOLUTE COUNT 0.00 K/ L 0.00-0.50 (BEAKER) (test code = 416) BASOPHILS ABSOLUTE COUNT (BEAKER) 0.03 K/ L 0.00-0.20 (test code = 417) IMMATURE GRANULOCYTES-RELATIVE 1 % 0-0 H PERCENT (BEAKER) (test code = 2801)
[2022-02-02] MEDS ORDERED: NA CHLORIDE 0.9% 1,000 ML ONE (15:05)
[2022-02-02] MEDS ORDERED: ONDANSETRON 4 MG/2 ML VIAL ONE (15:05)
[2022-02-02 15:22] LABS: Absolute Lymphocytes (CBC) 0.7 K/uL (0.7-4.9); Hematocrit 33.2 % (36.0-45.0); Lymphocytes % 12.3 % (15.3-44.8); MCV 77.3 fL (80-100); MPV 7.7 fL (7.6-11.3); RBC Red Blood Cell Count 4.29 M/uL (3.86-4.86)
[2022-02-02 15:39] LABS: AST/SGOT 9 U/L (15-37); Albumin 3.4 g/dL (3.4-5.0); Alkaline Phosphatase 106 U/L (45-117); BUN Blood Urea Nitrogen 11 mg/dL (7-18); Bicarbonate 26 mmol/L (21-32); Bilirubin Total 0.8 mg/dL (0.2-1.0); Glomerular Filtration Rate 68 ml/min (=/>90); Glucose Level 132 mg/dL (74-106); Lipase 221 U/L (73-393); Potassium 3.4 mmol/L (3.5-5.1); Protein, Total 7.3 g/dL (6.4-8.2); Sodium Level 141 mmol/L (136-145); Troponin High Sensitivity 4.4 pg/mL (<58.9)
[2022-02-02 15:44] LABS: ALT/SGPT < 10 U/L (12-78)
--- NOTE | 2022-02-02 16:24 | RAD REPORT ---
EXAM DESCRIPTION: CT - Head Brain Wo Cont - 02/02/2022 4:18 pm CLINICAL HISTORY: syncope COMPARISON: Head Brain Wo Cont dated 06/29/2021 TECHNIQUE: Axial 5 mm thick images of the head were obtained without IV contrast. All CT scans are performed using dose optimization technique as appropriate and may include automated exposure control or mA/KV adjustment according to patient size. FINDINGS: No intracranial hemorrhage, mass, edema or shift of mid-line structures. No acute cortical infarction changes seen. No cortical edema or sulcal effacement. Mild to moderate for age atrophy ch anges are present. Ventricles are in proportion to volume loss. Cerebral white matter chronic ischemi c pattern is similar to comparison. Mastoid air cells and visualized portions of the paranasal sinuses are clear. No acute bony findings. Patient has normal variant but very pronounced hyperostosis frontalis interna . IMPRESSION: Negative non-contrast CT head examination for acute finding. No significant change from comparison. Chronic ischemic change can mask nonhemorrhagic CVA. Follow-up MR imaging could be performed if there are clinical concerns for acute CVA.
[2022-02-02 17:27] LABS: Urine Blood Negative (Negative); Urine Glucose Trace (Negative); Urine Protein 2+ (Negative); Urine Specific Gravity >=1.030 (1.005-1.030); Urine pH 5.5 (5.0-7.0)
--- NOTE | 2022-02-02 17:29 | ER ---
Nurse's Notes [facility] Name[facility] Lety Ont[facility] Age: 86 yrs Sex: Female : 1935 Arrival Date: 02/02/2022 Time: 13:44 Bed 20 Private MD: Charanjit Espinoza Diagnosis: Syncope Near Presentation: 02/02 13:50 Chief complaint: Patient states: Pt reports near syncopal episode - Daughter in law ld1 caught pt and gently placed on ground. Denies injuries. Did not hit head. Negative LOC. Family reports recent stomach bug - pt c/o fatigue, coughing, N/V/D. Coronavirus screen: At this time, the client does not indicate any symptoms associated with coronavirus-19. Ebola Screen: No symptoms or risks identified at this time. Initial Sepsis Screen: Does the patient meet any 2 criteria? No. Patient's initial sepsis screen is negative. Does the patient have a suspected source of infection? No. Patient's initial sepsis screen is negative. Risk Assessment: Do you want to hurt yourself or someone else? Patient reports no desire to harm self or others. Onset of symptoms was February 02, 2022. 13:50 Method Of Arrival: Ambulatory ld1 13:50 Acuity: FLORES 3 ld1 Triage Assessment: 13:50 General: Appears in no apparent distress. comfortable, Behavior is calm, cooperative, ld1 appropriate for age. Pain: Denies pain. EENT: No signs and/or symptoms were reported regarding the EENT system. Neuro: Level of Consciousness is awake, alert, obeys commands, Oriented to person, place, time, situation. Cardiovascular: Capillary refill < 3 seconds Patient's skin is warm and dry. Respiratory: Airway is patent Respiratory effort is even, unlabored. GI: Abdomen is flat, non-distended, Reports nausea, vomiting. : No signs and/or symptoms were reported regarding the genitourinary system. Derm: No signs and/or symptoms reported regarding the dermatologic system. Musculoskeletal: No signs and/or symptoms reported regarding the musculoskeletal system. Historical: - Allergies: 13:50 PENICILLINS; ld1 - Home Meds: 13:50 aspirin 81 mg Oral TbEC 1 tab once daily [Active]; ld1 - PMHx: 13:50 bowel obstruction; CHF; Cancer, Breast; CVA; mastectomy right side; neuropathy; ld1 Parkinsons; - PSHx: 13:50 Mastoidectomy; Right side; ld1 - Immunization history:: Adult Immunizations up to date, Client reports receiving the 2nd dose of the Covid vaccine. - Social history:: Smoking status: Patient denies any tobacco usage or history of. Patient/guardian denies using alcohol. Screenin:01 Abuse screen: Denies threats or abuse. Denies injuries from another. Nutritional iw screening: No deficits noted. Tuberculosis screening: No symptoms or risk factors identified. Fall Risk IV access (20 points). Assessment: 15:00 General: Appears in no apparent distress. Behavior is cooperative. General:. Neuro: iw Level of Consciousness is awake, alert, obeys commands, Moves all extremities. Cardiovascular: Patient's skin is warm and dry. Respiratory: Airway is patent Respiratory effort is even, unlabored, Respiratory pattern is regular. Derm: Skin is pale. Musculoskeletal: Range of motion: intact in all extremities. Vital Signs: 13:50 BP 133 / 98; Pulse 83; Resp 16; Temp 97.1(O); Pulse Ox 100% on R/A; Weight 70.31 kg; ld1 Height 5 ft. 4 in. (162.56 cm); Pain 0/10; 13:50 Body Mass Index 26.61 (70.31 kg, 162.56 cm) ld1 ED Course: 13:44 Patient arrived in ED. as 13:44 Charanjit Espinoza DO is Private Physician. as 13:50 Arm band placed on right wrist. ld1 13:54 Triage completed. ld1 14:21 Murray Palm MD is Attending Physician. sp3 14:55 Saskia Phelps, JAKE is Primary Nurse. iw 16:19 CT Head Brain wo Cont In Process Unspecified. EDMS Administered Medications: 15:39 Drug: NS 0.9% 1000 ml Route: IV; Rate: 1 bolus; Site: left hand; iw 16:40 Follow up: IV Status: Completed infusion iw 16:42 Drug: Zofran (Ondansetron) 4 mg Route: IVP; Site: left hand; ld1 17:00 Follow up: Response: No adverse reaction iw Outcome: 17:28 Discharge ordered by . sp3 17:46 Patient left the ED. iw Signatures: Dispatcher [employer] Jeanie Lyles Irene, RN RN iw Roberta Wilson RN RN ld1 Murray Palm MD MD sp3 Corrections: (The following items were deleted from the chart) 13:55 13:50 Chief complaint: Patient states: Pt reports near syncopal episode - Daughter in ld1 law caught pt and gently placed on ground. Denies injuries. Did not hit head. Negative LOC. ld1
--- NOTE | 2022-02-02 17:29 | EDPHYS ---
Physician Documentation [facility] Name: Lety Ontiveros Age: 86 yrs Sex: Female : 1935 Arrival Date: 02/02/2022 Time: 13:44 Bed 20 Private MD: Charanjit Espinoza ED Physician Murray Palm HPI: 02/02 14:55 This 86 yrs old Female presents to ER via Ambulatory with complaints of Syncope. sp3 14:55 86-year-old female with a history of prior breast cancer, CHF, CVA now presents with sp3 near-syncopal episode x1 today just prior to arrival. Per family patient "almost" passed out fatigue. Family also states that she has had 4-5 episodes of this within the last 6 months. Patient denies any fever, headache, chest pain, shortness breath, back pain, abdominal pain, nausea, vomiting, diarrhea, focal neurodeficit, numbness or tingling, known sick contacts, travel history, any other symptoms of ROS at this time. Family also state that other physicians also looked at this but did not come up with anything. Currently patient feels like she is back at her baseline and has no complaints other than mild lightheadedness.. Historical: - Allergies: 13:50 PENICILLINS; ld1 - Home Meds: 13:50 aspirin 81 mg Oral TbEC 1 tab once daily [Active]; ld1 - PMHx: 13:50 bowel obstruction; CHF; Cancer, Breast; CVA; mastectomy right side; neuropathy; ld1 Parkinsons; - PSHx: 13:50 Mastoidectomy; Right side; ld1 - Immunization history:: Adult Immunizations up to date, Client reports receiving the 2nd dose of the Covid vaccine. - Social history:: Smoking status: Patient denies any tobacco usage or history of. Patient/guardian denies using alcohol. ROS: 14:57 Constitutional: Negative for fever, chills, and weight loss, Eyes: Negative for injury, sp3 pain, redness, and discharge, ENT: Negative for injury, pain, and discharge, Neck: Negative for injury, pain, and swelling, Cardiovascular: Negative for chest pain, palpitations, and edema, Respiratory: Negative for shortness of breath, cough, wheezing, and pleuritic chest pain, Abdomen/GI: Negative for abdominal pain, nausea, vomiting, diarrhea, and constipation, Back: Negative for injury and pain, MS/Extremity: Negative for injury and deformity, Skin: Negative for injury, rash, and discoloration, Psych: Negative for depression, anxiety, suicide ideation, homicidal ideation, and hallucinations, Allergy/Immunology: Negative for hives, rash, and allergies, Endocrine: Negative for neck swelling, polydipsia, polyuria, polyphagia, and marked weight changes, Hematologic/Lymphatic: Negative for swollen nodes, abnormal bleeding, and unusual bruising. 14:57 All other systems are negative. Exam: 14:57 Constitutional: This is a well developed, well nourished patient who is awake, alert, sp3 and in no acute distress. Head/Face: Normocephalic, atraumatic. Eyes: Pupils equal round and reactive to light, extra-ocular motions intact. Lids and lashes normal. Conjunctiva and sclera are non-icteric and not injected. Cornea within normal limits. Periorbital areas with no swelling, redness, or edema. ENT: Nares patent. No nasal discharge, no septal abnormalities noted. External auditory canals are clear. Oropharynx with no redness, swelling, or masses, exudates, or evidence of obstruction, uvula midline. Mucous membranes moist. Neck: Trachea midline, no thyromegaly or masses palpated, and no cervical lymphadenopathy. Supple, full range of motion without nuchal rigidity, or vertebral point tenderness. No Meningismus. Chest/axilla: Normal chest wall appearance and motion. Nontender with no deformity. No lesions are appreciated. Cardiovascular: Regular rate and rhythm with a normal S1 and S2. No gallops, murmurs, or rubs. Normal PMI, no JVD. No pulse deficits. Respiratory: Lungs have equal breath sounds bilaterally, clear to auscultation and percussion. No rales, rhonchi or wheezes noted. No increased work of breathing, no retractions or nasal flaring. Abdomen/GI: Soft, non-tender, with normal bowel sounds. No distension or tympany. No guarding or rebound. No evidence of tenderness throughout. Back: No spinal tenderness. No costovertebral tenderness. Full range of motion. Skin: Warm, dry with normal turgor. Normal color with no rashes, no lesions, and no evidence of cellulitis. MS/ Extremity: Pulses equal, no cyanosis. Neurovascular intact. Full, normal range of motion. Psych: Awake, alert, with orientation to person, place and time. Behavior, mood, and affect are within normal limits. 14:57 Neuro: Orientation: is normal, Mentation: is normal, Memory: is normal, Cranial nerves: grossly normal, Cerebellar function: is grossly normal, Motor: is normal, Sensation: is normal, Gait: appropriate for age, seizure activity, is not displayed by the patient. Vital Signs: 13:50 BP 133 / 98; Pulse 83; Resp 16; Temp 97.1(O); Pulse Ox 100% on R/A; Weight 70.31 kg; ld1 Height 5 ft. 4 in. (162.56 cm); Pain 0/10; 13:50 Body Mass Index 26.61 (70.31 kg, 162.56 cm) ld1 MDM: 14:45 Patient medically screened. sp3 14:59 Data reviewed: vital signs, nurses notes. ED course: 86-year-old female with near sp3 syncope. Work-up will include CT scan of the head, EKG, laboratory values, IV fluids, reassessment. Given the fact that she has had multiple episodes, I am not highly suspicious of critical findings including intracranial hemorrhage, CVA, ACS, sepsis, shock, any other critical findings at this time. Probable disposition is discharged to PCP and neurology follow-up with the possibility of admission given any abnormal findings or change in neurological exam. Patient and family are are okay with this plan and all questions have been answered.. 17:27 ED course: Work-up reviewed including CT scan of the head, laboratory values, UA. No sp3 evidence of infection at this time. No intracranial abnormality. EKG also reviewed. At this time patient has no critical findings that would explain her near syncopal episode. We will discharge her home and she can follow-up with her PCP and telecommunications sales representative as needed.. 02/02 14:23 Order name: CBC with Diff; Complete Time: 16:00 sp3 02/02 14:23 Order name: CMP; Complete Time: 16:00 sp3 02/02 14:23 Order name: Lipase; Complete Time: 16:00 sp3 02/02 14:23 Order name: Urine Microscopic Only sp3 02/02 14:23 Order name: Troponin High Sensitivity; Complete Time: 16:00 sp3 02/02 17:27 Order name: Urine Dipstick-Ancillary EDMS 02/02 14:23 Order name: IV Saline Lock; Complete Time: 15:39 sp3 02/02 14:23 Order name: Labs collected and sent; Complete Time: 15:30 sp3 02/02 14:23 Order name: Urine Dipstick-Ancillary (obtain specimen); Complete Time: 17:22 sp3 02/02 14:23 Order name: EKG - Nurse/Tech; Complete Time: 15:07 sp3 02/02 14:23 Order name: CT Head Brain wo Cont; Complete Time: 16:57 sp3 Administered Medications: 15:39 Drug: NS 0.9% 1000 ml Route: IV; Rate: 1 bolus; Site: left hand; iw 16:40 Follow up: IV Status: Completed infusion iw 16:42 Drug: Zofran (Ondansetron) 4 mg Route: IVP; Site: left hand; ld1 17:00 Follow up: Response: No adverse reaction iw Disposition Summary: 02/02/22 17:28 Discharge Ordered Location: Home sp3 Condition: Stable sp3 Diagnosis - Syncope Near sp3 Followup: sp3 - With: Private Physician - When: Upon discharge from the Emergency Department - Reason: Further diagnostic work-up Discharge Instructions: - Discharge Summary Sheet sp3 - Near-Syncope sp3 Forms: - Medication Reconciliation Form sp3 - Thank You Letter sp3 - Antibiotic Education sp3 - Prescription Opioid Use sp3 Signatures: Dispatcher [employer] Saskia Braden RN RN iw Roberta Wilson RN RN ld1 Murray Palm MD MD sp3
[2022-02-02 17:53] LABS: Urine Bacteria 20-50 /HPF (<20); Urine Mucus 3+ /HPF (None Seen); Urine RBC <5 /HPF (None Seen)
[2022-02-02 20:25] VITALS: BP 133/98; TEMP 97.1; O2SAT 100
== END 2022-02-02 17:46 | disposition home or self-care (01) ==
LOC: ER 13:40
DX: R55 Syncope and collapse (principal); I50.9 Heart failure, unspecified; G20 Parkinson's disease; Z85.3 Personal history of malignant neoplasm of breast; Z90.11 Acquired absence of right breast and nipple; Z86.73 Personal history of transient ischemic attack (TIA), and cerebral infarction without residual deficits; Z79.82 Long term (current) use of aspirin
CPT/HCPCS: 87088; 85025; 87086; 36415; 84484; 83690; 80053; 70450; J7030; J2405; 81003; 81015; 96361; 96374; 99283